=== PATIENT | male | born 1965 | race African-American/Black ===

== ENCOUNTER 2016-11-14 05:06 | Day surgery (SDC) | payer MEDICAID ==
[2016-11-13 12:19] LABS: HEMATOCRIT 42.8 % (42.0-54.0); HEMOGLOBIN 14.5 g/dL (13.5-17.5); MCH 25.4 pg (26.0-34.0); MCHC 33.9 g/dL (31.0-37.0); MCV 75.1 fL (80.0-100.0); MEAN PLATELET VOLUME 10.1 fL (7.4-10.4); RBC 5.7 10x6/uL (4.20-6.10); WBC 6.2 10x3/uL (4.8-10.8)
[2016-11-13 12:41] LABS: ANION GAP 14.2 mmol/L (8-16); CALCIUM 9.5 mg/dL (8.5-10.1); CARBON DIOXIDE 27.2 mmol/L (21.0-32.0); CREATININE - SERUM 2.9 mg/dL (0.6-1.3); POTASSIUM - SERUM 4.4 mmol/L (3.5-5.1)
[~2016-11-14] VITALS: Ht 175.3 cm; Wt 135.2 kg
[~2016-11-14 05:06] MED LIST: BAYER CHEWABLE81 MG PO; CARAFATE1 G PO; CELEXA20 MG PO; COREG 3.1253.125 MG PO; CYCLOBENZAPRINE10 MG PO; DESERYL100 MG PO; FLUTICASONE PRO16 GM NASAL; GLIPIZIDE10 MG PO; GLUCOPHAGE1000 MG PO; HCTZ25 MG PO; HYDROCODONE-APA1 TAB PO; HYZAAR 100-25 T1 TAB PO; JARDIANCE25 MG PO; LANTUS INSULIN10 ML SC; MOBIC7.5 MG PO; NEURONTIN 300300 MG PO; NITROSTAT0.4 MG SL; NORCO 7.5/325 T1 TA1 PO; PLAVIX75 MG PO; PRAVACHOL40 MG PO; ULTRAM50 MG PO; VICTOZA0.6 MG/0.1 SQ; VISTARIL25 MG PO; ZESTRIL40 MG PO; ZYLOPRIM300 MG PO
[2016-11-14 07:18] VITALS: BP 114/70; BMI 44.1
--- NOTE | 2016-11-14 08:03 | NUR ---
0740--FSBS 509. RESULTS CALLED TO DR STEVEN AND DR FERMIN, ORDER RECIEVED PER MAURIZIO FOR 10 UNITS REGULAR INSULIN IV. CRISTOBAL APARICIO 0757--CHEPE FROM LAB CALLS CRITICAL GLUCOSE OF 574, GLUCOSE OF [address] READ BACK AND VERIFIED. DR STEVEN ON UNIT, REPORT GIVEN OF PT'S GLUCOSE LEVEL. CRISTOBAL APARICIO
--- NOTE | 2016-11-14 08:15 | NUR ---
0810--10 UNITS REGULAR INSULIN GIVEN IV, VERIFIED AND CO-SIGNED BY WONG MCKINLEY RN. CRISTOBAL APARICIO
--- NOTE | 2016-11-14 08:26 | NUR ---
0806--DR PRATER CALLED AND REPORT GIVEN OF PT'S GLUCOSE LEVEL, DR PRATER DEFERS TREATMENT TO DR STEVEN AND DR FERMIN. CRISTOBAL RN
--- NOTE | 2016-11-14 08:49 | NUR ---
0845--FSBS COMPLETE, BS 420. LAB TO REPEAT. DR STEVEN NOTIFIED, ORDERS RECIEVED. CRISTOBAL RN
--- NOTE | 2016-11-14 09:15 | NUR ---
0903--10 UNITS REGULAR INSULIN REPEATED PER DR STEVEN'S ORDERS, WILL CONTINUE TO MONITOR. CRISTOBAL APARICIO
--- NOTE | 2016-11-14 10:37 | NUR ---
FSBS DOWN TO 214 AFTER 30 UNITS REGULAR INSULIN IV. OK FOR SURGERY PER DR MALLORY. DALJIT RENEE NOTIFIED
--- NOTE | 2016-11-14 12:00 | NUR ---
fsbs 128 at this time. DENIES ANY S/S. ANESTHESIA HERE FOR PRE-OP
--- NOTE | 2016-11-14 14:52 | NUR ---
1400: PT STATED TAHT THERE WAS NO FAMILY CURRENTLY HERE THAT HIS SISTER WAS COMING TO THE HOSPITAL IN A LITTLE BIT
--- NOTE | 2016-11-14 16:17 | NUR ---
IN PACU PT STATED WAS NOT IN PAIN. INFORMED PT TO LET ME KNOW IF THIS CHANGES AND CAN GIVE MEDICATIONS. ASKED PT NUMEROUS TIMES ABOUT PAIN AND PT STILL STATED NONE. WHEN TRANSPORTED PT AND PT MOVED TO BED PT THEN STATED A PAIN OF A 10 ON NUMERICAL SCALE. DENISE APARICIO ASKED IF THERE WAS ANYTING I COULD GIVE THE PT "I DONT HAVE ORDERS FOR ANYTHING THAT WILL TOUCH A 10." INFORMED HER THAT I COULD GIVE 0.5MG OF DILAUDID THAT WE HAD ORDERED FOR PACU BUT COULD NOT STAY WITH PT AFTERWARDS DUE TO SURGERIES AND STAFFING. SHE STATED THAT IT WAS OK AND ASSUMED CARE OF THE PT AFTER 0.5MG OF MORPHINE WAS GIVEN. INFORMED DALJIT OF THE SITUATION.
--- NOTE | 2016-11-14 21:02 | NUR ---
2100 REPORT TO MS KENDALL APARICIO
--- NOTE | 2016-11-14 21:23 | NUR ---
REC'D TO FLOOR VIA W/C TRANSPORT FROM OUTPATIENT. PT CURRENTLY TEARFUL AND MOANING, STATING THAT HIS ABD IS "KILLING HIM." PAIN 10/10, CONSTANT, SHARP, SHOOTING, STABBING, AND ACHING PAIN. INSTRUCTED PT ON SPLINTING PRIOR TO TRANSFERRING FROM W/C TO BED, DEMONSTRATED UNDERSTANDING. VSS AT THIS TIME. PT STATES THAT HE IS BELCHING BUT HAS BEEN UNABLE TO PASS FLATUS SINCE PROCEDURE. ADMISSION ASSESSMENT COMPLETED, BOWEL SOUNDS HYPOACTIVE X4 QUADS, SOFT, NONDISTENDED. 2 BANDAIDS AND 1 STERISTRIP PRESENT TO MIDLINE AND RUQ OF ABD AND 1 LARGE BANDAID PRESENT TO UMBILICUS, ALL CLEAN, DRY, AND INTACT. STATES THAT HE IS "QUEASY" CURRENTLY BUT DOESN'T FEEL THE NEED TO VOMIT. PT STATES THAT HE IS VOIDING WITHOUT COMPLICATIONS. ORIENTED TO ROOM, CL USE, SIDE RAILS USE TO ADJUST BED, VERBALIZED UNDERSTANDING. BED IN LOW POSITION, CL/PHONE WITHIN REACH. UPPER SIDE RAILS RAISED X2. ICE WATER AND SUGAR FREE JELLO GIVEN PER PT REQUEST AND ORDERS.
--- NOTE | 2016-11-14 21:27 | NUR ---
GLORY HOLE TENDER INITIATED. INSTRUCTED PT ON GLORY HOLE TENDER USE AND MEDICATION SIDE EFFECTS. VERBALIZED UNDERSTANDING. EMPHASIS PLACED ON USING CL FOR SAFETY PRECAUTIONS WHEN GETTING OOB, VERBALIZED UNDSTANDING. CL PLACED ON BEDSIDE TABLE WITHIN PATIENTS REACH. PAIN REMAINS 10/10.
[2016-11-14 21:52] VITALS: BP 124/74; BMI 44.1
--- NOTE | 2016-11-14 22:01 | NUR ---
PT STATES THAT HE HAS BELCHED "A COUPLE MORE TIMES." PAIN REASSESSMENT FROM TRIPLE AIR VALVE TESTER INITIATION 07/21.
--- NOTE | 2016-11-14 22:11 | NUR ---
PT RESTING WITH EYES CLOSED UPON RN ENTERING ROOM. OPENED EYES. STATES THAT HE WAS ABLE TO PASS FLATUS "A FEW MINUTES AGO." PAIN NOW 5/10. ICE PACK GIVEN PER PT REQUEST TO ABD INCISIONS. VERBALIZED RELIEF. WILL CONT TO MONITOR
--- NOTE | 2016-11-14 23:39 | NUR ---
GOWN CHANGED. PATIENT STATES HE FEELS MUCH BETTER AFTER HAVING PASSED "GAS."
--- NOTE | 2016-11-15 01:30 | NUR ---
EYES CLOSED. LEFT UNDISTURBED.
--- NOTE | 2016-11-15 05:38 | NUR ---
SLEPT FAIRLY WELL DURING THE NIGHT. ANTICIPATES DISCHARGE TODAY.
--- NOTE | 2016-11-15 06:44 | NUR ---
FSBS 328mg/dl AC
--- NOTE | 2016-11-15 07:17 | NUR ---
REGULAR INSULIN 12 UNITS GIVEN PER SLIDING SCALE.
[2016-11-15 07:30] VITALS: BP 120/73
--- NOTE | 2016-11-15 07:30 | NUR ---
PT RECEIVED LYING IN BED. AAO X4. REQUESTED WET RAG TO WASH FACE. HEART RHYTHM REGULAR, BILATERAL LUNG SOUNDS CLEAR. ABDOMEN SOFT, 4 SMALL LAPAROSCOPIC INCISIONS NOTED TO UPPER ABDOMEN, ONE LAPAROSCOPIC INCISION NOTED TO UMBILICUS, CLEAN, DRY, AND INTACT. BOWEL SOUNDS ACTIVE X4 QUADRENTS. IV TO LEFT HAND, PATENT NO REDNESS OR SWELLING NOTED. CLEAN, DRY, AND INTACT. SRU X2, CALL LIGHT AND PHONE WITHIN REACH. BED IN LOWEST POSITION. PT STATES NO NEEDS AT THIS TIME.
--- NOTE | 2016-11-15 07:40 | NUR ---
PT WAS RECEIVED WITH URI VELASQUEZ RN WHO IS ORIENTING TO [facility]. PT WAS LYING IN BED. STATES THAT HE FEELS BETTER THIS AM. HE HAS ABDOMINAL INCISIONS ON UPPER ABDOMEN WHICH ARE SMALL LAPAROSCOPIC INCISIONS AND ONE INCISION AT UMBILICUS. PAIN APPEARS TO BE UNDER CONTROL WITH BATON TEACHER PAIN MANAGEMENT. IV PATENT LEFT HAND. BED IS LOW. CALL LIGHT IN REACH AND SIDE RAILS UP X 2.
--- NOTE | 2016-11-15 09:29 | NUR ---
PT REQUESTED ICE WATER AND FOOD TRAY REMOVAL. STATES NO OTHER NEEDS. BED IN LOWEST POSITION, PHONE AND CALL LIGHT WITHIN REACH, SRU X2.
--- NOTE | 2016-11-15 11:02 | NUR ---
PT REQUESTED ICE WATER. STATES NO FURTHER NEEDS. BED IN LOWEST POSITION. PHONE AND CALL LIGHT WITHIN REACH. SRU X2.
[2016-11-15 11:12] VITALS: Ht 175.3 cm; Wt 135.2 kg
--- NOTE | 2016-11-15 11:38 | NUR ---
PT REQUESTED ICE WATER. BLOOD SUGAR ASSESSED. IV FLUIDS INFUSING, MARINE FIRE FIGHTER IN USE, DENIES UNCONTROLLED PAIN; HAS SORENESS. PT UP AMBULATING AROUND ROOM PER STATEMENT. DENIES NEEDS. BED IN LOWEST POSITION. PHONE AND CALL LIGHT WITHIN REACH. SRU X2.
--- NOTE | 2016-11-15 12:03 | NUR ---
BLOOD SUGAR 283. ADMINISTERED 10 UNITS INSULIN TO LEFT ARM. PT TOLERATED WELL. DENIES NEEDS. BED IN LOWEST POSITION. PHONE AND CALL LIGHT WITHIN REACH. SRU X2.
--- NOTE | 2016-11-15 12:05 | NUR ---
REGULAR DIABETIC DIET ORDERED.
--- NOTE | 2016-11-15 13:30 | NUR ---
PATIENT AMBULATED IN THE HALLWAY TO THE NURSERY WINDOWS TO VIEW THE BABIES. HE WAS WITHOUT DIZZINESS AND DENIED NAUSEA. HE HAD A REGULAR DIET FOR LUNCH. NO INCREASED PAIN.
--- NOTE | 2016-11-15 15:35 | NUR ---
PT WAS DISCHARGED HOME. DISCHARGE INSTRUCTIONS WERE GIVEN, FOLLOW UP APPT WITH DR FERMIN AND PRESCRIPTIONS. PT TAKEN BY WHEELCHAIR TO HIS SISTER'S VEHICLE WAITNG AT FRONT ENTRANCE FOR HIM.
--- NOTE | 2017-01-09 10:17 | HP ---
PATIENT: TOAN LOZADA MEDICAL RECORD: [id number] ACCOUNT: [id number] LOCATION:[facility] : 69 ADMISSION DATE: 11/14/16 HISTORY AND PHYSICAL EXAMINATION CHIEF COMPLAINT: Pain. HISTORY OF PRESENT ILLNESS: The patient has been having pain and nausea. He has had a positive PIPIDA scan. The patient has biliary dyskinesia. He is to undergo laparoscopic cholecystectomy, intraoperative cholangiography, and possible liver biopsy. The risks, possible complications and alternatives to procedure were explained to the patient. He elects to proceed. REVIEW OF SYSTEMS: Negative for CVA or seizures. Negative for thyroid problems. ALLERGIES: PENICILLIN WELL TETRACYCLINE. HOME MEDICATIONS: Include insulin, Flexeril, Plavix, Hyzaar, Coreg, nitroglycerin, Glucophage and Pravachol. PAST MEDICAL AND SURGICAL HISTORY: Coronary artery disease, hypertension, insulin-dependent diabetes mellitus, hyperlipidemia, history of coronary stents times 3, History of 2 myocardial infarctions, sleep apnea, he is on CPAP and arthritis. PHYSICAL EXAMINATION: GENERAL: The patient does not appear acutely ill. He does appear chronically ill. VITAL SIGNS: Reviewed. HEAD: External ears appear normal. EYES: Extraocular movements are intact. NECK: Trachea is midline. CHEST: No intercostal retractions. PULMONARY: Nonlabored, no stridor. ABDOMEN: Nontender. EXTREMITIES: No peripheral cyanosis. INTEGUMENT: No rash, no ulcerations. PSYCHIATRIC: Normal affect. IMPRESSION: Biliary dyskinesia. PLAN: As described above. TRANSINT:[id number] Voice Confirmation ID: [id number] DOCUMENT ID: [id number] HISTORY AND PHYSICAL [id number] TOAN LOZADA ROBERT MD at 1017 CC: DANNY PRATER DO [id number] DICTATION DATE: 11/14/16 1546 PRESCRIPTIONIST: 11/14/16 2036 [facility] 11/15/16 [id number] [place] [address]
--- NOTE | 2017-01-09 10:17 | OP ---
PATIENT NAME: TOAN LOZADA MEDICAL RECORD: [id number] :69 LOCATION:[facility] ADMISSION DATE: SURGEON: YUNIOR FERMIN MD DATE OF OPERATION: 11/14/2016 PREOPERATIVE DIAGNOSIS: Biliary dyskinesia. POSTOPERATIVE DIAGNOSIS: Biliary dyskinesia with hepatomegaly. PROCEDURE: 1. Laparoscopic cholecystectomy. 2. Intraoperative cholangiography without immediate surgeon interpretation. 3. An 18-gauge core needle liver biopsy. SURGEON: Yunior Fermin MD PLANT SUPERVISOR: None. BLOOD LOSS: Minimal. ANESTHESIA: General. COMPLICATIONS: None. The risks, possible complications and alternatives to procedure were explained to the patient. He elects to proceed. The discussion specifically included, but was not limited to, bleeding requiring emergency reoperation, infection, common ductal injury and an open procedure. OPERATIVE COURSE: The patient was conveyed to the operating room electively on 11/14/2016. General anesthesia was induced by the anesthesia staff. The abdomen was sterilely prepped and draped. A small skin estephania was accomplished in the left upper quadrant. A Veress needle was inserted through the skin estephania into the peritoneal cavity. CO2 insufflation was begun. Once a sufficient pneumoperitoneum had been achieved, a 5-mm trocar was inserted through an incision in the right upper quadrant. Under direct internal vision utilizing a television camera, a 12-mm trocar was inserted through an incision at the umbilicus. Another 5-mm trocar was inserted through an incision in the epigastrium. Another 5-mm trocar was inserted through an incision far laterally in the right upper quadrant. During insertion of the Veress needle and all trocars, there appeared to have been no injury to the bowels, any intraperitoneal or retroperitoneal structures. The indication for a liver biopsy was hepatomegaly. Under laparoscopic guidance, I percutaneously accessed the right upper quadrant utilizing an 18-gauge core needle liver biopsy device. Cores were obtained over the convexity of the liver. The biopsy sites were made hemostatic with electrocautery. I then grasped the gallbladder. I advanced a cholangiogram trocar. I punctured the fundus of the gallbladder. I aspirated bile. I then injected dye. The contrast dye was seen and several cholangiographic images were obtained. These were sent to the radiologist for interpretation. I aspirated bile and dye, and removed the cholangiogram trocar. The gallbladder was grasped and retracted cephalad. The infundibulum was grasped and retracted laterally. Blunt dissection was begun in the triangle of Calot. One cystic OPERATIVE REPORT [id number] TOAN LOZADA L artery and 1 cystic duct were identified. These were clipped multiply and divided between clips. The gallbladder was then excised from its bed in the liver. It was withdrawn through the umbilical fascia defect. The 12-mm trocar was replaced and the abdomen reinsufflated. I irrigated and aspirated in the right upper quadrant. There was no bleeding at a low pressure of 8. Satish was added to the gallbladder fossa for additional hemostasis. The 12-mm trocar was removed. Utilizing the Rich-Haseeb suture closure device and a 0 Vicryl suture, the umbilical fascia was closed. All the trocars were removed and the abdomen desufflated. The skin at the umbilicus was closed with interrupted 4-0 Vicryl Rapide sutures. The other skin incisions were closed with interrupted 3-0 Vicryls. Benzoin and Steri-Strips were applied. The patient was then extubated and conveyed to post-anesthesia care unit where he was in stable condition. TRANSINT:[id number] Voice Confirmation ID: [id number] DOCUMENT ID: [id number] YUNIOR FERMIN MD at 1017 CC: DANNY PRATER DO [id number] DICTATION DATE: 11/14/16 1543 MACHINE PAINT MIXER: 11/14/16 2320 [facility] 11/15/16 [facility] [address] [place] [address]
== END 2016-11-15 15:30 | disposition home or self-care (01) ==
LOC: D.OPS 05:06 → D.WS 05:06 → D.PAN 08:00 → D.OPS 08:00 → D.WS 21:05 → D.OPS 11-15 15:30
PROVIDERS: Anesthesiology
DX: K81.1 Chronic cholecystitis (principal); K76.0 Fatty (change of) liver, not elsewhere classified; I25.10 Atherosclerotic heart disease of native coronary artery without angina pectoris; Z95.5 Presence of coronary angioplasty implant and graft; I25.2 Old myocardial infarction; I10 Essential (primary) hypertension; E11.9 Type 2 diabetes mellitus without complications; Z79.4 Long term (current) use of insulin; E78.5 Hyperlipidemia, unspecified; G47.30 Sleep apnea, unspecified; M19.90 Unspecified osteoarthritis, unspecified site; Z88.0 Allergy status to penicillin; Z88.1 Allergy status to other antibiotic agents

== ENCOUNTER → 2016-12-19 07:49 | Outpatient (CLI) | payer MEDICAID ==
[2016-11-15 11:12] VITALS: BMI 44.0
== END | disposition home or self-care (01) ==
LOC: D.US 07:49
DX: R10.32 Left lower quadrant pain (principal)

== ENCOUNTER 2017-02-04 07:49 | Outpatient (CLI) | payer MEDICAID ==
[~2017-02-04] VITALS: Ht 175.3 cm; Wt 130.0 kg
--- NOTE | ~2017-02-04 | HEMODYNAMI ---
PATIENT:TOAN LOZADA MEDICAL RECORD: [id number] : 69 LOCATION:[facility] ADMISSION DATE: 02/04/17 Generatedon:02/04/201710:57 Patient name: TOAN LOZADA Patient #: [id number] SSN: [id number] : 1965 Date of study: 02/04/2017 Page: Of Hemodynamic Procedure Report Patient Data Patient Demographics Procedure consent was obtained First Name: TOAN Gender: Male Last Name: NEVILLE : 1965 [facility] Initial: L Age: 51 year(s) Patient #: [id number] Race: Black SSN: [id number] Additional ID: [id number] Contact details Address: [address] [place] [address] State: [place] City: [facility] Zip code: [address] Past Medical History Allergies Allergen Reaction Date Comments Reported Other allergy 07/27/2015 penicillin, tetracycline Other allergy 02/04/2017 PCN, Tetracycline Admission Admission Data Admission Date: 02/04/2017 Admission Time: 7:49 Arrival Date: 02/04/2017 Arrival Time: 11:00 Admit Source: Other Insurance Payor: Private health insurance Lab Results Lab Result Date: 02/04/2017 Lab Result Time: 0:00 Biochemistry Name Units Result Min Max BUN mg/dl 19 --(----)*- 7 18 Creatinine mg/dl 1.3 --(---*)-- 0.6 1.3 CBC Name Units Result Min Max Hemoglobin g/dl 14.4 --(*---)-- 13.5 17.5 Procedure Procedure Types Cath Procedure Diagnostic Procedure C [facility] w/Coronaries PCI Procedure Coronary Stent Initial Miscellaneous Procedures Moderate Sedation up to 15 minutes Procedure Description Procedure Date Procedure Date: 02/04/2017 Procedure Start Time: 10:41 Procedure End Time: 10:55 Procedure Staff Name Function Jairo Almonte MD Ordering physician Jimbo Neves MD Performing Physician Keira Polk RT Scrub Emilee Tovar RN Nurse Rochelle Reid RT Monitor Procedure Data Cath Procedure Fluoroscopy Diagnostic fluoroscopy Total fluoroscopy Time: 3.4 time: 3.4 min min Diagnostic fluoroscopy Total fluoroscopy dose: 335 dose: 335 mGy mGy Contrast Material Contrast Material Type Amount (ml) Isovue 300 75 Entry Location Entry Primary Successful Side Size Upsize Upsize Entry Closure Henson ccessful Closure Location (Fr) 1 (Fr) 2 (Fr) Remarks Device Remarks Radial Right 6 Fr Mechanical TR band artery Short Compression L Estimated blood loss: 10 ml Diagnostic catheters Device Type Used For End Catheter Placement Terumo 5Fr Harts 110cm Procedure catheter Procedure Complications No complications Procedure Medications Medication Administration Route Dosage Oxygen NC 2 l/min Lidocaine 2% added to field 20 Heparin Flush Bag added to field 2 bags (1000units/500ml NS) 0.9% NaCl I.V. 100 ml/hr Benadryl I.V. 50 mg Versed I.V. 1 mg Fentanyl I.V. 50 mcg Radial Cocktail I.A. 1 syringe (Verapomil 2mg/Nitro 400mcg/Heparin 1500units) Versed I.V. 1 mg Fentanyl I.V. 50 mcg Heparin Bolus I.V. 4000 units Versed I.V. 0.5 mg Fentanyl I.V. 25 mcg Plavix P.O. 75 mg Hemodynamics Rest HGB: 14.4 (g/dl) Heart Rate: 105 (bpm) Snapshots Pre Cath Intra NCS Post Cath Vital Signs Time Heart Resp SPO2 NIBP (mmHg) Rhythm Pain Sedation Rate (ipm) (%) Status Level (bpm) 10:31:41 103 18 93 147/97(116) NSR 0 (11) 10(A) , No pain 10:35:59 101 16 96 133/92(118) NSR 0 (11) 10(A) , No pain 10:40:17 106 16 92 135/92(103) NSR 0 (11) 10(A) , No pain 10:44:36 115 14 92 112/76(94) NSR 0 (11) 9(A) , No pain 10:48:49 107 15 91 135/77(94) NSR 0 (11) 9(A) , No pain 10:53:10 108 20 93 126/80(105) NSR 0 (11) 10(A) , No pain Medications Time Medication Route Dose Verified Delivered Reason Note s Effectiveness by by 10:37:42 Oxygen NC 2 l/min Jimboelvis Hebertie used for Pura Tovar RN procedure 10:37:48 Lidocaine 2% added 20ml Jimbo Choi for local to vial Pura Neves MD anesthetic field 10:37:54 Heparin Flush added 2 bags Jimbo Choi used for Bag to Pura Neves MD procedure (1000units/500ml field NS) 10:38:04 0.9% NaCl I.V. 100 Jimbo Buffie Per physician ml/hr Pura Tovar RN 10:38:22 Benadryl I.V. 50 mg Jimbo Hebert used for Pura Tovar RN procedure 10:39:32 Versed I.V. 1 mg Jimbo Hebertie for sedation Pura Tovar RN 10:41:44 Fentanyl I.V. 50 mcg Jimbo Hebert for sedation Pura Tovar RN 10:42:51 Radial Cocktail I.A. 1 Jimbo Choi for (Verapomil syringe Pura Neves MD vasodilation 2mg/Nitro 400mcg/Heparin 1500units) 10:43:04 Versed I.V. 1 mg Jimbo Hebert for sedation Pura Tovar RN 10:43:16 Fentanyl I.V. 50 mcg Jimbo Hebert for sedation Pura Tovar RN 10:47:53 Heparin Bolus I.V. 4000 Jimbo Hebertie for VERI FIED units Pura Tovar RN anticoagulation WITH DR NEVES 10:52:52 Versed I.V. 0.5 mg Jimbo Hebert for sedation Pura Tovar RN 10:52:56 Fentanyl I.V. 25 mcg Jimbo Hebert for sedation Pura Tovar RN 10:56:51 Plavix P.O. 75 mg Jimbo Hebert for Pura Tovar RN antiplatelet therapy Procedure Log Time Note 10:17:54 Informed consent obtained and on chart 10:18:18 Admit Source: Other 10:18:30 Arrival Date: 02/04/2017 11:00:00 AM 10:18:46 Insurance Payor : Private health insurance 10:20:44 Lab Result : Hemoglobin 14.4 g/dl 10:20:44 Lab Result : Creatinine 1.3 mg/dl 10:20:44 Lab Result : BUN 19 mg/dl 10:21:13 Diagnostic Cath Status : Elective 10:21:43 Emilee Tovar RN sent for patient. Start room use. 10:22:02 Time tracking: Regular hours 10:22:09 Plan of Care:Hemodynamics will remain stable., Cardiac rhythm will remain stable., Comfort level will be maintained., Respiratory function will remain adequate., Patient/ family verbilizes understanding of procedure., Procedure tolerated without complication., Recovers from procedure without complications.. 10:22:17 Patient received from Outpatients to [facility] 3 Alert and oriented. Tansferred to table in Supine position. 10:22:18 Warm blankets applied, and anastasiya hugger turned on for patient comfort. 10:22:19 Correct patient and procedure confirmed by team. 10:23:16 H&P Date Dictated: 02/02/2017 Within 30 days and on chart., H&P Addendum completed by physician on day of procedure. (MUST COMPLETE FOR ALL OUTPATIENTS). 10:23:17 Pre-procedure instructions explained to patient. 10:23:20 Family in waiting room. 10:23:22 Patient NPO since Midnight. 10:30:28 ECG and BP/O2 sat monitors applied to patient. 10:30:29 Vital chart was started 10:30:30 Baseline sample Acquired. 10:30:37 Rhythm: sinus tachycardia 10:30:38 Full Disclosure recording started 10:31:03 Patient allergic to Other allergyPCN, Tetracycline 10:31:06 Is the patient allergic to Iodine/contrast media? No. 10:31:08 Is patient on blood thinner?Yes 10:31:20 ACC The patient was administered the following blood thiners within the last 24 hours: ACCPlavix 10:31:23 Patient diabetic? Yes. 10:31:25 If diabetic: On Metformin? No 10:31:29 Snore? Unknown 10:31:35 Sleep apnea? Yes 10:31:40 Sticks out tongue? Yes 10:31:48 Patient pain scale 0/10 ?. 10:31:57 IV patent on arrival in left forearm with 0.9% NaCl at KVO. 10:32:06 Lab results completed and on chart. 10:32:11 Right Radial & Right Groin area was prepped with chlora-prep and draped in sterile fashion 10:32:14 Alarms reviewed by R. N. 10:32:15 Sharps counted by scrub and verified by R.N. 10:32:17 Physician paged 10:34:49 Physician arrived 10:37:42 Oxygen 2 l/min NC was administered by Emilee Tovar RN; used for procedure; 10:37:48 Lidocaine 2% 20ml vial added to field was administered by Jimbo Neves MD; for local anesthetic; 10:37:54 Heparin Flush Bag (1000units/500ml NS) 2 bags added to field was administered by Jimbo Neves MD; used for procedure; 10:38:04 0.9% NaCl 100 ml/hr I.V. was administered by Emilee Tovar RN; Per physician; 10:38:22 Benadryl 50 mg I.V. was administered by Emilee Tovar RN; used for procedure; :38:41 --------ALL STOP TIME OUT------ 10:38:41 Final Timeout: patient, procedure, and site verified with staff and physician. All members of the team are in agreement. 10:38:44 Right Radial & Right Groin site verified by team. 10:38:48 Physical assessment completed. ASA score P 2 - A patient with mild systemic disease as per Jimbo Neves MD. 10:38:52 Sedation plan: IV Moderate Sedation Versed, Fentanyl 10:39:32 Versed 1 mg I.V. was administered by Emilee Tovar RN; for sedation; 10:40:46 Zero performed for pressure channel P1 10:40:55 Zero performed for pressure channel P1 10:41:01 Zero performed for pressure channel P1 10:41:23 Use device set Radial Dx 10:41:28 Procedure started. 10:41:39 Local anesthetic to right radial artery with Lidocaine 2% by Jimbo Neves MD.INITIAL ACCESS ONLY 10:41:44 Fentanyl 50 mcg I.V. was administered by Emilee Tovar RN; for sedation; 10:42:14 Acist Syringe opened to sterile field. 10:42:15 Medline Cath Pack opened to sterile field. 10:42:15 Bag Decanter opened to sterile field. 10:42:15 Terumo 6Fr Slender Glidesheath opened to sterile field. 10:42:17 St Pratik 260cm J .035 wire opened to sterile field. 10:42:17 Acist Hand Control opened to sterile field. 10:42:18 Acist Manifold opened to sterile field. 10:42:18 Tegaderm 4 x 4 opened to sterile field. 10:42:19 MBrace Wrist Support opened to sterile field. 10:42:31 A 6 Fr Short sheath was inserted into the Right Radial artery 10:42:51 Radial Cocktail (Verapomil 2mg/Nitro 400mcg/Heparin 1500units) 1 syringe I.A. was administered by Jibmo Neves MD; for vasodilation; 10:43:04 Versed 1 mg I.V. was administered by Emilee Tovar RN; for sedation; 10:43:07 A Terumo 5Fr Harts 110cm catheter was advanced over the wire and used for Procedure. 10:43:16 Fentanyl 50 mcg I.V. was administered by Emilee Tovar RN; for sedation; 10:43:25 LV gram done using OLVERA 10:43:35 EF : 60 % 10:43:58 RCA angiography performed. 10:47:05 Cordis 6FR XBLAD 3.5 guide catheter opened to sterile field. 10:47:15 LCA angiography performed. 10:47:53 Heparin Bolus 4000 units I.V. was administered by Emilee Tovar RN; for anticoagulation; VERIFIED WITH DR NEVES 10:48:03 Escalera Whisper J 300cm 0.014 guide wire opened to sterile field. 10:48:04 cocone BasixCompak Inflation Kit opened to sterile field. 10:48:15 Proceeding to intervention. 10:48:43 whisper wire advanced. 10:50:01 Inflation Number: 1 A Medtronic Integrity 3.0 X 12 stent was prepped and advanced across the Mid LAD. The stent was deployed at 13 OZIEL for 0:10 (min:sec). 10:52:13 Wire removed. 10:52:14 Guide catheter removed. 10:52:25 Terumo TR Band Large opened to sterile field. 10:52:45 Sheath removed intact; hemostasis achieved with Mechanical Compression to the Right Radial artery. 10:52:48 Procedure ended.(Physican Out) 10:52:52 Versed 0.5 mg I.V. was administered by Emilee Tovar RN; for sedation; 10:52:56 Fentanyl 25 mcg I.V. was administered by Emilee Tovar RN; for sedation; 10:53:04 Fluoroscopy time 03.40 minutes. 10:53:09 Fluoroscopy dose: 335 mGy 10:53:09 Flurop Dose total: 335 10:53:17 Contrast amount:Isovue 300 75ml. 10:53:19 Sharps counted by scrub and verified by R.N. 10:53:24 TR band inflated with 10cc of air. 10:53:27 Insertion/operative site no bleeding no hematoma. 10:53:32 Post Procedure Pulses reassessed and unchanged 10:53:37 Post procedure rhythm: unchanged. 10:53:41 Estimated blood loss: 10 ml 10:53:43 Post procedure instruction explained to patient.Patient verbalizes understanding. 10:53:57 Procedure type changed to Cath procedure, Diagnostic procedure, LHC, LHC w/Coronaries, PCI procedure, Coronary Stent Initial, Miscellaneous Procedures, Moderate Sedation up to 15 minutes 10:53:59 Procedure and supply charges have been captured, reviewed, submitted and are correct. 10:54:23 Procedure Complication : No complications 10:54:26 Vital chart was stopped 10:54:29 See physician's report for complete and final results. 10:55:27 Report given to Pre/Post Procedure Room. 10:55:44 Patient transfered to Pre/Post Procedure Room with Stretcher. 10:55:55 Procedure ended. 10:55:55 Full Disclosure recording stopped 10:56:02 End room use (Document Last) 10:56:51 Plavix 75 mg P.O. was administered by Emilee Tovar RN; for antiplatelet therapy; Intervention Summary Intervention Notes Time ActionType Lesion and Equipment Action# Pressure Duration Attributes Used 10:50:01 Place stent Mid LAD Medtronic 1 13 00:10 Integrity 3.0 X 12 stent Device Usage Item Name Manufacture Quantity Catalog Hospital Part Current Minimal Lot# / Number Charge Number Stock Stock Serial# Code [facility] 1 [id number] 003533 192418 20 Syringe Medical Systems Inc Medline Cardinal 1 [id number] 450593 17961 942570 5 Cath Pack Health Bag Microtek 1 2001S 391547 19470 445389 5 Sagacity Media Inc. Terumo 6Fr Terumo 1 [id number] 398577 159761 846093 [address] Pratik 1 338010 116962 070421 509228 30 260cm J .035 wire Acist Hand Acist 1 06757 645720 139667 039257 5 Control Medical Systems Inc Acist Acist 1 56775 069291 960752 300228 5 Manifold Medical Systems Inc Tegaderm 4 3M 1 1626W 109727 933194 639316 5 x 4 MBrace Advanced 1 140-0250-00 697313 98565 906217 5 Wrist Vascular Support Dynamics Terumo 5Fr Terumo 1 40-2253 286836 428000 304992 5 Harts 110cm catheter Cordis 6FR Cardinal 1 [id number] 547760 451560 111688 10 XBLAD 3.5 Health guide catheter Escalera Escalera 1 [id number] 013081 071236 525776 5 Whisper J Vascular 300cm 0.014 guide wire [employer]ency Meridian Merit 1 [id number] 394894 832418 093005 15 BasixCompak Medical Inflation Kit Medtronic Medtronic 1 [id number] 425988 688487 781536 1 [id number] Integrity 3.0 X 12 stent Terumo TR Terumo 1 [id number] 844004 864864 134672 40 Band Large Signature Audit [place] Stage Time Signature Unsigned Intra-Procedure 02/04/2017 Rochelle Reid 10:57:40 AM RT(R) Signatures Monitor : Rochelle Reid Signature : RT Date : Time : [place] [address] [place] [address]
[2017-02-04 08:28] VITALS: BP 147/90; Ht 175.3 cm; Wt 130.0 kg
[2017-02-04 09:09] LABS: BASOPHILS 0.4 % (0.0-2.0); EOSINOPHILS 1.6 % (0-7); HEMATOCRIT 43.8 % (42.0-54.0); HEMOGLOBIN 14.4 g/dL (13.5-17.5); IMMATURE GRANULOCYTES 0.1 % (0-5); LYMPHOCYTES 47.7 % (15-50); MCH 25.2 pg (26.0-34.0); MCHC 32.9 g/dL (31.0-37.0); MCV 76.6 fL (80.0-100.0); MEAN PLATELET VOLUME 10.7 fL (7.4-10.4); MONOCYTES 10.6 % (2-11); NEUTROPHILS 39.6 % (40-80); PLATELET COUNT 267 10x3/uL (130-400); RBC 5.72 10x6/uL (4.20-6.10); RDW 13.9 % (11.5-14.5); WBC 6.8 10x3/uL (4.8-10.8)
[2017-02-04 09:27] LABS: CALCIUM 9.5 mg/dL (8.5-10.1); CARBON DIOXIDE 25.9 mmol/L (21.0-32.0); CREATININE - SERUM 1.3 mg/dL (0.6-1.3)
[2017-02-04 09:30] LABS: ANION GAP 14.1 mmol/L (8-16)
--- NOTE | 2017-02-04 11:25 | NUR ---
1120 SITTING UP IN BED, ALL VITALS WNL. ROOM AIR WITH NO RESP DISTRESS. EATING SANDWICH AND DRINKING SODA W NO NAUSEA.
--- NOTE | 2017-02-04 15:09 | NUR ---
1150 SITTING UP, ALL VITALS WNL. R WRIST TR BAND C/D/I WITH NO HEMATOMA OR BLEEDING. 1230 SLEEPING, HEAD ELEVATED. ALL VITALS WNL. R WRIST TR BAND REMAINS/ C/D/I. VOIDED 800CC VIA URINAL. 1330 R WRIST TR BAND C/D/I WITH NO HEMATOMA OR BLEEDING 1430 PIV REMOVED FROM L WRIST WITH BANDAID APPLIED. 4CC AIR REMOVED FROM R WRIST TR BAND. 1510 UP FROM BED TO DRESS.
--- NOTE | 2017-02-04 15:21 | NUR ---
TR BAND REMOVED, TEGADERM AND COTTON BALL APPLIED. BRACE REMAINS IN PLACE TO R HAND. D/C INSTRUCTIONS DISCUSSED WITH PATIENT. WHEELED OUT VIA WHEELCHAIR BY CATH TEAM.
--- NOTE | 2017-02-05 14:38 | HP ---
PATIENT: TOAN LOZADA MEDICAL RECORD: [id number] ACCOUNT: [id number] LOCATION:[place] : 69 ADMISSION DATE: 02/04/17 HISTORY AND PHYSICAL EXAMINATION DIAGNOSES: 1. Angina. 2. Abnormal nuclear stress tests. 3. Hypertension. 4. Hyperlipidemia. 5. Diabetes. HISTORY OF PRESENT ILLNESS: Mr. Lozada presents with angina since child. He is found to have significant perfusion defects anteriorly as well as inferiorly on the nuclear stress test. He is now brought for coronary angiography. PHYSICAL EXAMINATION: GENERAL APPEARANCE: Well-nourished, well-developed, appears stated age. Level of distress, comfortable. PSYCHIATRIC: Mental status, alert, normal affect. Orientation, oriented to time, place and person. EYES: Lids and conjunctiva, noninjected. No discharge, no pallor. ENT: Lips, teeth, gums, normal dentition. Oropharynx, no cyanosis, no pallor. NECK: Carotid arteries, bilateral normal upstroke, no bruits, no thrills. JUGULAR VEINS: No jugular venous pressure or distention. CERVICAL LYMPH NODES: Nontender, nonenlarged. THYROID: Not enlarged. Nontender. No nodules. LUNGS: Respiratory effort, unlabored. CHEST: Normal curvature. No thoracic deformity. No chest wall tenderness. Percussion, resonant. Auscultation, clear. No wheezes, no rales, no rhonchi. CARDIOVASCULAR: Precordial exam, nondisplaced. No heaves or pericardial thrills. Rate and rhythm, regular. Heart sounds, normal S1, normal S2. No S3, no gallop, no rub. Systolic murmur, not heard. Diastolic murmur, not heard. EXTREMITIES: No cyanosis, no edema. Peripheral pulses, full and equal in all extremities, except as noted. No bruits appreciated. ABDOMEN: Soft, nondistended. Normal aorta. No bruit. Nontender. No masses. Liver, nontender, no hepatomegaly. Spleen, nontender, no splenomegaly. MUSCULOSKELETAL: No joint tenderness. No joint swelling. No erythema. NEUROLOGICAL: Normal gait, normal strength, normal tone. SKIN: Warm and dry. REVIEW OF SYSTEMS: The patient reports easy bruising but reports no swollen glands. The patient reports no fever, no night sweats, no significant weight gain, no significant weight loss. No significant exercise tolerance. The patient reports no dry eyes, no irritation, no vision change. Patient reports no difficulty hearing and no ear pain. Patient reports no frequent nose bleeds or nose and sinus problems. Patient reports on arm pain on exertion. No shortness of breath while lying down. No history of heart murmur. Patient reports no cough, no wheezing or coughing up blood. Patient reports no abdominal pain, no vomiting. Normal appetite. No diarrhea and not vomiting blood. No nausea and no constipation. Patient reports no incontinence. No difficulty urinating. No hematuria. No increased frequency. Patient reports no muscle aches. No weakness, no arthralgias, no back pain. No swelling of the extremities. Patient reports no abnormal mole, no jaundice, no rashes. Reports no loss of consciousness. No weakness and no numbness. No seizures, dizziness, HISTORY AND PHYSICAL [id number] WILCHIE,TOAN L or headaches. The patient reports no depression, no sleep disturbance, feeling safe in a relationship and no alcohol abuse. Patient reports on fatigue. Reports no runny nose or sinus pressure. No itching, no hives, and no frequent sneezing. OVERALL IMPRESSION: Anginal symptomatology with abnormal nuclear stress test. He has a high likelihood of hemodynamically significant coronary artery disease. We will proceed with coronary angiography. Further care depends upon findings of the angiography. TRANSINT:[id number] Voice Confirmation ID: [id number] DOCUMENT ID: [id number] CAROLYN MANTILLA MD at 1438 CC: [id number] DICTATION DATE: 02/04/17940 CERTIFIED MEDICATION TECHNICIAN: 02/04/17 1040 DEP CLI 02/04/17 [place] [id number] [place] [id number]
--- NOTE | 2017-02-05 14:38 | OP ---
PATIENT NAME: TOAN LOZADA MEDICAL RECORD: [id number] :69 LOCATION:D.CAT ADMISSION DATE: SURGEON: CAROLYN MANTILLA MD DATE OF OPERATION: 02/04/2017 PROCEDURES: 1. PTCA stent of the LAD. 2. Left heart catheterization. 3. Selective coronary angiography. 4. Left ventriculogram. INDICATION: Angina and coronary artery disease. DESCRIPTION OF THE PROCEDURE: After informed consent was obtained and after detailed explanation of risks, benefits as well as alternative therapies, the patient elected to proceed with angiogram and angioplasty. The right radial area was prepped and draped in normal sterile fashion. The right radial artery was cannulated via modified Seldinger technique with placement of 6-Wolof sheath. All catheters exchanged through this sheath. FINDINGS: The left ventriculogram was performed in standard 30-degree OLVERA view, reveals good cardiac wall motion throughout all segments. Overall ejection fraction is 60%. SELECTIVE CORONARY ANGIOGRAPHY: 1. Left main showed no significant angiographic disease. 2. Left anterior descending has a 90% stenosis in the mid vessel. 3. The left circumflex has moderate irregularities, but no flow-limiting stenosis. 4. Right coronary artery has moderate irregularities, but no flow-limiting stenosis. PERCUTANEOUS TRANSLUMINAL CORONARY ANGIOPLASTY STENT OF THE LEFT ANTERIOR DESCENDING: Stent used is a 3.0 x 12 mm Integrity. Result was 0% residual stenosis. OVERALL IMPRESSION: Successful percutaneous transluminal coronary angioplasty stent of the left anterior descending going from 90% initial stenosis to 0% residual. TRANSINT:[id number] Voice Confirmation ID: [id number] DOCUMENT ID: [id number] CAROLYN MANTILLA MD at 1438 CC: [id number] DICTATION DATE: 02/04/17 1056 REFRACTORY TECHNICIAN: 02/04/17 1748 DEP CLI 02/04/17 [place] [address]
== END 2017-02-04 15:53 | disposition home or self-care (01) ==
LOC: D.CATH 07:49
PROVIDERS: Internal Medicine Interventional Cardiology
DX: I20.9 Angina pectoris, unspecified (principal); R94.39 Abnormal result of other cardiovascular function study; I10 Essential (primary) hypertension; E78.5 Hyperlipidemia, unspecified; E11.9 Type 2 diabetes mellitus without complications

== ENCOUNTER 2017-05-18 12:15 | Inpatient (IN) | payer SELFPAY ==
[~2017-05-18] VITALS: Ht 175.3 cm; Wt 124.3 kg
--- NOTE | ~2017-05-18 | OP ---
PATIENT NAME: TOAN LOZADA MEDICAL RECORD: [id number] :69 LOCATION:D.M2 D.2122 ADMISSION DATE:05/18/17 SURGEON: CAROLYN MANTILLA MD OPERATION DATE: 05/20/17 PROCEDURES: 1. Percutaneous transluminal coronary angioplasty stent left anterior descending. 2. Left heart catheterization. 3. Selective coronary angiography. 4. Left ventriculogram. INDICATION: 1. Unstable angina. 2. Coronary artery disease. PROCEDURE IN DETAIL: After informed consent was obtained and after detailed explanation of risks, benefits, as well as alternative therapies, the patient elected to proceed with angiogram and angioplasty. The right radial area was prepped and draped in a normal sterile fashion. The right radial artery was cannulated via modified Seldinger technique with placement of 6-Pashto sheath. All catheters exchanged through this sheath. FINDINGS: Left ventriculogram was performed in standard 30 degree OLVERA view, reveals good cardiac wall motion throughout all segments. Overall ejection fraction 60%. SELECTIVE CORONARY ANGIOGRAPHY: 1. Left main is with no significant angiographic disease. 2. Left anterior descending has 95% stenosis that is in-stent restenosis throughout the proximal vessel. 3. The left circumflex has mild irregularities but no flow-limiting stenosis. 4. The right coronary artery has a previously placed stent. This is widely patent with no significant restenosis and no disease elsewise of the right coronary artery or its branches. PTCA STENT OF THE LEFT ANTERIOR DESCENDING: The stents used were 3.5 X 34 and 3.5 X 18 both Austin stents. The result was 0% residual stenosis. OVERALL IMPRESSION: Successful percutaneous transluminal coronary angioplasty stent of the left anterior descending going from 95% initial stenosis to 0% residual stenosis. CAROLYN MANTILLA MD CC: [id number] DICTATION DATE: 05/20/17 1400 MEDICAL RECORD LIBRARIANS TEACHER: DM 05/21/17 1213 DIS IN 05/20/17 [place] [id number] [place] [id number]
--- NOTE | ~2017-05-18 | DS ---
PATIENT:TOAN LOZADA :69 MEDICAL RECORD: [id number] DISCHARGE SUMMARY ADMISSION DATE: 05/18/17 DISCHARGE DATE: 05/20/17 DISCHARGE SUMMARY PROBLEM LIST: 1. Unstable angina. 2. Coronary artery disease. 3. Percutaneous transluminal coronary angioplasty stent left anterior descending this admission. 4. Hypertension. 5. Hyperlipidemia. HOSPITAL COURSE: The patient presented with unstable anginal symptomatology. He was found to have critical disease of the left anterior descending. He underwent successful percutaneous transluminal coronary angioplasty stent of the left anterior descending with no further angina. Uneventful postoperative course. PLAN: He was discharged home with the addition of Plavix to his medical regimen. He will follow up with [facility] in one month. CAROLYN MANTILLA MD CC: [id number] DICTATION DATE: 05/20/17 1400 SUPERINTENDENT MEASUREMENT: BEAU 05/21/17 1229 DIS IN 05/20/17 [facility] [address] [place] [address]
--- NOTE | ~2017-05-18 | HEMODYNAMI ---
PATIENT:TOAN LOZADA MEDICAL RECORD: [id number] : 69 LOCATION:[facility] D.212[facility]# [id number] ADMISSION DATE: 05/18/17 Generatedon:05/20/201711:37 Patient name: TOAN LOZADA Patient #: [id number] SSN: [id number] : 1965 Date of study: 05/20/2017 Page: Of Hemodynamic Procedure Report Patient Data Patient Demographics Procedure consent was obtained First Name: TOAN Gender: Male Last Name: NEVILLE : 1965 Middle Initial: L Age: 51 year(s) Patient #: [id number] Race: Black SSN: [id number] Additional ID: [id number] Contact details Address: [address] [place] [address] [address] State: [place] City: [facility] Zip code: [address] Past Medical History Allergies Allergen Reaction Date Comments Reported Other allergy 07/27/2015 penicillin, tetracycline Other allergy 02/04/2017 PCN, Tetracycline Admission Admission Data Admission Date: 05/18/2017 Admission Time: 14:10 Admit Source: Other Room #: D.2122 Lab Results Lab Result Date: 05/19/2017 Lab Result Time: 5:10 Biochemistry Name Units Result Min Max BUN mg/dl 8 --(*---)-- 7 18 Creatinine mg/dl 1 --(--*-)-- 0.6 1.3 CBC Name Units Result Min Max Hematocrit % 41.4 -*(----)-- 42 54 Hemoglobin g/dl 13.7 --(*---)-- 13.5 17.5 Procedure Procedure Types Cath Procedure Diagnostic Procedure C [facility] w/Coronaries PCI Procedure Coronary Stent Initial Miscellaneous Procedures Moderate Sedation up to 30 minutes Procedure Description Procedure Date Procedure Date: 05/20/2017 Procedure Start Time: 11:12 Procedure End Time: 11:37 Procedure Staff Name Function Jimbo Neves MD Performing Physician Morales Alatorre RT Scrub Mira Donaldson RN Nurse Ottoniel Sanchez RN Rig Operator Erasmo Guzmán RT Monitor Procedure Data Cath Procedure Fluoroscopy Diagnostic fluoroscopy Total fluoroscopy Time: 6.2 time: 6.2 min min Diagnostic fluoroscopy Total fluoroscopy dose: 998 dose: 998 mGy mGy Contrast Material Contrast Material Type Amount (ml) Isovue 300 101 Entry Location Entry Primary Successful Side Size Upsize Upsize Entry Closure Henson ccessful Closure Location (Fr) 1 (Fr) 2 (Fr) Remarks Device Remarks Radial Right 6 Fr Mechanical artery Short Compression Estimated blood loss: 10 ml Diagnostic catheters Device Type Used For End Catheter Placement Diagnostic Infinity 5Fr Procedure AR 2 MOD catheter Procedure Complications No complications Procedure Medications Medication Administration Route Dosage Oxygen NC 3 l/min Lidocaine 2% added to field 20 Heparin Flush Bag added to field 2 bags (1000units/500ml NS) 0.9% NaCl I.V. 100 ml/hr Versed I.V. 1 mg Fentanyl I.V. 50 mcg Heparin Bolus I.V. 4000 units Versed I.V. 1 mg Fentanyl I.V. 50 mcg Radial Cocktail I.A. 1 syringe (Verapomil 2mg/Nitro 400mcg/Heparin 1500units) Hemodynamics Rest HGB: 13.7 (g/dl) Heart Rate: 100 (bpm) Snapshots Pre Cath Intra NCS Post Cath Vital Signs Time Heart Resp SPO2 etCO2 OS5lpwh NIBP (mmHg) Rhythm Pain Sedation Rate (ipm) (%) (mmHg) (mmHg) Status Level (bpm) 10:56:46 99 19 96 0 0 125/87(101) NSR 0 (11) 10(A) , No pain 11:01:02 99 23 97 0 0 127/82(103) NSR 0 (11) 10(A) , No pain 11:05:18 101 17 96 0 0 120/78(100) NSR 0 (11) 10(A) , No pain 11:09:32 101 16 94 0 0 104/73(85) NSR 0 (11) 10(A) , No pain 11:13:39 99 13 95 0 0 107/76(90) NSR 0 (11) 9(A) , No pain 11:17:54 104 13 93 0 0 102/63(80) NSR 0 (11) 9(A) , No pain 11:22:06 99 13 95 0 0 100/64(81) NSR 0 (11) 9(A) , No pain 11:27:05 100 16 94 0 0 104/70(88) NSR 0 (11) 9(A) , No pain 11:31:14 101 14 95 0 0 114/72(89) NSR 0 (11) 9(A) , No pain 11:35:28 101 18 95 0 0 120/73(92) NSR 0 (11) 10(A) , No pain Medications Time Medication Route Dose Verified Delivered Reason Notes Effectiveness by by 10:55:52 Oxygen NC 3 l/min Mira Mira used for Mendoza Mendoza manager rental RN 10:56:03 Lidocaine 2% added 20ml Mira Mira used for to vial Mendoza Mendoza procedure field RN RN 10:56:11 Heparin Flush added 2 bags Mira Mira used for Bag to Mendoza Mendoza procedure (1000units/500ml field RN RN NS) 10:56:21 0.9% NaCl I.V. 100 Mira Mira used for ml/hr Mendoza Mendoza manager rental RN 11:10:15 Versed I.V. 1 mg Mira Mira for Mendoza Mendoza sedation RN RN 11:10:22 Fentanyl I.V. 50 mcg Mira Mira for Mendoza Mendoza sedation RN RN 11:12:55 Radial Cocktail I.A. 1 Jimbo Choi Per (Verapomil syringe Pura Neves MD physician 2mg/Nitro 400mcg/Heparin 1500units) 11:17:56 Heparin Bolus I.V. 4000 Jimbo Meyers Per verified units Pura SCHMIDT Mendoza physician with dr. ALESSANDRA neves 11:19:26 Versed I.V. 1 mg Mira Mira for Mendoza Mendoza sedation RN RN 11:19:32 Fentanyl I.V. 50 mcg Mira Mira for Mendoza Mendoza sedation RN skate shop attendant Log Time Note 10:43:37 Informed consent obtained and on chart 10:44:30 Admit Source: Other 10:44:33 Ottoniel Sanchez RN sent for patient. Start room use. 10:45:03 Time tracking: Regular hours 10:45:06 Plan of Care:Hemodynamics will remain stable., Cardiac rhythm will remain stable., Comfort level will be maintained., Respiratory function will remain adequate., Patient/ family verbilizes understanding of procedure., Procedure tolerated without complication., Recovers from procedure without complications.. 10:45:48 Lab Result : Creatinine 1 mg/dl 10:45:48 Lab Result : BUN 8 mg/dl 10:45:48 Lab Result : Hemoglobin 13.7 g/dl 10:45:48 Lab Result : Hematocrit 41.4 % 10:45:51 Lab results completed and on chart. 10:47:52 Patient received from Med II to CCL 1 Alert and oriented. Tansferred to table in Supine position. 10:47:53 Warm blankets applied, and anastasiya hugger turned on for patient comfort. 10:47:54 Correct patient and procedure confirmed by team. 10:47:54 ECG and BP/O2 sat monitors applied to patient. 10:47:56 Pre-procedure instructions explained to patient. 10:47:57 Pre-op teaching completed and patient verbalized understanding. 10:47:59 Family in patients room. 10:48:00 Patient NPO since Midnight. 10:48:03 Is patient on blood thinner?Yes 10:48:06 ACC The patient was administered the following blood thiners within the last 24 hours: ACCPlavix 10:48:11 Patient diabetic? Yes. 10:48:12 If diabetic: On Metformin? No 10:48:15 Previous problem with sedation/anesthesia? No ? 10:48:15 Snore? No 10:48:16 Sleep apnea? No 10:48:17 Deviated septum? No 10:48:18 Opens mouth fully? Yes 10:48:19 Sticks out tongue? Yes 10:48:20 Airway obstruction? No ? 10:48:23 Dentures? Yes out 10:51:31 H&P Date Dictated: 05/20/2017 Within 30 days and on chart.. 10:51:34 Is the patient allergic to Iodine/contrast media? No. 10:51:42 Pre procedure: right dorsailis pedis pulse 1+ Palpable, but thready & weak; easily obliterated 10:51:45 Modified Shaheen's test Ulnar < 7 seconds 10:51:48 Patient pain scale 0/10 ?. 10:51:57 IV patent on arrival in left hand with 0.9% NaCl at O. 10:52:03 Right Radial & Right Groin area was prepped with chlora-prep and draped in sterile fashion 10:52:03 Alarms reviewed by R. N. 10:52:04 Sharps counted by scrub and verified by R.N. 10:55:41 Vital chart was started 10:55:52 Oxygen 3 l/min NC was administered by Mira Donaldson RN; used for procedure; 10:56:03 Lidocaine 2% 20ml vial added to field was administered by Mira Donaldson RN; used for procedure; 10:56:11 Heparin Flush Bag (1000units/500ml NS) 2 bags added to field was administered by Mira Donaldson RN; used for procedure; 10:56:21 0.9% NaCl 100 ml/hr I.V. was administered by Mira Donaldson RN; used for procedure; 11:03:21 Baseline sample Acquired. 11:03:23 Rhythm: sinus rhythm 11:03:25 Full Disclosure recording started 11:03:34 Use device set Radial Dx 11:03:36 Tegaderm 4 x 4 opened to sterile field. 11:03:37 Acist Manifold opened to sterile field. 11:03:37 Acist Hand Control opened to sterile field. 11:03:38 Acist Syringe opened to sterile field. 11:03:39 Medline Cath Pack opened to sterile field. 11:03:39 Bag Decanter opened to sterile field. 11:03:39 Terumo 6Fr Slender Glidesheath opened to sterile field. 11:03:40 St Pratik 260cm J .035 wire opened to sterile field. 11:03:40 MBrace Wrist Support opened to sterile field. 11:04:00 Cordis 6FR XBLAD 3.5 guide catheter opened to sterile field. 11:09:39 --------ALL STOP TIME OUT------ 11:09:40 Final Timeout: patient, procedure, and site verified with staff and physician. All members of the team are in agreement. 11:09:43 Right Radial & Right Groin site verified by team. 11:09:46 Physical assessment completed. ASA score P 2 - A patient with mild systemic disease as per Jimbo Neves MD. 11:09:50 Sedation plan: IV Moderate Sedation Versed, Fentanyl 11:10:15 Versed 1 mg I.V. was administered by Mira Donaldson RN; for sedation; 11::22 Fentanyl 50 mcg I.V. was administered by Mira Donaldson RN; for sedation; 11:12:12 Procedure started. 11:12:17 Local anesthetic to right radial artery with Lidocaine 2% by Jimbo Neves MD.INITIAL ACCESS ONLY 11:12:55 Radial Cocktail (Verapomil 2mg/Nitro 400mcg/Heparin 1500units) 1 syringe I.A. was administered by Jimbo Neves MD; Per physician; 11:12:55 A 6 Fr Short sheath was inserted into the Right Radial artery 11:13:04 A Diagnostic Infinity 5Fr AR 2 MOD catheter was advanced over the wire and used for Procedure. 11:14:12 LV angiography performed. 11:14:13 LV gram done using OLVERA 11:14:19 EF : 60 % 11:14:22 Injector settings: Ml/sec: 5, Volume: 15, 11:14:36 RCA angiography performed. 11:14:38 Catheter exchanged over wire. 11:15:39 6 Fr XBLAD 3.5 guide catheter was inserted over the wire 11:16:23 LCA angiography performed. 11:17:43 Escalera Whisper J 300cm 0.014 guide wire opened to sterile field. 11:17:44 [email or web address] BasixCompak Inflation Kit opened to sterile field. 11:17:56 Heparin Bolus 4000 units I.V. was administered by Mira Donaldson RN; Per physician; verified with dr. neves 11:19:26 Versed 1 mg I.V. was administered by Mira Donaldson RN; for sedation; 11:19:32 Fentanyl 50 mcg I.V. was administered by Mira Donaldson RN; for sedation; 11:20:24 ACC PCI Site: pLAD has 95% stenosis. 11:20:26 ACC Pre-intervention DINORA Flow is 3. 11:20:29 Whisper wire advanced. 11:22:28 Wire advanced across lesion. 11:23:53 Inflation number: 1 A Mozec Rx 3.0 x 41 balloon was prepped and advanced across the Prox LAD, then inflated to 7 OZIEL for 0:10 (min:sec). 11:24:09 Multiple inflations made at 7 Atms. 11::46 Balloon removed over the wire. 11:26:17 Inflation Number: 2 A [place] OTW 3.5 x 34 stent was prepped and advanced across the Prox LAD. The stent was deployed at 15 OZIEL for 0:10 (min:sec). 11::32 Stent catheter was removed intact over wire. 11:28:40 Inflation Number: 3 A Austin OTW 3.5 x 18 stent was prepped and advanced across the Prox LAD. The stent was deployed at 17 OZIEL for 0:10 (min:sec). 11::42 Stent catheter was removed intact over wire. 11::43 Wire removed. 11::44 Guide catheter removed. 11::46 ACC Post-intervention DINORA Flow is 3. 11:29:29 Terumo TR Band Standard opened to sterile field. 11:29:43 Sheath removed intact; hemostasis achieved with Mechanical Compression to the Right Radial artery. 11::46 Procedure ended.(Physican Out) 11:30:42 Fluoroscopy time 06.20 minutes. 11:30:45 Fluoroscopy dose: 998 mGy 11:30:45 Flurop Dose total: 998 11:31:10 Contrast amount:Isovue 300 101ml. 11:31:13 Sharps counted by scrub and verified by R.N. 11:31:14 Insertion/operative site no bleeding no hematoma. 11:31:18 Post Procedure Pulses reassessed and unchanged 11:31:23 Post-procedure physical assessment completed. ASA score P 2 - A patient with mild systemic disease as per Jimbo Neves MD. 11:31:26 Post procedure rhythm: unchanged. 11:32:01 Estimated blood loss: 10 ml 11:32:03 Post procedure instruction explained to patient.Patient verbalizes understanding. 11:32:03 Patient needs reinforcement of post procedure teaching. 11:32:37 Procedure type changed to Cath procedure, Diagnostic procedure, LHC, LHC w/Coronaries, PCI procedure, Coronary Stent Initial, Miscellaneous Procedures, Moderate Sedation up to 30 minutes 11:32:42 Procedure Complication : No complications 11:33:10 Procedure and supply charges have been captured, reviewed, submitted and are correct. 11:34:45 TR band inflated with 12cc of air. 11:37:16 Vital chart was stopped 11:37:17 See physician's report for complete and final results. 11:37:20 Report given to PCU. 11:37:22 Patient transfered to PCU with Bed. 11:37:25 Procedure ended. 11:37:25 Full Disclosure recording stopped 11:37:28 End room use (Document Last) Intervention Summary Intervention Notes Time ActionType Lesion and Equipment Action# Pressure Duration Attributes Used 11:23:53 Inflate Prox LAD Mozec Rx 1 7 00:10 balloon 3.0 x 41 balloon 11:26:17 Place stent Prox LAD Austin OTW 2 15 00:10 3.5 x 34 stent 11:28:40 Place stent Prox LAD Austin OTW 3 17 00:10 3.5 x 18 stent Device Usage Item Name Manufacture Quantity Catalog Hospital Part Current Minima l Lot# / Number Charge Number Stock Stock Serial# Code Tegaderm 4 3M 1 [id number] [id number] 551681 5 x 4 Acist Acist 1 32161 549082 959769 022068 5 Manifold Medical Systems Inc Acist Hand Acist 1 18144 058281 147244 852460 5 Control Medical Systems Inc Acist Acist 1 22237 985694 614837 595027 20 Syringe Medical Systems Inc Medline Cardinal 1 [id number] 093527 73153 910899 5 Cath Pack Health Bag Microtek 1 2002S 916680 45613 242302 5 Decanter Medical Inc. Terumo 6Fr Terumo 1 [id number] 623358 237900 803640 [address] Pratik 1 329200 049663 672990 796102 30 260cm J .035 wire MBrace Advanced 1 140-0250-00 695089 67455 247868 5 Wrist Vascular Support Dynamics Cordis 6FR Cardinal 1 [id number] 411827 619932 738934 10 XBLAD 3.5 Health guide catheter Diagnostic Cardinal 1 [id number] 298124 476039 346616 20 Syntonic Wireless 5Fr AR 2 MOD catheter Escalera Escalera 1 [id number] 571800 194234 090447 5 Whisper J Vascular 300cm 0.014 guide wire Merit Merit 1 [id number] 982481 506979 462674 15 PGA TOUR Superstore Medical Inflation Kit Mozec Rx Cardinal 1 [id number] 124610 45750 728134 5 UMOA37 3.0 x 41 Health balloon [place] OTW Medtronic 1 [id number] 133248 2161380 410168 5 [id number] 3.5 x 34 stent Austin OTW Medtronic 1 [id number] 081870 6825478 481467 5 [id number] 3.5 x 18 stent Terumo TR Terumo 1 [id number] 600956 409790 388442 40 Band Standard Signature Audit Purchase Stage Time Signature Unsigned Intra-Procedure 05/20/2017 Erasmo Guzmán 11:37:48 AM RT(R) Signatures Monitor : Erasmo Guzmán RT Signature : Date : Time : [id number] [place] [address]
[2017-05-18 12:46] LABS: BASOPHILS 0.4 % (0-2); EOSINOPHILS 1.5 % (0-7); HEMATOCRIT 44.1 % (42.0-54.0); HEMOGLOBIN 14.6 g/dL (13.5-17.5); IMMATURE GRANULOCYTES 0.2 % (0-5); MCH 25.3 pg (26.0-34.0); MCHC 33.1 g/dL (31.0-37.0); MCV 76.6 fL (80.0-100.0); MEAN PLATELET VOLUME 10.4 fL (7.4-10.4); MONOCYTES 11.3 % (2-11); NEUTROPHILS 47.6 % (40-80); PLATELET COUNT 249 10x3/uL (130-400); RBC 5.76 10x6/uL (4.20-6.10); RDW 15.4 % (11.5-14.5); WBC 5.5 10x3/uL (4.8-10.8)
[2017-05-18 12:58] LABS: ALBUMIN 3.2 g/dL (3.4-5.0); ALKALINE PHOSPHATASE 176 U/L (46-116); ALT (SGPT) 18 U/L (10-68); BILIRUBIN - TOTAL 0.54 mg/dL (0.2-1.3); CALCIUM 8.6 mg/dL (8.5-10.1); CARBON DIOXIDE 25.1 mmol/L (21.0-32.0); CHLORIDE - SERUM 94 mmol/L (98-107); CREATININE - SERUM 1.4 mg/dL (0.6-1.3); POTASSIUM - SERUM 4.6 mmol/L (3.5-5.1); SODIUM 129 mmol/L (136-145); UREA NITROGEN 13 mg/dL (7-18); eGFR NON AFRICAN AMERICAN 57 mL/min (90-120)
[2017-05-18 13:08] LABS: CHOL - HDL RATIO 4.7 ratio (2.3-4.9); CHOLESTEROL, TOTAL 161 mg/dL (0-200); CKMB 1.2 U/L (0.0-3.6); CREATINE KINASE 138 UL (21-232); HDL CHOLESTEROL 34 mg/dL (32-96); LDL CHOLESTEROL 72 mg/dL (0-100); LDL-HDL RATIO 2.1 ratio (1.5-3.5); TRIGLYCERIDE 276 mg/dL (30-200)
[2017-05-18 13:12] LABS: CALC OSMOLALITY 295 mosm/kg (275-300); GLUCOSE 768 mg/dL (74-106); TROPONIN-I < 0.017 ng/mL (0.000-0.060)
[2017-05-18 13:25] LABS: APPEARANCE CLEAR (CLEAR); BILIRUBIN NEGATIVE (NEGATIVE); COLOR YELLOW (YELLOW); GLUCOSE 1000 mg/dL (NEGATIVE); KETONE SMALL mg/dL (NEGATIVE); LEUKOCYTE ESTERASE NEGATIVE (NEGATIVE); NITRITE NEGATIVE (NEGATIVE); PH 5.5 (5.0-6.0); PROTEIN NEGATIVE (NEGATIVE); SPECIFIC GRAVITY 1.005 (1.005-1.020); UROBILINOGEN NORMAL (NORMAL)
[2017-05-18 14:01] LABS: KETONE - SERUM SMALL mg/dL (NEGATIVE)
[2017-05-18 14:21] LABS: CREATINE KINASE 150 UL (21-232); MAGNESIUM - SERUM 2.1 mg/dL (1.8-2.4)
[2017-05-18 14:22] LABS: TROPONIN-I < 0.017 ng/mL (0.000-0.060)
[2017-05-18] MEDS ORDERED: ISOSORBIDE MONO30 M1 PO (15:23)
[2017-05-18] MEDS ORDERED: GLIPIZIDE10 MG PO (15:24)
[2017-05-18 15:40] VITALS: BP 137/108; BMI 38.9
[2017-05-18 20:00] VITALS: BP 132/80
[2017-05-19 00:21] LABS: CKMB 0.9 U/L (0.0-3.6); CREATINE KINASE 136 UL (21-232)
[2017-05-19 00:23] LABS: GLUCOSE 87 mg/dL (74-106); TROPONIN-I < 0.017 ng/mL (0.000-0.060)
[2017-05-19 04:00] VITALS: BP 128/84
[2017-05-19 06:08] LABS: BASOPHILS 0.5 % (0-2); EOSINOPHILS 3.2 % (0-7); HEMATOCRIT 41.4 % (42.0-54.0); HEMOGLOBIN 13.7 g/dL (13.5-17.5); IMMATURE GRANULOCYTES 0.3 % (0-5); LYMPHOCYTES 47.8 % (15-50); MCHC 33.1 g/dL (31.0-37.0); MCV 75.7 fL (80.0-100.0); MEAN PLATELET VOLUME 10.5 fL (7.4-10.4); MONOCYTES 12.4 % (2-11); NEUTROPHILS 35.8 % (40-80); PLATELET COUNT 217 10x3/uL (130-400); RBC 5.47 10x6/uL (4.20-6.10); RDW 15.3 % (11.5-14.5); WBC 6.3 10x3/uL (4.8-10.8)
[2017-05-19 06:47] LABS: ALBUMIN 2.9 g/dL (3.4-5.0); ALKALINE PHOSPHATASE 82 U/L (46-116); ALT (SGPT) 17 U/L (10-68); BILIRUBIN - TOTAL 0.59 mg/dL (0.2-1.3); CALCIUM 8.5 mg/dL (8.5-10.1); CARBON DIOXIDE 25.4 mmol/L (21.0-32.0); CHLORIDE - SERUM 105 mmol/L (98-107); CKMB 0.9 U/L (0.0-3.6); CREATINE KINASE 121 UL (21-232); GLUCOSE 128 mg/dL (74-106); PROTEIN - SERUM 6.5 g/dL (6.4-8.2); SODIUM 142 mmol/L (136-145)
[2017-05-19 06:48] LABS: CALC OSMOLALITY 282 mosm/kg (275-300); POTASSIUM - SERUM 3.3 mmol/L (3.5-5.1); TROPONIN-I < 0.017 ng/mL (0.000-0.060); UREA NITROGEN 8 mg/dL (7-18); eGFR NON AFRICAN AMERICAN 84 mL/min (90-120)
[2017-05-19 08:19] VITALS: BP 131/85
[2017-05-19 11:31] VITALS: BP 147/104
[2017-05-19 15:12] VITALS: BP 138/82
[2017-05-19 22:00] VITALS: BP 135/86
[2017-05-20] VITALS: BP 110/60
[2017-05-20 05:03] VITALS: BP 118/63
[2017-05-20 08:00] VITALS: BP 121/75
[2017-05-20 08:34] LABS: BASOPHILS 0.5 % (0-2); EOSINOPHILS 2.3 % (0-7); HEMATOCRIT 41.8 % (42.0-54.0); HEMOGLOBIN 13.9 g/dL (13.5-17.5); IMMATURE GRANULOCYTES 0.5 % (0-5); LYMPHOCYTES 39.5 % (15-50); MCH 25.3 pg (26.0-34.0); MCHC 33.3 g/dL (31.0-37.0); MEAN PLATELET VOLUME 10.3 fL (7.4-10.4); MONOCYTES 12.7 % (2-11); NEUTROPHILS 44.5 % (40-80); PLATELET COUNT 241 10x3/uL (130-400); RDW 15.5 % (11.5-14.5); WBC 6.5 10x3/uL (4.8-10.8)
[2017-05-20 08:48] LABS: ANION GAP 13.9 mmol/L (8-16); BILIRUBIN - TOTAL 0.61 mg/dL (0.2-1.3); CARBON DIOXIDE 26.7 mmol/L (21.0-32.0); CREATININE - SERUM 1.2 mg/dL (0.6-1.3); POTASSIUM - SERUM 3.6 mmol/L (3.5-5.1); PROTEIN - SERUM 6.9 g/dL (6.4-8.2)
[2017-05-20 10:52] VITALS: Ht 175.3 cm; Wt 124.3 kg
[2017-05-20 12:00] VITALS: BP 112/78
--- NOTE | 2017-05-21 10:17 | CN ---
PATIENT NAME:TOAN LOZADA MEDICAL RECORD: [id number] : 69 LOCATION:D.M2 D.2122 ADMIT DATE: 05/18/17 ACCOUNT: [id number] CONSULTING PHYSICIAN: CAROLYN MANTILLA MD REFERRING PHYSICIAN: DANNY PRATER DO CARDIOLOGY CONSULT PROBLEM LIST: 1. Unstable angina. 2. Coronary artery disease. 3. Previous PTCA stent. 4. Insulin dependent diabetes. 5. Hypertension. 6. Hyperlipidemia. HISTORY OF PRESENT ILLNESS: The patient presents with unstable anginal symptomatology. His chest pain has been worsening over the past three weeks. His last cardiac intervention was only 02/05/17. It was a percutaneous transluminal coronary angioplasty stent of the left anterior descending. Before that he had a cardiac intervention one year ago. His chest pain has been in an escalating fashion. He has moderate irregularities throughout the remaining vessels. The left anterior descending did have a 90% stenosis. It was addressed with a bare metal stent at that time. PHYSICAL EXAMINATION: HEAD, EYES, EARS, NOSE, AND THROAT: Benign. NECK: Supple. No jugular venous distention. Carotid upstroke plus two bilaterally without bruits. LUNGS: Overall clear to auscultation and percussion. HEART: Regular. Normal S1, normal S2. No S3, no S4. No murmurs. BONES, JOINTS, EXTREMITIES: No clubbing, cyanosis, or edema. OVERALL IMPRESSION: Recurrent angina. He very well may have aggressive restenosis of the bare metal stent placed in January. We will proceed with repeat coronary angiography. Further care depends upon the findings of the angiography. CAROLYN MANTILLA MD at 1017 CC: [id number] DICTATION DATE: 05/18/17 1400 IRISH MOSS OPERATOR: BEAU 05/20/17 1122 DIS IN 05/20/17 [address] [place] [address]
== END 2017-05-20 17:23 | disposition home or self-care (01) | DRG 247 ==
LOC: D.ER 12:15 → D.SDCHOLD 13:58 → D.M2 14:10
PROVIDERS: Emergency Medicine; Internal Medicine Interventional Cardiology; ADMIT Family Medicine
PROC: 4A023N7 Measurement of Cardiac Sampling and Pressure, Left Heart, Percutaneous Approach (ICD-10-PCS; 2017-05-20)
PROC: B2111ZZ Fluoroscopy of Multiple Coronary Arteries using Low Osmolar Contrast (ICD-10-PCS; 2017-05-20)
PROC: B2151ZZ Fluoroscopy of Left Heart using Low Osmolar Contrast (ICD-10-PCS; 2017-05-20)
PROC: 027035Z Dilation of Coronary Artery, One Artery with Two Drug-eluting Intraluminal Devices, Percutaneous Approach (ICD-10-PCS; principal; 2017-05-20 10:30)
DX: I25.110 Atherosclerotic heart disease of native coronary artery with unstable angina pectoris (principal); T82.855A Stenosis of coronary artery stent, initial encounter; I10 Essential (primary) hypertension; E78.5 Hyperlipidemia, unspecified; E11.9 Type 2 diabetes mellitus without complications; R10.11 Right upper quadrant pain; Y83.8 Other surgical procedures as the cause of abnormal reaction of the patient, or of later complication, without mention of misadventure at the time of the procedure

== ENCOUNTER 2017-05-24 13:38 | Inpatient (IN) | payer MEDICAID ==
[~2017-05-24] VITALS: Ht 180.3 cm; Wt 118.7 kg
[2017-05-24] VITALS (9 sets, daily range): BP systolic 101–126; BP diastolic 60–88; BMI 37.4
--- NOTE | ~2017-05-24 | HEMODYNAMI ---
PATIENT:TOAN LOZADA MEDICAL RECORD: [id number] : 69 LOCATION:[facility]# [id number] ADMISSION DATE: 05/24/17 Generatedon:05/24/201715:13 Patient name: TOAN LOZADA Patient #: [id number] SSN: [id number] : 1965 Date of study: 05/24/2017 Page: Of Hemodynamic Procedure Report Patient Data Patient Demographics Procedure consent was obtained First Name: TOAN Gender: Male Last Name: NEVILLE : 1965 [facility] Initial: L Age: 51 year(s) Patient #: [id number] Race: Black SSN: [id number] Additional ID: [id number] Contact details Address: [address] [place] [address] [address] State: [place] City: [facility] Zip code: [address] Past Medical History Allergies Allergen Reaction Date Comments Reported Other allergy 07/27/2015 penicillin, tetracycline Other allergy 02/04/2017 PCN, Tetracycline Other allergy 05/24/2017 PCN, KEFLAX Admission Admission Data Admission Date: 05/24/2017 Admission Time: 13:38 Lab Results Lab Result Date: 05/19/2017 Lab Result Time: 5:10 Biochemistry Name Units Result Min Max BUN mg/dl 8 --(*---)-- 7 18 Creatinine mg/dl 1 --(--*-)-- 0.6 1.3 CBC Name Units Result Min Max Hematocrit % 41.4 -*(----)-- 42 54 Hemoglobin g/dl 13.7 --(*---)-- 13.5 17.5 Procedure Procedure Types Cath Procedure Diagnostic Procedure LHC LHC w/Coronaries PCI Procedure AMI-BMS/CARLOS Initial Procedure Description Procedure Date Procedure Date: 05/24/2017 Procedure Start Time: 14:39 Procedure End Time: 15:11 Procedure Staff Name Function Carlos Rao MD Performing Physician Maria L Bishop RT Scrceci James RN Nurse Morales Alatorre RT Monitor Procedure Data Cath Procedure Fluoroscopy Diagnostic fluoroscopy Total fluoroscopy Time: 5.3 time: 5.3 min min Diagnostic fluoroscopy Total fluoroscopy dose: dose: 1286 mGy 1286 mGy Contrast Material Contrast Material Type Amount (ml) Isovue 300 135 Entry Location Entry Primary Successful Side Size Upsize Upsize Entry Closure Succes sful Closure Location (Fr) 1 (Fr) 2 (Fr) Remarks Device Remarks Femoral Right 6 Fr Exoseal artery Short Estimated blood loss: 10 ml Diagnostic catheters Device Type Used For End Catheter Placement Cordis 5Fr 3DRC Catheter Procedure (MP) Cordis 5Fr Pigtail Procedure Catheter (MP) Cordis 5Fr JL 4.0 Procedure Catheter (MP) Procedure Complications No complications Procedure Medications Medication Administration Route Dosage Oxygen NC 2 l/min Heparin Flush Bag added to field 2 bags (1000units/500ml NS) Lidocaine 2% added to field 20 Versed I.V. 1 mg Fentanyl I.V. 50 mcg Heparin Bolus I.V. 5000 units Versed I.V. 1 mg Fentanyl I.V. 50 mcg Integrilin (Bolus I.V. 10.7 ml 2mg/ml) Hemodynamics Rest HGB: 13.7 (g/dl) Heart Rate: 101 (bpm) Pressure Samples Time Site Value (mmHg) Purpose Heart Use Rate(bpm) 15:00 LV 150/-3,26 Snapshot 105 15:01 LV 167/0,33 Snapshot 105 15:01 AO 142/90(113) Pullback 100 15:01 LV 153/-1,29 Pullback 100 Gradients Valve Time Site 1 Site 2 Mean SEP/DFP Peak To Heart Use (mmHg) (sec/min) Peak Rate (mmHg) (bpm) Aortic 15:01 LV AO 4 16 11 100 153/-1,29 142/90(113) Calculations Valve P-P Mean Valve Index Valve Source Name Gradient Area Flow (cm2) Aortic 11 4 11 4 Snapshots Pre Cath Intra NCS Post Cath Vital Signs Time Heart Resp SPO2 NIBP (mmHg) Rhythm Pain Status Sedation Rate (ipm) (%) Level (bpm) 14:30:54 100 14 97 162/116(126) NSR w/ ST 8 (11) , 10(A) Elevation Utterly horrible 14:35:23 100 21 99 157/106(126) NSR w/ ST 7 (11) , Very 10(A) Elevation intense 14:39:47 100 14 98 146/99(117) NSR w/ ST 3 (11) , 9(A) Elevation Tolerable 14:44:09 99 16 99 149/98(116) NSR w/ ST 3 (11) , 9(A) Elevation Tolerable 14:48:31 100 14 99 148/100(115) NSR w/ ST 2 (11) , 9(A) Elevation Uncomfortable 14:52:53 102 16 99 150/94(120) NSR w/ ST 2 (11) , 9(A) Elevation Uncomfortable 14:57:15 101 14 100 145/97(118) NSR w/ ST 2 (11) , 9(A) Elevation Uncomfortable 15:01:36 102 16 100 139/97(123) NSR w/ ST 0 (11) , No 9(A) Elevation pain 15:05:53 101 16 99 139/102(123) NSR w/ ST 0 (11) , No 9(A) Elevation pain 15:07:58 103 16 99 141/98(117) NSR w/ ST 0 (11) , No 9(A) Elevation pain Medications Time Medication Route Dose Verified Delivered Reason Notes Effectiveness by by 14:29:42 Oxygen NC 2 Carlos Rita Per physician l/min Tavo James RN 14:29:49 Heparin Flush added 2 Carlos Carlos used for Bag to bags Tavo Rao MD procedure (1000units/500ml field NS) 14:29:57 Lidocaine 2% added 20ml Carlos Carlos used for to vial Tavo Rao MD procedure field 14:38:00 Versed I.V. 1 mg Carlos Rita for sedation Tavo James RN 14:38:16 Fentanyl I.V. 50 Carlos Rita for sedation mcg Tavo James RN 14:42:25 Versed I.V. 1 mg Carlos Rita for sedation Tavo James RN 14:42:46 Fentanyl I.V. 50 Carlos Rita for sedation mcg Tavo James RN 14:45:58 Heparin Bolus I.V. 5000 Carlos Rita for dose units Tavo James RN anticoagulation verified with dr rao,. pt received 5000 unit heparin IV bolus in ER at 1425 15:00:06 Integrilin I.V. 10.7 Carlos Salinas for wasted (Bolus 2mg/ml) ml Tavo James RN antiplatelet 9.3ml therapy Procedure Log Time Note 14:18:21 Rita James RN sent for patient. Start room use. 14:18:22 Time tracking: Regular hours 14:18:26 Plan of Care:Hemodynamics will remain stable., Cardiac rhythm will remain stable., Comfort level will be maintained., Respiratory function will remain adequate., Patient/ family verbilizes understanding of procedure., Procedure tolerated without complication., Recovers from procedure without complications.. 14:29:34 Vital chart was started 14:29:42 Oxygen 2 l/min NC was administered by Rita James RN; Per physician; 14:29:49 Heparin Flush Bag (1000units/500ml NS) 2 bags added to field was administered by Carlos Rao MD; used for procedure; 14:29:49 Patient received from ED to CCL 2 Alert and oriented. Tansferred to table in Supine position. 14:29:50 Warm blankets applied, and anastasiya hugger turned on for patient comfort. 14:29:50 Correct patient and procedure confirmed by team. 14:29:51 Signed procedure consent form obtained from patient. 14:29:52 ECG and BP/O2 sat monitors applied to patient. 14:29:57 Lidocaine 2% 20ml vial added to field was administered by Carlos Rao MD; used for procedure; 14:32:55 Baseline sample Acquired. 14:33:02 Rhythm: sinus rhythm , w/ ST elevation 14:33:12 H&P Date Dictated: 05/24/2017 ER History on chart.. 14:33:14 Pre-procedure instructions explained to patient. 14:33:14 Pre-op teaching completed and patient verbalized understanding. 14:33:21 Family unavailable. 14:33:26 Patient NPO since Lunch. 14:34:08 Patient allergic to Other allergyPCN, KEFLAX 14:34:10 Is the patient allergic to Iodine/contrast media? No. 14:34:12 Is patient on blood thinner?Yes 14:34:14 ACC The patient was administered the following blood thiners within the last 24 hours: ACCPlavix 14:34:16 Patient diabetic? No. 14:34:54 Previous problem with sedation/anesthesia? No ? 14:34:55 Snore? Yes 14:34:56 Sleep apnea? Yes 14:34:56 Deviated septum? No 14:34:58 Opens mouth fully? Yes 14:34:59 Sticks out tongue? Yes 14:35:01 Airway obstruction? No ? 14:35:05 Dentures? Yes IN TIGHT 14:35:09 Patient pain scale 8/10 ?. 14:35:14 IV patent on arrival in right hand with 0.9% NaCl at [facility]. 14:37:25 Lab results completed and on chart. 14:37:27 Right groin area was prepped with chlora-prep and draped in sterile fashion 14:37:27 Alarms reviewed by R. N. 14:37:28 Sharps counted by scrub and verified by R.N. 14:37:29 Physician arrived 14:37:29 --------ALL STOP TIME OUT------ 14:37:30 Final Timeout: patient, procedure, and site verified with staff and physician. All members of the team are in agreement. 14:37:31 Right groin site verified by team. 14:37:33 Physical assessment completed. ASA score P 2 - A patient with mild systemic disease as per Carlos Rao MD. 14:37:36 Sedation plan: IV Moderate Sedation Versed, Fentanyl 14:37:40 Use device set Femoral PCI 14:37:41 Tegaderm 4 x 4 opened to sterile field. 14:37:42 Acist Manifold opened to sterile field. 14:37:42 Merit BasixCompak Inflation Kit opened to sterile field. 14:37:43 Acist Syringe opened to sterile field. 14:37:44 Acist Hand Control opened to sterile field. 14:37:44 Bag Decanter opened to sterile field. 14:37:44 Medline Cath Pack opened to sterile field. 14:37:45 Terumo 6Fr [place] Sheath opened to sterile field. 14:37:45 St Pratik 260cm J .035 wire opened to sterile field. 14:38:00 Versed 1 mg I.V. was administered by Rita James RN; for sedation; 14:38:16 Fentanyl 50 mcg I.V. was administered by Riat Jacob RN; for sedation; 14:39:01 Procedure started. 14:39:01 Full Disclosure recording started 14:39:04 Local anesthetic to right femoral artery with Lidocaine 2% by Carlos Rao MD.INITIAL ACCESS ONLY 14:39:49 Zero performed for pressure channel P1 14:40:40 Escalera BMW [place] 2 J-tip 300cm 0.014 guide wir opened to sterile field. 14:41:17 A 6 Fr Short sheath was inserted into the Right Femoral artery 14:42:10 Use device set Multipack Set 14:42:12 Diagnostic Infinity 5Fr Multipack catheter opened to sterile field. 14:42:25 Versed 1 mg I.V. was administered by Rita James RN; for sedation; 14:42:36 A Cordis 5Fr 3DRC Catheter () was advanced over the wire and used for Procedure. 14:42:45 RCA angiography performed. 14:42:46 Fentanyl 50 mcg I.V. was administered by Rita James RN; for sedation; 14:42:50 Catheter removed. 14:43:08 Cordis 6FR XBLAD 3.5 guide catheter opened to sterile field. 14:43:20 LCA angiography performed. 14:43:59 High Pressure Extension Tubing (Tavo) opened to sterile field. 14:44:11 6 Fr XBLAD 3.5 guide catheter was inserted over the wire 14:45:58 Heparin Bolus 5000 units I.V. was administered by Rita James RN; for anticoagulation; dose verified with dr rao,. pt received 5000 unit heparin IV bolus in ER at 1425 14:46:43 [place] Sci Luge Straight 300cm 0.014 guide wire opened to sterile field. 14:46:52 LUGE wire advanced. 14:47:27 Wire advanced across lesion. 14:50:31 Inflation number: 1 A Euphora 3.0 x 20 Balloon was prepped and advanced across the Mid LAD, then inflated to 14 OZIEL for 0:10 (min:sec). 14:51:00 Inflation number: 2 The Euphora 3.0 x 20 Balloon was reinflated across the Mid LAD, to 14 OZIEL for 0:10 (min:sec). 14:52:01 Inflation number: 3 The Euphora 3.0 x 20 Balloon was reinflated across the Mid LAD, to 10 OZIEL for 0:14 (min:sec). 14:53:56 Balloon removed over the wire. 14:56:42 Inflation Number: 4 A Antimony OTW 3.0 x 12 stent was prepped and advanced across the Mid LAD. The stent was deployed at 12 OZIEL for 0:10 (min:sec). 14:58:31 Stent catheter was removed intact over wire. 14:58:32 Wire removed. 14:58:34 Guide catheter removed. 14:58:39 A Cordis 5Fr Pigtail Catheter (MP) was advanced over the wire and used for Procedure. 14:58:57 Cordis 6Fr Exoseal opened to sterile field. 14:59:54 LV hemodynamics recorded. 14:59:56 LV gram done using OLVERA 14:59:59 Injector settings: Ml/sec: 10, Volume: 20, 15:00:06 Integrilin (Bolus 2mg/ml) 10.7 ml I.V. was administered by Rita James RN; for antiplatelet therapy; wasted 9.3ml 15:00:50 EF : 30 % 15:01:26 Catheter exchanged over wire. 15:01:29 A Cordis 5Fr JL 4.0 Catheter (MP) was advanced over the wire and used for Procedure. 15:02:22 LCA angiography performed. 15:03:09 Catheter removed. 15:03:15 Sheath removed intact; hemostasis achieved with Exoseal to the Right Femoral artery. 15:05:08 Procedure ended.(Physican Out) 15:06:12 Fluoroscopy time 05.30 minutes. 15:06:19 Flurop Dose total: 1286 15:06:19 Fluoroscopy dose: 1286 mGy 15::57 Contrast amount:Isovue 300 135ml. 15:07:59 Sharps counted by scrub and verified by R.N. 15:08:00 Insertion/operative site no bleeding no hematoma. 15:08:03 Post-op/insertion site Right Femoral artery dressed using a 4 x 4 and Tegaderm. 15:08:06 Post right femoral artery:stable, soft, clean and dry 15:08:07 Post Procedure Pulses reassessed and unchanged 15:08:09 Post-procedure physical assessment completed. ASA score P 2 - A patient with mild systemic disease as per Carlos Rao MD. 15:08:15 Post procedure rhythm: unchanged. 15:08:17 Estimated blood loss: 10 ml 15:08:18 Post procedure instruction explained to patient.Patient verbalizes understanding. 15:08:19 Patient needs reinforcement of post procedure teaching. 15:09:43 Procedure type changed to Cath procedure, Diagnostic procedure, LHC, LHC w/Coronaries, PCI procedure, AMI-BMS/CARLOS Initial 15:10:44 Procedure and supply charges have been captured, reviewed, submitted and are correct. 15:10:52 Procedure Complication : No complications 15:10:54 Vital chart was stopped 15:10:55 See physician's report for complete and final results. 15:10:59 Report given to CVICU. 15:11:03 Patient transfered to CVICU with Stretcher. 15:11:05 Procedure ended. 15:11:05 Full Disclosure recording stopped 15:11:14 End room use (Document Last) Intervention Summary Intervention Notes Time ActionType Lesion and Equipment Action# Pressure Duration Attributes Used 14:50:31 Inflate Mid LAD Euphora 1 14 00:10 balloon 3.0 x 20 Balloon 14:51:00 Reinflate Mid LAD Euphora 2 14 00:10 balloon 3.0 x 20 Balloon 14:52:01 Reinflate Mid LAD Euphora 3 10 00:14 balloon 3.0 x 20 Balloon 14:56:42 Place stent Mid LAD Antimony OTW 4 12 00:10 3.0 x 12 stent Device Usage Item Name Manufacture Quantity Catalog Hospital Part Current Minima l Lot# / Number Charge Number Stock Stock Serial# Code Tegaderm 4 1 [id number] 013558 243783 5 x 4 Acist Acist 1 19928 243410 950189 114922 5 Manifold Medical Systems Inc Merit Merit 1 FR7881 677118 063028 403849 15 BasixCompak Medical Inflation Kit Acist Acist 1 11838 882493 570069 512272 20 Syringe Medical Systems Inc Acist Hand Acist 1 94999 753028 100154 834475 5 Control Medical Systems Inc Bag Microtek 1 2002S 465496 20829 730652 5 [employer]s [facility] [employer] Medical Inc. Medline Cardinal 1 [id number] 874818 09348 603264 5 Cath SoftSwitching Technologies Terumo 6Fr Terumo 1 [id number] 998677 007901 126792 [address] Pratik 1 750681 904613 857956 993518 30 260cm J .035 wire Escalera BMW Escalera 1 [id number] 698720 627338 780020 5 [place] 2 Vascular J-tip 300cm 0.014 guide wir Diagnostic Cardinal 1 [id number] 674831 06416 361775 30 Infinity Health 5Fr Multipack catheter Cordis 5Fr Cardinal 1 258460 5 3DRC Health Catheter (MP) Cordis 6FR Cardinal 1 [id number] 477551 887003 032281 10 XBLAD 3.5 Health guide catheter High Merit 1 [id number] 810599 28060 165644 10 Pressure Medical Extension Tubing (Rao) [place] Sci [place] 1 [id number] 594388 374260 799933 5 [employer].com Straight 300cm 0.014 guide wire Euphora 3.0 Medtronic 1 [id number] 176914 883564 467042 5 [id number] x 20 Balloon [place] OTW Medtronic 1 [id number] 180727 587211 634350 5 [id number] 3.0 x 12 stent Cordis 5Fr Cardinal 1 182046 5 Pigtail Health Catheter (MP) Cordis 6Fr Cardinal 1 EX600 279054 094612 238413 10 Exoseal Health Cordis 5Fr Cardinal 1 634614 5 JL 4.0 Health Catheter (MP) Signature Audit [place] Stage Time Signature Unsigned Intra-Procedure 05/24/2017 Morales Alatorre 3:13:22 PM RT(R) Signatures Monitor : Morales Alatorre RT Signature : Date : Time : [facility] [address] [place] [address]
--- NOTE | ~2017-05-24 | OP ---
PATIENT NAME: TOAN LOZADA MEDICAL RECORD: [id number] :69 LOCATION:D.M2 D.2116 ADMISSION DATE:05/24/17 SURGEON: YUNIOR FERMIN MD OPERATION DATE: 05/24/17 DATE OF OPERATION: 05/31/2017 PREOPERATIVE DIAGNOSIS: Acute appendicitis. POSTOPERATIVE DIAGNOSIS: Acute versus chronic appendicitis. PROCEDURE: Laparoscopic appendectomy. SURGEON: Yunior Fermin MD FRAME BANDER: None. BLOOD LOSS: Minimal. ANESTHESIA: General. COMPLICATIONS: None. I personally reviewed the CT images from several days ago. I reviewed the CT images from this morning. Reportedly, there was no change in the appearance of the appendix. The patient is tender right over the appendiceal tip, which is under the acute margin of the liver. Despite the negative CT findings, I am going to proceed with laparoscopic appendectomy. I have informed the patient that there is a significant chance the appendix would be completely normal; however, I have no other reason why the patient would be having abdominal pain in that area. The risks, possible complications and alternatives to procedure were explained to the patient. He elects to proceed. The discussion specifically included, but was not limited to, bleeding requiring emergency reoperation, infection, intestinal injury as well as the possibility that the appendix would be normal and in that instance, I would still remove this normal appendix in order to avoid diagnostic confusion in the future should the patient have a recurrence or persistence of abdominal pain. OPERATIVE COURSE: The patient was conveyed to the operating room electively on 05/31/2017. General anesthesia was induced by the anesthesia staff. The abdomen was sterilely prepped and draped. A small skin estephania was accomplished in the left upper quadrant. CO2 insufflation was begun. Once a sufficient pneumoperitoneum had been achieved, a 5-mm trocar was inserted. Under direct internal vision utilizing a television camera, a 12-mm trocar was inserted tangentially at the umbilicus. Another 5-mm trocar was inserted in the right lower quadrant. I grasped the appendix. I took down the mesoappendix with the EnSeal device. I stapled across the tip of the cecum with an Endo-ALEXANDER type stapler utilizing a blue load. The appendix was placed within an Endobag retrieval device. It was withdrawn through the umbilical fascia defect. I then reinsufflated the abdomen. I irrigated and aspirated the right lower OPERATIVE REPORT [id number] TOAN LOZADA quadrant. There was no bleeding even at low pressure of 8. As the 12-mm trocar had been inserted tangentially there was no leakage of air and I think that the fascial defect does not require closure. All trocars removed and the abdomen desufflated. The umbilical skin was closed with interrupted 4-0 Vicryl Rapide sutures. The other skin incisions were closed with interrupted 4-0 Vicryls. Benzoin and Steri-Strips were applied. The patient was then extubated and conveyed to post-anesthesia care unit where he was in stable condition. From my standpoint, he can be dismissed home. I have written a prescription for [place]. I will see him in the office in 2-3 weeks. TRANSINT:[id number] Voice Confirmation ID: [id number] DOCUMENT ID: [id number] YUNIOR FERMIN MD CC: WICHO PADILLA M.D. and DANNY PRATER DO [id number] DICTATION DATE: 05/31/171921 BOG WORKER: 06/01/17 0023 ADM IN [facility] [address] [place] [address]
--- NOTE | ~2017-05-24 | CN ---
PATIENT NAME:TOAN LOZADA MEDICAL RECORD: [id number] : 69 LOCATION:D. D.2116 ADMIT DATE: 05/24/17 ACCOUNT: [id number] CONSULTING PHYSICIAN: YUNIOR FERMIN MD REFERRING PHYSICIAN: WICHO PADILLA M.D. DATE OF CONSULTATION: 05/29/2017 Gastroenterology Consultation CHIEF COMPLAINT: Pain. HISTORY OF PRESENT ILLNESS: The patient has been having right upper quadrant pain. It is unusual. The patient has undergone a cholecystectomy by me in the past. He recently had an LAD stent and then had collapse of the stent. It had reopened, he states. The patient came in to the Emergency Room because of chest discomfort. I am going to obtain a CT scan of the abdomen and pelvis. Due to renal insufficiency I am not going to be able to order IV contrast. Palpation aggravates. Nothing alleviates. Symptoms are constant. They are nonradiating. PAST MEDICAL AND SURGICAL HISTORY: Hypertension, diabetes mellitus, coronary artery disease status post coronary stents, neuropathy, diabetes, asthma, BiPAP, CPAP, sleep apnea, depression, anxiety. ALLERGIES: PENICILLIN and TETRACYCLINE. HOME MEDICINES: Insulin, Plavix, Zyloprim, Celexa, Pravachol, Nitrostat, nasal spray, Hyzaar, Vistaril, Desyrel, isosorbide mononitrate ER. FAMILY HISTORY: Parent family history unknown, sibling family history unknown, natural child family history unknown. SOCIAL HISTORY: He does drink some alcohol. REVIEW OF SYSTEMS: Negative for fatigue, no headache, no dizziness. Positive for chest pain. Positive for sweats. No fever, no chills. Positive for nausea. Negative for dysuria. Positive for abdominal pain. No epistaxis, no shortness of breath. PHYSICAL EXAMINATION: GENERAL: The patient does not appear acutely ill. He does appear chronically ill. VITAL SIGNS: Reviewed. EARS: External ears appear normal. EYES: Extraocular movements are intact. NECK: Trachea is midline. CHEST: No intercostal retractions. PULMONARY: Nonlabored, no stridor. ABDOMEN: As described above, there is a Khan sign. No peritonitis to percussion. EXTREMITIES: No peripheral cyanosis. INTEGUMENT: No rash, no ulcerations. PSYCHIATRIC: Normal affect. NEUROLOGIC: Nonfocal, no lethargy. The patient answers questions appropriately, moves all extremities well. BACK: No thoracic kyphosis. CONSULT REPORT [id number] TOAN LOZADA LYMPHATICS: No lymphangitic streaking of the exposed extremities. IMPRESSION: Right upper quadrant abdominal pain of uncertain etiology. PLAN: Serial abdominal examinations. CT of the abdomen. I think these images have already been performed and I will review these images. TRANSINT:[id number] Voice Confirmation ID: [id number] DOCUMENT ID: [id number] YUNIOR FERMIN MD CC: WICHO PADILLA M.D. and DANNY PRATER DO [id number] DICTATION DATE: 05/31/171918 EMERGENCY VETERINARY TECHNICIAN: 06/01/17 0009 ADM IN [facility] [address] [id number]
[~2017-05-24 13:38] MED LIST changes: +ISOSORBIDE MONO30 M1 PO
[2017-05-24 14:03] LABS: BASOPHILS 0.2 % (0-2); EOSINOPHILS 0.5 % (0-7); HEMATOCRIT 47.8 % (42.0-54.0); HEMOGLOBIN 16.1 g/dL (13.5-17.5); IMMATURE GRANULOCYTES 0.6 % (0-5); LYMPHOCYTES 19.4 % (15-50); MCH 25.9 pg (26.0-34.0); MCHC 33.7 g/dL (31.0-37.0); MCV 76.8 fL (80.0-100.0); MEAN PLATELET VOLUME 10.9 fL (7.4-10.4); MONOCYTES 8.5 % (2-11); NEUTROPHILS 70.8 % (40-80); PLATELET COUNT 193 10x3/uL (130-400); RBC 6.22 10x6/uL (4.20-6.10); RDW 15.7 % (11.5-14.5); WBC 8.6 10x3/uL (4.8-10.8)
[2017-05-24 14:18] LABS: ALBUMIN 3.6 g/dL (3.4-5.0); ALKALINE PHOSPHATASE 121 U/L (46-116); ALT (SGPT) 37 U/L (10-68); BILIRUBIN - TOTAL 0.83 mg/dL (0.2-1.3); CALC OSMOLALITY 284 mosm/kg (275-300); CALCIUM 10.5 mg/dL (8.5-10.1); CHLORIDE - SERUM 95 mmol/L (98-107); CREATININE - SERUM 1.2 mg/dL (0.6-1.3); GLUCOSE 374 mg/dL (74-106); PROTEIN - SERUM 8.8 g/dL (6.4-8.2); SODIUM 135 mmol/L (136-145); UREA NITROGEN 13 mg/dL (7-18); eGFR NON AFRICAN AMERICAN 68 mL/min (90-120)
[2017-05-24 14:32] LABS: CHOL - HDL RATIO 3.7 ratio (2.3-4.9); CHOLESTEROL, TOTAL 220 mg/dL (0-200); CKMB 5.7 U/L (0.0-3.6); CREATINE KINASE 313 UL (21-232); HDL CHOLESTEROL 60 mg/dL (32-96); LDL CHOLESTEROL 131 mg/dL (0-100); LDL-HDL RATIO 2.2 ratio (1.5-3.5); TRIGLYCERIDE 149 mg/dL (30-200)
[2017-05-24 14:33] LABS: TROPONIN-I 0.684 ng/mL (0.000-0.060)
--- NOTE | 2017-05-24 15:20 | NUR ---
REC'D PT FROM UPPER EXTREMITY SURGEON, PT AAOX4, LAYING FLAT. INCISION TO RIGHT GROIN, DRESSING CDI. RIGHT HAND PIV WITH NS INFUSING.
--- NOTE | 2017-05-24 17:58 | NUR ---
PT FAMILY AT THE BEDSIDE, ALL QUESTIONS ANSWERED, VSS, WILL CONTINUE TO MONTIOR PT.
--- NOTE | 2017-05-24 21:37 | NUR ---
1900 REPORT RECIEVED, INTITIAL ASSESSMENT COMPLETE, PLEASE SEE FLOW SHEETS FOR DETAILS. PPP, S1S2 WITH S-TACH ON MONITOR. BS ACTIVE X4. DENIES PAIN/NEEDS ATT. BED LOW AND LOCKED, CALL LIGHT IN REACH. VSS, WILL CPOC.
--- NOTE | 2017-05-24 21:38 | NUR ---
2100 HAS NOT VOIDED, URINAL PROVIDED AND GAVE PERMISSION TO SIT UP. PPP. DENIES ANY PAIN/NEEDS ATT. VSS, BED LOW AND LOCKED, CALL LIGHT IN REACH. WILL CPOC.
[2017-05-24 21:44] LABS: INR 0.92 (0.85-1.17); PROTIME 12.2 SECONDS (11.6-15.0)
[2017-05-24 21:49] LABS: APTT 21.5 SECONDS (22.8-39.4)
[2017-05-24 21:58] LABS: CKMB 233.3 U/L (0.0-3.6)
[2017-05-24 22:55] LABS: CREATINE KINASE 5275 UL (21-232)
--- NOTE | 2017-05-24 23:00 | NUR ---
REASSESSMENT COMPLETE, PLEASE SEE FLOW SHEETS FOR DETAILS. UP TO RR, URINATED ON HIS OWN, AMBULATED ON HIS OWN, STATES LARGE AMOUNT VOIDED. TOLERATED WELL. DRESSING REDONE ON RIGHT GROIN - PRESSURE DRESSING WITH MEDIUM SIZE TEGADERM AND 4X4'S. DENIES PAIN/NEEDS ATT. BED LOW AND LOCKED, CALL LIGHT IN REACH. VSS, WILL CPOC.
[2017-05-25] VITALS (15 sets, daily range): BP systolic 97–142; BP diastolic 65–98; Ht 180.3 cm; Wt 118.7 kg
--- NOTE | 2017-05-25 01:00 | NUR ---
RESTING COMFORTABLY, VSS, BED LOW AND LOCKED, CALL LIGHT IN REACH. WILL CPOC.
--- NOTE | 2017-05-25 03:00 | NUR ---
Reassessment complete, please see flow sheets for details. Denies pain/needs ATT. Bed low and locked, call light in reach. VSS, will CPOC.
--- NOTE | 2017-05-25 05:00 | NUR ---
RESTING, NO S&S OF DISTRESS. VSS, BED LOW AND LOCKED, CALL LIGHT IN REACH. WILL CPOC.
[2017-05-25 07:30] LABS: CKMB 131.4 U/L (0.0-3.6)
[2017-05-25 07:32] LABS: CREATINE KINASE 4503 UL (21-232); TROPONIN-I 126.956 ng/mL (0.000-0.060)
--- NOTE | 2017-05-25 08:53 | NUR ---
PT MOANING AND WAILING ABOUT GAS PAIN. STATES HE USUALLY GETS MORPHINE FOR GAS PAIN.
--- NOTE | 2017-05-25 15:28 | NUR ---
DR. PADILLA PAGED.
--- NOTE | 2017-05-25 15:58 | NUR ---
REPORT CALLED TO ZAY APARICIO. NOTIFIED PT'S SISTER OF NEW ROOM NUMBER. PT TO TRANSFER TO 2115 VIA WHEELCHAIR.
--- NOTE | 2017-05-25 16:11 | NUR ---
PT TRANSFERED TO ROOM 2116 VIA BED WITH BELONGINGS.
--- NOTE | 2017-05-25 16:16 | NUR ---
RECEIVED PT TO ROOM 2115 FROM CVICU AAOX4 RESP UNLABORED ON ROOM AIR UP AD BRITTNEY DENIES ANY NEEDS OR DISCOMFORT AT THIS TIME
[2017-05-26 04:00] VITALS: BP 96/55
--- NOTE | 2017-05-26 07:46 | NUR ---
PT RESTING QUIETLY RESP UNLABORED DENIES ANY NEEDS OR DISCOMFORT NAD NOTED
[2017-05-26 08:00] VITALS: BP 138/93
--- NOTE | 2017-05-26 11:13 | NUR ---
IV STARTED 20 GA TO LEFT FOREARM X 1 ATTEMPT, FLUSHED WITHOUT DIFFICULTY, COVERED WITH OP SITE.
[2017-05-26 12:00] VITALS: BP 126/78
--- NOTE | 2017-05-26 12:15 | NUR ---
FSBS 383 REGULAR INSULIN 16 UNITS GIVEN SQ LT ARM
[2017-05-26 16:00] VITALS: BP 125/79
--- NOTE | 2017-05-26 20:31 | NUR ---
RESUMED CARE OF PT, LYING IN BED RESPIRATIONS EVEN AND UNLABORED ON ROOM AIR. [address] ON TELEMETRY. LEFT FOREARM SALINE LOCKED. CALL LIGHT IN REACH. NO NEEDS NOTED AT THIS TIME. WILL CONTINUE TO MONITOR. SEE NURSE ASSESSMENT.
[2017-05-26 22:41] VITALS: BP 103/59
[2017-05-27 02:51] VITALS: BP 90/58
--- NOTE | 2017-05-27 03:05 | NUR ---
CALL LIGHT IN REACH, WILL CONTINUE WITH PLAN OF CARE. [address] ST ON TELEMETRY
[2017-05-27 05:27] VITALS: BP 102/56
[2017-05-27 08:00] VITALS: BP 96/55
[2017-05-27 09:37] LABS: BASOPHILS 0.1 % (0-2); EOSINOPHILS 0.1 % (0-7); HEMATOCRIT 42.6 % (42.0-54.0); HEMOGLOBIN 14.3 g/dL (13.5-17.5); IMMATURE GRANULOCYTES 0.4 % (0-5); MCH 25.6 pg (26.0-34.0); MCHC 33.6 g/dL (31.0-37.0); MCV 76.3 fL (80.0-100.0); MEAN PLATELET VOLUME 10.2 fL (7.4-10.4); MONOCYTES 14.3 % (2-11); NEUTROPHILS 67.1 % (40-80); RBC 5.58 10x6/uL (4.20-6.10); RDW 15.7 % (11.5-14.5); WBC 13.7 10x3/uL (4.8-10.8)
[2017-05-27 09:38] LABS: PLATELET COUNT 283 10x3/uL (130-400)
--- NOTE | 2017-05-27 09:39 | NUR ---
TELEMETRY ST. ULTRAM GIVEN FOR C/O ABD PAIN. CALL LIGHT IN REACH. WILL CONT. PLAN OF CARE.
[2017-05-27 10:01] LABS: ALBUMIN 3.2 g/dL (3.4-5.0); ANION GAP 16.4 mmol/L (8-16); BILIRUBIN - TOTAL 1.1 mg/dL (0.2-1.3); CALCIUM 8.8 mg/dL (8.5-10.1); CARBON DIOXIDE 25.8 mmol/L (21.0-32.0); CREATININE - SERUM 1.8 mg/dL (0.6-1.3); POTASSIUM - SERUM 4.2 mmol/L (3.5-5.1); PROTEIN - SERUM 7.3 g/dL (6.4-8.2)
[2017-05-27 12:17] VITALS: BP 88/47
--- NOTE | 2017-05-27 12:31 | NUR ---
ECHO COMPLETED AT BS.
[2017-05-27 14:47] VITALS: BP 101/49
--- NOTE | 2017-05-27 19:29 | NUR ---
RESUMED CARE OF PT, LYING IN BED RESPIRATIONS EVEN AND UNLABORED ON ROOM AIR. [address] SR ON TELEMETRY. LEFT FOREARM SALINE LOCKED. REQUESTS PAIN MEDICATION FOR STOMACH. WILL CONTINUE TO MONITOR. SEE NURSE ASSESSMENT. CALL LIGHT IN REACH.
[2017-05-27 21:50] VITALS: BP 118/72
[2017-05-28] VITALS: BP 101/56
--- NOTE | 2017-05-28 00:30 | NUR ---
DIRECTOR SKILLS AT BEDSIDE TO OBTAIN VITALS, CALL LIGHT IN REACH. WILL CONTINUE WITH PLAN OF CARE. [address] SR ON TELEMETRY
[2017-05-28 01:18] VITALS: BP 106/69
--- NOTE | 2017-05-28 05:34 | NUR ---
TRAMADOL GIVEN FOR ABDOMINAL CRAMPING.
[2017-05-28 05:35] VITALS: BP 129/79
[2017-05-28 08:00] VITALS: BP 142/95
[2017-05-28 09:04] LABS: BASOPHILS 0.1 % (0-2); EOSINOPHILS 0.1 % (0-7); HEMATOCRIT 42.8 % (42.0-54.0); HEMOGLOBIN 14.4 g/dL (13.5-17.5); IMMATURE GRANULOCYTES 0.4 % (0-5); LYMPHOCYTES 13.3 % (15-50); MCH 25.6 pg (26.0-34.0); MCHC 33.6 g/dL (31.0-37.0); MCV 76.2 fL (80.0-100.0); MONOCYTES 16.2 % (2-11); NEUTROPHILS 69.9 % (40-80); PLATELET COUNT 303 10x3/uL (130-400); RBC 5.62 10x6/uL (4.20-6.10); RDW 15.3 % (11.5-14.5); WBC 11.5 10x3/uL (4.8-10.8)
[2017-05-28 09:09] LABS: ALBUMIN 3.1 g/dL (3.4-5.0); ANION GAP 18.3 mmol/L (8-16); BILIRUBIN - TOTAL 1.08 mg/dL (0.2-1.3); C-REACTIVE PROTEIN 5.9 mg/dL (0.0-0.9); CALCIUM 8.7 mg/dL (8.5-10.1); CARBON DIOXIDE 22.6 mmol/L (21.0-32.0); POTASSIUM - SERUM 3.9 mmol/L (3.5-5.1); PROTEIN - SERUM 7.2 g/dL (6.4-8.2)
[2017-05-28 09:10] LABS: CREATININE - SERUM 3.9 mg/dL (0.6-1.3)
--- NOTE | 2017-05-28 11:30 | NUR ---
BACK FROM CT. DIET RESUMED.
[2017-05-28 12:00] VITALS: BP 85/45
--- NOTE | 2017-05-28 14:17 | NUR ---
URINE SPECIMEN COLLECTED AND TAKEN TO LAB. WILL MONITOR.
[2017-05-28 14:46] LABS: APPEARANCE CLEAR (CLEAR); BILIRUBIN NEGATIVE (NEGATIVE); COLOR YELLOW (YELLOW); GLUCOSE 100 mg/dL (NEGATIVE); KETONE NEGATIVE (NEGATIVE); LEUKOCYTE ESTERASE NEGATIVE (NEGATIVE); NITRITE NEGATIVE (NEGATIVE); PROTEIN TRACE mg/dL (NEGATIVE); SPECIFIC GRAVITY 1.015 (1.005-1.020); UROBILINOGEN NORMAL (NORMAL)
[2017-05-28 15:51] VITALS: BP 115/69
--- NOTE | 2017-05-28 19:00 | NUR ---
REPORT RECIEVED, CHECKED IN ON PATIENT. DENIES PAIN/NEEDS ATT. BED LOW AND LOCKED, CALL LIGHT IN REACH. WILL CPOC.
--- NOTE | 2017-05-28 20:30 | NUR ---
ASSESSMENT COMPLETE, PLEASE SEE FLOW SHEETS FOR DETAILS. BED LOW AND LOCKED, CALL LIGHT IN REACH. A&O X4, DENIES PAIN/NEEDS ATT. WILL CPOC.
--- NOTE | 2017-05-29 01:30 | NUR ---
SLEEPING, RR EVEN AND UNLABORED. NO S&S OF ACUTE DISTRESS NOTED. BED LOW AND LOCKED, CALL LIGHT IN REACH. WILL CPOC.
[2017-05-29 04:51] VITALS: BP 119/74
[2017-05-29 04:56] LABS: BASOPHILS 0.2 % (0-2); EOSINOPHILS 0.4 % (0-7); HEMATOCRIT 41.9 % (42.0-54.0); HEMOGLOBIN 14.2 g/dL (13.5-17.5); IMMATURE GRANULOCYTES 0.6 % (0-5); LYMPHOCYTES 27.1 % (15-50); MCH 25.4 pg (26.0-34.0); MCHC 33.9 g/dL (31.0-37.0); MCV 74.8 fL (80.0-100.0); NEUTROPHILS 51.7 % (40-80); PLATELET COUNT 326 10x3/uL (130-400); RDW 15.1 % (11.5-14.5); WBC 9.9 10x3/uL (4.8-10.8)
[2017-05-29 05:21] LABS: ALBUMIN 2.9 g/dL (3.4-5.0); BILIRUBIN - TOTAL 1.1 mg/dL (0.2-1.3); CARBON DIOXIDE 21.7 mmol/L (21.0-32.0); CREATININE - SERUM 4.3 mg/dL (0.6-1.3); PROTEIN - SERUM 7.7 g/dL (6.4-8.2)
[2017-05-29 05:30] LABS: ANION GAP 18.6 mmol/L (8-16); POTASSIUM - SERUM 3.3 mmol/L (3.5-5.1)
[2017-05-29 09:07] VITALS: BP 139/79
--- NOTE | 2017-05-29 09:59 | NUR ---
TELEMETRY SR. IV PATENT. CALL LIGHT IN REACH. WILL CONT. PLAN OF CARE.
[2017-05-29 12:08] VITALS: BP 108/65
--- NOTE | 2017-05-29 14:04 | NUR ---
Patient Name: TOAN LOZADA Admission Status: ER Accout number: [id number] Admission Date: 05-24-2017 : 1965 Admission Diagnosis:STEMI INVOLVING OTH CORONARY ARTERY OF ANTERIOR WALL Attending: DAVION Current LOS: 5 Anticipated DC Date: 05-29-2017 Planned Disposition: Home Primary Insurance: [place] Discharge Planning Comments: * Is the patient Alert and Oriented? Yes 0 * How many steps to enter\exit or inside your home? NONE 0 * PCP DR. PRATER 0 * Pharmacy [facility] 0 * Preadmission Environment Home with Family 0 * ADLs Independent 0 * Equipment Cane Glucometer 0 * Other Equipment NO MEDICAL EQUIPMENT PROVIDER PREFERENCE 0 * List name and contact numbers for known caregivers / representatives who currently or will assist patient after discharge: VITOR LOZADA, MOM, MICA VEGA, SISTER, 0 * Community resources currently utilized None 0 * Please name any agencies selected above. NONE 0 * Additional services required to return to the preadmission environment? No 0 * Can the patient safely return to the preadmission environment? Yes 0 * Has this patient been hospitalized within the prior 30 days at any hospital? Yes 0 CM MET WITH PT IN ROOM TO DISCUSS DISCHARGE PLANNING AND NEEDS. PT REPORTS LIVING AT HOME INDEPENDENTLY WITH HIS MOTHER. PT HAS CANE AND GLUCOMETER WITH NO MEDICAL EQUIPMENT PROVIDER PREFERENCE. PT HAS NO OUTSIDE SERVICES ASSISTING IN THE HOME. CM DISCUSSED AVAILABILITY OF HOME HEALTH, REHAB SERVICES AND MEDICAL EQUIPMENT. PT DENIES DISCHARGE NEEDS, REPORTS HIS SISTER WILL PICK HIM UP FOR DISCHARGE HOME. Tug Boat Captain: Dylan De Luna
--- NOTE | 2017-05-29 15:41 | NUR ---
URINE SPECIMEN COLLECTED AND TAKEN TO LAB. WILL MONITOR.
[2017-05-29 15:54] LABS: ALBUMIN 2.7 g/dL (3.4-5.0); ANION GAP 13.2 mmol/L (8-16); BILIRUBIN - TOTAL 0.7 mg/dL (0.2-1.3); CALCIUM 8.5 mg/dL (8.5-10.1); CARBON DIOXIDE 27.4 mmol/L (21.0-32.0); CHOL - HDL RATIO 3.2 ratio (2.3-4.9); CREATININE - SERUM 3.4 mg/dL (0.6-1.3); LDL-HDL RATIO 1.7 ratio (1.5-3.5); MAGNESIUM - SERUM 2.3 mg/dL (1.8-2.4); PHOSPHOROUS 3.9 mg/dL (2.5-4.9); POTASSIUM - SERUM 3.6 mmol/L (3.5-5.1); PROTEIN - SERUM 6.4 g/dL (6.4-8.2)
[2017-05-29 15:56] LABS: COMPLEMENT C4 37.8 mg/dL (17.4-52.2)
[2017-05-29 16:15] LABS: APPEARANCE CLEAR (CLEAR); COLOR YELLOW (YELLOW)
[2017-05-29 16:16] LABS: BILIRUBIN NEGATIVE (NEGATIVE); GLUCOSE 100 mg/dL (NEGATIVE); KETONE NEGATIVE (NEGATIVE); LEUKOCYTE ESTERASE NEGATIVE (NEGATIVE); NITRITE NEGATIVE (NEGATIVE); PROTEIN NEGATIVE (NEGATIVE); UROBILINOGEN NORMAL (NORMAL)
[2017-05-29 16:32] VITALS: BP 95/56
--- NOTE | 2017-05-29 17:10 | NUR ---
US DONE AT BS.
--- NOTE | 2017-05-29 20:37 | NUR ---
RESUMED CARE OF PT, UP IN ROOM RESPIRATIONS EVEN AND UNLABORED ON ROOM AIR. 97 SR ON TELEMETRY. LEFT FOREARM SALINE LOCKED. NO NEEDS VOICED AT THIS TIME. CALL LIGHT IN REACH. SEE NURSE ASSESSMENT.
[2017-05-29 23:32] VITALS: BP 96/47
--- NOTE | 2017-05-30 01:34 | NUR ---
CALL LIGHT IN REACH, WILL CONTINUE WITH PLAN OF CARE.
--- NOTE | 2017-05-30 03:45 | NUR ---
UP ON SIDE OF BED MOANING AND ROCKING IN PAIN. STATES HIS ABDOMEN IS IN HORRIBLE PAIN, POINTS TO RUQ. STATES IT COMES AND GOES ON ITS OWN, IT IS VERY SHARP AND DIFFICULTY FOR HIM TO BREATHE AT TIMES. PRUNE JUICE COCKTAIL GIVEN AND HOT PACK APPLIED TO EFFECTED AREA. WILL CONTINUE TO MONITOR. CALL LIGHT IN REACH.
--- NOTE | 2017-05-30 04:34 | NUR ---
LYING IN BED WITH EYES CLOSED. CALL LIGHT IN REACH. NO MOANING AT THIS TIME. NO DISTRESS NOTED. WILL CONTINUE TO MONITOR.
[2017-05-30 05:18] LABS: BASOPHILS 0.2 % (0-2); EOSINOPHILS 0.1 % (0-7); IMMATURE GRANULOCYTES 0.7 % (0-5); LYMPHOCYTES 21.8 % (15-50); MCH 25.7 pg (26.0-34.0); MCHC 34.1 g/dL (31.0-37.0); MCV 75.2 fL (80.0-100.0); MEAN PLATELET VOLUME 9.8 fL (7.4-10.4); MONOCYTES 14.8 % (2-11); NEUTROPHILS 62.4 % (40-80); PLATELET COUNT 338 10x3/uL (130-400); RBC 5.45 10x6/uL (4.20-6.10); RDW 15.2 % (11.5-14.5); WBC 9.2 10x3/uL (4.8-10.8)
[2017-05-30 05:52] LABS: ALBUMIN 2.8 g/dL (3.4-5.0); ANION GAP 14.1 mmol/L (8-16); BILIRUBIN - TOTAL 0.84 mg/dL (0.2-1.3); CALCIUM 8.6 mg/dL (8.5-10.1); CARBON DIOXIDE 27.1 mmol/L (21.0-32.0); POTASSIUM - SERUM 3.2 mmol/L (3.5-5.1); PROTEIN - SERUM 7.6 g/dL (6.4-8.2)
[2017-05-30 05:53] LABS: CREATININE - SERUM 2.2 mg/dL (0.6-1.3)
[2017-05-30 06:24] VITALS: BP 151/89
[2017-05-30 08:00] VITALS: BP 150/95
--- NOTE | 2017-05-30 08:10 | NUR ---
FSBS 263 REG INSULIN 16 UNITS GIVEN SQ LT ARM
--- NOTE | 2017-05-30 08:13 | NUR ---
DILAUDID 0.5 MG GIVEN SIVP FOR C/O ABD PAIN 08/20
--- NOTE | 2017-05-30 08:43 | NUR ---
ABD PAIN 02/18
[2017-05-30 12:00] VITALS: BP 112/65
--- NOTE | 2017-05-30 13:17 | NUR ---
Nutrition follow-up: Diet changed to ADA low sodium due to pt with DMT2 and glucose has been running very high Visited with pt during meal rounds. Pt is not feeling well at this time. PO intake has been ~75% of meals Labs reviewed Wt; 264# RDN following.
[2017-05-30 13:19] LABS: AMYLASE - SERUM 35 U/L (25-115); LIPASE 135 U/L (73-393)
[2017-05-30 16:00] VITALS: BP 110/68
--- NOTE | 2017-05-30 17:16 | NUR ---
FSBS 140
[2017-05-30 20:00] VITALS: BP 108/68
--- NOTE | 2017-05-30 20:09 | NUR ---
RESUMED CARE OF PT, LYING IN BED RESPIRATIONS EVEN AND UNLABORED ON ROOM AIR. LEFT FOREARM INFUSING NS @ 75. 97 SR ON TELEMETRY. PLAN OF CARE DISCUSSED. CALL LIGHT IN REACH. SEE NURSE ASSESSMENT.
[2017-05-31] VITALS: BP 156/101
--- NOTE | 2017-05-31 00:30 | NUR ---
CONSENTS OBTAINED FOR APPENDECTOMY, NPO AT THIS TIME.
[2017-05-31 04:00] VITALS: BP 93/57
--- NOTE | 2017-05-31 04:52 | NUR ---
PERFORMANCE SPECIALIST AT BEDSIDE TO OBTAIN VITALS, CALL LIGHT IN REACH. WILL CONTINUE WITH PLAN OF CARE.
[2017-05-31 04:56] LABS: BASOPHILS 0.2 % (0-2); EOSINOPHILS 0.3 % (0-7); HEMOGLOBIN 12.8 g/dL (13.5-17.5); IMMATURE GRANULOCYTES 0.5 % (0-5); LYMPHOCYTES 27.5 % (15-50); MCHC 32.8 g/dL (31.0-37.0); MEAN PLATELET VOLUME 9.5 fL (7.4-10.4); MONOCYTES 13.8 % (2-11); NEUTROPHILS 57.7 % (40-80); PLATELET COUNT 330 10x3/uL (130-400); RBC 5.13 10x6/uL (4.20-6.10); RDW 15.2 % (11.5-14.5); WBC 9.9 10x3/uL (4.8-10.8)
[2017-05-31 05:15] LABS: ALBUMIN 2.6 g/dL (3.4-5.0); ANION GAP 11.6 mmol/L (8-16); BILIRUBIN - TOTAL 0.54 mg/dL (0.2-1.3); CALCIUM 8.2 mg/dL (8.5-10.1); CARBON DIOXIDE 27.9 mmol/L (21.0-32.0); MAGNESIUM - SERUM 2.2 mg/dL (1.8-2.4); POTASSIUM - SERUM 3.5 mmol/L (3.5-5.1); PROTEIN - SERUM 6.4 g/dL (6.4-8.2)
[2017-05-31 05:16] LABS: CREATININE - SERUM 1.5 mg/dL (0.6-1.3); PHOSPHOROUS 2.9 mg/dL (2.5-4.9)
[2017-05-31 08:07] VITALS: BP 103/70
[2017-05-31 11:18] LABS: ANA REFLEX - DBL STRANDED DNA <1 IU/mL (0-9); ANA REFLEX - DIRECT Negative (Negative)
[2017-05-31 12:06] VITALS: BP 111/75
[2017-05-31 14:44] VITALS: BP 101/70
--- NOTE | 2017-05-31 18:00 | NUR ---
PREOP MEDS GIVEN PT TO OR VIA BED
[2017-05-31 20:00] VITALS: BP 149/66
[2017-06-01] VITALS: BP 105/61
[2017-06-01 04:00] VITALS: BP 93/55
[2017-06-01 05:31] LABS: BASOPHILS 0.1 % (0-2); EOSINOPHILS 0.3 % (0-7); HEMATOCRIT 39.7 % (42.0-54.0); HEMOGLOBIN 13.2 g/dL (13.5-17.5); IMMATURE GRANULOCYTES 0.4 % (0-5); LYMPHOCYTES 28.2 % (15-50); MCH 25.3 pg (26.0-34.0); MCHC 33.2 g/dL (31.0-37.0); MCV 76.2 fL (80.0-100.0); MEAN PLATELET VOLUME 9.7 fL (7.4-10.4); MONOCYTES 13.2 % (2-11); NEUTROPHILS 57.8 % (40-80); PLATELET COUNT 363 10x3/uL (130-400); RBC 5.21 10x6/uL (4.20-6.10); RDW 15.2 % (11.5-14.5); WBC 11.2 10x3/uL (4.8-10.8)
[2017-06-01 05:46] LABS: ANION GAP 10.8 mmol/L (8-16); CALCIUM 8.8 mg/dL (8.5-10.1); CARBON DIOXIDE 30.1 mmol/L (21.0-32.0); CREATININE - SERUM 1.3 mg/dL (0.6-1.3); POTASSIUM - SERUM 3.9 mmol/L (3.5-5.1)
[2017-06-01 08:10] VITALS: BP 110/74
--- NOTE | 2017-06-01 09:34 | NUR ---
TELEMETRY SR. UP ADLIB. NO C/O PAIN NOTED. WILL CONT. PLAN OF CARE.
[2017-06-01 11:27] VITALS: BP 94/67
--- NOTE | 2017-06-01 14:27 | NUR ---
IV AND TELEMETRY DCD. DC PLANS GIVEN. UNDERSTANDING VOICED. ESCORTED TO CAR BY W/C.
--- NOTE | 2017-06-02 13:24 | DS ---
PATIENT:TOAN LOZADA :[birth year] MEDICAL RECORD: [id number] DISCHARGE SUMMARY ADMISSION DATE: 05/24/17 DISCHARGE DATE: 06/01/17 DATE OF ADMISSION: 05/24/2017 DATE OF DISCHARGE: 06/01/2017 ADMISSION DIAGNOSIS: Acute myocardial infarction. DISCHARGE DIAGNOSES: Acute myocardial infarction, coronary artery disease status post stenting, acute appendicitis, diabetes mellitus, hypertension, acute kidney injury. HOSPITAL COURSE: The patient had a complex hospital course, was initially admitted to cardiology with acute AL, underwent stenting, had persistent symptoms. CT of the abdomen revealed abnormal presentation of appendicitis. The patient underwent laparoscopic appendectomy. Symptoms have resolved. He has been cleared from surgery. His renal insufficiency has resolved. He is feeling much better, tolerating regular diet, back on his home meds, anxious for discharge. The patient is discharged in significantly improved condition. PHYSICAL EXAMINATION: VITAL SIGNS ON DISCHARGE: Temperature 98.4, blood pressure 94/67, heart rate 94, respirations 18, O2 sats 98% room air. GENERAL: Alert, oriented, ambulating independently. HEART: Regular rate and rhythm. LUNGS: Clear. ABDOMEN: Soft. Bowel sounds positive in all 4 quadrants. EXTREMITIES: Present times 4. NEUROLOGIC: Intact. No focal deficits. SKIN: Warm and dry. No rash. LABORATORY DATA: CBC: White count 11.2, hemoglobin 13.2, hematocrit 39.7, platelets 363. Chemistry shows a sodium of 134, potassium 3.9, chloride 97, bicarbonate 30, BUN 18, creatinine 1.3, glucose 146. DISPOSITION: The patient is discharged home in significantly improved condition. We will follow up with Dr. Gill next week. We will follow up with general surgery, Dr. Lopez. We will follow up with his pay station collector, Dr. Vo. MEDICATIONS: Per med rec. Please see chart for further details of this complex case. TRANSINT:[id number] Voice Confirmation ID: [id number] DOCUMENT ID: [id number] DISCHARGE SUMMARY REPORT [id number] SIRITOAN GARRETT YUNIOR SARMIENTO DO at 1324 CC: [id number] DICTATION DATE: 06/01/17 1230 MEDICAL DIRECTOR OF HOSPICE: 06/01/17 1645 DIS IN 06/01/17 [id number] [place] [address]
[2017-06-03 16:11] LABS: SPE - A/G RATIO 0.7 (0.7-1.7); SPE - ALBUMIN 2.6 g/dL (2.9-4.4); SPE - ALPHA-1 GLOBULIN 0.2 g/dL (0.0-0.4); SPE - ALPHA-2 GLOBULIN 1.4 g/dL (0.4-1.0); SPE - M-SPIKE Not Observed g/dL (Not Observed); SPE - TOTAL PROTEIN 6.2 g/dL (6.0-8.5)
[2017-06-04 08:19] LABS: UPE RAND - ALBUMIN 77.6 % (()); UPE RAND - ALPHA 1 GLOBULIN 0.1 % (()); UPE RAND - ALPHA 2 GLOBULIN 8.7 % (()); UPE RAND - BETA GLOBULIN 6.6 % (()); UPE RAND - GAMMA GLOBULIN 7.1 % (())
== END 2017-06-01 14:27 | disposition home or self-care (01) | DRG 246 ==
LOC: D.CVICU 13:38 → D.ER 13:38 → D.CVICU 15:25 → D.M2 15:26 → D.CVICU 15:26 → D.ER 15:26 → D.M2 05-25 16:10 → D.SDCHOLD 05-31 20:00 → D.M2 05-31 20:04
PROVIDERS: Emergency Medicine; Family Medicine; ADMIT Internal Medicine Cardiovascular Disease
PROC: B2111ZZ Fluoroscopy of Multiple Coronary Arteries using Low Osmolar Contrast (ICD-10-PCS; 2017-05-24)
PROC: B2151ZZ Fluoroscopy of Left Heart using Low Osmolar Contrast (ICD-10-PCS; 2017-05-24)
PROC: 027034Z Dilation of Coronary Artery, One Artery with Drug-eluting Intraluminal Device, Percutaneous Approach (ICD-10-PCS; principal; 2017-05-24 14:15)
PROC: 4A023N7 Measurement of Cardiac Sampling and Pressure, Left Heart, Percutaneous Approach (ICD-10-PCS; 2017-05-24 14:15)
PROC: 0DTJ4ZZ Resection of Appendix, Percutaneous Endoscopic Approach (ICD-10-PCS; 2017-05-24 14:15)
DX: I21.09 ST elevation (STEMI) myocardial infarction involving other coronary artery of anterior wall (principal); N17.0 Acute kidney failure with tubular necrosis; K35.80 Unspecified acute appendicitis; E87.2 Acidosis; I25.10 Atherosclerotic heart disease of native coronary artery without angina pectoris; K59.00 Constipation, unspecified; R00.0 Tachycardia, unspecified; Z87.891 Personal history of nicotine dependence; I13.10 Hypertensive heart and chronic kidney disease without heart failure, with stage 1 through stage 4 chronic kidney disease, or unspecified chronic kidney disease; E11.22 Type 2 diabetes mellitus with diabetic chronic kidney disease; N18.9 Chronic kidney disease, unspecified; Z79.4 Long term (current) use of insulin; E11.40 Type 2 diabetes mellitus with diabetic neuropathy, unspecified; I95.9 Hypotension, unspecified; N14.1 Nephropathy induced by other drugs, medicaments and biological substances; T50.8X5A Adverse effect of diagnostic agents, initial encounter

== ENCOUNTER 2017-06-26 06:41 | Emergency (ER) | payer MEDICAID ==
[2017-05-25 08:50] VITALS: BMI 37.3
[2017-06-26 07:08] LABS: BASOPHILS 0.3 % (0-2); EOSINOPHILS 2.8 % (0-7); HEMATOCRIT 41.1 % (42.0-54.0); HEMOGLOBIN 13.3 g/dL (13.5-17.5); IMMATURE GRANULOCYTES 0.4 % (0-5); MCHC 32.4 g/dL (31.0-37.0); MCV 77.4 fL (80.0-100.0); MEAN PLATELET VOLUME 9.2 fL (7.4-10.4); MONOCYTES 14.8 % (2-11); NEUTROPHILS 33.7 % (40-80); PLATELET COUNT 320 10x3/uL (130-400); RBC 5.31 10x6/uL (4.20-6.10); RDW 15.1 % (11.5-14.5); WBC 7.4 10x3/uL (4.8-10.8)
[2017-06-26 07:32] LABS: ALBUMIN 3.3 g/dL (3.4-5.0); ALKALINE PHOSPHATASE 92 U/L (46-116); ALT (SGPT) 19 U/L (10-68); BILIRUBIN - TOTAL 0.43 mg/dL (0.2-1.3); CALC OSMOLALITY 271 mosm/kg (275-300); CALCIUM 8.8 mg/dL (8.5-10.1); CARBON DIOXIDE 31.7 mmol/L (21.0-32.0); CHLORIDE - SERUM 100 mmol/L (98-107); CREATININE - SERUM 1.2 mg/dL (0.6-1.3); POTASSIUM - SERUM 3.6 mmol/L (3.5-5.1); SODIUM 136 mmol/L (136-145); UREA NITROGEN 11 mg/dL (7-18); eGFR NON AFRICAN AMERICAN 68 mL/min (90-120)
[2017-06-26 07:34] LABS: GLUCOSE 115 mg/dL (74-106)
[2017-06-26 07:43] LABS: CKMB 1.1 U/L (0.0-3.6); CREATINE KINASE 168 UL (21-232); TROPONIN-I 0.027 ng/mL (0.000-0.060)
--- NOTE | 2017-06-28 09:41 | CN ---
PATIENT NAME:TOAN LOZADA MEDICAL RECORD: [id number] : [birth year] LOCATION:D.ER ADMIT DATE: ACCOUNT: [id number] CONSULTING PHYSICIAN: CAROLYN MANTILLA MD REFERRING PHYSICIAN: CATRINA CRUZ DATE OF CONSULTATION: 06/26/2017 PROBLEM LIST: 1. Atypical chest pain. 2. Nausea and vomiting. 3. Gastroenteritis. 4. Coronary artery disease. 5. Previous PTCA stent. HISTORY OF PRESENT ILLNESS: Mr. Lozada presents with chest pain after vomiting. He has had GI upset and gastroenteritis for the past day and a half. He had a sharp chest pain on the right side of his chest, nothing like that of his previous angina. He is status post PTCA stent of the left anterior descending with some acute closure approximately 3 weeks ago, reopening of the vessel. He is not in any heart failure symptomatology. He has had no further anginal symptomatology like that of his previous angina. His EKG shows a previous myocardial infarction, but no acute changes. PHYSICAL EXAMINATION: GENERAL APPEARANCE: Well-nourished, well-developed, appears stated age. Level of distress, comfortable. PSYCHIATRIC: Mental status, alert, normal affect. Orientation, oriented to time, place and person. EYES: Lids and conjunctiva, noninjected. No discharge, no pallor. ENT: Lips, teeth, gums, normal dentition. Oropharynx, no cyanosis, no pallor. NECK: Carotid arteries, bilateral normal upstroke, no bruits, no thrills. JUGULAR VEINS: No jugular venous pressure or distention. CERVICAL LYMPH NODES: Nontender, nonenlarged. THYROID: Not enlarged. Nontender. No nodules. LUNGS: Respiratory effort, unlabored. CHEST: Normal curvature. No thoracic deformity. No chest wall tenderness. Percussion, resonant. Auscultation, clear. No wheezes, no rales, no rhonchi. CARDIOVASCULAR: Precordial exam, nondisplaced. No heaves or pericardial thrills. Rate and rhythm, regular. Heart sounds, normal S1, normal S2. No S3, no gallop, no rub. Systolic murmur, not heard. Diastolic murmur, not heard. EXTREMITIES: No cyanosis, no edema. Peripheral pulses, full and equal in all extremities, except as noted. No bruits appreciated. ABDOMEN: Soft, nondistended. Normal aorta. No bruit. Nontender. No masses. Liver, nontender, no hepatomegaly. Spleen, nontender, no splenomegaly. MUSCULOSKELETAL: No joint tenderness. No joint swelling. No erythema. NEUROLOGICAL: Normal gait, normal strength, normal tone. SKIN: Warm and dry. OVERALL IMPRESSION: Chest pain not compatible with angina. Atypical chest pain that is not cardiac in etiology. The chest pain is secondary to the nausea and vomiting. No cardiac workup needs to be done at this time. TRANSINT:[id number] Voice Confirmation ID: [id number] DOCUMENT ID: [id number] CONSULT REPORT [id number] TOAN LOZADA, CAROLYN SCHMIDT at 0941 CC: [id number] DICTATION DATE: 06/26/17 0956 ADVERTISING CLERK: 06/26/17 1248 DEP ER 06/26/17 [facility] [address] [place] [address]
== END 2017-06-26 10:35 | disposition home or self-care (01) ==
LOC: D.ER 06:41
PROVIDERS: Family Medicine
DX: R11.10 Vomiting, unspecified (principal); R07.9 Chest pain, unspecified; E11.9 Type 2 diabetes mellitus without complications; F17.200 Nicotine dependence, unspecified, uncomplicated

== ENCOUNTER 2017-06-29 10:51 | Emergency (ER) | payer MEDICAID ==
[2017-05-25 08:50] VITALS: BMI 37.3
[2017-06-29 11:16] LABS: BASOPHILS 0.3 % (0-2); EOSINOPHILS 0.7 % (0-7); HEMATOCRIT 38.8 % (42.0-54.0); HEMOGLOBIN 12.7 g/dL (13.5-17.5); IMMATURE GRANULOCYTES 0.3 % (0-5); LYMPHOCYTES 38.8 % (15-50); MCH 25.2 pg (26.0-34.0); MCHC 32.7 g/dL (31.0-37.0); MCV 77.1 fL (80.0-100.0); MEAN PLATELET VOLUME 9.5 fL (7.4-10.4); MONOCYTES 11.3 % (2-11); NEUTROPHILS 48.6 % (40-80); PLATELET COUNT 290 10x3/uL (130-400); RBC 5.03 10x6/uL (4.20-6.10); RDW 15.3 % (11.5-14.5); WBC 10.1 10x3/uL (4.8-10.8)
[2017-06-29 11:56] LABS: ALBUMIN 3.3 g/dL (3.4-5.0); ALKALINE PHOSPHATASE 99 U/L (46-116); ALT (SGPT) 16 U/L (10-68); BILIRUBIN - TOTAL 0.74 mg/dL (0.2-1.3); CALC OSMOLALITY 279 mosm/kg (275-300); CALCIUM 8.8 mg/dL (8.5-10.1); CARBON DIOXIDE 31.8 mmol/L (21.0-32.0); CHLORIDE - SERUM 99 mmol/L (98-107); CREATININE - SERUM 1.2 mg/dL (0.6-1.3); POTASSIUM - SERUM 4.2 mmol/L (3.5-5.1); PROTEIN - SERUM 7.9 g/dL (6.4-8.2); SODIUM 137 mmol/L (136-145); UREA NITROGEN 13 mg/dL (7-18); eGFR NON AFRICAN AMERICAN 68 mL/min (90-120)
[2017-06-29 12:04] LABS: GLUCOSE 208 mg/dL (74-106)
[2017-06-29 12:06] LABS: CKMB 0.5 U/L (0.0-3.6); CREATINE KINASE 232 UL (21-232); TROPONIN-I 0.017 ng/mL (0.000-0.060)
== END 2017-06-29 14:09 | disposition home or self-care (01) ==
LOC: D.ER 10:51
PROVIDERS: Emergency Medicine; Nurse Practitioner Family
DX: J06.9 Acute upper respiratory infection, unspecified (principal); E11.9 Type 2 diabetes mellitus without complications; R50.9 Fever, unspecified; R00.0 Tachycardia, unspecified

== ENCOUNTER 2017-07-05 22:00 | Emergency (ER) | payer MEDICAID ==
[2017-05-25 08:50] VITALS: BMI 37.3
[2017-07-05 22:45] LABS: BASOPHILS 0.1 % (0-2); EOSINOPHILS 1.4 % (0-7); HEMATOCRIT 36.5 % (42.0-54.0); HEMOGLOBIN 11.9 g/dL (13.5-17.5); IMMATURE GRANULOCYTES 0.3 % (0-5); LYMPHOCYTES 35.1 % (15-50); MCH 25.3 pg (26.0-34.0); MCHC 32.6 g/dL (31.0-37.0); MCV 77.7 fL (80.0-100.0); MEAN PLATELET VOLUME 9.2 fL (7.4-10.4); MONOCYTES 10.3 % (2-11); NEUTROPHILS 52.8 % (40-80); PLATELET COUNT 305 10x3/uL (130-400); RDW 15.1 % (11.5-14.5); WBC 7.9 10x3/uL (4.8-10.8)
[2017-07-05 23:08] LABS: ALBUMIN 3.1 g/dL (3.4-5.0); ALKALINE PHOSPHATASE 89 U/L (46-116); ALT (SGPT) 15 U/L (10-68); CALC OSMOLALITY 278 mosm/kg (275-300); CALCIUM 8.7 mg/dL (8.5-10.1); CARBON DIOXIDE 24.6 mmol/L (21.0-32.0); CHLORIDE - SERUM 99 mmol/L (98-107); CREATININE - SERUM 1.6 mg/dL (0.6-1.3); GLUCOSE 285 mg/dL (74-106); POTASSIUM - SERUM 4.1 mmol/L (3.5-5.1); PROTEIN - SERUM 7.3 g/dL (6.4-8.2); SODIUM 134 mmol/L (136-145); UREA NITROGEN 16 mg/dL (7-18); eGFR NON AFRICAN AMERICAN 49 mL/min (90-120)
[2017-07-05 23:28] LABS: AMYLASE - SERUM 94 U/L (25-115); CREATINE KINASE 261 UL (21-232); LIPASE 138 U/L (73-393); TROPONIN-I < 0.017 ng/mL (0.000-0.060)
[2017-07-05 23:30] LABS: CKMB 1.7 U/L (0.0-3.6)
== END 2017-07-06 00:47 | disposition home or self-care (01) ==
LOC: D.ER 22:00
PROVIDERS: Nurse Practitioner Family
DX: K52.9 Noninfective gastroenteritis and colitis, unspecified (principal); R11.10 Vomiting, unspecified; R10.9 Unspecified abdominal pain; R42 Dizziness and giddiness; R51 Headache

== ENCOUNTER 2017-07-06 20:25 | Emergency (ER) | payer MEDICAID ==
[2017-05-25 08:50] VITALS: BMI 37.3
[2017-07-06 21:10] LABS: BASOPHILS 0.3 % (0-2); HEMATOCRIT 37.2 % (42.0-54.0); IMMATURE GRANULOCYTES 0.4 % (0-5); LYMPHOCYTES 28.3 % (15-50); MCH 25.2 pg (26.0-34.0); MCHC 32.3 g/dL (31.0-37.0); MEAN PLATELET VOLUME 9.3 fL (7.4-10.4); MONOCYTES 11.5 % (2-11); NEUTROPHILS 58.5 % (40-80); PLATELET COUNT 322 10x3/uL (130-400); RBC 4.77 10x6/uL (4.20-6.10); RDW 15.3 % (11.5-14.5); WBC 9.1 10x3/uL (4.8-10.8)
[2017-07-06 21:24] LABS: ALBUMIN 3.2 g/dL (3.4-5.0); ALKALINE PHOSPHATASE 91 U/L (46-116); ALT (SGPT) 17 U/L (10-68); CALC OSMOLALITY 280 mosm/kg (275-300); CALCIUM 8.8 mg/dL (8.5-10.1); CARBON DIOXIDE 26.4 mmol/L (21.0-32.0); CHLORIDE - SERUM 102 mmol/L (98-107); CREATININE - SERUM 1.4 mg/dL (0.6-1.3); GLUCOSE 258 mg/dL (74-106); PROTEIN - SERUM 7.3 g/dL (6.4-8.2); SODIUM 136 mmol/L (136-145); UREA NITROGEN 13 mg/dL (7-18); eGFR NON AFRICAN AMERICAN 57 mL/min (90-120)
[2017-07-06 21:36] LABS: CKMB 1.8 U/L (0.0-3.6); CREATINE KINASE 260 UL (21-232); TROPONIN-I < 0.017 ng/mL (0.000-0.060)
[2017-07-06 23:16] LABS: CHOL - HDL RATIO 3.7 ratio (2.3-4.9); LDL-HDL RATIO 2.1 ratio (1.5-3.5)
== END 2017-07-06 22:50 | disposition home or self-care (01) ==
LOC: D.ER 20:25
PROVIDERS: Emergency Medicine
DX: R07.89 Other chest pain (principal); R00.0 Tachycardia, unspecified

== ENCOUNTER 2017-07-08 12:33 | Emergency (ER) | payer MEDICAID ==
[2017-05-25 08:50] VITALS: BMI 37.3
[2017-07-08 13:46] LABS: BASOPHILS 0.2 % (0-2); EOSINOPHILS 0.6 % (0-7); HEMATOCRIT 39.6 % (42.0-54.0); IMMATURE GRANULOCYTES 0.3 % (0-5); LYMPHOCYTES 28.8 % (15-50); MCH 25.4 pg (26.0-34.0); MCHC 32.8 g/dL (31.0-37.0); MCV 77.3 fL (80.0-100.0); MEAN PLATELET VOLUME 9.1 fL (7.4-10.4); MONOCYTES 12.2 % (2-11); NEUTROPHILS 57.9 % (40-80); PLATELET COUNT 351 10x3/uL (130-400); RBC 5.12 10x6/uL (4.20-6.10); RDW 15.5 % (11.5-14.5); WBC 8.9 10x3/uL (4.8-10.8)
[2017-07-08 14:18] LABS: ALBUMIN 3.6 g/dL (3.4-5.0); ANION GAP 16.1 mmol/L (8-16); BILIRUBIN - TOTAL 0.6 mg/dL (0.2-1.3); CALCIUM 9.6 mg/dL (8.5-10.1); CARBON DIOXIDE 23.3 mmol/L (21.0-32.0); CREATININE - SERUM 1.2 mg/dL (0.6-1.3); POTASSIUM - SERUM 4.4 mmol/L (3.5-5.1); PROTEIN - SERUM 7.6 g/dL (6.4-8.2)
[2017-07-08 15:44] LABS: APPEARANCE CLEAR (CLEAR); COLOR YELLOW (YELLOW); SPECIFIC GRAVITY 1.015 (1.005-1.020)
[2017-07-08 15:47] LABS: BILIRUBIN NEGATIVE (NEGATIVE); GLUCOSE 50 mg/dL (NEGATIVE); KETONE NEGATIVE (NEGATIVE); LEUKOCYTE ESTERASE NEGATIVE (NEGATIVE); NITRITE NEGATIVE (NEGATIVE); PROTEIN TRACE mg/dL (NEGATIVE); UROBILINOGEN NORMAL (NORMAL)
[2017-07-08 17:42] LABS: AMYLASE - SERUM 94 U/L (25-115); LIPASE 135 U/L (73-393)
== END 2017-07-08 18:02 | disposition home or self-care (01) ==
LOC: D.ER 12:33
PROVIDERS: Emergency Medicine; Physician Assistant
DX: R10.11 Right upper quadrant pain (principal); R11.2 Nausea with vomiting, unspecified; E11.9 Type 2 diabetes mellitus without complications

== ENCOUNTER 2017-07-11 18:27 | Emergency (ER) | payer MEDICAID ==
[2017-05-25 08:50] VITALS: BMI 37.3
[2017-07-11 20:23] LABS: BASOPHILS 0.3 % (0-2); HEMATOCRIT 38.3 % (42.0-54.0); HEMOGLOBIN 12.9 g/dL (13.5-17.5); IMMATURE GRANULOCYTES 0.1 % (0-5); MCH 25.9 pg (26.0-34.0); MCHC 33.7 g/dL (31.0-37.0); MCV 76.8 fL (80.0-100.0); MEAN PLATELET VOLUME 8.9 fL (7.4-10.4); MONOCYTES 9.4 % (2-11); NEUTROPHILS 60.2 % (40-80); PLATELET COUNT 377 10x3/uL (130-400); RBC 4.99 10x6/uL (4.20-6.10); RDW 15.6 % (11.5-14.5); WBC 6.8 10x3/uL (4.8-10.8)
== END 2017-07-11 20:43 | disposition home or self-care (01) ==
LOC: D.ER 18:27
PROVIDERS: Emergency Medicine
DX: R11.10 Vomiting, unspecified (principal); R10.9 Unspecified abdominal pain; E11.9 Type 2 diabetes mellitus without complications

== ENCOUNTER 2017-08-14 23:12 | Observation (INO) | payer MEDICAID ==
--- NOTE | ~2017-08-14 | HEMODYNAMI ---
PATIENT:TOAN LOZAAD MEDICAL RECORD: [id number] : 69 LOCATION:[facility] D.211[facility]# [id number] ADMISSION DATE: 08/15/17 Generatedon:08/15/201713:29 Patient name: TOAN LOZADA Patient #: [id number] SSN: [id number] : 1965 Date of study: 08/15/2017 Page: Of Hemodynamic Procedure Report Patient Data Patient Demographics Procedure consent was obtained First Name: TOAN Gender: Male Last Name: NEVILLE : 1965 Middle Initial: L Age: 52 year(s) Patient #: [id number] Race: Black SSN: [id number] Additional ID: [id number] Contact details Address: [address] [place] [address] [address] State: [place] City: [facility] Zip code: [address] Past Medical History Allergies Allergen Reaction Date Comments Reported Other allergy 07/27/2015 penicillin, tetracycline Other allergy 02/04/2017 PCN, Tetracycline Other allergy 05/24/2017 PCN, KEFLAX Admission Admission Data Admission Date: 08/15/2017 Admission Time: 2:24 Room #: [facility]6 Height (in.): 71.65 BSA: 2.43 (m2) Height (cm.): 182 BMI: 37.74 (kg/m2) Weight (lbs.): 275.58 Weight (kg.): 125 Lab Results Lab Result Date: 08/15/2017 Lab Result Time: 0:00 Biochemistry Name Units Result Min Max BUN mg/dl 21 --(----)-* 7 18 Creatinine mg/dl 1.5 --(----)-* 0.6 1.3 CBC Name Units Result Min Max Hemoglobin g/dl 11.4 *-(----)-- 13.5 17.5 Procedure Procedure Types Cath Procedure Diagnostic Procedure [facility] w/Coronaries PCI Procedure Coronary Stent Initial Miscellaneous Procedures Moderate Sedation up to 15 minutes Procedure Description Procedure Date Procedure Date: 08/15/2017 Procedure Start Time: 13:07 Procedure End Time: 13:29 Procedure Staff Name Function Jimbo Neves MD Performing Physician Nguyen Spicer RT Scrub Rochelle Reid RT Monitor Emilee Tovar RN Nurse Procedure Data Cath Procedure Fluoroscopy Diagnostic fluoroscopy Total fluoroscopy Time: 4.4 time: 4.4 min min Diagnostic fluoroscopy Total fluoroscopy dose: 932 dose: 932 mGy mGy Contrast Material Contrast Material Type Amount (ml) Isovue 300 85 Entry Location Entry Primary Successful Side Size Upsize Upsize Entry Closure Henson ccessful Closure Location (Fr) 1 (Fr) 2 (Fr) Remarks Device Remarks Radial Right 6 Fr Mechanical tr b artery Short Compression Estimated blood loss: 10 ml Procedure Complications No complications Procedure Medications Medication Administration Route Dosage Oxygen NC 2 l/min Lidocaine 2% added to field 20 Heparin Flush Bag added to field 2 bags (1000units/500ml NS) 0.9% NaCl I.V. 100 ml/hr Versed I.V. 1 mg Fentanyl I.V. 50 mcg Versed I.V. 1 mg Fentanyl I.V. 50 mcg Plavix P.O. 75 mg Radial Cocktail I.A. 1 syringe (Verapomil 2mg/Nitro 400mcg/Heparin 1500units) Heparin Bolus I.V. 4000 units Fentanyl I.V. 50 mcg Hemodynamics Rest BSA: 2.43 (m2) HGB: 11.4 (g/dl) O2 Consumption: Estimated: 309.94 (ml/min) O2 Co nsumption indexed: Estimated:127.55 (ml/min/m) Heart Rate: 91 (bpm) Pressure Samples Time Site Value (mmHg) Purpose Heart Use Rate(bpm) 13:15 LV 101/9,30 Snapshot 96 13:15 AO 101/64(78) Pullback 98 13:15 LV 104/9,29 Pullback 98 Gradients Valve Time Site 1 Site 2 Mean SEP/DFP Peak To Heart Use (mmHg) (sec/min) Peak Rate (mmHg) (bpm) Aortic 13:15 LV AO 6 22 3 98 104/9,29 101/64(78) Calculations Valve P-P Mean Valve Index Valve Source Name Gradient Area Flow (cm2) Aortic 3 6 3 6 Snapshots Pre Cath Intra NCS Post Cath Vital Signs Time Heart Resp SPO2 etCO2 MC6cpil NIBP (mmHg) Rhythm Pain Sedation Rate (ipm) (%) (mmHg) (mmHg) Status Level (bpm) 12:34:34 100 30 95 0 0 143/96(112) NSR 0 (11) 10(A) , No pain 12:39:27 99 25 94 0 0 148/96(123) NSR 0 (11) 10(A) , No pain 12:44:22 98 32 94 0 0 142/94(125) NSR 0 (11) 10(A) , No pain 12:49:15 98 21 96 0 0 133/85(114) NSR 0 (11) 10(A) , No pain 12:54:08 96 16 94 0 0 127/84(107) NSR 0 (11) 10(A) , No pain 12:58:59 95 18 97 0 0 131/83(106) NSR 0 (11) 10(A) , No pain 13:03:50 96 15 94 0 0 126/84(94) NSR 0 (11) 9(A) , No pain 13:08:41 97 17 95 0 0 131/80(99) NSR 0 (11) 9(A) , No pain 13:13:27 97 15 96 0 0 124/85(96) NSR 0 (11) 9(A) , No pain 13:18:20 95 18 94 0 0 127/71(120) NSR 0 (11) 9(A) , No pain 13:23:13 95 19 95 0 0 131/70(93) NSR 0 (11) 10(A) , No pain 13:28:08 97 15 96 0 0 135/72(111) NSR 0 (11) 10(A) , No pain Medications Time Medication Route Dose Verified Delivered Reason Note s Effectiveness by by 12:42:45 Plavix P.O. 75 mg Jimbo Hebert for Pura Tvoar RN antiplatelet therapy 12:48:18 Oxygen NC 2 l/min Jimbo Hebert used for Pura Tovar RN procedure 12:48:36 Lidocaine 2% added 20ml Jimbo Choi for local to vial Pura Neves MD anesthetic field 12:48:43 Heparin Flush added 2 bags Jimbo Choi used for Bag to Pura Neves MD procedure (1000units/500ml field NS) 12:48:55 0.9% NaCl I.V. 100 Jimbo Hebert Per physician ml/hr Pura Tovar RN 13:02:34 Versed I.V. 1 mg Jimbo Emileeie for sedation Pura Tovar RN 13:02:41 Fentanyl I.V. 50 mcg Jimbo Hebertie for sedation Pura Tovar RN 13:10:00 Versed I.V. 1 mg Jimboelvis Hebertie for sedation Pura Tovar RN 13:10:03 Fentanyl I.V. 50 mcg Jimbo Hebertie for sedation Pura Tovar RN 13:14:23 Radial Cocktail I.A. 1 Jimbo Bonillarey for (Verapomil syringe Taujordan Neves MD vasodilation 2mg/Nitro 400mcg/Heparin 1500units) 13:19:24 Heparin Bolus I.V. 4000 Jimbo Hebert for veri fied units Pura Tovar RN anticoagulation with dr neves 13:21:17 Fentanyl I.V. 50 mcg Jimbo Hebert for sedation Pura Tovar RN Procedure Log Time Note 12:00:00 Patient Height : 71.65 inches 12:00:04 Patient Weight : 275.58 lbs 12:01:12 Lab Result : Hemoglobin 11.4 g/dl 12:01:12 Lab Result : Creatinine 1.5 mg/dl 12:01:12 Lab Result : BUN 21 mg/dl 12:02:08 Diagnostic Cath status Elective 12:02:11 Ottoniel Sanchez RN sent for patient. Start room use. 12:02:23 Time tracking: Regular hours 12::28 Plan of Care:Hemodynamics will remain stable., Cardiac rhythm will remain stable., Comfort level will be maintained., Respiratory function will remain adequate., Patient/ family verbilizes understanding of procedure., Procedure tolerated without complication., Recovers from procedure without complications.. 12:02:34 Patient received from Med II to CCL 1 Alert and oriented. Tansferred to table in Supine position. 12:26:27 Warm blankets applied, and anastasiya hugger turned on for patient comfort. 12::28 Correct patient and procedure confirmed by team. 12::30 Signed procedure consent form obtained from patient. 12::31 ECG and BP/O2 sat monitors applied to patient. 12:33: Vital chart was started 12:33:29 Baseline sample Acquired. 12:33:34 Rhythm: sinus rhythm 12:33:37 Full Disclosure recording started 12:33:41 H&P Date Dictated: 08/15/2017 Within 30 days and on chart.. 12:33:42 Pre-procedure instructions explained to patient. 12:33:42 Pre-op teaching completed and patient verbalized understanding. 12:33:44 Family in patients room. 12:33:45 Patient NPO since Midnight. 12:33:53 Is the patient allergic to Iodine/contrast media? No. 12:33:55 Is patient on blood thinner?Yes 12:33:58 ACC The patient was administered the following blood thiners within the last 24 hours: ACCPlavix 12:34:02 Patient diabetic? No. 12:34:14 Previous problem with sedation/anesthesia? No ? 12:34:15 Snore? Yes 12:34:16 Sleep apnea? Yes 12:34:17 Deviated septum? No 12:34:19 Opens mouth fully? Yes 12:34:20 Sticks out tongue? Yes 12:34:27 Airway obstruction? No ? 12:34:30 Dentures? Yes IN 12:34:34 Pre procedure: right dorsailis pedis pulse 1+ Palpable, but thready & weak; easily obliterated 12:34:36 Modified Shaheen's test Ulnar < 7 seconds 12:34:39 Patient pain scale 0/10 ?. 12:34:44 IV patent on arrival in right forearm with 0.9% NaCl at KVO. 12:34:46 Lab results completed and on chart. 12:34:49 Right Radial & Right Groin area was prepped with chlora-prep and draped in sterile fashion 12:34:50 Alarms reviewed by R. N. 12:34:50 Sharps counted by scrub and verified by R.N. 12:38:01 Physician paged 12:42:19 Use device set Femoral Dx 12:42:21 Acist Syringe opened to sterile field. 12:42:21 Bag Decanter opened to sterile field. 12:42:21 Medline Cath Pack opened to sterile field. 12:42:22 Terumo 5Fr Peach Orchard Sheath opened to sterile field. 12:42:22 St Pratik 260cm J .035 wire opened to sterile field. 12:42:24 Acist Hand Control opened to sterile field. 12:42:24 Acist Manifold opened to sterile field. 12:42:25 Tegaderm 4 x 4 opened to sterile field. 12:42:45 Plavix 75 mg P.O. was administered by Emilee Tovar RN; for antiplatelet therapy; 12:45:20 Medtronic Launcher 6Fr AR 2.0 guide catheter opened to sterile field. 12:45:21 Cordis 6FR XBLAD 3.5 guide catheter opened to sterile field. 12:48:18 Oxygen 2 l/min NC was administered by Emilee Tovar RN; used for procedure; 12:48:36 Lidocaine 2% 20ml vial added to field was administered by Jimbo Neves MD; for local anesthetic; 12:48:43 Heparin Flush Bag (1000units/500ml NS) 2 bags added to field was administered by Jimbo Neves MD; used for procedure; 12:48:55 0.9% NaCl 100 ml/hr I.V. was administered by Emilee Tovar RN; Per physician; 13:01:51 Physician arrived 13:01:51 --------ALL STOP TIME OUT------ 13:01:52 Final Timeout: patient, procedure, and site verified with staff and physician. All members of the team are in agreement. 13:01:54 Right Radial & Right Groin site verified by team. 13:01:59 Physical assessment completed. ASA score P 2 - A patient with mild systemic disease as per Jimbo Neves MD. 13:02:04 Sedation plan: IV Moderate Sedation Versed, Fentanyl 13:02:34 Versed 1 mg I.V. was administered by Emilee Tovar RN; for sedation; 13:02:41 Fentanyl 50 mcg I.V. was administered by Emilee Tovar RN; for sedation; 13:07:50 Procedure started. 13:07:58 Local anesthetic to right radial artery with Lidocaine 2% by Jimbo Neves MD.INITIAL ACCESS ONLY 13:08:11 A 6 Fr Short sheath was inserted into the Right Radial artery 13:08:36 Zero performed for pressure channel P1 13:10:00 Versed 1 mg I.V. was administered by Emilee Tovar RN; for sedation; 13:10:03 Fentanyl 50 mcg I.V. was administered by Emilee Tovar RN; for sedation; 13:10:03 AR 2 inserted through the radial sheath for procedure. 13:14:23 Radial Cocktail (Verapomil 2mg/Nitro 400mcg/Heparin 1500units) 1 syringe I.A. was administered by Jimbo Neves MD; for vasodilation; 13:14:51 LV angiography performed. 13:15:30 EF : 40 % 13:15:35 RCA angiography performed. 13:16:02 Catheter removed. 13:16:32 XBLAD 3.5 inserted through the radial sheath for procedure. 13:16:47 LCA angiography performed. 13:18:31 Proceeding to intervention. 13:18:50 whisper wire advanced. 13:19:24 Heparin Bolus 4000 units I.V. was administered by Emilee Tovar RN; for anticoagulation; verified with dr neves 13:19:42 iClinical BasixCompak Inflation Kit opened to sterile field. 13:19:43 Escalera CSA Medicalisper J 300cm 0.014 guide wire opened to sterile field. 13:21:17 Fentanyl 50 mcg I.V. was administered by Emilee Tovar RN; for sedation; 13:21:58 Inflation Number: 1 A Promus Premier OTW 3.0 x 16 stent was prepped and advanced across the Mid LAD. The stent was deployed at 17 OZIEL for 0:11 (min:sec). 13:22:10 Inflation number: 2 The stent balloon was then re-inflated across the Mid LAD to 17 OZIEL for 0:10 (min:sec). 13:22:25 Stent catheter was removed intact over wire. 13:24:24 Inflation Number: 1 A Promus Premier OTW 3.5 x 16 stent was prepped and advanced across the Prox LAD. The stent was deployed at 17 OZIEL for 0:10 (min:sec). 13:25:00 Terumo TR Band Large opened to sterile field. 13:25:06 Stent catheter was removed intact over wire. 13:25:07 Balloon removed over the wire. 13:25:10 Wire removed. 13:25:11 Guide catheter removed. 13:25:26 Sheath removed intact; hemostasis achieved with Mechanical Compression to the Right Radial artery. 13:25:47 Procedure ended.(Physican Out) 13:26:59 Fluoroscopy time 04.40 minutes. 13:27:04 Fluoroscopy dose: 932 mGy 13:27:04 Flurop Dose total: 932 13:27:07 Contrast amount:Isovue 300 85ml. 13:27:09 Sharps counted by scrub and verified by R.N. 13:27:16 TR band inflated with 12cc of air. 13:27:18 Insertion/operative site no bleeding no hematoma. 13:27:20 Post Procedure Pulses reassessed and unchanged 13:27:24 Post-procedure physical assessment completed. ASA score P 2 - A patient with mild systemic disease as per Jimbo Neves MD. 13:27:32 Post procedure rhythm: unchanged. 13:27:35 Estimated blood loss: 10 ml 13:27:39 Post procedure instruction explained to patient.Patient verbalizes understanding. 13:27:59 Procedure type changed to Cath procedure, Diagnostic procedure, LHC, LHC w/Coronaries, PCI procedure, Coronary Stent Initial, Miscellaneous Procedures, Moderate Sedation up to 15 minutes 13:28:01 Procedure and supply charges have been captured, reviewed, submitted and are correct. 13:28:49 Procedure Complication : No complications 13:28:56 Vital chart was stopped 13:28:57 See physician's report for complete and final results. 13:29:00 Report given to [facility]. 13:29:04 Patient transfered to [facility] II with Bed. 13:29:07 Procedure ended. 13:29:07 Full Disclosure recording stopped 13:29:11 End room use (Document Last) Intervention Summary Intervention Notes Time ActionType Lesion and Equipment Action# Pressure Duration Attributes Used 13:21:58 Place stent Mid LAD Promus 1 17 00:11 Premier OTW 3.0 x 16 stent 13:22:10 Reinflate Mid LAD Promus 2 17 00:10 stent Premier balloon OTW 3.0 x 16 stent 13:24:24 Place stent Prox LAD Promus 1 17 00:10 Premier OTW 3.5 x 16 stent Device Usage Item Name Manufacture Quantity Catalog Number Hospital Part Current Mini mal Lot# / Charge Number Stock Stock Serial# Code [facility] 1 [id number] 279621 018066 20 Syringe Medical Systems Inc Bag Microtek 1 2002S 035794 08630 896800 5 DecOpenTable Medical Inc. Medline Cardinal 1 [id number] 761774 25201 964497 5 Cath Pins Terumo 5Fr Terumo 1 NAE276 550674 430386 914558 [address] Pratik 1 109270 498063 844777 045676 30 260cm J .035 wire Acist Hand Acist 1 98110 797986 006469 743537 5 Control Medical Systems Inc Acist Acist 1 62523 256494 293292 690494 5 Manifold Medical Systems Inc Tegaderm 4 3M 1 1626W 486311 202649 134529 5 x 4 Medtronic Medtronic 1 [id number] 474088 89658 360780 1 Launcher 6Fr AR 2.0 guide catheter Cordis 6FR Cardinal 1 [id number] 834998 955669 861439 10 XBLAD 3.5 Health guide catheter [facility] Merit 1 [id number] 113397 624921 139742 15 BasixAPT Therapeutics Medical Inflation Kit Escalera Escalera 1 [id number] 813510 558112 922272 5 Whisper J Vascular 300cm 0.014 guide wire Promus [facility] 1 [id number] 403314 684812 5 [id number] Premier OTW Scientific 3.0 x 16 stent Promus [facility] 1 [id number] 115166 811126 5 [id number] Premier OTW Scientific 3.5 x 16 stent Terumo TR Terumo 1 [id number] 054107 283875 305269 40 Band Large Signature Audit [place] Stage Time Signature Unsigned Intra-Procedure 08/15/2017 Rochelle Reid 1:29:46 PM RT(R) Signatures Monitor : Rochelle Reid Signature : RT Date : Time : [facility] [address] [place] [address]
[2017-08-14 23:34] LABS: HEMATOCRIT 35.3 % (42.0-54.0); HEMOGLOBIN 11.4 g/dL (13.5-17.5); LYMPHOCYTES 46.5 % (15-50); MCH 25.2 pg (26.0-34.0); MCHC 32.3 g/dL (31.0-37.0); MCV 77.9 fL (80.0-100.0); MEAN PLATELET VOLUME 9.1 fL (7.4-10.4); NEUTROPHILS 43.3 % (40-80); RBC 4.53 10x6/uL (4.20-6.10); RDW 16.3 % (11.5-14.5); WBC 7.1 10x3/uL (4.8-10.8)
[2017-08-14 23:36] LABS: PLATELET COUNT 254 10x3/uL (130-400)
[2017-08-14 23:48] LABS: ALKALINE PHOSPHATASE 104 U/L (46-116); ALT (SGPT) 17 U/L (10-68); BILIRUBIN - TOTAL 0.35 mg/dL (0.2-1.3); CALC OSMOLALITY 277 mosm/kg (275-300); CALCIUM 8.4 mg/dL (8.5-10.1); CARBON DIOXIDE 25.2 mmol/L (21.0-32.0); CHLORIDE - SERUM 101 mmol/L (98-107); CREATININE - SERUM 1.5 mg/dL (0.6-1.3); GLUCOSE 233 mg/dL (74-106); POTASSIUM - SERUM 4.2 mmol/L (3.5-5.1); PROTEIN - SERUM 6.7 g/dL (6.4-8.2); SODIUM 134 mmol/L (136-145); UREA NITROGEN 21 mg/dL (7-18); eGFR NON AFRICAN AMERICAN 53 mL/min (90-120)
[2017-08-15 00:05] LABS: CKMB 2.5 U/L (0.0-3.6)
[2017-08-15 00:08] LABS: TROPONIN-I 0.075 ng/mL (0.000-0.060)
[2017-08-15 00:41] LABS: CREATINE KINASE 268 UL (21-232); PRO BNP 888 pg/mL (0-125)
--- NOTE | 2017-08-15 05:45 | NUR ---
PT RECEIVED FROM THE ER AT 0530. ADMITTED WITH CP AND HYPOTENSION. INITIALLY PT WAS ON A LEVOPHED DRIP, BUT WE WERE UNABLE TO TAKE HIM TO THE FLOOR ON A LEVOPHED DRIP. PT WAS SUBSEQUENTLY CHANGED TO DOBUTAMINE DRIP AND HE WAS CLEARED TO COME TO THE FLOOR BY THE ROAD CLEANER. PT IS AAOX3. ARRIVES TO UNIT VIA STRETCHER WITH ER STAFF. VS ON ARRIVAL- 96.5, 158/84, 102, 20, 98% RA. C/O CP 06/20. APPLIED 2L OXYGEN VIA NC FOR COMFORT. APPLIED TELE, SINUS TACHY ON MONITOR- HR 103. PT W/ 18G TO RIGHT FOREARM W/ DOBUTAMINE GTT RUNNING AT 5 MCG/KG (WEIGHT 122KG). ADMISSION COMPLETED. ALLERGY BRACELET AND YELLOW FALL BRACELET APPLIED. PT DOES NOT HAVE ORDERS IN THE COMPUTER FOR HIS DOBUTAMINE GTT, CALLED TO THE ER TO REQUEST ORDERS FROM THE ER DOCTOR. NO OTHER MED ORDERS. PT STATES THAT HE IS FEELING BETTER AND DENIES ANY NEEDS AT THIS TIME.
[2017-08-15 05:51] VITALS: BP 158/84
[2017-08-15 07:42] VITALS: BP 133/76
--- NOTE | 2017-08-15 08:55 | NUR ---
NPO FOR [facility]. CONSENTS SIGNED.
--- NOTE | 2017-08-15 09:36 | NUR ---
URINE SPECIMEN COLLECTED AND TAKEN TO LAB,
[2017-08-15 09:40] LABS: HEMATOCRIT 38.6 % (42.0-54.0); HEMOGLOBIN 12.6 g/dL (13.5-17.5); MCH 25.8 pg (26.0-34.0); MCHC 32.6 g/dL (31.0-37.0); MCV 79.1 fL (80.0-100.0); MEAN PLATELET VOLUME 9.6 fL (7.4-10.4); PLATELET COUNT 263 10x3/uL (130-400); RBC 4.88 10x6/uL (4.20-6.10); RDW 16.5 % (11.5-14.5); WBC 6.8 10x3/uL (4.8-10.8)
[2017-08-15 09:54] LABS: CARBON DIOXIDE 27.3 mmol/L (21.0-32.0); CREATININE - SERUM 1.2 mg/dL (0.6-1.3)
[2017-08-15 09:56] LABS: EOSINOPHILS 2 % (0-7); LYMPHOCYTES 55 % (15-50); MONOCYTES 7 % (2-11); NEUTROPHILS 36 % (40-80); PLATELET ESTIMATE NORMAL
[2017-08-15 09:58] LABS: ANION GAP 10.6 mmol/L (8-16); POTASSIUM - SERUM 3.9 mmol/L (3.5-5.1)
--- NOTE | 2017-08-15 12:17 | NUR ---
PRE-OPS GIVEN. TO MACHINE FASTENER BY BED.
[2017-08-15 12:45] LABS: APPEARANCE CLEAR (CLEAR); BILIRUBIN NEGATIVE (NEGATIVE); COLOR YELLOW (YELLOW); GLUCOSE 50 mg/dL (NEGATIVE); KETONE NEGATIVE (NEGATIVE); NITRITE NEGATIVE (NEGATIVE); PROTEIN NEGATIVE (NEGATIVE); SPECIFIC GRAVITY 1.015 (1.005-1.020); UROBILINOGEN NORMAL (NORMAL)
[2017-08-15 12:52] LABS: UDS - AMPHET NEGATIVE QUAL (NEGATIVE); UDS - BARB NEGATIVE QUAL (NEGATIVE); UDS - BENZO NEGATIVE QUAL (NEGATIVE); UDS - COCAINE NEGATIVE QUAL (NEGATIVE); UDS - OPIATE NEGATIVE QUAL (NEGATIVE); UDS - PCP NEGATIVE QUAL (NEGATIVE); UDS - THC NEGATIVE QUAL (NEGATIVE)
[2017-08-15 13:24] VITALS: BMI 37.4
--- NOTE | 2017-08-15 13:55 | NUR ---
BACK FROM TEXTILE SCREEN MAKER. VS WNL. RIGHT WRIST STABLE TR BAND INTACT. WILL MONITOR.
[2017-08-15] MEDS ORDERED: ASPIRIN81 MG PO (15:02)
[2017-08-15] MEDS ORDERED: TOPROL XL25 MG PO (15:06)
[2017-08-15 15:37] VITALS: BP 127/73
--- NOTE | 2017-08-15 17:14 | NUR ---
TR BAND DCD WITHOUT BLEEDING OR HEMATOMA NOTED. IV AND TELEMETRY DCD. DC PLANS GIVEN. UNDERSTANDING VOICED.
--- NOTE | 2017-08-15 17:50 | NUR ---
IV AND TELEMETRY DCD. DC PLANS GIVEN. UNDERSTANDING VOICED. ESCORTED TO CAR BY W/C.
--- NOTE | 2017-08-16 13:09 | OP ---
PATIENT NAME: TOAN LOZADA MEDICAL RECORD: [id number] :69 LOCATION:D.M2 D.2116 ADMISSION DATE:08/15/17 SURGEON: CAROLYN MANTILLA MD DATE OF OPERATION: 08/15/2017 PROCEDURES: 1. PTCA and stent to LAD. 2. Left heart catheterization. 3. Selective coronary angiography. 4. Left ventriculogram. INDICATION: Angina and coronary artery disease. PROCEDURE IN DETAIL: After informed consent was obtained and after detailed explanation of risks, benefits as well as alternative therapies, the patient elected to proceed with angiogram and angioplasty. The right radial area was prepped and draped in normal sterile fashion. The right radial artery was cannulated via modified Seldinger technique with placement of 6-Swiss sheath. All catheters exchanged through this sheath. FINDINGS: The left ventriculogram was performed in standard 30-degree OLVERA view, reveals global hypokinesis throughout all segments. Overall ejection fraction 35% to 40%. SELECTIVE CORONARY ANGIOGRAPHY: 1. Left main showed no significant angiographic disease. 2. Left anterior descending has previously placed stents with 2 areas of 80% in-stent restenosis. 3. Left circumflex shows moderate irregularities, but no flow-limiting stenosis. 4. Right coronary has previously placed stents. These are widely patent with no significant restenosis. No disease elsewhere throughout the right coronary ____. PROCEDURE: PTCA and stent to the LAD: The stent used is a 3.5 x 16 and a 3.0 x 16, both Promus stents. Result was 0% residual stenosis. OVERALL IMPRESSION: Successful PTCA and stent of the left anterior descending going from 80% in-stent restenosis times 2 to 0% residual stenosis. TRANSINT:[id number] Voice Confirmation ID: [id number] DOCUMENT ID: [id number] CAROLYN MANTILLA MD at 1309 CC: [id number] DICTATION DATE: 08/15/17 1328 WEB UI DESIGNER: 08/15/17 1501 DIS IN 08/15/17 [facility] [address] [id number]
--- NOTE | 2017-09-10 16:42 | DS ---
PATIENT:TOAN LOZADA :[birth year] MEDICAL RECORD: [id number] DISCHARGE SUMMARY ADMISSION DATE: 08/15/17 DISCHARGE DATE: 08/15/17 DATE OF DISCHARGE: 08/15/2017 DIAGNOSES: 1. Angina. 2. Coronary artery disease. 3. PTCA and stent of LAD this admission. HOSPITAL COURSE: Mr. Lozada presented with recurrent angina. Found to have significant disease of the LAD. Underwent successful PTCA and stent of the LAD. Had an uneventful postop course. No change in medications as he is already on aspirin and Plavix. Will follow up with [facility] in 1 month. TRANSINT:[id number] Voice Confirmation ID: [id number] DOCUMENT ID: [id number] CAROLYN MANTILLA MD at 1642 CC: [id number] DICTATION DATE: 09/10/17 1140 SALES NEGOTIATOR: 09/10/17 1444 DIS IN 08/15/17 [address] [place] [address]
== END 2017-08-15 17:51 | disposition home or self-care (01) ==
LOC: OBSVTIME → D.ER 23:12 → D.M2 23:59 → D.ER 23:59 → OBSVTIME 23:59 → D.M2 08-15 02:24 → OBSVTIME 08-15 02:24 → D.M2 08-15 17:51
PROVIDERS: Emergency Medicine; ADMIT Internal Medicine Interventional Cardiology
DX: I21.4 Non-ST elevation (NSTEMI) myocardial infarction (principal); I25.119 Atherosclerotic heart disease of native coronary artery with unspecified angina pectoris; T82.855A Stenosis of coronary artery stent, initial encounter; Y83.8 Other surgical procedures as the cause of abnormal reaction of the patient, or of later complication, without mention of misadventure at the time of the procedure; I10 Essential (primary) hypertension; E11.40 Type 2 diabetes mellitus with diabetic neuropathy, unspecified; E78.5 Hyperlipidemia, unspecified; F32.9 Major depressive disorder, single episode, unspecified; Z87.891 Personal history of nicotine dependence

== ENCOUNTER 2017-08-21 23:17 | Inpatient (IN) | payer MEDICAID ==
[~2017-08-21 23:17] MED LIST changes: +ASPIRIN81 MG PO; +TOPROL XL25 MG PO
[2017-08-21 23:40] LABS: HEMATOCRIT 34.1 % (42.0-54.0); HEMOGLOBIN 11.3 g/dL (13.5-17.5); LYMPHOCYTES 40.6 % (15-50); MCHC 33.1 g/dL (31.0-37.0); MCV 78.4 fL (80.0-100.0); NEUTROPHILS 45.1 % (40-80); PLATELET COUNT 255 10x3/uL (130-400); RBC 4.35 10x6/uL (4.20-6.10); RDW 16.1 % (11.5-14.5); WBC 4.2 10x3/uL (4.8-10.8)
[2017-08-21 23:56] LABS: ALBUMIN 3.2 g/dL (3.4-5.0); ALKALINE PHOSPHATASE 140 U/L (46-116); ALT (SGPT) 104 U/L (10-68); BILIRUBIN - TOTAL 0.33 mg/dL (0.2-1.3); CALC OSMOLALITY 276 mosm/kg (275-300); CALCIUM 8.8 mg/dL (8.5-10.1); CARBON DIOXIDE 28.3 mmol/L (21.0-32.0); CHLORIDE - SERUM 102 mmol/L (98-107); CREATININE - SERUM 1.6 mg/dL (0.6-1.3); GLUCOSE 178 mg/dL (74-106); POTASSIUM - SERUM 4.5 mmol/L (3.5-5.1); SODIUM 135 mmol/L (136-145); UREA NITROGEN 21 mg/dL (7-18); eGFR NON AFRICAN AMERICAN 49 mL/min (90-120)
[2017-08-22 00:16] LABS: CREATINE KINASE 293 UL (21-232); PRO BNP 573 pg/mL (0-125); TROPONIN-I 0.038 ng/mL (0.000-0.060)
[2017-08-22 00:37] LABS: AMYLASE - SERUM 56 U/L (25-115); LIPASE 119 U/L (73-393); THYROID STIMULATING HORMONE 6.97 uIU/mL (0.36-3.74)
[2017-08-22] MEDS ORDERED: INDOCIN25 MG PO (02:15)
--- NOTE | 2017-08-22 02:30 | NUR ---
PT ARRIVES TO FLOOR VIA STRETCHER FROM ER ACCOMPANIED BY ER NURSE. VSS, AFEBRILE. DOBUTAMINE GTT INFUSING TO LEFT FOREARM @ 9.3 ML/HR, 2.5 MCG/KG/MIN. PLACED ON TELE, NSR ON MONITOR, HR 90'S. DENIES ANY CURRENT C/O PAIN UPON ARRIVAL. UNIT ROUTINES AND PROTOCOLS DISCUSSED WITH PT, VERBALIZED UNDERSTANDING. CALL PLACED WITHIN REACH. WILL MONITOR.
[2017-08-22 02:36] VITALS: BP 120/58; BMI 37.2
[2017-08-22 08:23] VITALS: BP 102/66
--- NOTE | 2017-08-22 09:24 | NUR ---
TELEMETRY SR. IV PATENT. CALL LIGHT IN REACH. WILL CONT. PLAN OF CARE.
[2017-08-22 10:55] LABS: APPEARANCE CLEAR (CLEAR); BILIRUBIN NEGATIVE (NEGATIVE); COLOR STRAW (YELLOW); GLUCOSE NEGATIVE (NEGATIVE); KETONE NEGATIVE (NEGATIVE); NITRITE NEGATIVE (NEGATIVE); PROTEIN NEGATIVE (NEGATIVE); SPECIFIC GRAVITY 1.015 (1.005-1.020); UROBILINOGEN NORMAL (NORMAL)
--- NOTE | 2017-08-22 11:08 | NUR ---
URINE SPECIMEN COLLECTED AND TAKEN TO LAB FOR UA, C&S. WILL MONITOR.
[2017-08-22 11:59] VITALS: BP 129/80
--- NOTE | 2017-08-22 12:40 | CN ---
PATIENT NAME:TOAN LOZADA MEDICAL RECORD: [id number] : 69 LOCATION:. D.2118 ADMIT DATE: 08/22/17 ACCOUNT: [id number] CONSULTING PHYSICIAN: SHITAL ARREOLA MD REFERRING PHYSICIAN: VIOLETTA ADAMSON MD DATE OF CONSULTATION: 08/22/2017 HISTORY OF PRESENT ILLNESS: A 52-year-old gentleman with known history of coronary artery disease, status post intervention 1 week ago, admitted with relative hypotension with systolics in the 70s, confusion, hallucination. Cardiac enzymes negative so far. We are asked to see him concerning his cardiovascular status. PAST MEDICAL HISTORY: Includes: 1. History of coronary artery disease as described above. 2. Hypertension. 3. Hyperlipidemia. 4. Diabetes mellitus. ALLERGIES: PENICILLIN, TETRACYCLINE. MEDICATIONS: Typically include allopurinol 300 every day, glipizide 10 b.i.d., trazodone 100 at bedtime, tramadol 50 every 6 hours p.r.n., indomethacin 50 t.i.d., Celexa 20 every day, metoprolol 25 every day, losartan 100/25 every day, Imdur 30 every day, pravastatin 40 every day, Plavix 75 every day. REVIEW OF SYSTEMS: The patient reports easy bruising but reports no swollen glands. The patient reports no fever, no night sweats, no significant weight gain, no significant weight loss. No significant exercise tolerance. The patient reports no dry eyes, no irritation, no vision change. Patient reports no difficulty hearing and no ear pain. Patient reports no frequent nose bleeds or nose and sinus problems. Patient reports on arm pain on exertion. No shortness of breath while lying down. No history of heart murmur. Patient reports no cough, no wheezing or coughing up blood. Patient reports no abdominal pain, no vomiting. Normal appetite. No diarrhea and not vomiting blood. No nausea and no constipation. Patient reports no incontinence. No difficulty urinating. No hematuria. No increased frequency. Patient reports no muscle aches. No weakness, no arthralgias, no back pain. No swelling of the extremities. Patient reports no abnormal mole, no jaundice, no rashes. Reports no loss of consciousness. No weakness and no numbness. No seizures, dizziness, or headaches. The patient reports no depression, no sleep disturbance, feeling safe in a relationship and no alcohol abuse. Patient reports on fatigue. Reports no runny nose or sinus pressure. No itching, no hives, and no frequent sneezing. PHYSICAL EXAMINATION: GENERAL: Pleasant gentleman, in no acute distress. VITAL SIGNS: Blood pressure 102/66, pulse 95 and regular. HEENT: Normocephalic, atraumatic. NECK: No JVD or bruit. HEART: Regular. LUNGS: Spicer are clear. ABDOMEN: Soft, nontender. EXTREMITIES: Pulses are 2+ with no edema. CONSULT REPORT [id number] TOAN LOZADA IMPRESSION: Hypotension may be a component of intravascular volume depletion given his elevated BUN and creatinine as well. Agree with backing off on some of the antihypertensive. Gentle hydration. Discuss with Dr. Rodriguez. TRANSINT:[id number] Voice Confirmation ID: [id number] DOCUMENT ID: [id number] SHITAL ARREOLA MD at 1240 CC: [id number] DICTATION DATE: 08/22/17828 BELL TIER: 08/22/17 1216 ADM IN [place] [id number] [place] [address]
[2017-08-22 16:23] VITALS: BP 122/76
--- NOTE | 2017-08-22 19:24 | NUR ---
RESUMED CARE OF PT, LYING IN BED RESPIRATIONS EVEN AND UNLABORED ON ROOM AIR. 93 SR ON TELEMETRY. LEFT AC AND FOREARM SALINE LOCKED. NO NEEDS AT THIS TIME, WILL CONTINUE TO MONITOR. PLAN OF CARE DISCUSSED. CALL LIGHT IN REACH.
[2017-08-22 20:00] VITALS: BP 115/77
[2017-08-23] VITALS: BP 124/86
--- NOTE | 2017-08-23 01:19 | NUR ---
LYING IN BED WITH EYES CLOSED, RESTING COMFORTABLLY. CALL LIGHT IN REACH. WILL CONTINUE TO MONTIOR.
[2017-08-23 04:00] VITALS: BP 120/77
[2017-08-23 05:32] LABS: BASOPHILS 0.5 % (0-2); EOSINOPHILS 4.1 % (0-7); HEMATOCRIT 37.8 % (42.0-54.0); HEMOGLOBIN 12.4 g/dL (13.5-17.5); IMMATURE GRANULOCYTES 0.2 % (0-5); LYMPHOCYTES 48.8 % (15-50); MCH 25.7 pg (26.0-34.0); MCHC 32.8 g/dL (31.0-37.0); MCV 78.4 fL (80.0-100.0); MEAN PLATELET VOLUME 9.4 fL (7.4-10.4); MONOCYTES 13.1 % (2-11); NEUTROPHILS 33.3 % (40-80); PLATELET COUNT 265 10x3/uL (130-400); RBC 4.82 10x6/uL (4.20-6.10); RDW 16.3 % (11.5-14.5)
[2017-08-23 05:39] LABS: WBC 5.8 10x3/uL (4.8-10.8)
[2017-08-23 06:02] LABS: ALBUMIN 3.2 g/dL (3.4-5.0); ALKALINE PHOSPHATASE 110 U/L (46-116); ALT (SGPT) 78 U/L (10-68); BILIRUBIN - TOTAL 0.56 mg/dL (0.2-1.3); CALCIUM 9.1 mg/dL (8.5-10.1); CARBON DIOXIDE 26.6 mmol/L (21.0-32.0); CHLORIDE - SERUM 102 mmol/L (98-107); PROTEIN - SERUM 7.2 g/dL (6.4-8.2); SODIUM 135 mmol/L (136-145); TROPONIN-I 0.029 ng/mL (0.000-0.060)
[2017-08-23 06:05] LABS: CALC OSMOLALITY 269 mosm/kg (275-300); GLUCOSE 74 mg/dL (74-106); UREA NITROGEN 15 mg/dL (7-18); eGFR NON AFRICAN AMERICAN 84 mL/min (90-120)
--- NOTE | 2017-08-23 07:30 | NUR ---
ASSESSMENT COMPLETED. DENIES ANY NEEDS. TELEMERTY SHOWS SR 84. IV TO LEFT FA AND LEFT AC. PT ALERT AND ORIENTED. UP AB BRITTNEY
[2017-08-23] MEDS ORDERED: COZAAR50 MG PO (08:00)
[2017-08-23 08:03] VITALS: BP 173/63
--- NOTE | 2017-08-23 08:29 | EC ---
PATIENT:TOAN LOZADA DATE OF SERVICE: 08/22/17 SEX: M MEDICAL RECORD: [id number] DATE OF : [birth year] LOCATION:D. D.211 AGE OF PATIENT: 52 ADMISSION DATE: 08/22/17 REFERRING PHYSICIAN: INTERPRETING PHYSICIAN: ANNA MONTANA MD ECHOCARDIOGRAM REPORT ECHO CHARGES 4 ECHO COMPLETE CLINICAL DIAGNOSIS: HYPOTENSION HX OF CAD/STENTS X8, DM,HTN ECHOCARDIOGRAPHIC MEASUREMENTS (adult normal given) AC root (d.<3.7cm) 3.7 cm LV Septum d (<1.2 cm> 1.3 cm Valve Excursion 2.0 cm LV Septum (systole) 1.5 cm Left Atria (s.<4.0cm> 3.2 cm LVPW d(<1.2cm) 1.3 cm RV (d.<2.3cm) 4.0 cm LVPW (sytole) 1.5 cm LV diastole(<5.6CM) 5.4 cm MV E-F(>70mm/sec) cm LV systole 4.0 cm LVOT Diameter 2.0 cm MV exc.(>10mm) 2.4 cm Est.ejection fraction (50-75%) % Pericardial Effusion N DOPPLER: LVIT cm/sec A 50.0 cm/sec E 105 cm/sec LA cm/sec RVSP 74 mmHg LVOT 94 cm/sec AOP1/2T m/s Asc. Ao 114 cm/sec RVOT 84 cm/sec RA cm/sec PA 126 cm/sec AV Gradient Peak 5.24 mmHg AV Mean 2.27 mmHg AV Area 3.0 cm MV Gradient Peak 9.17 mmHg MV Mean 3.16 mmHg MV Area cm COMMENTS: Broadcast Correspondent: Michael HOLDEN Principal Systems Engineer: Mayra Montana TAPE# PACS DATE OF SERVICE: 08/22/2017 PROCEDURE: Transthoracic echocardiogram. FINDINGS: 1. Left ventricle shows evidence of regional wall motion abnormality. There is concentric left ventricular hypertrophy. The ejection fraction is approximately 35%. The posterior wall is hyperdynamic. The septum and distal anterior wall are akinetic to slightly dyskinetic. Lateral wall appears to be normal function. ECHOCARDIOGRAM REPORT [id number] TOAN LOZADA 2. The aortic valve, normal structure with normal function. 3. The left atrium appears to be mildly dilated. There is moderate eccentric mitral regurgitation. The inflow characteristics across the mitral valve appeared to show pseudonormalization and grade III diastolic dysfunction. 4. The tricuspid valve has moderate tricuspid regurgitation with moderate elevated pulmonary pressures of 65 mmHg. 5. There is no significant pericardial effusion. CONCLUSIONS: The patient has evidence of ischemic and hypertensive heart disease. There is evidence of elevated left ventricular end-diastolic pressures and congestive failure and elevated likely wedge pressures, which has contributed to his pulmonary pressures by echocardiography. TRANSINT:[id number] Voice Confirmation ID: [id number] DOCUMENT ID: [id number] ANNA MONTANA MD at 0829 CC: [id number] DICTATION DATE: 08/22/17 1543 FARMWORKER GENERAL: 08/22/17 1834 ADM IN [facility] [address] [place] [address]
--- NOTE | 2017-08-23 11:00 | NUR ---
SLEEPING WITHOUT ANY DISTRESS. MONITOR SHOWS SR WITH ELEVATED P @ RATE OF 95. WILL CONTINUE TO MONITOR.
[2017-08-23 12:38] VITALS: BP 136/82
--- NOTE | 2017-08-23 12:41 | NUR ---
PT GONE FOR MUGA SCAN. NO NEEDS VOICED
--- NOTE | 2017-08-23 13:00 | NUR ---
Patient Name: TOAN LOZADA Admission Status: ER Accout number: [id number] Admission Date: 08-22-2017 : 1965 Admission Diagnosis:HYPOTENSION, UNSPECIFIED Attending: VIOLETTA ADAMSON Current LOS: 1 Anticipated DC Date: 08-23-2017 Planned Disposition: Home Primary Insurance: MEDICAID [place] Discharge Planning Comments: * Is the patient Alert and Oriented? Yes 0 * How many steps to enter\exit or inside your home? none 0 * PCP DR. JOHNSON 0 * Pharmacy [facility] 0 * Preadmission Environment Home with Family 0 * ADLs Independent 0 * Equipment Cane Glucometer 0 * Other Equipment NO MEDICAL EQUIPMENT PROVIDER PREFERENCE 0 * List name and contact numbers for known caregivers / representatives who currently or will assist patient after discharge: VITOR LOZADA, MOTHER, 0 * Community resources currently utilized None 0 * Please name any agencies selected above. NONE 0 * Additional services required to return to the preadmission environment? No 0 * Can the patient safely return to the preadmission environment? Yes 0 * Has this patient been hospitalized within the prior 30 days at any hospital? No 0 CM MET WITH PT IN ROOM TO DISCUSS DISCHARGE PLANNING AND NEEDS. PT REPORTS LIVING AT HOME INDEPENDENTLY WITH HIS MOTHER. PT HAS CANE AND GLUCOMETER WITH NO MEDICAL EQUIPMENT PROVIDER PREFERENCE. PT HAS BEEN USING HIS MOTHER'S SCOOTER FOR LONG DISTANCE AMBULATION BECAUSE THE DOCTOR TOLD HIM NOT TO BE WALKING SO MUCH DUE TO HIS HEART PROBLEMS. PT HAS NO OUTSIDE SERVICES ASSISTING IN THE HOME. CM DISCUSSED AVAILABILITY OF HOME HEALTH, REHAB SERVICES AND MEDICAL EQUIPMENT. PT DENIES DISCHARGE NEEDS, REPORTS HIS SISTER WILL PICK HIM UP FOR DISCHARGE HOME. Quantitative Software Engineer: Dylan De Luna
[2017-08-23 16:14] VITALS: BP 119/77
--- NOTE | 2017-08-23 17:23 | NUR ---
PT OK TO GO PER DR MANTILLA. IVS DCD WITH TIP INTACT. INSTRUCTIONS GIVEN TO PT. TO PRIVATE CAR PER WHEELCHAIR
== END 2017-08-23 17:24 | disposition home or self-care (01) | DRG 312 ==
LOC: D.ER 23:17 → D.M2 08-22 01:57 → OBSVTIME 08-22 01:57 → D.M2 08-22 01:57
PROVIDERS: Family Medicine; ADMIT Family Medicine
DX: I95.2 Hypotension due to drugs (principal); R44.3 Hallucinations, unspecified; I42.9 Cardiomyopathy, unspecified; I25.10 Atherosclerotic heart disease of native coronary artery without angina pectoris; R41.0 Disorientation, unspecified; E11.22 Type 2 diabetes mellitus with diabetic chronic kidney disease; I12.9 Hypertensive chronic kidney disease with stage 1 through stage 4 chronic kidney disease, or unspecified chronic kidney disease; N18.3 Chronic kidney disease, stage 3 (moderate); E11.40 Type 2 diabetes mellitus with diabetic neuropathy, unspecified; E78.5 Hyperlipidemia, unspecified; K75.9 Inflammatory liver disease, unspecified; Z95.5 Presence of coronary angioplasty implant and graft

== ENCOUNTER 2017-09-06 09:06 | Inpatient (IN) | payer MEDICAID ==
[~2017-09-06 09:06] MED LIST changes: +COZAAR50 MG PO; +INDOCIN25 MG PO
[2017-09-06 10:41] LABS: BASOPHILS 0.4 % (0-2); EOSINOPHILS 3.1 % (0-7); HEMATOCRIT 37.9 % (42.0-54.0); HEMOGLOBIN 12.2 g/dL (13.5-17.5); IMMATURE GRANULOCYTES 0.2 % (0-5); LYMPHOCYTES 41.8 % (15-50); MCH 25.7 pg (26.0-34.0); MCHC 32.2 g/dL (31.0-37.0); MCV 79.8 fL (80.0-100.0); MEAN PLATELET VOLUME 9.9 fL (7.4-10.4); NEUTROPHILS 37.5 % (40-80); PLATELET COUNT 258 10x3/uL (130-400); RBC 4.75 10x6/uL (4.20-6.10); RDW 16.5 % (11.5-14.5); WBC 5.1 10x3/uL (4.8-10.8)
[2017-09-06 11:02] LABS: ALBUMIN 3.7 g/dL (3.4-5.0); ALKALINE PHOSPHATASE 95 U/L (46-116); ALT (SGPT) 41 U/L (10-68); CALC OSMOLALITY 278 mosm/kg (275-300); CARBON DIOXIDE 24.9 mmol/L (21.0-32.0); CHLORIDE - SERUM 102 mmol/L (98-107); CREATININE - SERUM 1.4 mg/dL (0.6-1.3); POTASSIUM - SERUM 4.5 mmol/L (3.5-5.1); PROTEIN - SERUM 7.4 g/dL (6.4-8.2); SODIUM 135 mmol/L (136-145); UREA NITROGEN 34 mg/dL (7-18); eGFR NON AFRICAN AMERICAN 57 mL/min (90-120)
[2017-09-06 11:03] LABS: GLUCOSE 114 mg/dL (74-106)
[2017-09-06 11:29] LABS: CREATINE KINASE 339 UL (21-232); MAGNESIUM - SERUM 2.2 mg/dL (1.8-2.4); PRO BNP 939 pg/mL (0-125); THYROID STIMULATING HORMONE 2.21 uIU/mL (0.36-3.74); URIC ACID 9.3 mg/dL (2.6-7.2)
[2017-09-06 11:32] LABS: TROPONIN-I < 0.017 ng/mL (0.000-0.060)
[2017-09-06 12:26] LABS: APPEARANCE CLEAR (CLEAR); BILIRUBIN NEGATIVE (NEGATIVE); COLOR STRAW (YELLOW); GLUCOSE NEGATIVE (NEGATIVE); KETONE NEGATIVE (NEGATIVE); NITRITE NEGATIVE (NEGATIVE); PROTEIN NEGATIVE (NEGATIVE); SPECIFIC GRAVITY 1.005 (1.005-1.020); UROBILINOGEN NORMAL (NORMAL)
[2017-09-06 12:38] LABS: UDS - AMPHET NEGATIVE QUAL (NEGATIVE); UDS - BARB NEGATIVE QUAL (NEGATIVE); UDS - BENZO NEGATIVE QUAL (NEGATIVE); UDS - COCAINE NEGATIVE QUAL (NEGATIVE); UDS - OPIATE NEGATIVE QUAL (NEGATIVE); UDS - PCP NEGATIVE QUAL (NEGATIVE); UDS - THC NEGATIVE QUAL (NEGATIVE)
[2017-09-06] MEDS ORDERED: LANTUS INSULIN10 ML SC (13:30)
[2017-09-06 13:33] LABS: CREATINE KINASE 341 UL (21-232)
[2017-09-06 13:34] LABS: TROPONIN-I < 0.017 ng/mL (0.000-0.060)
--- NOTE | 2017-09-06 13:41 | NUR ---
RECIEVED FROM ER. ALERT AND ORIENTED. NO NEEDS VOICED. TELEMERTY SHOWS SR. CALL LIGHT IN REACH WITH SR UP
--- NOTE | 2017-09-06 13:53 | NUR ---
NEW ADMIT FROM ER. MERCYINTED TO ROOM. CALL LIGHT IN REACH. WILL CONT. PLAN OF CARE.
[2017-09-06 13:54] VITALS: BP 131/82; BMI 39.4
--- NOTE | 2017-09-06 16:56 | CN ---
PATIENT NAME:TOAN LOZADA MEDICAL RECORD: [id number] : [birth year] LOCATION:D. D.2131 ADMIT DATE: 09/06/17 ACCOUNT: [id number] CONSULTING PHYSICIAN: CAROLYN MANTILLA MD REFERRING PHYSICIAN: CIPRIANO NELSON MD DATE OF CONSULTATION: 09/06/2017 CARDIOLOGY CONSULT DIAGNOSES: 1. Shortness of breath. 2. Pulmonary edema - congestive heart failure, chronic systolic dysfunction. 3. Cardiomyopathy. 4. Coronary artery disease. 5. Previous multivessel PTCA and stent. 6. Hypertension. 7. Hyperlipidemia. HISTORY: Mr. Lozada is well known to us with past history of ischemic cardiomyopathy, ejection fraction 35%. Last echo was within the last month. He as well has history of coronary artery disease. Last PTCA and stent was in the last month. He presented to the Emergency Room after a fall. He is as well short of breath. His chest x-ray has mild pulmonary edema compatible with mild congestive heart failure symptomatology. He denies medical noncompliance. He denies any chest pain. Troponin is normal. EKG is with no changes. PHYSICAL EXAMINATION: GENERAL APPEARANCE: Well-nourished, well-developed, appears stated age. Level of distress, comfortable. PSYCHIATRIC: Mental status, alert, normal affect. Orientation, oriented to time, place and person. EYES: Lids and conjunctiva, noninjected. No discharge, no pallor. ENT: Lips, teeth, gums, normal dentition. Oropharynx, no cyanosis, no pallor. NECK: Carotid arteries, bilateral normal upstroke, no bruits, no thrills. JUGULAR VEINS: No jugular venous pressure or distention. CERVICAL LYMPH NODES: Nontender, nonenlarged. THYROID: Not enlarged. Nontender. No nodules. LUNGS: Respiratory effort, unlabored. CHEST: Normal curvature. No thoracic deformity. No chest wall tenderness. Percussion, resonant. Auscultation, clear. No wheezes, no rales, no rhonchi. CARDIOVASCULAR: Precordial exam, nondisplaced. No heaves or pericardial thrills. Rate and rhythm, regular. Heart sounds, normal S1, normal S2. No S3, no gallop, no rub. Systolic murmur, not heard. Diastolic murmur, not heard. EXTREMITIES: No cyanosis, no edema. Peripheral pulses, full and equal in all extremities, except as noted. No bruits appreciated. ABDOMEN: Soft, nondistended. Normal aorta. No bruit. Nontender. No masses. Liver, nontender, no hepatomegaly. Spleen, nontender, no splenomegaly. MUSCULOSKELETAL: No joint tenderness. No joint swelling. No erythema. NEUROLOGICAL: Normal gait, normal strength, normal tone. SKIN: Warm and dry. OVERALL IMPRESSION: Mild congestive heart failure. This is more of a chronic congestive heart failure situation. At this time, all he will need will be IV diuretics. He will clear the congestive heart failure symptomatology with the IV diuretics. At this time, no other cardiac workup or treatment is necessary. CONSULT REPORT [id number] TOAN LOZADA TRANSINT:[id number] Voice Confirmation ID: [id number] DOCUMENT ID: [id number] CAROLYN MANTILLA MD at 1656 CC: [id number] DICTATION DATE: 09/06/17 1216 STOCK TURNER: 09/06/17 1239 ADM IN [facility] [address] [place] [address]
--- NOTE | 2017-09-06 18:36 | NUR ---
LYING QUIETLY. DENIES ANY NEEDS. CALL LIGHT IN REACH WITH SR UP.
--- NOTE | 2017-09-06 19:56 | NUR ---
PT IN BED RESTING QUIETLY. DENIES ANY PAIN OR NEEDS AT THIS TIME. BED IN LOW POSITION, CALL LIGHT WITHIN REACH. WILL CPOC.
[2017-09-06 20:00] VITALS: BP 119/71
[2017-09-06 20:04] LABS: CKMB 3.1 U/L (0.0-3.6); CREATINE KINASE 323 UL (21-232)
[2017-09-06 20:06] LABS: TROPONIN-I 0.016 ng/mL (0.000-0.060)
[2017-09-07] VITALS: BP 136/86
[2017-09-07 02:02] LABS: CREATINE KINASE 344 UL (21-232); TROPONIN-I < 0.017 ng/mL (0.000-0.060)
[2017-09-07 04:00] VITALS: BP 136/95
[2017-09-07 06:32] LABS: BASOPHILS 0.3 % (0-2); EOSINOPHILS 2.2 % (0-7); HEMATOCRIT 38.3 % (42.0-54.0); HEMOGLOBIN 12.6 g/dL (13.5-17.5); IMMATURE GRANULOCYTES 0.3 % (0-5); LYMPHOCYTES 38.7 % (15-50); MCH 25.8 pg (26.0-34.0); MCHC 32.9 g/dL (31.0-37.0); MCV 78.5 fL (80.0-100.0); MONOCYTES 18.8 % (2-11); NEUTROPHILS 39.7 % (40-80); PLATELET COUNT 248 10x3/uL (130-400); RBC 4.88 10x6/uL (4.20-6.10); RDW 16.9 % (11.5-14.5); WBC 6.3 10x3/uL (4.8-10.8)
[2017-09-07 06:56] LABS: ALBUMIN 3.6 g/dL (3.4-5.0); ANION GAP 15.7 mmol/L (8-16); BILIRUBIN - TOTAL 0.9 mg/dL (0.2-1.3); CALCIUM 9.4 mg/dL (8.5-10.1); CARBON DIOXIDE 25.4 mmol/L (21.0-32.0); CREATININE - SERUM 1.2 mg/dL (0.6-1.3); POTASSIUM - SERUM 4.1 mmol/L (3.5-5.1); PROTEIN - SERUM 7.2 g/dL (6.4-8.2)
--- NOTE | 2017-09-07 07:30 | NUR ---
REPORT RECEIVED. RR EVEN AND UNLABORED. PT DENIES NEEDS AT THIS TIME. ASSESSMENT PERFORMED, WILL CTM.
[2017-09-07 08:39] VITALS: BP 142/89
[2017-09-07 09:53] VITALS: BMI 39.3
--- NOTE | 2017-09-07 11:30 | NUR ---
EDUCATED PT ON USE OF IS. VERBALIZED UNDERSTANDING. EDUCATED PT ON SCDS. NO MACHINE IN ROOM, WILL GET MACHINE AND PT VERBALIZED THAT HE WOULD WEAR SCDS. PT VERBALIZED UNDERSTANING REGARDING SCDS. WILL CTM.
[2017-09-07 12:00] VITALS: BP 149/99
[2017-09-07 16:00] VITALS: BP 140/94
--- NOTE | 2017-09-07 18:00 | NUR ---
PT RESTING QUIETLY, RR EVEN AND UNLABORED. FAMILY AT BEDSIDE. PT DENIES NEEDS AT THIS TIME, WILL GIVE REPORT ON PT CONDTION FOR THE DAY.
--- NOTE | 2017-09-07 19:33 | NUR ---
IIITAL ROUNDS COMPELTED. PT DENIES ANY DISCOMFORT. WILL CONTINUE TO MONITOR.
[2017-09-07 20:00] VITALS: BP 138/84
--- NOTE | 2017-09-07 22:24 | NUR ---
PM MEDS GIVEN AND PM SNACK SERVED. BS WAS 193. 2 UNITS HUMALOG GIVEN SUB-Q TO UPPER R ARM PER S/S. SCHEDULED LANTUS GIVEN. PT CURRETNLY WATCHING TV. WILL CONTINUE TO MONITOR. SR UP X2, CALL LIGHT WITHIN REACH.
[2017-09-08] VITALS: BP 110/69
--- NOTE | 2017-09-08 00:41 | NUR ---
PT RESTING WITH EYES CLOSED. RESP EVEN AND REGULAR. SR UP X2, CALL LIGHT WITHIN REACH.
--- NOTE | 2017-09-08 02:11 | NUR ---
PT RSTING WITH EYES CLOSED. RESP EVEN AND REGULAR. SR UP X2, CALL LIGHT WITHIN REACH.
[2017-09-08 04:00] VITALS: BP 125/72
--- NOTE | 2017-09-08 04:27 | NUR ---
PT RESTING WITH EYES CLOSED. RESP EVEN ADN REGULAR. SR UP X2, CALL LIGHT WITHIN REACH.
[2017-09-08 05:31] LABS: BASOPHILS 0.3 % (0-2); EOSINOPHILS 3.5 % (0-7); HEMOGLOBIN 12.8 g/dL (13.5-17.5); IMMATURE GRANULOCYTES 0.3 % (0-5); MCH 25.8 pg (26.0-34.0); MCHC 32.8 g/dL (31.0-37.0); MCV 78.6 fL (80.0-100.0); MEAN PLATELET VOLUME 9.7 fL (7.4-10.4); MONOCYTES 18.4 % (2-11); NEUTROPHILS 32.5 % (40-80); PLATELET COUNT 266 10x3/uL (130-400); RBC 4.96 10x6/uL (4.20-6.10); RDW 16.6 % (11.5-14.5); WBC 6.3 10x3/uL (4.8-10.8)
[2017-09-08 05:48] LABS: ALBUMIN 3.4 g/dL (3.4-5.0); ANION GAP 14.5 mmol/L (8-16); BILIRUBIN - TOTAL 0.76 mg/dL (0.2-1.3); CALCIUM 9.3 mg/dL (8.5-10.1); CARBON DIOXIDE 28.5 mmol/L (21.0-32.0); CREATININE - SERUM 1.3 mg/dL (0.6-1.3); PROTEIN - SERUM 7.3 g/dL (6.4-8.2)
--- NOTE | 2017-09-08 06:08 | NUR ---
VSS THROUGHOUT NIGHT. SR/ST PER CM. PT DENIED ANY DISCOMFORT. AM FSBS 107. NO COVERAGE NEEDED. NEEDS MET; WILL CONTINUE TO MONITOR.
--- NOTE | 2017-09-08 07:15 | NUR ---
REPORT RECEIVED. PT ASLEEP, RR EVEN AND UNLABORED. SCDS ON PT. PLACED NAME ON WHITE BOARD, WILL CTM.
[2017-09-08 08:00] VITALS: BP 122/79
[2017-09-08 12:00] VITALS: BP 133/87
[2017-09-08 16:00] VITALS: BP 134/90
--- NOTE | 2017-09-08 18:47 | NUR ---
PT RESTING QUIELTY, RR EVEN AND UNLABORED. PT REQUEST JUICE, GIVEN. DENIES FURTHER NEEDS, WILL GIVE REPORT ON PT CONDTION FOR THE DAY.
[2017-09-08 20:00] VITALS: BP 117/74
--- NOTE | 2017-09-08 20:00 | NUR ---
RESUMED CARE OF PT, SITTING UP ON SIDE OF BED RESPIRATIONS EVEN AND UNLABORED ON ROOM AIR. 99 SR ON TELEMETRY. LEFT HAND SALINE LOCKED. NO NEEDS VOICED AT THIS TIME, CALL LIGHT INR EACH. WILL CONTINUE TO MONTIOR. SEE NURSE ASSESSMENT.
--- NOTE | 2017-09-09 01:25 | NUR ---
LYING IN BED WITH EYES CLOSED, CALL LIGHT IN REACH. WILL CONTINUE TO MONITOR.
[2017-09-09 04:00] VITALS: BP 165/69
[2017-09-09 06:12] LABS: BASOPHILS 0.5 % (0-2); EOSINOPHILS 3.5 % (0-7); HEMATOCRIT 39.8 % (42.0-54.0); HEMOGLOBIN 12.9 g/dL (13.5-17.5); IMMATURE GRANULOCYTES 0.2 % (0-5); LYMPHOCYTES 52.9 % (15-50); MCH 25.9 pg (26.0-34.0); MCHC 32.4 g/dL (31.0-37.0); MCV 79.8 fL (80.0-100.0); MEAN PLATELET VOLUME 9.7 fL (7.4-10.4); MONOCYTES 16.3 % (2-11); NEUTROPHILS 26.6 % (40-80); PLATELET COUNT 273 10x3/uL (130-400); RBC 4.99 10x6/uL (4.20-6.10); RDW 16.4 % (11.5-14.5); WBC 6.6 10x3/uL (4.8-10.8)
[2017-09-09 06:46] LABS: ALBUMIN 3.5 g/dL (3.4-5.0); ANION GAP 12.5 mmol/L (8-16); BILIRUBIN - TOTAL 0.72 mg/dL (0.2-1.3); CALCIUM 9.2 mg/dL (8.5-10.1); CARBON DIOXIDE 29.2 mmol/L (21.0-32.0); CREATININE - SERUM 1.2 mg/dL (0.6-1.3); POTASSIUM - SERUM 3.7 mmol/L (3.5-5.1); PROTEIN - SERUM 7.6 g/dL (6.4-8.2)
--- NOTE | 2017-09-09 07:40 | NUR ---
PT SITTING UP IN BED DENIES ANY NEEDS AT THIS TIME WILL CONT TO MONITOR
[2017-09-09 08:34] VITALS: BP 117/63
[2017-09-09] MEDS ORDERED: LASIX40 MG PO (11:07)
[2017-09-09 12:23] VITALS: BP 114/76
--- NOTE | 2017-09-09 13:29 | NUR ---
Patient Name: TOAN LOZADA Admission Status: ER Accout number: [id number] Admission Date: 09-06-2017 : 1965 Admission Diagnosis: Attending: CIPRIANO NELSON Current LOS: 3 Anticipated DC Date: 09-09-2017 Planned Disposition: Home Primary Insurance: MEDICAID [place] Discharge Planning Comments: * Is the patient Alert and Oriented? Yes 0 * How many steps to enter\exit or inside your home? NONE 0 * PCP DR. JOHNSON 0 * Pharmacy [facility] 0 * Preadmission Environment Home with Family 0 * ADLs Independent 0 * Equipment Cane Glucometer 0 * Other Equipment NO MEDICAL EQUIPMENT PROVIDER PREFERENCE 0 * List name and contact numbers for known caregivers / representatives who currently or will assist patient after discharge: VITOR LOZADA, MOTHER, 0 * Community resources currently utilized None 0 * Please name any agencies selected above. NONE 0 * Additional services required to return to the preadmission environment? No 0 * Can the patient safely return to the preadmission environment? Yes 0 * Has this patient been hospitalized within the prior 30 days at any hospital? Yes 0 CM MET WITH PT IN ROOM TO DISCUSS DISCHARGE PLANNING AND NEEDS. PT REPORTS LIVING AT HOME INDEPENDENTLY WITH HIS MOTHER. PT HAS A CANE AND GLUCOMETER WITH NO MEDICAL EQUIPMENT AND NO OUTSIDE SERVICES ASSISTING IN THE HOME. CM DISCUSSED AVAILABILITY OF HOME HEALTH, REHAB SERVICES AND MEDICAL EQUIPMENT. PT DENIES NEED OF REHAB OR HOME HEALTH; CM ASKED ABOUT HAVING HOME HEALTH CALL TO CHECK ON PT AFTER HE GETS HOME, PT DECLINED. PT REPORTS THEY DID NOT PUT HIM ON ANY NEW MEDICATIONS LAST TIME, BUT THIS TIME, HE WILL BE ON LASIX TO HELP KEEP THE FLUID OFF OF HIS LUNGS. PT WOULD LIKE A WALKER TO ASSIST HIM WHEN HE IS HAVING POOR BALANCE AT HOME; PT HAS NO PREFERENCE ON PROVIDER. PT ASKED ABOUT GETTING MORE INSURANCE OTHER THAN MEDICAID; CM ASKED ABOUT PT'S DISABILITY CLAIM, PT REPORTS IT HAS BEEN GOING BUT NOT APPROVED FOR THE PAST TWO YEARS. CM EXPLAINED THAT IF PT'S DISABILITY CLAIM IS EVER APPROVED, HE MAY QUALIFY FOR MEDICARE AFTER TWO YEARS IF HE HAS PAID IN ENOUGH QUARTERS TO THE FEDERAL SYSTEM. CM EXPLAINED OTHERWISE, PT WILL NEED TO PURCHASE PRIVATE INSURANCE IF HE WANTS IT; PT REPORTS INABILITY TO AFFORD OTHER INSURANCE. PT ASKED ABOUT GETTING ANOTHER CANE, CM EXPLAINED THAT INSURANCE DOES NOT GENERALLY PROVIDE FOR A CANE, CM EXPLAINED IMPORTANCE OF COMPARISON SHOPPING TO FIND THE LOWEST PRICES. PT REPORTS HE WILL PROGRAM CONSULTANT THE WALKER IF IT IS CLOSE ENOUGH, CM WILL [facility]. PT REPORTS A FRIEND WILL PICK HIM UP FOR DISCHARGE HOME. ANTI [employer] WARF[employer] OPERATIONS OFFICER NOTIFIED. ORDER FOR WALKER RECEIVED. CM CALLED [facility], SPOKE TO MARCO WHO REPORTS AVAILABILITY OF WALKER FOR OFFICE PROGRAM CONSULTANT. CM FAXED INFORMATION TO [facility] FOR PROCESSING, PT TO PROGRAM CONSULTANT AT [facility]. PT NOTIFIED WHO DENIED FURTHER DISCHARGE NEEDS. Access Rep: Dylan De Luna
--- NOTE | 2017-09-09 13:58 | NUR ---
WENT OVER DC PAPERWORK WITH PT PT VERBALIZES UNDERSTANDING. DC PIV WITH CATH TIP INTACT. DC TELE AND RETURNED TO SPOOL FIXER. PT IS GETTING DRESSED AND WILL NOTIFY STAFF WHEN READY.. SCRIPT FOR LASIX GIVEN TO PT. PT TO RESTAURANT KITCHEN AND SERVICE MANAGER HIS WALKER AT [facility].
--- NOTE | 2017-09-09 15:12 | NUR ---
PT WHEELED DOWN TO FRONT ENTRANCE BY VOLUNTEER
== END 2017-09-09 15:13 | disposition home or self-care (01) | DRG 292 ==
LOC: D.ER 09:06 → D.M2 12:14
PROVIDERS: Emergency Medicine; ADMIT Family Medicine
DX: I13.0 Hypertensive heart and chronic kidney disease with heart failure and stage 1 through stage 4 chronic kidney disease, or unspecified chronic kidney disease (principal); N17.9 Acute kidney failure, unspecified; I50.22 Chronic systolic (congestive) heart failure; I42.9 Cardiomyopathy, unspecified; N18.3 Chronic kidney disease, stage 3 (moderate); E11.22 Type 2 diabetes mellitus with diabetic chronic kidney disease; I25.10 Atherosclerotic heart disease of native coronary artery without angina pectoris; E11.40 Type 2 diabetes mellitus with diabetic neuropathy, unspecified; E78.5 Hyperlipidemia, unspecified; G47.33 Obstructive sleep apnea (adult) (pediatric); F41.8 Other specified anxiety disorders; R52 Pain, unspecified; E86.0 Dehydration; Z95.5 Presence of coronary angioplasty implant and graft

== ENCOUNTER 2017-10-09 11:11 | Emergency (ER) | payer MEDICAID ==
[~2017-10-09 11:11] MED LIST changes: +LASIX40 MG PO
[2017-10-09 11:58] LABS: BASOPHILS 0.3 % (0-2); EOSINOPHILS 2.4 % (0-7); HEMATOCRIT 43.6 % (42.0-54.0); HEMOGLOBIN 14.7 g/dL (13.5-17.5); IMMATURE GRANULOCYTES 0.3 % (0-5); LYMPHOCYTES 53.6 % (15-50); MCH 26.1 pg (26.0-34.0); MCHC 33.7 g/dL (31.0-37.0); MCV 77.4 fL (80.0-100.0); MEAN PLATELET VOLUME 10.1 fL (7.4-10.4); MONOCYTES 13.9 % (2-11); NEUTROPHILS 29.5 % (40-80); PLATELET COUNT 256 10x3/uL (130-400); RBC 5.63 10x6/uL (4.20-6.10); RDW 15.7 % (11.5-14.5); WBC 7.6 10x3/uL (4.8-10.8)
[2017-10-09 12:38] LABS: ALKALINE PHOSPHATASE 101 U/L (46-116); ALT (SGPT) 28 U/L (10-68); CALCIUM 9.3 mg/dL (8.5-10.1); CARBON DIOXIDE 29.2 mmol/L (21.0-32.0); CHLORIDE - SERUM 91 mmol/L (98-107); CREATINE KINASE 516 UL (21-232); CREATININE - SERUM 1.5 mg/dL (0.6-1.3); POTASSIUM - SERUM 4.7 mmol/L (3.5-5.1); PRO BNP 220 pg/mL (0-125); PROTEIN - SERUM 8.7 g/dL (6.4-8.2); SODIUM 130 mmol/L (136-145); UREA NITROGEN 43 mg/dL (7-18); eGFR NON AFRICAN AMERICAN 53 mL/min (90-120)
[2017-10-09 12:40] LABS: CALC OSMOLALITY 280 mosm/kg (275-300); CKMB 3.2 U/L (0.0-3.6); GLUCOSE 252 mg/dL (74-106); TROPONIN-I < 0.017 ng/mL (0.000-0.060)
== END 2017-10-09 14:42 | disposition home or self-care (01) ==
LOC: D.ER 11:11
PROVIDERS: Emergency Medicine
DX: R06.00 Dyspnea, unspecified (principal); I50.9 Heart failure, unspecified; R79.89 Other specified abnormal findings of blood chemistry; E11.9 Type 2 diabetes mellitus without complications; Z79.4 Long term (current) use of insulin; R00.0 Tachycardia, unspecified

== ENCOUNTER 2017-10-30 02:18 | Emergency (ER) | payer MEDICAID ==
[2017-10-30 02:48] LABS: APPEARANCE CLEAR (CLEAR); BILIRUBIN NEGATIVE (NEGATIVE); COLOR YELLOW (YELLOW); GLUCOSE 1000 mg/dL (NEGATIVE); KETONE NEGATIVE (NEGATIVE); NITRITE NEGATIVE (NEGATIVE); PROTEIN 2+ mg/dL (NEGATIVE); SPECIFIC GRAVITY 1.015 (1.005-1.020); UROBILINOGEN NORMAL (NORMAL)
[2017-10-30 02:49] LABS: BACTERIA NONE SEEN /hpf (NONE SEEN); EPITHELIAL CELLS 0-5 /hpf (0-5); RED CELLS - URINE 0-5 /hpf (0-5); WHITE CELLS - URINE NSEEN /hpf (0-5)
[2017-10-30 02:56] LABS: BASOPHILS 0.2 % (0-2); EOSINOPHILS 1.9 % (0-7); HEMATOCRIT 42.3 % (42.0-54.0); HEMOGLOBIN 14.4 g/dL (13.5-17.5); IMMATURE GRANULOCYTES 0.3 % (0-5); LYMPHOCYTES 46.2 % (15-50); MCH 26.1 pg (26.0-34.0); MCV 76.6 fL (80.0-100.0); MEAN PLATELET VOLUME 9.7 fL (7.4-10.4); MONOCYTES 12.7 % (2-11); NEUTROPHILS 38.7 % (40-80); PLATELET COUNT 255 10x3/uL (130-400); RBC 5.52 10x6/uL (4.20-6.10); RDW 14.9 % (11.5-14.5); WBC 8.8 10x3/uL (4.8-10.8)
[2017-10-30 03:09] LABS: ALBUMIN 3.8 g/dL (3.4-5.0); ANION GAP 11.5 mmol/L (8-16); BILIRUBIN - TOTAL 0.33 mg/dL (0.2-1.3); CALCIUM 9.4 mg/dL (8.5-10.1); CARBON DIOXIDE 31.2 mmol/L (21.0-32.0); CREATININE - SERUM 1.7 mg/dL (0.6-1.3); POTASSIUM - SERUM 3.7 mmol/L (3.5-5.1); PROTEIN - SERUM 8.2 g/dL (6.4-8.2)
== END 2017-10-30 04:38 | disposition home or self-care (01) ==
LOC: D.ER 02:18
PROVIDERS: Emergency Medicine
DX: R11.10 Vomiting, unspecified (principal); R10.9 Unspecified abdominal pain; E11.9 Type 2 diabetes mellitus without complications; Z79.4 Long term (current) use of insulin; N28.9 Disorder of kidney and ureter, unspecified; E86.0 Dehydration

== ENCOUNTER 2017-11-04 15:50 | Emergency (ER) | payer MEDICAID | END 2017-11-04 17:01 | disposition home or self-care (01) | LOC: D.ER 15:50 | DX: R10.9 Unspecified abdominal pain (principal); W01.0XXA Fall on same level from slipping, tripping and stumbling without subsequent striking against object, initial encounter; Y93.89 Activity, other specified; Y92.019 Unspecified place in single-family (private) house as the place of occurrence of the external cause ==

== ENCOUNTER 2017-11-16 16:55 | Emergency (ER) | payer MEDICAID | END 2017-11-16 19:15 | disposition home or self-care (01) | LOC: D.ER 16:55 | DX: S80.12XA Contusion of left lower leg, initial encounter (principal); S80.11XA Contusion of right lower leg, initial encounter; X58.XXXA Exposure to other specified factors, initial encounter; Y93.89 Activity, other specified; Y92.811 Bus as the place of occurrence of the external cause; I50.9 Heart failure, unspecified; E11.9 Type 2 diabetes mellitus without complications; Z79.4 Long term (current) use of insulin; R00.0 Tachycardia, unspecified; I44.5 Left posterior fascicular block ==

== ENCOUNTER 2018-01-05 09:31 | Emergency (ER) | payer MEDICAID ==
[2018-01-05 11:45] LABS: BASOPHILS 0.3 % (0-2); HEMATOCRIT 43.7 % (42.0-54.0); HEMOGLOBIN 14.4 g/dL (13.5-17.5); IMMATURE GRANULOCYTES 0.3 % (0-5); LYMPHOCYTES 39.2 % (15-50); MCH 25.7 pg (26.0-34.0); MONOCYTES 12.2 % (2-11); PLATELET COUNT 298 10x3/uL (130-400); RDW 15.7 % (11.5-14.5)
[2018-01-05 11:59] LABS: ALBUMIN 3.2 g/dL (3.4-5.0); ALKALINE PHOSPHATASE 116 U/L (46-116); ALT (SGPT) 27 U/L (10-68); BILIRUBIN - TOTAL 0.79 mg/dL (0.2-1.3); CALC OSMOLALITY 276 mosm/kg (275-300); CALCIUM 9.1 mg/dL (8.5-10.1); CHLORIDE - SERUM 101 mmol/L (98-107); CREATININE - SERUM 1.4 mg/dL (0.6-1.3); POTASSIUM - SERUM 4.1 mmol/L (3.5-5.1); PROTEIN - SERUM 7.4 g/dL (6.4-8.2); SODIUM 138 mmol/L (136-145); UREA NITROGEN 16 mg/dL (7-18); eGFR NON AFRICAN AMERICAN 57 mL/min (90-120)
[2018-01-05 12:01] LABS: GLUCOSE 104 mg/dL (74-106)
[2018-01-05 12:10] LABS: CKMB 2.6 U/L (0.0-3.6); CREATINE KINASE 374 UL (21-232); PRO BNP 1264 pg/mL (0-125); TROPONIN-I 0.047 ng/mL (0.000-0.060)
== END 2018-01-05 13:27 | disposition home or self-care (01) ==
LOC: D.ER 09:31
PROVIDERS: Family Medicine
DX: J18.9 Pneumonia, unspecified organism (principal); M25.511 Pain in right shoulder; M79.604 Pain in right leg; T14.8XXA Other injury of unspecified body region, initial encounter; W19.XXXA Unspecified fall, initial encounter; Y93.89 Activity, other specified; Y92.019 Unspecified place in single-family (private) house as the place of occurrence of the external cause; I50.9 Heart failure, unspecified; I95.9 Hypotension, unspecified; E11.9 Type 2 diabetes mellitus without complications; Z79.4 Long term (current) use of insulin; R00.0 Tachycardia, unspecified

== ENCOUNTER 2018-01-20 05:42 | Inpatient (IN) | payer MEDICAID ==
[~2018-01-20] VITALS: Ht 182.9 cm; Wt 142.9 kg
--- NOTE | ~2018-01-20 | EC ---
PATIENT:TOAN LOZADA DATE OF SERVICE: 01/20/18 SEX: M MEDICAL RECORD: [id number] DATE OF : [birth year] LOCATION:D.MS [place] AGE OF PATIENT: 52 ADMISSION DATE: 01/20/18 REFERRING PHYSICIAN: INTERPRETING PHYSICIAN: CAROLYN NEVES MD ECHOCARDIOGRAM REPORT ECHO CHARGES 4 ECHO COMPLETE CLINICAL DIAGNOSIS: CHF ECHOCARDIOGRAPHIC MEASUREMENTS (adult normal given) AC root (d.<3.7cm) 3.3 cm LV Septum d (<1.2 cm> 1.3 cm Valve Excursion 2.3 cm LV Septum (systole) 1.6 cm Left Atria (s.<4.0cm> 2.9 cm LVPW d(<1.2cm) 1.2 cm RV (d.<2.3cm) 3.8 cm LVPW (sytole) 2.0 cm LV diastole(<5.6CM) 5.9 cm MV E-F(>70mm/sec) cm LV systole 3.9 cm LVOT Diameter 2.0 cm MV exc.(>10mm) cm Est.ejection fraction (50-75%) % Pericardial Effusion N DOPPLER: LVIT cm/sec A cm/sec E 112 cm/sec LA cm/sec RVSP 86.0 mmHg LVOT 90.0 cm/sec AOP1/2T m/s Asc. Ao 116 cm/sec RVOT 57.0 cm/sec RA cm/sec PA 86.0 cm/sec AV Gradient Peak 5.4 mmHg AV Mean 3.0 mmHg AV Area 2.4 cm MV Gradient Peak 4.4 mmHg MV Mean 1.3 mmHg MV Area cm COMMENTS: Slasher Tender: Elsy [facility] Vehicle Operator: 1 Dr. Neves TAPE# PACS DATE OF SERVICE: 01/20/2018 FINDINGS: 1. Left ventricle chamber size is mildly dilated. Left ventricular systolic function is moderately reduced, but unchanged from previous studies. Ejection fraction in the 30% to 35% range. 2. Left atrium is upper limits of normal at 4.1 cm. Right atrium and right ventricular chamber sizes are as well upper limits of normal. 3. Valvular structures have normal structure and motion. 4. Doppler interrogation reveals moderate mitral regurgitation, mild tricuspid ECHOCARDIOGRAM REPORT [id number] TOAN LOZADA regurgitation. No other valvular insufficiency or stenosis. 5. No evidence of pericardial effusion or left ventricular thrombus. TRANSINT:[id number] Voice Confirmation ID: [id number] DOCUMENT ID: [id number] 01/23/2018 Edited to correct date of service, dmm. CAROLYN NEVES MD at 1202 CC: [id number] DICTATION DATE: 01/21/18 1217 RADIATION PROTECTION TECHNICIAN: 01/21/18 1224 DIS IN 01/23/18 [address] [address] [place] [address]
--- NOTE | ~2018-01-20 | CN ---
PATIENT NAME:TOAN LOZADA MEDICAL RECORD: [id number] : [birth year] LOCATION:D.MS [place]31 ADMIT DATE: 01/20/18 ACCOUNT: [id number] CONSULTING PHYSICIAN: CAROLYN MANTILLA MD REFERRING PHYSICIAN: YFN BABCOCK MD DATE OF CONSULTATION: 01/21/2018 DIAGNOSES: 1. Shortness of breath -- dyspnea on exertion. 2. Right pleural effusion. 3. Chest pain. 4. Coronary artery disease. 5. Previous percutaneous transluminal coronary angioplasty stent. 6. Dilated cardiomyopathy, chronic systolic dysfunction. 7. Hypertension. 8. Hyperlipidemia. HISTORY OF PRESENT ILLNESS: Mr. Lozada is well known to us with a past history of extensive ischemic heart disease, multivessel PTCA stent in the past who presents with right-sided chest pain, very atypical, not like his typical anginal pain, was found to have a right pleural effusion, he had a pneumonia treated approximately a week ago. He has been stable from a cardiac standpoint, none of his previous anginal pain that he has had in the past. His EKG is with no ST-T changes. Troponin is normal. REVIEW OF SYSTEMS: The patient reports easy bruising but reports no swollen glands. The patient reports no fever, no night sweats, no significant weight gain, no significant weight loss. No significant exercise tolerance. The patient reports no dry eyes, no irritation, no vision change. Patient reports no difficulty hearing and no ear pain. Patient reports no frequent nose bleeds or nose and sinus problems. Patient reports on arm pain on exertion. No shortness of breath while lying down. No history of heart murmur. Patient reports no cough, no wheezing or coughing up blood. Patient reports no abdominal pain, no vomiting. Normal appetite. No diarrhea and not vomiting blood. No nausea and no constipation. Patient reports no incontinence. No difficulty urinating. No hematuria. No increased frequency. Patient reports no muscle aches. No weakness, no arthralgias, no back pain. No swelling of the extremities. Patient reports no abnormal mole, no jaundice, no rashes. Reports no loss of consciousness. No weakness and no numbness. No seizures, dizziness, or headaches. The patient reports no depression, no sleep disturbance, feeling safe in a relationship and no alcohol abuse. Patient reports on fatigue. Reports no runny nose or sinus pressure. No itching, no hives, and no frequent sneezing. PHYSICAL EXAMINATION: GENERAL APPEARANCE: Well-nourished, well-developed, appears stated age. Level of distress, comfortable. PSYCHIATRIC: Mental status, alert, normal affect. Orientation, oriented to time, place and person. EYES: Lids and conjunctiva, noninjected. No discharge, no pallor. ENT: Lips, teeth, gums, normal dentition. Oropharynx, no cyanosis, no pallor. NECK: Carotid arteries, bilateral normal upstroke, no bruits, no thrills. JUGULAR VEINS: No jugular venous pressure or distention. CERVICAL LYMPH NODES: Nontender, nonenlarged. THYROID: Not enlarged. Nontender. No nodules. CONSULT REPORT [id number] TOAN LOZADA LUNGS: Respiratory effort, unlabored. CHEST: Normal curvature. No thoracic deformity. No chest wall tenderness. Percussion, resonant. Auscultation, clear. No wheezes, no rales, no rhonchi. CARDIOVASCULAR: Precordial exam, nondisplaced. No heaves or pericardial thrills. Rate and rhythm, regular. Heart sounds, normal S1, normal S2. No S3, no gallop, no rub. Systolic murmur, not heard. Diastolic murmur, not heard. EXTREMITIES: No cyanosis, no edema. Peripheral pulses, full and equal in all extremities, except as noted. No bruits appreciated. ABDOMEN: Soft, nondistended. Normal aorta. No bruit. Nontender. No masses. Liver, nontender, no hepatomegaly. Spleen, nontender, no splenomegaly. MUSCULOSKELETAL: No joint tenderness. No joint swelling. No erythema. NEUROLOGICAL: Normal gait, normal strength, normal tone. SKIN: Warm and dry. OVERALL IMPRESSION: Atypical chest pain, most likely related to bronchitis or pleurisy. At this time, no other cardiac workup treatment is necessary. TRANSINT:[id number] Voice Confirmation ID: [id number] DOCUMENT ID: [id number] CAROLYN MANTILLA MD at 1202 CC: [id number] DICTATION DATE: 01/21/18 1156 CHEMICAL EQUIPMENT CONTROLLER: 01/21/18 1207 DIS IN 01/23/18 [place] [address]
[2018-01-20 06:27] LABS: BASOPHILS 0.4 % (0-2); EOSINOPHILS 2.5 % (0-7); HEMATOCRIT 39.6 % (42.0-54.0); HEMOGLOBIN 12.9 g/dL (13.5-17.5); IMMATURE GRANULOCYTES 0.4 % (0-5); LYMPHOCYTES 38.4 % (15-50); MCH 25.5 pg (26.0-34.0); MCHC 32.6 g/dL (31.0-37.0); MCV 78.3 fL (80.0-100.0); MEAN PLATELET VOLUME 9.6 fL (7.4-10.4); MONOCYTES 10.4 % (2-11); NEUTROPHILS 47.9 % (40-80); RBC 5.06 10x6/uL (4.20-6.10); RDW 15.5 % (11.5-14.5); WBC 9.1 10x3/uL (4.8-10.8)
[2018-01-20 06:28] LABS: PLATELET COUNT 396 10x3/uL (130-400)
[2018-01-20 06:43] LABS: ALBUMIN 3.1 g/dL (3.4-5.0); ALKALINE PHOSPHATASE 101 U/L (46-116); ALT (SGPT) 25 U/L (10-68); CALC OSMOLALITY 278 mosm/kg (275-300); CALCIUM 8.8 mg/dL (8.5-10.1); CARBON DIOXIDE 23.5 mmol/L (21.0-32.0); CHLORIDE - SERUM 101 mmol/L (98-107); CREATININE - SERUM 1.2 mg/dL (0.6-1.3); POTASSIUM - SERUM 4.1 mmol/L (3.5-5.1); PROTEIN - SERUM 7.5 g/dL (6.4-8.2); SODIUM 136 mmol/L (136-145); UREA NITROGEN 15 mg/dL (7-18); eGFR NON AFRICAN AMERICAN 68 mL/min (90-120)
[2018-01-20 06:45] LABS: GLUCOSE 213 mg/dL (74-106)
[2018-01-20 06:53] LABS: CKMB 3.3 U/L (0.0-3.6); CREATINE KINASE 487 UL (21-232); PRO BNP 1078 pg/mL (0-125); TROPONIN-I 0.034 ng/mL (0.000-0.060)
[2018-01-20 09:29] LABS: APPEARANCE CLEAR (CLEAR); BILIRUBIN NEGATIVE (NEGATIVE); COLOR YELLOW (YELLOW); GLUCOSE 100 mg/dL (NEGATIVE); KETONE NEGATIVE (NEGATIVE); NITRITE NEGATIVE (NEGATIVE); PROTEIN 2+ mg/dL (NEGATIVE); SPECIFIC GRAVITY 1.015 (1.005-1.020); UROBILINOGEN NORMAL (NORMAL)
[2018-01-20 09:31] LABS: BACTERIA FEW /hpf (NONE SEEN); EPITHELIAL CELLS 0-5 /hpf (0-5); MUCUS <1+ /lpf (NONE SEEN); RED CELLS - URINE OCC /hpf (0-5); WHITE CELLS - URINE OCC /hpf (0-5)
[2018-01-20 13:51] LABS: % SATURATION 16 % (15-55); IRON 48 ug/dl (35-150); TOTAL IRON BIND CAPACITY 286 ug/dl (260-445); UNSAT IRON BIND CAPACITY 238 ug/dl (150-375)
[2018-01-20 13:59] LABS: CKMB 3.2 U/L (0.0-3.6); CREATINE KINASE 527 UL (21-232); FERRITIN 383 ng/mL (3-244); TROPONIN-I 0.049 ng/mL (0.000-0.060)
[2018-01-20 19:58] LABS: CKMB 2.9 U/L (0.0-3.6); CREATINE KINASE 578 UL (21-232); TROPONIN-I 0.045 ng/mL (0.000-0.060)
[2018-01-21] VITALS (7 sets, daily range): BP systolic 118–159; BP diastolic 68–97; Ht 182.9 cm; Wt 142.9 kg
[2018-01-21 06:40] LABS: BASOPHILS 0.5 % (0-2); EOSINOPHILS 3.1 % (0-7); HEMATOCRIT 39.3 % (42.0-54.0); HEMOGLOBIN 12.5 g/dL (13.5-17.5); IMMATURE GRANULOCYTES 0.5 % (0-5); LYMPHOCYTES 34.3 % (15-50); MCH 24.8 pg (26.0-34.0); MCHC 31.8 g/dL (31.0-37.0); MEAN PLATELET VOLUME 9.5 fL (7.4-10.4); MONOCYTES 14.6 % (2-11); PLATELET COUNT 385 10x3/uL (130-400); RBC 5.04 10x6/uL (4.20-6.10); RDW 15.6 % (11.5-14.5); WBC 8.3 10x3/uL (4.8-10.8)
[2018-01-21 07:09] LABS: CALC OSMOLALITY 277 mosm/kg (275-300); CALCIUM 8.5 mg/dL (8.5-10.1); CARBON DIOXIDE 22.8 mmol/L (21.0-32.0); CHLORIDE - SERUM 103 mmol/L (98-107); CREATININE - SERUM 1.1 mg/dL (0.6-1.3); GLUCOSE 167 mg/dL (74-106); SODIUM 137 mmol/L (136-145); UREA NITROGEN 13 mg/dL (7-18); eGFR NON AFRICAN AMERICAN 75 mL/min (90-120)
[2018-01-21 09:17] LABS: FOLATE (FOLIC ACID) - SERUM 14.9 ng/mL (>3.0)
[2018-01-22 04:29] VITALS: BP 136/87
[2018-01-22 07:40] LABS: BASOPHILS 0.5 % (0-2); EOSINOPHILS 3.4 % (0-7); HEMATOCRIT 38.9 % (42.0-54.0); HEMOGLOBIN 12.7 g/dL (13.5-17.5); IMMATURE GRANULOCYTES 0.7 % (0-5); LYMPHOCYTES 38.9 % (15-50); MCH 25.4 pg (26.0-34.0); MCHC 32.6 g/dL (31.0-37.0); MCV 77.8 fL (80.0-100.0); MEAN PLATELET VOLUME 9.4 fL (7.4-10.4); MONOCYTES 13.4 % (2-11); NEUTROPHILS 43.1 % (40-80); PLATELET COUNT 399 10x3/uL (130-400); RDW 15.5 % (11.5-14.5); WBC 8.2 10x3/uL (4.8-10.8)
[2018-01-22 07:52] LABS: ANION GAP 14.7 mmol/L (8-16); CALCIUM 8.5 mg/dL (8.5-10.1); CARBON DIOXIDE 24.3 mmol/L (21.0-32.0); CREATININE - SERUM 1.2 mg/dL (0.6-1.3)
[2018-01-22 09:16] VITALS: BP 106/67
[2018-01-22 12:38] VITALS: BP 149/104
[2018-01-22 16:10] VITALS: BP 129/81
[2018-01-22 21:09] VITALS: BP 92/40
[2018-01-23 01:38] VITALS: BP 127/71
[2018-01-23 04:42] VITALS: BP 124/74
[2018-01-23 05:48] LABS: BASOPHILS 0.5 % (0-2); EOSINOPHILS 3.5 % (0-7); HEMATOCRIT 39.1 % (42.0-54.0); HEMOGLOBIN 12.5 g/dL (13.5-17.5); IMMATURE GRANULOCYTES 0.4 % (0-5); LYMPHOCYTES 39.5 % (15-50); MCH 24.8 pg (26.0-34.0); MCV 77.6 fL (80.0-100.0); MEAN PLATELET VOLUME 9.3 fL (7.4-10.4); MONOCYTES 11.8 % (2-11); NEUTROPHILS 44.3 % (40-80); PLATELET COUNT 383 10x3/uL (130-400); RBC 5.04 10x6/uL (4.20-6.10); RDW 15.4 % (11.5-14.5); WBC 8.2 10x3/uL (4.8-10.8)
[2018-01-23 06:07] LABS: CALC OSMOLALITY 279 mosm/kg (275-300); CALCIUM 8.4 mg/dL (8.5-10.1); CARBON DIOXIDE 25.4 mmol/L (21.0-32.0); CHLORIDE - SERUM 104 mmol/L (98-107); CREATININE - SERUM 1.1 mg/dL (0.6-1.3); POTASSIUM - SERUM 3.8 mmol/L (3.5-5.1); SODIUM 139 mmol/L (136-145); UREA NITROGEN 14 mg/dL (7-18); eGFR NON AFRICAN AMERICAN 75 mL/min (90-120)
[2018-01-23 06:08] LABS: GLUCOSE 122 mg/dL (74-106)
[2018-01-23 09:37] VITALS: BP 141/88
[2018-01-23] MEDS ORDERED: ZITHROMAX250 MG PO (12:15)
[2018-01-23] MEDS ORDERED: LASIX40 MG PO (12:16)
[2018-01-23 12:20] VITALS: BP 134/88
== END 2018-01-23 15:14 | disposition home health service (06) | DRG 291 ==
LOC: D.ER 05:42 → D.EDHOLD 07:33 → D.MS 07:33
PROVIDERS: Family Medicine; Internal Medicine Nephrology
DX: I13.0 Hypertensive heart and chronic kidney disease with heart failure and stage 1 through stage 4 chronic kidney disease, or unspecified chronic kidney disease (principal); I50.23 Acute on chronic systolic (congestive) heart failure; N18.3 Chronic kidney disease, stage 3 (moderate); E11.22 Type 2 diabetes mellitus with diabetic chronic kidney disease; Z79.4 Long term (current) use of insulin; R07.89 Other chest pain; I25.10 Atherosclerotic heart disease of native coronary artery without angina pectoris; I42.0 Dilated cardiomyopathy; E78.5 Hyperlipidemia, unspecified; E66.01 Morbid (severe) obesity due to excess calories; Z68.39 Body mass index [BMI] 39.0-39.9, adult; I08.1 Rheumatic disorders of both mitral and tricuspid valves

== ENCOUNTER 2018-02-06 06:21 | Outpatient (CLI) | payer MEDICAID ==
[~2018-02-06] VITALS: Ht 182.9 cm; Wt 146.5 kg
[~2018-02-06 06:21] MED LIST changes: +ZITHROMAX250 MG PO
[2018-02-06 08:01] VITALS: BP 129/88; Ht 182.9 cm; Wt 146.5 kg
[2018-02-06 08:42] LABS: ANION GAP 12.6 mmol/L (8-16); CALCIUM 9.2 mg/dL (8.5-10.1); CARBON DIOXIDE 31.7 mmol/L (21.0-32.0); CREATININE - SERUM 1.7 mg/dL (0.6-1.3); POTASSIUM - SERUM 4.3 mmol/L (3.5-5.1)
== END 2018-02-06 17:30 | disposition home or self-care (01) ==
LOC: D.CATH 06:21
PROVIDERS: Internal Medicine Interventional Cardiology
DX: I50.9 Heart failure, unspecified (principal); I42.9 Cardiomyopathy, unspecified

== ENCOUNTER 2018-02-10 13:21 | Emergency (ER) | payer MEDICAID ==
[2018-02-06 08:01] VITALS: BMI 43.8
[2018-02-10 14:08] LABS: BASOPHILS 0.6 % (0-2); EOSINOPHILS 3.9 % (0-7); HEMATOCRIT 41.1 % (42.0-54.0); HEMOGLOBIN 13.5 g/dL (13.5-17.5); IMMATURE GRANULOCYTES 0.3 % (0-5); LYMPHOCYTES 54.5 % (15-50); MCH 25.8 pg (26.0-34.0); MCHC 32.8 g/dL (31.0-37.0); MCV 78.6 fL (80.0-100.0); MEAN PLATELET VOLUME 9.3 fL (7.4-10.4); MONOCYTES 10.6 % (2-11); NEUTROPHILS 30.1 % (40-80); RBC 5.23 10x6/uL (4.20-6.10); RDW 15.6 % (11.5-14.5); WBC 6.7 10x3/uL (4.8-10.8)
[2018-02-10 14:10] LABS: ALBUMIN 3.5 g/dL (3.4-5.0); ANION GAP 12.5 mmol/L (8-16); BILIRUBIN - TOTAL 0.59 mg/dL (0.2-1.3); CALCIUM 8.6 mg/dL (8.5-10.1); CARBON DIOXIDE 29.5 mmol/L (21.0-32.0); CREATININE - SERUM 1.9 mg/dL (0.6-1.3); PLATELET COUNT 259 10x3/uL (130-400); PROTEIN - SERUM 7.9 g/dL (6.4-8.2)
[2018-02-10 15:45] LABS: APPEARANCE CLEAR (CLEAR); BILIRUBIN NEGATIVE (NEGATIVE); COLOR YELLOW (YELLOW); GLUCOSE NEGATIVE (NEGATIVE); KETONE NEGATIVE (NEGATIVE); NITRITE NEGATIVE (NEGATIVE); PROTEIN NEGATIVE (NEGATIVE); SPECIFIC GRAVITY 1.015 (1.005-1.020); UROBILINOGEN NORMAL (NORMAL)
== END 2018-02-10 17:57 | disposition home or self-care (01) ==
LOC: D.ER 13:21
PROVIDERS: Emergency Medicine
DX: R53.1 Weakness (principal); I50.9 Heart failure, unspecified; E11.9 Type 2 diabetes mellitus without complications; Z79.4 Long term (current) use of insulin

== ENCOUNTER 2018-02-14 08:00 | Outpatient (CLI) | payer MEDICAID ==
--- NOTE | ~2018-02-14 | HP ---
PATIENT: TOAN LOZADA MEDICAL RECORD: [id number] ACCOUNT: [id number] LOCATION:[facility] : 69 ADMISSION DATE: 02/18/18 HISTORY AND PHYSICAL EXAMINATION NameTOAN LOZADA (52yo, M) ID# [id number]. Date/Time02/12/2018 10:14PRVRI1967[facility] Dept.NPP_[facility] ClinicProviderSHIN CALDWELL MDInsuranceMed Primary: [place] Insurance # : [id number] PCP : GOPAL JOHNSON Referring Provider Name : GOPAL JOHNSON Employer Name : [employer] Prescription: [facility] MEDICAID ADMINISTRATION - Member is eligible. Chief Complaint Coronary artery disease moderate mitral regurg eval for CABG, possible Mitral repair/replacement Patient's Care Team Primary Care Provider (): GOPAL JOHNSON: [address], [place] [address], , Referring Provider (): GOPAL JOHNSON: [address], [place] [address], , Patient's Pharmacies [facility] (ERX): [address] [employer] [facility] [employer] [facility], [place] [address], , Vitals BP:112/72 sitting R arm 02/12/2018 11:00 am 118/72 sitting L arm 02/12/2018 11:00 amBP Cuff Size:large adult 02/12/2018 11:00 am large adult 02/12/2018 11:00 amHR:100,reg 02/12/2018 11:00 amHt:5 ft 11 in 02/12/2018 11:01 amWt:317 lbs Refused 02/12/2018 11:01 amNotes:chest pain, shortness of breath, swelling to legs and feet. This has been going on for several months with increasing intensity. He was in [facility] last week for fluid removal with iv meds, bumex and dobutamine. 02/12/2018 11:03 amBMI:44.2 02/12/2018 11:01 amAllergies Reviewed Allergies PENICILLINSTETRACYCLINEMedications Reviewed Medications allopurinol 300 mg tablet TK 1 T PO D.02/15/17 filledCaremarkBD Ultra-Fine Original Pen Needle 29 gauge x 1/2" USE WITH INSULIN BID.02/25/17 filledsurescriptsBD Ultra-Fine Short Pen Needle 31 gauge x 5/16"05/31/16 filledCaremarkbumetanide 2 mg pwcbiu49/19/18 filledsurescriptscarvedilol 12.5 mg tablet Take 1 tablet(s) twice a day by oral route.02/10/18 enteredErika Watkinscitalopram 20 mg tablet TK 1 T PO QD09/24/16 filledsurescriptscitalopram 40 mg tablet TK 1 T PO QD07/12/17 filledMagellan Medicaid Administrationclopidogrel 75 mg tablet TK 1 T PO QD01/29/18 filledMagellan Medicaid Administrationcyclobenzaprine 10 mg tablet TK 1 T PO BID PRF NITUQE85/23/17 filledCaremarkEffexor XR 75 mg capsule,extended release Take 1 capsule(s) every day by oral route.02/10/18 enteredErika Watkinsfexofenadine 180 mg tablet TK 1 T PO QD07/19/16 filledsurescriptsfluconazole 150 mg caihmb08/02/17 filledCaremarkfluticasone 50 mcg/actuation nasal spray,suspension HISTORY AND PHYSICAL [id number] TOAN LOZADA WELL AND U 2 SPRAYS IEN D111/23/15 filledCaremarkfurosemide 40 mg tablet Take 1 tablet(s) twice a day by oral route., start filledErika Watkinsgabapentin 300 mg oekcwqw65/12/16 filledCaremarkglipiZIDE 10 mg tablet TK 1 T PO BID08/13/17 filledMagellan Medicaid AdministrationHumaLOG U-100 Insulin 100 unit/mL subcutaneous uywgjdyc72/22/18 filledMagellan Medicaid AdministrationhydroCHLOROthiazide 25 mg tablet TK 1 T PO QD08/13/17 filledsurescriptsHYDROcodone 5 mg-acetaminophen 325 mg valzni33/22/17 filledMagellan Medicaid AdministrationHYDROcodone 7.5 mg-acetaminophen 325 mg palzcy84/31/18 filledMagellan Medicaid AdministrationhydrOXYzine pamoate 25 mg capsule 1 Tab TID12/23/16 filledsurescriptshyoscyamine 0.125 mg sublingual kvoega46/13/15 filledCaremarkindomethacin 50 mg noogrnz46/13/17 filledNygellan Medicaid Administrationisosorbide mononitrate ER 30 mg tablet,extended release 24 hr TK 1 T PO QD02/18/17 filledsurescriptsJanuvia 50 mg fpiahq39/06/17 filledCaremarkJardiance 25 mg tablet TK 1 T PO D QAM.07/27/16 filledsurescriptsLantus Solostar U-100 Insulin 100 unit/mL (3 mL) subcutaneous pen ADM 50 UNITS SC QD02/14/17 filledsurescriptsLantus U-100 Insulin 100 unit/mL subcutaneous solution ADM 50 UNI SC QD01/20/18 filledMagellan Medicaid Administrationlisinopril 40 mg tablet TK 1 T PO QD04/20/16 filledCaremarklosartan 100 mg-hydrochlorothiazide 25 mg tablet TK 1 T PO QD11/21/16 filledCaremarkmeloxicam 15 mg bajcjn59/15/17 filledsurescriptsmetFORMIN 1,000 mg tablet TK 1 T PO BID WITH MEALS11/21/16 filledCaremarknitroglycerin 0.[address] 1 T UNDER TONGUE UTD12/23/16 filledsurescriptsomeprazole 40 mg capsule,delayed ccehonv47/17/16 filledCaremarkpravastatin 40 mg tablet TK 1 T PO QD LATE11/21/16 filledCaremarktiZANidine 4 mg tablet TK 1 T PO Q 8 H PRN111/23/16 filledsurescriptstraMADol 50 mg tablet TK 1-2 TS PO Q 8 H PRN P001/03/18 filledNygellan Medicaid AdministrationVictoza 3-Artis 0.6 mg/0.1 mL (18 mg/3 mL) subcutaneous pen injector ADM 1.8 MG SC D002/04/17 filledCaremarkProblems Reviewed Problems Mitral valve regurgitation - Onset: 02/12/2018 Coronary atherosclerosis - Onset: 02/12/2018 Family History Reviewed Family History Mother- Arthritis - Congestive heart failureBrother- Malignant neoplastic diseasePaternal Grandfather- Cerebrovascular accidentMaternal Grandmother- Myocardial infarction ( age: 69)Paternal Grandmother- Myocardial infarction ( age: 55)Maternal Uncle- Myocardial infarction ( age: 50) - Myocardial infarction ( age: 58)Social History Reviewed Social History Smoking Status: Smoker - current status unknown Tobacco-years of use: 30 Surgical History Reviewed Surgical History Cholecystectomy with cholangiography - 11/14/2016 STENT 08/15/17 LAD HISTORY AND PHYSICAL [id number] LISAGabrielaTOAN Ofelia STENT 05/20/17 LAD STENT 02/05/17 LAD STENT 05/18/16 LAD STENT 04/23/16 RCA STENT 07/27/15 RCA Past Medical History Reviewed Past Medical History Abdominal Pain: Y Asthma: Y Cancer: Y Diabetes: Y Heart Disease: Y High Blood Pressure: Y Kidney Disease: Y Shortness of Breath: Y Swelling of Ankles, Feet or Hands: Y Documents for Discussion N/A Screening None recorded. HPI Coronary Artery Disease F/U Reported by patient. Severity: chest discomfort with household activities/yard work; has used Nitroglycerin Context: non-smoker Associated Symptoms: chest pain with exertion; dyspnea with exertion; has pain to legs and arms reports night sweats 52-year-old -N[place]ien male with significant dyspnea on exertion, history of coronary disease and myocardial infarction and previous practice coronary intervention. The patient recently was admitted and underwent dobutamine challenge with weight loss of 8-9 pounds and improvement in his symptoms. he denies chest pressure palpitations syncope or near syncope. He was apparently in the emergency room earlier this week Last cath August 2017 after which the patient had appendicitis ROS Additionally reports: as reviewed in the chart with the patient ROS as noted in the HPI Physical Exam Patient is a 52-year-old male. Constitutional: General Appearance well nourished and developed and healthy-appearing. Level of Distress NAD. Ambulation ambulating normally. Cardiovascular: Apical Impulse not displaced or no thrill. Heart Auscultation normal s1 and s2; no murmurs, rubs, or gallops; and RRR; unable to appreciate a murmur of mitral regurgitation. Arterial Pulses no abdominal aorta bruits, femoral bruits, or popliteal bruits and 2+ bilateral, carotid 2+ bilateral, femoral 2+ bilateral, popliteal 2+ bilateral, and dorsalis pedis 2+ bilateral. Edema no edema or varicosities. Lungs: Repiratory Effort no dyspnea. Percussion no hyperresonance or dullness or flatness. Auscultation no wheezing, rhonchi, or rales / crackles and breathing HISTORY AND PHYSICAL [id number] SIRIGERRYTOAN L sounds normal, good air movement, and CTA except as noted. Abdomen: Bowl Sounds normal. Inspection and Palpation no tenderness, guarding, masses, or rebound tenderness and soft and non-distended. Liver non-tender and no hepatomegaly. Spleen non-tender and no splenomegaly. Hernia none palpable. Musculoskeletal System: Gait And Stance normal gait and stance. Digits and Nails normal nails and no cyanosis. Neurologic: Cranial Nerves grossly intact. Reflexes DTRs 2+ bilaterally throughout. Sensation grossly intact. Lymph Nodes: Lymph Nodes no cervical LAD, supraclavicular LAD, axillary LAD, or inguinal LAD. Eyes: Lids and Conjunctivae no discharge or pallor and non-injected. Pupils PERRLA. Cornea grossly intact. EOM EOMI. Lens clear. Sclerae non-icteric. Neck: Neck no masses, enlarged lymph nodes, or carotid bruits and supple and trachea midline. Thyroid no enlargement or nodules and non-tender. Skin: Inspection and Palpation no rash, lesions, ulcers, jaundice, or abnormal nevi. Assessment / Plan 1. Mitral valve regurgitation I34.0: Nonrheumatic mitral (valve) insufficiency HEART VALVE DISEASE: CARE INSTRUCTIONS MITRAL VALVE REGURGITATION: CARE INSTRUCTIONS 2. Coronary arteriosclerosis in [place] artery I25.10: Atherosclerotic heart disease of [place] coronary artery without angina pectoris Patient Goals the patient is a nonsmoker. He has been quite active in the past but currently dyspneic at about 50 feet Patient Instructions he will need COURTNEY and repeat heart catheter prior to surgery, we should be able to schedule this one day prior to mitral valve surgery, coronary bypass graft Discussion Notes 2 problems we discussed with the patient, one coronary disease with recurrence therefore even with about a 50% stenosis will likely p lace 2 vein grafts. Secondly the patient may need mitral valve replacement and we discussed the option of mechanical valve with lifelong Coumadin versus bioprosthesis with 3 months Coumadin as long as he remains in a regular rhythm. We plan further discus khalida prior to surgery and after review of COURTNEY. HISTORY AND PHYSICAL [id number] TOAN LOZADA, SHIN Knight MD at 0951 CC: [id number] DICTATION DATE: 02/12/18 1030 OFFICE CLIN ASST: BEAU 02/14/18 [address] [place] [id number] [place] [id number]
--- NOTE | ~2018-02-14 | OP ---
PATIENT NAME: TOAN LOZADA MEDICAL RECORD: [id number] :69 LOCATION:[facility] ADMISSION DATE: SURGEON: CAROLYN MANTILLA MD DATE OF OPERATION: 02/19/2018 PROCEDURES: 1. PTCA stent LAD. 2. Selective coronary angiography. INDICATION: Angina and coronary artery disease. PROCEDURE IN DETAIL: After informed consent was obtained and after a detailed description of the risks, benefits as well as alternative therapies, the patient elected to proceed with angiogram and angioplasty. The right femoral area was prepped and draped in normal sterile fashion. The right femoral artery was cannulated via modified Seldinger technique with placement of 6-English sheath. All catheters exchanged through this sheath. FINDINGS: The left anterior descending has a 90% stenosis in the mid vessel. This was addressed with a 3.5 x 30 mm Austin stent taken to 23 atmospheres. Result was 0% residual stenosis. OVERALL IMPRESSION: Successful percutaneous transluminal angioplasty stent of the left anterior descending going from 90% initial stenosis to 0% residual stenosis. TRANSINT:[id number] Voice Confirmation ID: [id number] DOCUMENT ID: [id number] CAROLYN MANTILLA MD at 1056 CC: [id number] DICTATION DATE: 02/19/18 1121 DIGGING MACHINE OPERATOR: 02/19/18 [address] [place] [address]
[2018-02-14] MEDS ORDERED: HYDROCODONE-APA1 TAB PO (08:40)
[2018-02-14] MEDS ORDERED: HUMALOG 30100 UNITS/ SC (08:40)
[2018-02-14] MEDS ORDERED: COREG12.5 MG PO (08:41)
[2018-02-14 10:09] LABS: BASOPHILS 0.3 % (0-2); EOSINOPHILS 3.5 % (0-7); HEMATOCRIT 41.1 % (42.0-54.0); HEMOGLOBIN 13.4 g/dL (13.5-17.5); IMMATURE GRANULOCYTES 0.3 % (0-5); LYMPHOCYTES 41.2 % (15-50); MCH 25.7 pg (26.0-34.0); MCHC 32.6 g/dL (31.0-37.0); MCV 78.7 fL (80.0-100.0); MEAN PLATELET VOLUME 9.6 fL (7.4-10.4); MONOCYTES 15.4 % (2-11); NEUTROPHILS 39.3 % (40-80); PLATELET COUNT 277 10x3/uL (130-400); RBC 5.22 10x6/uL (4.20-6.10); WBC 7.4 10x3/uL (4.8-10.8)
[2018-02-14 10:18] LABS: APTT 32.3 SECONDS (22.8-39.4); INR 1.07 (0.85-1.17); PROTIME 13.5 SECONDS (11.6-15.0)
[2018-02-14 10:36] LABS: ALBUMIN 3.6 g/dL (3.4-5.0); ANION GAP 13.3 mmol/L (8-16); BILIRUBIN - TOTAL 0.8 mg/dL (0.2-1.3); CALCIUM 9.3 mg/dL (8.5-10.1); CARBON DIOXIDE 28.5 mmol/L (21.0-32.0); CREATININE - SERUM 1.5 mg/dL (0.6-1.3); PHOSPHOROUS 4.6 mg/dL (2.5-4.9); POTASSIUM - SERUM 4.8 mmol/L (3.5-5.1); PROTEIN - SERUM 7.5 g/dL (6.4-8.2); T4 THYROXIN - FREE 0.98 ng/dL (0.76-1.46); THYROID STIMULATING HORMONE 3.06 uIU/mL (0.36-3.74); URIC ACID 7.8 mg/dL (2.6-7.2)
[2018-02-14 10:37] LABS: APPEARANCE CLEAR (CLEAR); BILIRUBIN NEGATIVE (NEGATIVE); COLOR YELLOW (YELLOW); GLUCOSE NEGATIVE (NEGATIVE); KETONE NEGATIVE (NEGATIVE); NITRITE NEGATIVE (NEGATIVE); PROTEIN 2+ mg/dL (NEGATIVE); SPECIFIC GRAVITY 1.015 (1.005-1.020); UROBILINOGEN NORMAL (NORMAL)
[2018-02-14 10:38] LABS: BACTERIA FEW /hpf (NONE SEEN); HYALINE CAST OCC /lpf (NONE SEEN); MUCUS <1+ /lpf (NONE SEEN); RED CELLS - URINE RARE /hpf (0-5); WHITE CELLS - URINE 0-5 /hpf (0-5)
[2018-02-15 12:12] LABS: HEPATITIS C ANTIBODY <0.1 (0.0-0.9)
[2018-02-18 11:07] VITALS: BMI 50.8
== END 2018-02-14 23:59 | disposition home or self-care (01) ==
LOC: D.OPS 08:00 → EDSTATUS 02-18 07:30 → D.SDCHOLD 02-18 07:30
PROVIDERS: Thoracic Surgery (Cardiothoracic Vascular Surgery)
DX: I34.0 Nonrheumatic mitral (valve) insufficiency (principal); I25.10 Atherosclerotic heart disease of native coronary artery without angina pectoris; Z01.810 Encounter for preprocedural cardiovascular examination; Z01.811 Encounter for preprocedural respiratory examination; Z01.812 Encounter for preprocedural laboratory examination

== ENCOUNTER 2018-02-17 12:15 | Inpatient (IN) | payer MEDICAID ==
[~2018-02-17] VITALS: Ht 182.9 cm; Wt 149.1 kg
--- NOTE | ~2018-02-17 | OP ---
PATIENT NAME: TOAN LOZADA MEDICAL RECORD: [id number] :69 LOCATION:D.M2 D.2129 ADMISSION DATE:02/17/18 SURGEON: CAROLYN MANTILLA MD DATE OF OPERATION: 02/17/2018 PROCEDURES: 1. Left heart catheterization. 2. Selective coronary angiography. 3. Left ventriculogram. INDICATION: Mitral valvular regurgitation for valve surgery, possible CABG, coronary artery disease, and angina. PROCEDURE IN DETAIL: After informed consent was obtained and after detailed explanation of risks and benefits as well as alternative therapies, the patient elected to proceed with angiogram and heart catheterization. The right radial area is prepped and draped in normal sterile fashion. Right radial artery was cannulated via modified Seldinger technique with placement of 6-Belgian sheath. All catheter exchanged through this sheath. FINDINGS: The left ventriculogram was performed on a standard 30-degree OLVERA view, reveals global hypokinesis throughout all septal segments. Overall ejection fraction is 30%. SELECTIVE CORONARY ANGIOGRAPHY: 1. Left main is with no significant angiographic disease. 2. Left anterior descending has previously placed stents. There is 90% in-stent restenosis in the mid vessel. 3. Left circumflex has mild irregularities, but no flow-limiting stenosis. 4. Right coronary has moderate irregularities, but no flow-limiting stenosis. OVERALL IMPRESSION: Cardiomyopathy, ejection fraction 30%. Significant disease of the LAD, for bypass to the LAD as well as mitral valve repair. TRANSINT:[id number] Voice Confirmation ID: [id number] DOCUMENT ID: [id number] CAROLYN MANTILLA MD at 1056 CC: [id number] DICTATION DATE: 02/17/18 1614 BENCH SHEAR OPERATOR: 02/17/18 2357 DIS IN 02/19/18 [place] [id number] [place] [id number]
--- NOTE | ~2018-02-17 | HEMODYNAMI ---
PATIENT:TOAN LOZADA MEDICAL RECORD: [id number] : 69 LOCATION:[address] [facility]# [id number] ADMISSION DATE: 02/17/18 Generatedon:02/19/201811:34 Patient name: TOAN LOZADA Patient #: [id number] SSN: [id number] : 1965 Date of study: 02/19/2018 Page: Of Hemodynamic Procedure Report Patient Data Patient Demographics Procedure consent was obtained First Name: TOAN Gender: Male Last Name: NEVILLE : 1965 Middle Initial: L Age: 52 year(s) Patient #: [id number] Race: Black SSN: [id number] Additional ID: [id number] Contact details Address: [address] [place] [address] State: [place] City: [facility] Zip code: [address] Past Medical History Allergies Allergen Reaction Date Comments Reported Other allergy 07/27/2015 penicillin, tetracycline Other allergy 02/04/2017 PCN, Tetracycline Other allergy 05/24/2017 PCN, KEFLAX Admission Admission Data Admission Date: 02/17/2018 Admission Time: 23:50 Room #: .2129 Procedure Procedure Types Cath Procedure PCI Procedure Coronary Stent Coronary Stent Initial Procedure Description Procedure Date Procedure Date: 02/19/2018 Procedure Start Time: 11:10 Procedure End Time: 11:18 Procedure Staff Name Function Jimbo Neves MD Performing Physician Rochelle Reid RT Monitor Keira Polk RT Scrub Aria Dorsey CRNA Additional personnel Emilee Tovar RN Nurse Procedure Data Cath Procedure Fluoroscopy Diagnostic fluoroscopy Total fluoroscopy Time: 1.5 time: 1.5 min min Diagnostic fluoroscopy Total fluoroscopy dose: 247 dose: 247 mGy mGy Contrast Material Contrast Material Type Amount (ml) Isovue 300 39 Entry Location Entry Primary Successful Side Size Upsize Upsize Entry Closure Succes sful Closure Location (Fr) 1 (Fr) 2 (Fr) Remarks Device Remarks Femoral Right 6 Fr Exoseal artery Short Estimated blood loss: 10 ml Procedure Complications No complications Procedure Medications Medication Administration Route Dosage Oxygen NC 2 l/min Lidocaine 2% added to field 20 Heparin Flush Bag added to field 2 bags (1000units/500ml NS) 0.9% NaCl I.V. 50 ml/hr Refer to Anesthesia Notes for Sedation Medications Heparin Bolus I.V. 4000 units Integrilin (Bolus I.V. 11.3 ml 2mg/ml) Plavix P.O. 600 mg Hemodynamics Rest Heart Rate: 104 (bpm) Snapshots Pre Cath Intra NCS Post Cath Vital Signs Time Heart Resp SPO2 etCO2 NIBP (mmHg) Rhythm Pain Sedation Rate (ipm) (%) (mmHg) Status Level (bpm) 10:34:19 103 26 97 0 153/114(124) ST 0 (11) 10(A) , No pain 10:38:47 103 25 98 0 152/102(122) ST 0 (11) 10(A) , No pain 10:43:14 103 29 97 0 150/105(116) ST 0 (11) 10(A) , No pain 10:47:40 105 28 94 0 157/101(132) ST 0 (11) 10(A) , No pain 10:52:08 111 25 96 22.6 179/118(140) ST 0 (11) 10(A) , No pain 10:56:41 109 30 93 21 166/110(129) ST 0 (11) 10(A) , No pain 11:01:09 102 24 97 28.6 153/105(122) ST 0 (11) 10(A) , No pain 11:05:35 101 26 97 28.6 155/108(122) ST 0 (11) 9(A) , No pain 11:11:25 102 22 96 11.3 141/100(125) ST 0 (11) 9(A) , No pain 11:15:50 99 18 98 5.2 131/85(103) ST 0 (11) 9(A) , No pain 11:28:38 102 25 97 1.5 139/89(104) ST 0 (11) 10(A) , No pain Medications Time Medication Route Dose Verified Delivered Reason Notes Effectiveness by by 10:52:36 Oxygen NC 2 Jimbo Choi used for l/min Pura Neves MD procedure 10:52:44 Lidocaine 2% added 20ml Jimbo Choi for local to vial Pura Neves MD anesthetic field 10:52:50 Heparin Flush added 2 Jimbo Choi used for Bag to bags Pura Neves MD procedure (1000units/500ml field NS) 10:52:58 0.9% NaCl I.V. 50 Jimbo Hebert Per physician ml/hr Pura Tovar RN 10:53:06 Refer to Jimbo Hebert Anesthesia Notes Pura Tovar RN for Sedation Medications 11:11:05 Heparin Bolus I.V. 4000 Jimbo Hebert for VERIFI ED units Pura Tovar RN anticoagulation WITH DR NEVES 11:14:15 Integrilin I.V. 11.3 Jimbo Hebert for WASTED (Bolus 2mg/ml) ml Pura Tovar RN antiplatelet 8.7 ML therapy OF VIAL 11:27:34 Plavix P.O. 600 Jimbo Hebert for mg Pura Tovar RN antiplatelet therapy Procedure Log Time Note 10:20:29 Rochelle Reid RT(R) sent for patient. Start room use. 10:32:39 Time tracking: Regular hours 10:32:44 Plan of Care:Hemodynamics will remain stable., Cardiac rhythm will remain stable., Comfort level will be maintained., Respiratory function will remain adequate., Patient/ family verbilizes understanding of procedure., Procedure tolerated without complication., Recovers from procedure without complications.. 10:32:50 Patient received from Med II to CCL 2 Alert and oriented. Tansferred to table in Supine position. 10:32:51 Warm blankets applied, and anastasiya hugger turned on for patient comfort. 10:32:51 Correct patient and procedure confirmed by team. 10:32:54 Signed procedure consent form obtained from patient. 10:32:55 ECG and BP/O2 sat monitors applied to patient. 10:32:58 Vital chart was started 10:33:01 Baseline sample Acquired. 10:33:13 Rhythm: sinus tachycardia 10:33:16 Full Disclosure recording started 10:33:20 H&P Date Dictated: 02/19/2018 Within 30 days and on chart., H&P Addendum completed by physician on day of procedure. (MUST COMPLETE FOR ALL OUTPATIENTS). 10:33:22 Pre-procedure instructions explained to patient. 10:33:22 Pre-op teaching completed and patient verbalized understanding. 10:33:23 Family in waiting room. 10:33:25 Patient NPO since Midnight. 10:33:29 Is the patient allergic to Iodine/contrast media? No. 10:33:30 Was the patient premedicated? No 10:33:30 Is patient on blood thinner?Yes 10:33:33 ACC The patient was administered the following blood thiners within the last 24 hours: ACCPlavix 10:36:29 Snore? Yes 10:36:35 Sleep apnea? Yes 10:36:37 Deviated septum? No 10:36:46 Dentures? No ? 10:36:52 Patient diabetic? No. 10:36:57 Patient pain scale 0/10 ?. 10:37:03 IV patent on arrival in left forearm with 0.9% NaCl at [facility]. 10:37:19 Right groin area was prepped with chlora-prep and draped in sterile fashion 10:37:20 Alarms reviewed by R. N. 10:37:20 Sharps counted by scrub and verified by R.N. 10:37:22 Physician paged 10:42:22 Use device set Femoral Dx 10:43:41 INFLATOR Merit BasixCompak ([id number]) opened to sterile field. 10:43:43 SHEATH 6Fr Prelude ([id number]) opened to sterile field. 10:43:44 CHOICE PT Extra Support 182cm wire ([id number]) opened to sterile field. 10:43:47 GUIDE 6FR XBLAD 3.5 catheter ([id number]) opened to sterile field. 10:43:51 PERCUTANEOUS ENTRY 19GA needle opened to sterile field. 10:43:52 Tegaderm 4 x 4 (1626W) opened to sterile field. 10:43:56 ACIST Manifold (26529) opened to sterile field. 10:43:57 ACIST Hand Control (58762) opened to sterile field. 10:44:01 DIAGNOSTIC WIRE .035 260cm J wire (039653) opened to sterile field. 10:44:02 Medline Cath Pack ([id number]) opened to sterile field. 10:44:07 Bag Decanter (2001S) opened to sterile field. 10:44:08 ACIST Syringe (89744) opened to sterile field. 10:49:48 Zero performed for pressure channel P1 10:51:22 Physician arrived 10:51:32 --------ALL STOP TIME OUT------ 10:51:33 Final Timeout: patient, procedure, and site verified with staff and physician. All members of the team are in agreement. 10:51:35 Right groin site verified by team. 10:51:42 Physical assessment completed. ASA score P 2 - A patient with mild systemic disease as per Jimbo Neves MD. 10:51:48 Sedation plan: TIVA Medication:Propofol 10:52:36 Oxygen 2 l/min NC was administered by Jimbo Neves MD; used for procedure; 10:52:44 Lidocaine 2% 20ml vial added to field was administered by Jimbo Neves MD; for local anesthetic; 10:52:50 Heparin Flush Bag (1000units/500ml NS) 2 bags added to field was administered by Jimbo Neves MD; used for procedure; 10:52:55 Aria Dorsey CRNA present and monitoring patient for TIVA. 10:52:58 0.9% NaCl 50 ml/hr I.V. was administered by Emilee Tovar RN; Per physician; 10:53:06 Refer to Anesthesia Notes for Sedation Medications was administered by Emilee Tovar RN; ; 11:06:29 FSBS 127 MG/DL 11:06:48 Procedure started. 11:10:57 Local anesthetic to right femoral artery with Lidocaine 2% by Jimbo Neves MD.INITIAL ACCESS ONLY 11:11:05 Heparin Bolus 4000 units I.V. was administered by Emilee Tovar RN; for anticoagulation; VERIFIED WITH DR NEVES 11:11:09 A 6 Fr Short sheath was inserted into the Right Femoral artery 11:11:58 6 Fr XBLAD 3.5 guide catheter was inserted over the wire 11:12:05 Choice PT wire advanced. 11:12:07 Wire advanced across lesion. 11:14:15 Integrilin (Bolus 2mg/ml) 11.3 ml I.V. was administered by Emilee Tovar RN; for antiplatelet therapy; WASTED 8.7 ML OF VIAL 11:15:16 Place stent Inflation Number: 1 A HARSHAD RX 3.5 x 30 stent ([id number]) was prepped and advanced across the Prox LAD. The stent was deployed at 23 OZIEL for 0:10 (min:sec). 11:15:42 Stent catheter was removed intact over wire. 11:15:56 Sheath removed intact; hemostasis achieved with Exoseal to the Right Femoral artery. 11:16:04 EXOSEAL 6Fr (EX600) opened to sterile field. 11:16:09 Procedure ended.(Physican Out) 11:16:19 Fluoroscopy time 01.50 minutes. 11:16:36 Fluoroscopy dose: 247 mGy 11:16:36 Flurop Dose total: 247 11:16:40 Contrast amount:Isovue 300 39ml. 11:16:42 Sharps counted by scrub and verified by R.N. 11:16:44 Insertion/operative site no bleeding no hematoma. 11:16:49 Post-op/insertion site Right Femoral artery dressed using a 4 x 4 and Tegaderm. 11:16:58 Post procedure rhythm: unchanged. 11:17:03 Estimated blood loss: 10 ml 11:17:05 Post procedure instruction explained to patient.Patient verbalizes understanding. 11:17:13 Procedure type changed to Cath procedure, PCI procedure, Coronary Stent, Coronary Stent Initial 11:17:14 Procedure and supply charges have been captured, reviewed, submitted and are correct. 11:17:47 Procedure Complication : No complications 11:17:50 Vital chart was stopped 11:17:52 See physician's report for complete and final results. 11:17:54 Report given to Pre/Post Procedure Room. 11:18:00 Patient transfered to [facility] with Bed. 11:18:04 Procedure ended. 11:18:04 Full Disclosure recording stopped 11:18:09 End room use (Document Last) 11:27:34 Plavix 600 mg P.O. was administered by Emilee Tovar RN; for antiplatelet therapy; Intervention Summary Intervention Notes Time ActionType Lesion and Equipment Used Action# Pressure Duration Attributes 11:15:[address] stent Prox LAD HARSHAD RX 3.5 x 1 23 00:10 30 stent ([id number]) Device Usage Item Name Manufacture Quantity Catalog Number Hospital Part Current M inimal Lot# / Charge Number Stock Stock Serial# Code INFLATOR Merit Merit 1 [id number] 904450 012864 1 5 CleanBeeBaby ([id number]) SHEATH 6Fr Merit 1 [id number] 198402 286610 556521 5 Prelude Medical ([id number]) CHOICE PT Eden 1 [id number] 117467 095525 753028 5 Extra Support Scientific 182cm wire ([id number]) GUIDE 6FR Cardinal 1 [id number] 446911 174540 970146 1 0 XBLAD 3.5 Health catheter ([id number]) PERCUTANEOUS [facility] 1 [id number] 252676 909411 5 ENTRY 19GA needle Tegaderm 4 x 4 3M 1 1626W 043866 509986 044581 5 (1626W) ACIST Manifold Acist 1 27246 248800 277898 901300 5 (83408) Medical Systems Inc ACIST Hand Acist 1 83637 627558 907137 032382 5 Control Medical (76686) Systems Inc DIAGNOSTIC [address] [place] 1 548270 219191 499065 755123 3 0 WIRE .035 260cm J wire (692437) Medline Cath Cardinal 1 [id number] 305647 74072 918714 5 Pack Health ([id number]) Bag Decanter Microtek 1 2001S 107413 18193 192729 5 (2001S) Medical Inc. ACIST Syringe Acist 1 91017 707117 077195 690101 2 0 (11357) Medical Systems Inc HARSHAD RX 3.5 x Medtronic 1 [id number] 266542 7939307 664281 5 [id number] 30 stent ([id number]) EXOSEAL 6Fr Cardinal 1 EX600 270546 258877 276263 1 0 (EX600) Health Signature Audit [place] Stage Time Signature Unsigned Intra-Procedure 02/19/2018 Rochelle Reid 11:34:00 AM RT(R) Signatures Monitor : Rochelle Reid Signature : RT Date : Time : [place] [id number] [place] [address]
--- NOTE | ~2018-02-17 | DS ---
PATIENT:TOAN LOZADA :69 MEDICAL RECORD: [id number] DISCHARGE SUMMARY ADMISSION DATE: 02/17/18 DISCHARGE DATE: 02/19/18 DISCHARGE DIAGNOSES: 1. Angina. 2. Coronary artery disease. 3. Percutaneous transluminal coronary angioplasty stent, left anterior descending this admission. 4. Mitral regurgitation. 5. Shortness of breath, dyspnea on exertion. 6. Cardiomyopathy. HOSPITAL COURSE: Mr. Lozada presents with angina and shortness of breath. He underwent transesophageal echo revealing only minimal mitral regurgitation. He had a consult for CV surgery, mitral regurgitation was not felt at all bad enough to warrant operative repair of the valve. He did have critical disease of the LAD, underwent successful PTCA stent of the LAD, discharged home. Continue his current medications as he is already on aspirin and Plavix. Follow up with [facility] in 1 month. TRANSINT:[id number] Voice Confirmation ID: [id number] DOCUMENT ID: [id number] CAROLYN MANTILLA MD at 1057 CC: [id number] DICTATION DATE: 02/19/18 1120 CAM MAKER: 02/19/18 1240 DIS IN 02/19/18 [facility] [address] [place] [address]
--- NOTE | ~2018-02-17 | TEE ---
PATIENT:TOAN LOZADA MEDICAL RECORD: [id number] [facility] AGE OF PATIENT: 52 ADMISSION DATE: 02/17/18 SEX: M REFERRING PHYSICIAN: INTERPRETING PHYSICIAN: CAROLYN NEVES MD TRANSESOPHAGEAL ECHOCARDIOGRAM Date: 02/17/18 COURTNEY CHARGE Y INDICATIONS: EVALUATE VALVE PRE CABG PREMEDICATIONS: PATIENT'S RESPONSE PROCEDURE DOPPLER MEASUREMENTS: LVIT LA PA RA LVOT RVOT Asc. Ao AV Gradient Peak AV Mean AV Area MV Gradient Peak MV Mean MV Area INTERPRETATION: Doppler: 2-D: COLOR FLOW DOPPLER NORMAL SALINE STUDY: MISCELLANOUS: DIAGNOSIS: PLAN: Tomato Paste Maker:1 Dr. Neves Cafeteria Aide: Elsy KATE COMMENTS: DATE OF SERVICE: 02/17/2018 FINDINGS: 1. Left ventricular chamber size is within normal limits. Left ventricular systolic function is normal. Overall ejection fraction estimated at 30%. 2. Left atrium, right atrium, and right ventricular chamber sizes are pdxv-xs-tzxwfghmmd dilated. 3. Valvular structures: Mitral valve does have redundancy, but only mild redundancy of the valve leaflets. The remaining valvular structures have normal TRANSESOPHAGEAL ECHOCARDIOGRAM REPORT [id number] TOAN LOZADA structure and motion. 4. Doppler interrogation reveals kbqa-[id number] mitral regurgitation, urgx-xs-launeizv tricuspid regurgitation, no other valvular insufficiency or stenosis. 5. No evidence of pericardial effusion or left ventricular thrombus. TRANSINT:[id number] Voice Confirmation ID: [id number] DOCUMENT ID: [id number] at 1056 CC: [id number] DICTATION DATE: 02/17/18 1538 MUSIC INDUSTRY INTERN: 02/17/18 1705 DIS IN 02/19/18 [facility] [address] [place] [id number]
--- NOTE | ~2018-02-17 | HEMODYNAMI ---
PATIENT:TOAN LOZADA MEDICAL RECORD: [id number] : 69 LOCATION:[facility] ADMISSION DATE: 02/17/18 Generatedon:02/17/201816:15 Patient name: TOAN LOZADA Patient #: [id number] SSN: [id number] : 1965 Date of study: 02/17/2018 Page: Of Hemodynamic Procedure Report Patient Data Patient Demographics Procedure consent was obtained First Name: TOAN Gender: Male Last Name: NEVILLE : 1965 [facility] Initial: L Age: 52 year(s) Patient #: [id number] Race: Black SSN: [id number] Additional ID: [id number] Contact details Address: [address] [place] [address] State: [place] City: [facility] Zip code: [address] Past Medical History Allergies Allergen Reaction Date Comments Reported Other allergy 07/27/2015 penicillin, tetracycline Other allergy 02/04/2017 PCN, Tetracycline Other allergy 05/24/2017 PCN, KEFLAX Admission Admission Data Admission Date: 02/17/2018 Admission Time: 15:00 Procedure Procedure Types Cath Procedure Diagnostic Procedure [facility] w/Coronaries COURTNEY Procedure Description Procedure Date Procedure Date: 02/17/2018 Procedure Start Time: 16:00 Procedure End Time: 16:15 Procedure Staff Name Function Jimbo Neves MD Performing Physician Ursula Guerin Pediatric Cns Ottoniel Sanchez RN Nurse Nguyen Spicer RT Scrub Erasmo Guzmán RT Monitor Jimmy Garcia Jr, CRNA Additional personnel Kenton Roca CRNA Additional personnel Procedure Data Cath Procedure Fluoroscopy Diagnostic fluoroscopy Total fluoroscopy Time: 2.9 time: 2.9 min min Diagnostic fluoroscopy Total fluoroscopy dose: dose: 1346 mGy 1346 mGy Contrast Material Contrast Material Type Amount (ml) Isovue 300 108 Entry Location Entry Primary Successful Side Size Upsize Upsize Entry Closure Henson ccessful Closure Location (Fr) 1 (Fr) 2 (Fr) Remarks Device Remarks Radial Right 6 Fr Mechanical artery Short Compression Estimated blood loss: 10 ml Diagnostic catheters Device Type Used For End Catheter Placement DIAGNOSTIC Pigtail 5Fr Procedure catheter ([id number]) DIAGNOSTIC AR 2 MOD 5 Fr Procedure catheter ([id number]) Procedure Complications No complications Procedure Medications Medication Administration Route Dosage Oxygen NC 2 l/min unlisted medication 10 ml Refer to Anesthesia Notes for Sedation Medications Lidocaine 2% added to field 20 Heparin Flush Bag added to field 2 bags (1000units/500ml NS) 0.9% NaCl 100 ml/hr Radial Cocktail added to field 1 syringe (Verapomil 2mg/Nitro 400mcg/Heparin 1500units) Radial Cocktail I.A. 1 syringe (Verapomil 2mg/Nitro 400mcg/Heparin 1500units) Hemodynamics Rest Heart Rate: 96 (bpm) Pressure Samples Time Site Value (mmHg) Purpose Heart Use Rate(bpm) 16:04 LV 98/15,17 Snapshot 97 16:05 AO 115/88(100) Pullback 96 16:05 LV 111/24,19 Pullback 96 Gradients Valve Time Site 1 Site 2 Mean SEP/DFP Peak To Heart Use (mmHg) (sec/min) Peak Rate (mmHg) (bpm) Aortic 16:04 LV AO 99 Aortic 16:05 LV AO 0 8 0 96 111/24,19 115/88(100) Calculations Valve P-P Mean Valve Index Valve Source Name Gradient Area Flow (cm2) Aortic 0 0 0 0 Snapshots Pre Cath Intra NCS Post Cath Vital Signs Time Heart Resp SPO2 etCO2 NIBP (mmHg) Rhythm Pain Sedation Rate (ipm) (%) (mmHg) Status Level (bpm) 15:27:04 96 11 98 0 128/72(100) NSR 0 (11) 10(A) , No pain 15:32:05 105 14 89 0 94/67(78) NSR 0 (11) 8(A) , No pain 15:35:30 113 15 94 0 112/75(89) NSR 0 (11) 9(A) , No pain 15:41:08 121 24 96 20.2 154/111(119) NSR 0 (11) 9(A) , No pain 15:46:03 110 29 96 12.7 140/85(104) NSR 0 (11) 9(A) , No pain 15:51:06 99 20 96 22.5 141/71(116) NSR 0 (11) 9(A) , No pain 15:56:01 97 18 96 27 133/86(105) NSR 0 (11) 9(A) , No pain 16:00:52 96 14 96 18 133/93(113) NSR 0 (11) 9(A) , No pain 16:05:38 98 17 95 29.2 120/79(96) NSR 0 (11) 9(A) , No pain 16:10:25 94 19 94 0 128/85(103) NSR 0 (11) 9(A) , No pain 16:13:48 93 28 95 0 126/86(104) NSR 0 (11) 9(A) , No pain Medications Time Medication Route Dose Verified Delivered Reason Notes Effectiveness by by 15:24:15 Oxygen NC 2 l/min Jimbo Alcazar used for Pura Sanchez RN procedure 15:24:57 visc. lidocaine gargle 10 ml Jimbo Alcazar Per gargle Pura Sanchez RN physician 15:24:58 0.9% NaCl 100 Jimboelvis Choi Per ml/hr Pura Neves MD physician 15:25:24 Refer to Jimbo Choi used for Anesthesia Notes Pura Neves MD procedure for Sedation Medications 15:43:24 Lidocaine 2% added 20ml Jimbo Alcazar for local to vial Pura Sanchez RN anesthetic field 15:43:30 Heparin Flush added 2 bags Jimbo Alcazar used for Bag to Pura Sanchez RN procedure (1000units/500ml field NS) 16:01:53 Radial Cocktail added 1 Jimbo Alcazar used for (Verapomil to syringe Pura Sanchez RN procedure 2mg/Nitro field 400mcg/Heparin 1500units) 16:03:27 Radial Cocktail I.A. 1 Jimbo Choi for (Verapomil syringe Pura Neves MD vasodilation 2mg/Nitro 400mcg/Heparin 1500units) Procedure Log Time Note 15:04:26 Ottoniel Sanchez RN sent for patient. Start room use. 15:15:58 Plan of Care:Hemodynamics will remain stable., Cardiac rhythm will remain stable., Comfort level will be maintained., Respiratory function will remain adequate., Patient/ family verbilizes understanding of procedure., Procedure tolerated without complication., Recovers from procedure without complications.. 15:15:59 Time tracking: Regular hours 15:16:02 Signed procedure consent form obtained from patient. 15:17:58 Patient arrived from Pre/Post Procedure Room to CCL 1. Patient remains on bed/stretcher for procedure. 15:18:07 Jimmy Garcia Jr, CRNA present and monitoring patient for TIVA. 15:18:12 Forestportelier [employer] Extension Educator present for COURTNEY. 15:23:42 Warm blankets applied, and anastasiya hugger turned on for patient comfort. 15:23:43 Correct patient and procedure confirmed by team. 15:23:44 ECG and BP/O2 sat monitors applied to patient. 15:24:15 Oxygen 2 l/min NC was administered by Ottoniel Sanchez RN; used for procedure; 15::57 visc. lidocaine gargle 10 ml gargle was administered by Ottoniel Sanchez RN; Per physician; 15::58 0.9% NaCl 100 ml/hr was administered by Jimbo Neves MD; Per physician; 15:25:24 Refer to Anesthesia Notes for Sedation Medications was administered by Jimbo Neves MD; used for procedure; 15:25:38 --------ALL STOP TIME OUT------ 15:25:39 Final Timeout: patient, procedure, and site verified with staff and physician. All members of the team are in agreement. 15:25:50 Physical assessment completed. ASA score P 2 - A patient with mild systemic disease as per Jimbo Neves MD. 15:25:52 Vital chart was started 15:25:54 Sedation plan: TIVA Medication:Propofol 15:27:47 Baseline sample Acquired. 15:27:52 Rhythm: sinus rhythm 15:27:54 Full Disclosure recording started 15:28:07 H&P Date Dictated: 02/05/2018 Within 30 days and on chart., H&P Addendum completed by physician on day of procedure. (MUST COMPLETE FOR ALL OUTPATIENTS). 15:28:08 Pre-procedure instructions explained to patient. 15:28:08 Pre-op teaching completed and patient verbalized understanding. 15:28:12 Family in waiting room. 15:28:13 Patient NPO since Midnight. 15:28:15 Is the patient allergic to Iodine/contrast media? No. 15:28:34 Previous problem with sedation/anesthesia? No ? 15:28:37 Snore? No 15:28:38 Sleep apnea? No 15:28:39 Deviated septum? No 15:28:40 Opens mouth fully? Yes 15:28:41 Sticks out tongue? Yes 15:28:44 Airway obstruction? No ? 15:29:00 Dentures? Yes OUT 15:29:13 Patient pain scale 0/10 ?. 15:29:20 IV patent on arrival in left forearm with 0.9% NaCl at [facility]. 15:29:22 Lab results completed and on chart. 15:29:25 Alarms reviewed by R. N. 15:31:43 Is patient on blood thinner?Yes 15:31:46 ACC The patient was administered the following blood thiners within the last 24 hours: ACCPlavix 15:32:04 Patient diabetic? Yes. 15:32:08 If diabetic: On Metformin? No 15:32:23 Procedure started. 15:32:25 COURTNEY started. 15:37:03 COURTNEY completed. 15:37:34 WILL PROCEED WITH [facility]. MOVE PATIENT TO THE TABLE 15:43:24 Lidocaine 2% 20ml vial added to field was administered by Ottoniel Sanchez RN; for local anesthetic; 15:43:30 Heparin Flush Bag (1000units/500ml NS) 2 bags added to field was administered by Ottoniel Sanchez RN; used for procedure; 15:46:06 Pre procedure: right dorsailis pedis pulse 1+ Palpable, but thready & weak; easily obliterated 15:46:11 Modified Shaheen's test Ulnar < 7 seconds 15:46:16 Right Radial & Right Groin area was prepped with chlora-prep and draped in sterile fashion 15:46:17 Sharps counted by scrub and verified by R.N. 15:46:21 Use device set Radial Dx or PCI 15:46:22 Tegaderm 4 x 4 ([id number]) opened to sterile field. 15:46:23 ACIST Manifold (83778) opened to sterile field. 15:46:23 ACIST Hand Control (51230) opened to sterile field. 15:46:24 ACIST Syringe (08057) opened to sterile field. 15:46:25 Medline Cath Pack ([id number]) opened to sterile field. 15:46:25 Bag Decanter () opened to sterile field. 15:46:26 DIAGNOSTIC WIRE .035 260cm J wire (882948) opened to sterile field. 15:46:27 MBrace Wrist Support ([id number]) opened to sterile field. 15:46:39 SHEATH 6Fr Prelude Radial ([id number]) opened to sterile field. 16:00:25 Al Radha TWO NEEDLE MACHINE OPERATOR relieved by Ronal Roca TWO NEEDLE MACHINE OPERATOR. 16:00:45 Local anesthetic to right radial artery with Lidocaine 2% by Jimbo Neves MD.INITIAL ACCESS ONLY 16:01:53 Radial Cocktail (Verapomil 2mg/Nitro 400mcg/Heparin 1500units) 1 syringe added to field was administered by Ottoniel Sanchez RN; used for procedure; 16:02:33 A 6 Fr Short sheath was inserted into the Right Radial artery 16:03:27 Radial Cocktail (Verapomil 2mg/Nitro 400mcg/Heparin 1500units) 1 syringe I.A. was administered by Jimbo Neves MD; for vasodilation; 16:04:03 A DIAGNOSTIC Pigtail 5Fr catheter ([id number]) was advanced over the wire and used for Procedure. 16:04:48 LV angiography performed. 16:05:35 LV gram done using OLVERA 16:05:43 EF : 30 % 16:05:45 LV hemodynamics recorded. 16:05:50 Injector settings: Ml/sec: 10, Volume: 30, 16:05:53 Catheter exchanged over wire. 16:06:08 GUIDE 6FR XBLAD 3.5 catheter ([id number]) opened to sterile field. 16:06:17 6 Fr XBLAD 3.5 guide catheter was inserted over the wire 16:07:49 LCA angiography performed. 16:09:21 Catheter exchanged over wire. 16:09:27 A DIAGNOSTIC AR 2 MOD 5 Fr catheter ([id number]) was advanced over the wire and used for Procedure. 16:10:53 RCA angiography performed. 16:11:00 Catheter exchanged over wire. 16:11:06 TR BAND Large ([id number]) opened to sterile field. 16:11:53 Procedure ended.(Physican Out) 16:12:22 Sheath removed intact; hemostasis achieved with Mechanical Compression to the Right Radial artery. 16:12:43 Fluoroscopy time 02.90 minutes. 16:12:47 Fluoroscopy dose: 1346 mGy 16:12:47 Flurop Dose total: 1346 16:12:57 Contrast amount:Isovue 300 108ml. 16:12:59 Sharps counted by scrub and verified by R.N. 16:13:02 TR band inflated with 12cc of air. 16:13:05 Insertion/operative site no bleeding no hematoma. 16:13:06 Post Procedure Pulses reassessed and unchanged 16:13:10 Post-procedure physical assessment completed. ASA score P 2 - A patient with mild systemic disease as per Jimbo Neves MD. 16:13:12 Post procedure rhythm: unchanged. 16:13:15 Estimated blood loss: 10 ml 16:13:17 Post procedure instruction explained to patient.Patient verbalizes understanding. 16:13:17 Patient needs reinforcement of post procedure teaching. 16:13:24 Procedure and supply charges have been captured, reviewed, submitted and are correct. 16:13:27 Procedure Complication : No complications 16:15:03 Vital chart was stopped 16:15:04 See physician's report for complete and final results. 16:15:06 Report given to PCU. 16:15:08 Patient transfered to PCU with Bed. 16:15:10 Procedure ended. 16:15:10 Full Disclosure recording stopped 16:15:14 End room use (Document Last) Device Usage Item Name Manufacture Quantity Catalog Number Hospital Part Current M inimal Lot# / Charge Number Stock Stock Serial# Code Tegaderm 4 x 4 3M 1 [id number] 363615 242002 5 (1626W) ACIST Manifold Acist 1 19020 252954 857178 223576 5 (87269) [employer] ACIST Hand Acist 1 45708 101374 803803 133288 5 Control (79950) [employer] ACIST Syringe Acist 1 03218 273607 448116 772197 2 0 (68372) [employer] Inc Medline Cath Cardinal 1 [id number] 669577 85130 594464 5 Pack Health ([id number]) Bag Decanter Microtek 1 2001S 500727 45652 580795 5 (2001S) Medical Inc. DIAGNOSTIC WIRE St Pratik 1 091554 135527 136403 935538 3 0 .035 260cm J wire (320697) MBrace Wrist Advanced 1 140-0250-00 812803 57844 597455 5 Support Vascular ([id number]) Dynamics SHEATH 6Fr Merit 1 [id number] 967333 129013 563872 5 Prelude Radial Medical ([id number]) DIAGNOSTIC Cardinal 1 [id number] 905932 959727 101861 5 Pigtail 5Fr Health catheter (801577N) GUIDE 6FR XBLAD Cardinal 1 [id number] 152728 894618 983968 1 0 3.5 catheter Health (61491923) DIAGNOSTIC AR 2 Cardinal 1 842380Q 634682 630397 494304 2 0 MOD 5 Fr Health catheter (534070N) TR BAND Large Terumo 1 [id number] 081745 238791 226164 4 0 ([id number]) Signature Audit [place] Stage Time Signature Unsigned Intra-Procedure 02/17/2018 Erasmo Guzmán 4:15:34 PM RT(R) Signatures Monitor : Erasmo Guzmán RT Signature : Date : Time : [place] [id number] SAVI RAMSAY [place], [place] [address]
[~2018-02-17 12:15] MED LIST changes: +COREG12.5 MG PO; +HUMALOG 30100 UNITS/ SC
[2018-02-17 12:36] VITALS: BP 147/95; BMI 43.9
[2018-02-17 12:49] LABS: BASOPHILS 0.5 % (0-2); EOSINOPHILS 2.1 % (0-7); HEMATOCRIT 39.3 % (42.0-54.0); HEMOGLOBIN 12.9 g/dL (13.5-17.5); IMMATURE GRANULOCYTES 0.4 % (0-5); LYMPHOCYTES 41.5 % (15-50); MCH 25.6 pg (26.0-34.0); MCHC 32.8 g/dL (31.0-37.0); MCV 78.1 fL (80.0-100.0); MEAN PLATELET VOLUME 9.9 fL (7.4-10.4); MONOCYTES 10.5 % (2-11); PLATELET COUNT 250 10x3/uL (130-400); RBC 5.03 10x6/uL (4.20-6.10); WBC 7.5 10x3/uL (4.8-10.8)
[2018-02-17 13:00] LABS: ANION GAP 15.8 mmol/L (8-16); CARBON DIOXIDE 24.2 mmol/L (21.0-32.0); CREATININE - SERUM 1.5 mg/dL (0.6-1.3)
[2018-02-17 16:52] VITALS: BP 140/65; BMI 43.9
[2018-02-17 19:00] VITALS: BP 150/104
[2018-02-18] VITALS: BP 152/91
[2018-02-18 04:00] VITALS: BP 106/67
[2018-02-18 08:04] VITALS: BP 176/80
[2018-02-18 11:07] VITALS: Ht 182.9 cm; Wt 149.1 kg
[2018-02-18 15:06] VITALS: BP 138/86
[2018-02-18 20:00] VITALS: BP 146/77
[2018-02-19] VITALS: BP 136/83
[2018-02-19 04:00] VITALS: BP 143/79
[2018-02-19 08:57] VITALS: BP 148/86
[2018-02-19 16:10] VITALS: BP 136/87
== END 2018-02-19 21:31 | disposition home or self-care (01) | DRG 247 ==
LOC: D.CATH 12:15 → D.M2 16:39 → D.CATH 23:48 → D.M2 23:50
PROVIDERS: Internal Medicine Interventional Cardiology
PROC: B2151ZZ Fluoroscopy of Left Heart using Low Osmolar Contrast (ICD-10-PCS; 2018-02-17)
PROC: 4A023N7 Measurement of Cardiac Sampling and Pressure, Left Heart, Percutaneous Approach (ICD-10-PCS; 2018-02-17)
PROC: B2111ZZ Fluoroscopy of Multiple Coronary Arteries using Low Osmolar Contrast (ICD-10-PCS; principal; 2018-02-17 15:00)
PROC: 027034Z Dilation of Coronary Artery, One Artery with Drug-eluting Intraluminal Device, Percutaneous Approach (ICD-10-PCS; 2018-02-19)
DX: I25.110 Atherosclerotic heart disease of native coronary artery with unstable angina pectoris (principal); I34.0 Nonrheumatic mitral (valve) insufficiency; I42.9 Cardiomyopathy, unspecified

== ENCOUNTER 2018-02-25 15:06 | Emergency (ER) | payer MEDICAID ==
[2018-02-18 11:07] VITALS: BMI 50.8
[2018-02-25 15:37] LABS: BASOPHILS 0.8 % (0-2); HEMATOCRIT 39.1 % (42.0-54.0); HEMOGLOBIN 12.7 g/dL (13.5-17.5); IMMATURE GRANULOCYTES 0.1 % (0-5); LYMPHOCYTES 41.4 % (15-50); MCH 25.5 pg (26.0-34.0); MCHC 32.5 g/dL (31.0-37.0); MCV 78.4 fL (80.0-100.0); MEAN PLATELET VOLUME 9.6 fL (7.4-10.4); MONOCYTES 16.4 % (2-11); NEUTROPHILS 38.3 % (40-80); RBC 4.99 10x6/uL (4.20-6.10); RDW 16.8 % (11.5-14.5); WBC 7.4 10x3/uL (4.8-10.8)
[2018-02-25 15:38] LABS: PLATELET COUNT 323 10x3/uL (130-400)
[2018-02-25 16:44] LABS: ALBUMIN 3.5 g/dL (3.4-5.0); ALKALINE PHOSPHATASE 87 U/L (46-116); ALT (SGPT) 28 U/L (10-68); CALC OSMOLALITY 274 mosm/kg (275-300); CALCIUM 8.7 mg/dL (8.5-10.1); CARBON DIOXIDE 25.6 mmol/L (21.0-32.0); CHLORIDE - SERUM 104 mmol/L (98-107); CREATININE - SERUM 1.2 mg/dL (0.6-1.3); GLUCOSE 85 mg/dL (74-106); POTASSIUM - SERUM 4.2 mmol/L (3.5-5.1); PROTEIN - SERUM 7.5 g/dL (6.4-8.2); SODIUM 137 mmol/L (136-145); UREA NITROGEN 19 mg/dL (7-18); eGFR NON AFRICAN AMERICAN 68 mL/min (90-120)
[2018-02-25 16:54] LABS: CHOLESTEROL, TOTAL 133 mg/dL (0-200); CKMB 5.4 U/L (0.0-3.6); CREATINE KINASE 532 UL (21-232); HDL CHOLESTEROL 45 mg/dL (32-96); LDL CHOLESTEROL 58 mg/dL (0-100); LDL-HDL RATIO 1.3 ratio (1.5-3.5); TRIGLYCERIDE 151 mg/dL (30-200); TROPONIN-I 0.031 ng/mL (0.000-0.060)
== END 2018-02-25 17:50 | disposition home or self-care (01) ==
LOC: D.ER 15:06
PROVIDERS: Family Medicine
DX: R07.9 Chest pain, unspecified (principal); R06.02 Shortness of breath; R60.0 Localized edema; E11.9 Type 2 diabetes mellitus without complications; Z79.4 Long term (current) use of insulin; N28.9 Disorder of kidney and ureter, unspecified; I10 Essential (primary) hypertension; Z86.79 Personal history of other diseases of the circulatory system

== ENCOUNTER 2018-03-26 11:47 | Emergency (ER) | payer MEDICAID ==
[2018-02-18 11:07] VITALS: BMI 50.8
[2018-03-26 12:41] LABS: BASOPHILS 0.1 % (0-2); EOSINOPHILS 1.4 % (0-7); HEMOGLOBIN 13.3 g/dL (13.5-17.5); IMMATURE GRANULOCYTES 0.3 % (0-5); LYMPHOCYTES 35.6 % (15-50); MCH 25.5 pg (26.0-34.0); MCHC 33.3 g/dL (31.0-37.0); MCV 76.6 fL (80.0-100.0); MEAN PLATELET VOLUME 9.8 fL (7.4-10.4); NEUTROPHILS 47.6 % (40-80); PLATELET COUNT 265 10x3/uL (130-400); RBC 5.22 10x6/uL (4.20-6.10)
[2018-03-26 13:31] LABS: ALBUMIN 3.2 g/dL (3.4-5.0); ALKALINE PHOSPHATASE 129 U/L (46-116); ALT (SGPT) 23 U/L (10-68); CALC OSMOLALITY 286 mosm/kg (275-300); CALCIUM 8.9 mg/dL (8.5-10.1); CARBON DIOXIDE 27.1 mmol/L (21.0-32.0); CHLORIDE - SERUM 101 mmol/L (98-107); CREATININE - SERUM 1.6 mg/dL (0.6-1.3); POTASSIUM - SERUM 4.4 mmol/L (3.5-5.1); PROTEIN - SERUM 7.2 g/dL (6.4-8.2); SODIUM 137 mmol/L (136-145); UREA NITROGEN 28 mg/dL (7-18); eGFR NON AFRICAN AMERICAN 49 mL/min (90-120)
[2018-03-26 13:39] LABS: GLUCOSE 233 mg/dL (74-106)
[2018-03-26 13:52] LABS: CKMB 2.5 U/L (0.0-3.6); CREATINE KINASE 394 UL (21-232); MAGNESIUM - SERUM 1.8 mg/dL (1.8-2.4); PRO BNP 846 pg/mL (0-125)
== END 2018-03-26 15:33 | disposition home or self-care (01) ==
LOC: D.ER 11:47
PROVIDERS: Emergency Medicine
DX: R06.00 Dyspnea, unspecified (principal); E11.9 Type 2 diabetes mellitus without complications; Z79.4 Long term (current) use of insulin; I25.10 Atherosclerotic heart disease of native coronary artery without angina pectoris; J20.9 Acute bronchitis, unspecified; I10 Essential (primary) hypertension

== ENCOUNTER 2018-04-23 14:39 | Emergency (ER) | payer MEDICAID ==
[~2018-04-23] VITALS: Ht 182.9 cm; Wt 150.0 kg
[2018-04-23 15:12] VITALS: Ht 182.9 cm; Wt 150.0 kg
[2018-04-23] MEDS ORDERED: METOLAZONE2.5 MG PO (15:19)
[2018-04-23 15:54] LABS: BASOPHILS 0.4 % (0-2); EOSINOPHILS 2.1 % (0-7); HEMATOCRIT 42.1 % (42.0-54.0); HEMOGLOBIN 14.2 g/dL (13.5-17.5); IMMATURE GRANULOCYTES 0.3 % (0-5); LYMPHOCYTES 37.9 % (15-50); MCH 25.5 pg (26.0-34.0); MCHC 33.7 g/dL (31.0-37.0); MCV 75.6 fL (80.0-100.0); MEAN PLATELET VOLUME 9.9 fL (7.4-10.4); MONOCYTES 13.4 % (2-11); NEUTROPHILS 45.9 % (40-80); PLATELET COUNT 294 10x3/uL (130-400); RBC 5.57 10x6/uL (4.20-6.10); RDW 16.2 % (11.5-14.5)
[2018-04-23 16:12] LABS: CALC OSMOLALITY 280 mosm/kg (275-300); CALCIUM 10.2 mg/dL (8.5-10.1); CARBON DIOXIDE 29.3 mmol/L (21.0-32.0); CHLORIDE - SERUM 96 mmol/L (98-107); CREATININE - SERUM 1.5 mg/dL (0.6-1.3); GLUCOSE 233 mg/dL (74-106); POTASSIUM - SERUM 3.7 mmol/L (3.5-5.1); SODIUM 135 mmol/L (136-145); UREA NITROGEN 23 mg/dL (7-18); eGFR NON AFRICAN AMERICAN 53 mL/min (90-120)
[2018-04-23 16:18] LABS: TROPONIN-I < 0.017 ng/mL (0.000-0.060)
[2018-04-23 18:34] VITALS: BP 132/82
[2018-06-16] MEDS ORDERED: ENTRESTO 24 MG1 EACH (15:17)
== END 2018-04-23 18:35 | disposition home or self-care (01) ==
LOC: D.ER 14:39
PROVIDERS: Family Medicine
DX: J81.1 Chronic pulmonary edema (principal); R06.02 Shortness of breath; E11.9 Type 2 diabetes mellitus without complications; I10 Essential (primary) hypertension; Z86.79 Personal history of other diseases of the circulatory system

== ENCOUNTER 2018-06-08 21:06 | Emergency (ER) | payer MEDICAID ==
[~2018-06-08] VITALS: Ht 182.9 cm; Wt 150.1 kg
[~2018-06-08 21:06] MED LIST changes: +METOLAZONE2.5 MG PO
[2018-06-08 21:09] VITALS: Ht 182.9 cm; Wt 150.1 kg
[2018-06-08 21:24] LABS: BASOPHILS 0.2 % (0-2); EOSINOPHILS 1.6 % (0-7); HEMATOCRIT 41.2 % (42.0-54.0); HEMOGLOBIN 13.8 g/dL (13.5-17.5); IMMATURE GRANULOCYTES 0.5 % (0-5); LYMPHOCYTES 38.8 % (15-50); MCH 25.6 pg (26.0-34.0); MCHC 33.5 g/dL (31.0-37.0); MCV 76.3 fL (80.0-100.0); MEAN PLATELET VOLUME 9.8 fL (7.4-10.4); MONOCYTES 13.6 % (2-11); NEUTROPHILS 45.3 % (40-80); PLATELET COUNT 327 10x3/uL (130-400); RDW 16.8 % (11.5-14.5); WBC 8.8 10x3/uL (4.8-10.8)
[2018-06-08 21:38] LABS: APTT 29.5 SECONDS (22.8-39.4); INR 0.99 (0.85-1.17); PROTIME 12.5 SECONDS (11.6-15.0)
[2018-06-08 21:42] LABS: D-DIMER-QUANTITATIVE 0.27 ug/mLFEU (0.20-0.54)
[2018-06-08 21:55] LABS: ALKALINE PHOSPHATASE 129 U/L (46-116); ALT (SGPT) 17 U/L (10-68); BILIRUBIN - TOTAL 0.31 mg/dL (0.2-1.3); CALC OSMOLALITY 284 mosm/kg (275-300); CALCIUM 8.8 mg/dL (8.5-10.1); CHLORIDE - SERUM 97 mmol/L (98-107); CREATININE - SERUM 1.5 mg/dL (0.6-1.3); PROTEIN - SERUM 7.3 g/dL (6.4-8.2); SODIUM 133 mmol/L (136-145); UREA NITROGEN 27 mg/dL (7-18); eGFR NON AFRICAN AMERICAN 52 mL/min (90-120)
[2018-06-08 21:59] LABS: GLUCOSE 345 mg/dL (74-106)
[2018-06-08 22:15] LABS: CREATINE KINASE 574 UL (21-232); PRO BNP 457 pg/mL (0-125)
[2018-06-08 22:17] LABS: TROPONIN-I < 0.017 ng/mL (0.000-0.060)
[2018-06-08 22:18] LABS: CKMB 3.2 U/L (0.0-3.6)
[2018-06-09] MEDS ORDERED: NORCO 7.5/325 T1 TA1 PO (02:31)
[2018-06-09 03:07] VITALS: BP 110/74
== END 2018-06-09 03:10 | disposition home or self-care (01) ==
LOC: D.ER 21:06
PROVIDERS: Family Medicine
DX: R10.9 Unspecified abdominal pain (principal); R07.9 Chest pain, unspecified; E11.9 Type 2 diabetes mellitus without complications; I50.9 Heart failure, unspecified

== ENCOUNTER 2018-06-13 04:45 | Emergency (ER) | payer MEDICAID ==
[~2018-06-13] VITALS: Ht 182.9 cm; Wt 147.7 kg
[2018-06-13 04:49] VITALS: Ht 182.9 cm; Wt 147.7 kg
[2018-06-13 05:40] LABS: BASOPHILS 0.3 % (0-2); EOSINOPHILS 2.1 % (0-7); HEMATOCRIT 40.1 % (42.0-54.0); HEMOGLOBIN 13.2 g/dL (13.5-17.5); IMMATURE GRANULOCYTES 0.4 % (0-5); LYMPHOCYTES 34.3 % (15-50); MCH 25.1 pg (26.0-34.0); MCHC 32.9 g/dL (31.0-37.0); MCV 76.2 fL (80.0-100.0); MEAN PLATELET VOLUME 9.8 fL (7.4-10.4); MONOCYTES 11.2 % (2-11); NEUTROPHILS 51.7 % (40-80); PLATELET COUNT 300 10x3/uL (130-400); RBC 5.26 10x6/uL (4.20-6.10); RDW 17.4 % (11.5-14.5); WBC 8.9 10x3/uL (4.8-10.8)
[2018-06-13 05:54] LABS: ALKALINE PHOSPHATASE 88 U/L (46-116); ALT (SGPT) 19 U/L (10-68); BILIRUBIN - TOTAL 0.36 mg/dL (0.2-1.3); CALC OSMOLALITY 286 mosm/kg (275-300); CALCIUM 8.5 mg/dL (8.5-10.1); CHLORIDE - SERUM 103 mmol/L (98-107); CREATININE - SERUM 1.5 mg/dL (0.6-1.3); POTASSIUM - SERUM 4.2 mmol/L (3.5-5.1); SODIUM 139 mmol/L (136-145); UREA NITROGEN 20 mg/dL (7-18); eGFR NON AFRICAN AMERICAN 52 mL/min (90-120)
[2018-06-13 05:55] LABS: GLUCOSE 198 mg/dL (74-106)
[2018-06-13 06:19] LABS: CREATINE KINASE 528 UL (21-232); PRO BNP 1022 pg/mL (0-125); TROPONIN-I < 0.017 ng/mL (0.000-0.060)
[2018-06-13 06:21] LABS: CKMB 2.9 U/L (0.0-3.6)
[2018-06-13 07:01] VITALS: BP 118/78
== END 2018-06-13 07:01 | disposition home or self-care (01) ==
LOC: D.ER 04:45
PROVIDERS: Family Medicine
DX: I50.9 Heart failure, unspecified (principal); R07.9 Chest pain, unspecified; E11.9 Type 2 diabetes mellitus without complications

== ENCOUNTER 2018-06-16 14:25 | Inpatient (IN) | payer MEDICAID ==
[~2018-06-16] VITALS: Ht 182.9 cm; Wt 143.7 kg
--- NOTE | ~2018-06-16 | EC ---
PATIENT:TOAN LOZADA DATE OF SERVICE: 06/17/18 SEX: M MEDICAL RECORD: [id number] DATE OF : 69 LOCATION:D. D.213 AGE OF PATIENT: 53 ADMISSION DATE: 06/17/18 REFERRING PHYSICIAN: INTERPRETING PHYSICIAN: CAROLYN NEVES MD ECHOCARDIOGRAM REPORT ECHO CHARGES 5 ECHO LIMITED Date: 06/19 CLINICAL DIAGNOSIS: ASSESS EF ONLY, CHF ECHOCARDIOGRAPHIC MEASUREMENTS (adult normal given) AC root (d.<3.7cm) cm LV Septum d (<1.2 cm> cm Valve Excursion cm LV Septum (systole) cm Left Atria (s.<4.0cm> cm LVPW d(<1.2cm) cm RV (d.<2.3cm) cm LVPW (sytole) cm LV diastole(<5.6CM) 5.9 cm MV E-F(>70mm/sec) cm LV systole 5.0 cm LVOT Diameter cm MV exc.(>10mm) cm Est.ejection fraction (50-75%) % DOPPLER: LVIT cm/sec A cm/sec E cm/sec LA cm/sec RVSP mmHg LVOT cm/sec AOP1/2T m/s Asc. Ao cm/sec RVOT cm/sec RA cm/sec PA cm/sec AV Gradient Peak mmHg AV Mean mmHg AV Area cm MV Gradient Peak mmHg MV Mean mmHg MV Area cm COMMENTS: Foam Machine Operator: 2 NIEVES HOLDEN Automobile Damage Appraiser: 1 Dr. Neves TAPE# PACS Pericardial Effusion N DATE OF SERVICE: PROCEDURE: Limited echo for ejection fraction. FINDINGS: Left ventricular systolic function is lower limits of normal to mildly depressed. Ejection fraction 45% to 50%. TRANSINT:[id number] Voice Confirmation ID: [id number] DOCUMENT ID: [id number] ECHOCARDIOGRAM REPORT [id number] TOAN LOZADA CAROLYN VASQUEZ MD at 1752 CC: [id number] DICTATION DATE: 06/19/18 1528 SENIOR TRAINING AND DEVELOPMENT REP: 06/19/18 1755 DIS IN 06/19/18 [place] [address]
--- NOTE | ~2018-06-16 | DS ---
PATIENT:TOAN LOZADA :69 MEDICAL RECORD: [id number] DISCHARGE SUMMARY ADMISSION DATE: 06/17/18 DISCHARGE DATE: 06/19/18 DISCHARGE DIAGNOSES: 1. Congestive heart failure. 2. Cardiomyopathy. 3. Chronic systolic dysfunction. 4. Coronary artery disease. 5. Hypertension. HOSPITAL COURSE: Mr. Lozada presents with [id number] congestive heart failure. He has chronic systolic dysfunction from ischemic cardiomyopathy. He was admitted with dobutamine and Bumex drip, had clearing of his fluid overload. No further heart failure symptomatology. Discharged home with no change in his medications. He will follow up with [facility] in 1 month. TRANSINT:[id number] Voice Confirmation ID: [id number] DOCUMENT ID: [id number] CAROLYN MANTILLA MD at 1752 CC: [id number] DICTATION DATE: 06/19/18 0815 GLOBAL CLINICAL LEADER: 06/19/18 1822 DIS IN 06/19/18 [place] [id number] [place] [address]
[2018-06-16 14:54] VITALS: BP 143/84; BMI 46.6
[2018-06-16] MEDS ORDERED: ENTRESTO 24 MG1 EACH PO (15:17)
[2018-06-16 15:34] LABS: ANION GAP 13.5 mmol/L (8-16); CALCIUM 8.4 mg/dL (8.5-10.1); CARBON DIOXIDE 24.8 mmol/L (21.0-32.0); CREATININE - SERUM 1.5 mg/dL (0.6-1.3); POTASSIUM - SERUM 4.3 mmol/L (3.5-5.1)
[2018-06-16 20:05] VITALS: BP 127/77
[2018-06-17 05:17] VITALS: BP 119/78
[2018-06-17 06:23] LABS: ANION GAP 12.4 mmol/L (8-16); CALCIUM 8.6 mg/dL (8.5-10.1); CARBON DIOXIDE 29.4 mmol/L (21.0-32.0); CREATININE - SERUM 1.6 mg/dL (0.6-1.3); POTASSIUM - SERUM 3.8 mmol/L (3.5-5.1)
[2018-06-17 08:17] VITALS: BP 121/72
[2018-06-17 12:05] VITALS: BP 108/79
[2018-06-17 14:51] VITALS: Ht 182.9 cm; Wt 143.7 kg
[2018-06-17 16:45] VITALS: BP 99/63
[2018-06-17 20:00] VITALS: BP 99/42
[2018-06-18] VITALS: BP 100/50
[2018-06-18 04:00] VITALS: BP 111/69
[2018-06-18 09:16] VITALS: BP 111/57
[2018-06-18 10:56] LABS: ANION GAP 13.1 mmol/L (8-16); CALCIUM 8.4 mg/dL (8.5-10.1); CARBON DIOXIDE 30.1 mmol/L (21.0-32.0); POTASSIUM - SERUM 4.2 mmol/L (3.5-5.1)
[2018-06-18 12:22] VITALS: BP 114/72
[2018-06-18 16:30] VITALS: BP 105/70
[2018-06-18 20:00] VITALS: BP 120/72
[2018-06-19 06:11] VITALS: BP 96/63
[2018-06-19] MEDS ORDERED: ALDACTONE25 MG PO (08:34)
[2018-06-19 08:52] VITALS: BP 104/70
== END 2018-06-19 13:01 | disposition home or self-care (01) | DRG 293 ==
LOC: D.M2 14:25 → OBSVTIME 14:25 → D.M2 14:25
PROVIDERS: Internal Medicine Interventional Cardiology
DX: I11.0 Hypertensive heart disease with heart failure (principal); I50.23 Acute on chronic systolic (congestive) heart failure; I25.10 Atherosclerotic heart disease of native coronary artery without angina pectoris; I25.5 Ischemic cardiomyopathy; R39.2 Extrarenal uremia

== ENCOUNTER → 2018-08-25 18:14 | Outpatient (CLI) | payer MEDICAID ==
[2018-06-17 14:51] VITALS: BMI 44.1
[~2018-08-25 18:14] MED LIST changes: +ALDACTONE25 MG PO; +ENTRESTO 24 MG1 EACH PO; +TORADOL10 MG PO
[2018-08-25 19:20] LABS: ANION GAP 17.9 mmol/L (8-16); CALCIUM 9.6 mg/dL (8.5-10.1); CREATININE - SERUM 2.1 mg/dL (0.6-1.3); POTASSIUM - SERUM 4.9 mmol/L (3.5-5.1)
== END | disposition home or self-care (01) ==
LOC: D.LABREF 18:14
PROVIDERS: Internal Medicine Interventional Cardiology
DX: I50.9 Heart failure, unspecified (principal)

== ENCOUNTER 2018-09-10 17:08 | Emergency (ER) | payer MEDICAID ==
[~2018-09-10] VITALS: Ht 182.9 cm; Wt 146.8 kg
[~2018-09-10 17:08] MED LIST changes: -TORADOL10 MG PO
[2018-09-10 17:11] VITALS: Ht 182.9 cm; Wt 146.8 kg
[2018-09-10 18:12] LABS: BASOPHILS 0.1 % (0-2); EOSINOPHILS 0.1 % (0-7); HEMATOCRIT 40.2 % (42.0-54.0); HEMOGLOBIN 13.6 g/dL (13.5-17.5); IMMATURE GRANULOCYTES 1.1 % (0-5); LYMPHOCYTES 15.3 % (15-50); MCHC 33.8 g/dL (31.0-37.0); MCV 76.9 fL (80.0-100.0); MEAN PLATELET VOLUME 10.2 fL (7.4-10.4); MONOCYTES 3.1 % (2-11); NEUTROPHILS 80.3 % (40-80); PLATELET COUNT 284 10x3/uL (130-400); RBC 5.23 10x6/uL (4.20-6.10); RDW 15.7 % (11.5-14.5); WBC 9.3 10x3/uL (4.8-10.8)
[2018-09-10 18:46] LABS: ALKALINE PHOSPHATASE 104 U/L (46-116); ALT (SGPT) 30 U/L (10-68); BILIRUBIN - TOTAL 0.42 mg/dL (0.2-1.3); CALCIUM 9.7 mg/dL (8.5-10.1); CHLORIDE - SERUM 91 mmol/L (98-107); CREATININE - SERUM 2.4 mg/dL (0.6-1.3); POTASSIUM - SERUM 5.2 mmol/L (3.5-5.1); PROTEIN - SERUM 8.7 g/dL (6.4-8.2); SODIUM 129 mmol/L (136-145); UREA NITROGEN 65 mg/dL (7-18); eGFR NON AFRICAN AMERICAN 30 mL/min (90-120)
[2018-09-10 18:51] LABS: CALC OSMOLALITY 300 mosm/kg (275-300); GLUCOSE 508 mg/dL (74-106)
[2018-09-10 19:08] LABS: KETONE - SERUM NEGATIVE (NEGATIVE)
[2018-09-10 19:16] LABS: APPEARANCE CLEAR (CLEAR); BILIRUBIN NEGATIVE (NEGATIVE); COLOR YELLOW (YELLOW); GLUCOSE 1000 mg/dL (NEGATIVE); KETONE NEGATIVE (NEGATIVE); NITRITE NEGATIVE (NEGATIVE); PH 5.5 (5.0-6.0); PROTEIN NEGATIVE (NEGATIVE); UROBILINOGEN NORMAL (NORMAL)
[2018-09-10 19:26] LABS: UDS - AMPHET NEGATIVE QUAL (NEGATIVE); UDS - BARB NEGATIVE QUAL (NEGATIVE); UDS - BENZO POSITIVE QUAL (NEGATIVE); UDS - COCAINE NEGATIVE QUAL (NEGATIVE); UDS - OPIATE NEGATIVE QUAL (NEGATIVE); UDS - PCP NEGATIVE QUAL (NEGATIVE); UDS - THC NEGATIVE QUAL (NEGATIVE)
[2018-09-10] MEDS ORDERED: TORADOL10 MG PO (22:17)
[2018-09-10 22:53] VITALS: BP 154/76
== END 2018-09-10 22:46 | disposition home or self-care (01) ==
LOC: D.ER 17:08
PROVIDERS: Family Medicine
DX: E11.65 Type 2 diabetes mellitus with hyperglycemia (principal); M54.5 Low back pain; I50.9 Heart failure, unspecified

== ENCOUNTER 2018-11-29 15:11 | Emergency (ER) | payer MEDICAID ==
[~2018-11-29] VITALS: Ht 182.9 cm; Wt 145.5 kg
[~2018-11-29 15:11] MED LIST changes: +TORADOL10 MG PO
[2018-11-29 15:17] VITALS: Ht 182.9 cm; Wt 145.5 kg
[2018-11-29 15:55] LABS: APPEARANCE CLEAR (CLEAR); BILIRUBIN NEGATIVE (NEGATIVE); COLOR YELLOW (YELLOW); GLUCOSE 50 mg/dL (NEGATIVE); KETONE NEGATIVE (NEGATIVE); NITRITE NEGATIVE (NEGATIVE); PROTEIN NEGATIVE (NEGATIVE); UROBILINOGEN NORMAL (NORMAL)
[2018-11-29 16:02] LABS: BASOPHILS 0.3 % (0-2); EOSINOPHILS 1.9 % (0-7); HEMATOCRIT 38.7 % (42.0-54.0); HEMOGLOBIN 13.1 g/dL (13.5-17.5); IMMATURE GRANULOCYTES 0.8 % (0-5); MCHC 33.9 g/dL (31.0-37.0); MCV 76.9 fL (80.0-100.0); MEAN PLATELET VOLUME 9.8 fL (7.4-10.4); MONOCYTES 8.2 % (2-11); NEUTROPHILS 55.8 % (40-80); RBC 5.03 10x6/uL (4.20-6.10); RDW 14.9 % (11.5-14.5); WBC 11.1 10x3/uL (4.8-10.8)
[2018-11-29 16:03] LABS: PLATELET COUNT 388 10x3/uL (130-400)
[2018-11-29 16:28] LABS: ALBUMIN 3.4 g/dL (3.4-5.0); ANION GAP 16.3 mmol/L (8-16); BILIRUBIN - TOTAL 0.26 mg/dL (0.2-1.3); CALCIUM 9.1 mg/dL (8.5-10.1); CARBON DIOXIDE 30.6 mmol/L (21.0-32.0); CREATININE - SERUM 2.6 mg/dL (0.6-1.3); POTASSIUM - SERUM 3.9 mmol/L (3.5-5.1); PROTEIN - SERUM 8.4 g/dL (6.4-8.2)
[2018-11-29 16:34] LABS: PRO BNP 101 pg/mL (0-125)
[2018-11-29 16:35] LABS: TROPONIN-I < 0.017 ng/mL (0.000-0.060)
[2018-11-29] MEDS ORDERED: NORCO 7.5/325 T1 TA1 PO (19:18)
[2018-11-29 20:24] VITALS: BP 108/64
== END 2018-11-29 20:23 | disposition home or self-care (01) ==
LOC: D.ER 15:11
PROVIDERS: Family Medicine
DX: R10.32 Left lower quadrant pain (principal); D64.9 Anemia, unspecified; E11.9 Type 2 diabetes mellitus without complications; N28.9 Disorder of kidney and ureter, unspecified

== ENCOUNTER 2018-12-25 20:58 | Observation (INO) | payer MEDICAID ==
[~2018-12-25] VITALS: Ht 182.9 cm; Wt 159.1 kg
--- NOTE | ~2018-12-25 | HEMODYNAMI ---
PATIENT:TOAN LOZADA MEDICAL RECORD: [id number] : 69 LOCATION:[facility].[address] [facility]# [id number] ADMISSION DATE: 12/25/18 Generatedon:12/26/201816:11 Patient name: TOAN LOZADA Patient #: [id number] SSN: [id number] : 1965 Date of study: 12/26/2018 Page: Of Hemodynamic Procedure Report Patient Data Patient Demographics Procedure consent was obtained First Name: TOAN Gender: Male Last Name: NEVILLE : 1965 [facility] Initial: L Age: 53 year(s) Patient #: [id number] Race: Black SSN: [id number] Additional ID: [id number] Contact details Address: [address] [place] [address] State: [place] City: [facility] Zip code: [address] Past Medical History Allergies Allergen Reaction Date Comments Reported Other allergy 07/27/2015 penicillin, tetracycline Other allergy 02/04/2017 PCN, Tetracycline Other allergy 05/24/2017 PCN, KEFLAX Other allergy 12/26/2018 PCN, Tetracyline Admission Admission Data Admission Date: 12/25/2018 Admission Time: 23:09 Room #: 2107 Procedure Procedure Types Cath Procedure Diagnostic Procedure [facility] w/Coronaries Sedation Charges Moderate Sedation up to 15 minutes PCI Procedure Coronary Atherectomy Atherectomy w/Stent Coronary Initial Procedure Description Procedure Date Procedure Date: 12/26/2018 Procedure Start Time: 15:43 Procedure End Time: 16:09 Procedure Staff Name Function Jimbo Neves MD Performing Physician Morales Alatorre RT Monitor Nguyen Spicer RT Scrub Emilee Tovar RN Nurse Erasmo Guzmán RT Caustic Room Operator Biju Ragland CRNA Additional personnel Procedure Data Cath Procedure Fluoroscopy Diagnostic fluoroscopy Total fluoroscopy Time: 8.8 time: 8.8 min min Diagnostic fluoroscopy Total fluoroscopy dose: dose: 1780 mGy 1780 mGy Contrast Material Contrast Material Type Amount (ml) Isovue 300 91 Entry Location Entry Primary Successful Side Size Upsize Upsize Entry Closure Succes sful Closure Location (Fr) 1 (Fr) 2 (Fr) Remarks Device Remarks Radial Right 6 Fr Exoseal artery Short Estimated blood loss: 10 ml Diagnostic catheters Device Type Used For End Catheter Placement DIAGNOSTIC Wayne 110cm 5 Procedure Fr catheter ([id number]) DIAGNOSTIC AR2 MOD 5 Fr Procedure catheter ([id number]) Procedure Complications No complications Procedure Medications Medication Administration Route Dosage Oxygen etCO2 Nasal cannula 2 l/min Lidocaine 2% added to field 20 Heparin Flush Bag added to field 2 bags (1000units/500ml NS) 0.9% NaCl I.V. 100 ml/hr Refer to Anesthesia Notes for Sedation Medications Heparin Bolus I.V. 5000 units Hemodynamics Rest Heart Rate: 93 (bpm) Snapshots Pre Cath Intra NCS Post Cath Vital Signs Time Heart Resp SPO2 etCO2 NIBP Rhythm Pain Sedation Rate (ipm) (%) (mmHg) (mmHg) Status Level (bpm) 15:01:19 93 24 100 13.3 110/72(84) NSR 0 (11) 10(A) , No pain 15:05:29 92 20 100 105/73(83) NSR 0 (11) 10(A) , No pain 15:09:39 90 18 100 108/69(84) NSR 0 (11) 10(A) , No pain 15:13:49 89 20 100 111/71(85) NSR 0 (11) 10(A) , No pain 15:18:01 91 18 99 111/71(85) NSR 0 (11) 10(A) , No pain 15:22:13 91 19 99 113/72(89) NSR 0 (11) 10(A) , No pain 15:26:25 92 21 99 115/75(89) NSR 0 (11) 10(A) , No pain 15:30:37 93 22 99 117/76(92) NSR 0 (11) 10(A) , No pain 15:34:49 94 21 99 111/79(91) NSR 0 (11) 10(A) , No pain 15:38:59 93 21 99 117/75(88) NSR 0 (11) 10(A) , No pain 15:43:13 93 24 99 121/77(97) NSR 0 (11) 10(A) , No pain 15:47:25 95 19 99 105/67(81) NSR 0 (11) 9(A) , No pain 15:51:34 93 20 99 114/70(87) NSR 0 (11) 9(A) , No pain 15:55:46 93 21 98 118/74(93) NSR 0 (11) 9(A) , No pain 16:00:00 93 20 98 122/75(94) NSR 0 (11) 9(A) , No pain 16:04:14 97 32 98 107/71(85) NSR 0 (11) 9(A) , No pain 16:06:40 97 23 96 113/69(89) NSR 0 (11) 10(A) , No pain Medications Time Medication Route Dose Verified Delivered Reason Notes Effectiveness by by 15:00:34 Oxygen etCO2 2 Jimbo Hebert used for Nasal l/min Pura Tovar RN procedure cannula 15:00:44 Lidocaine 2% added 20ml Jimbo Choi for local to vial Pura Neves MD anesthetic field 15:00:49 Heparin Flush added 2 Jimbo Choi used for Bag to bags Pura Neves MD procedure (1000units/500ml field NS) 15:00:57 0.9% NaCl I.V. 100 Jimbo Hebert Per physician ml/hr Pura Tovar RN 15:01:07 Refer to Jimbo Hebert Anesthesia Notes Pura Tovar RN for Sedation Medications 15:52:47 Heparin Bolus I.V. 5000 Jimboelvis Hebert for verif ied units Pura Tovar RN anticoagulation with dr neves Procedure Log Time Note 14:25:08 Erasmo NORTON(R) sent for patient. Start room use. 14:25:10 Signed procedure consent form obtained from patient. 14:25:11 Time tracking: Regular hours (M-F 7:00 - 5:00) 14:25:15 Plan of Care:Hemodynamics will remain stable., Cardiac rhythm will remain stable., Comfort level will be maintained., Respiratory function will remain adequate., Patient/ family verbilizes understanding of procedure., Procedure tolerated without complication., Recovers from procedure without complications.. 14:25:18 Diagnostic Cath status Elective 14:36:59 H&P Date Dictated: 12/26/2018 Within 30 days and on chart.. 14:38:03 Lab Result : BUN 34 mg/dl 14:38: Lab Result : Creatinine 1.8 mg/dl 14:38:03 Lab Result : Hemoglobin 11.8 g/dl 14:38:03 Lab Result : Hematocrit 36.2 % 14:39:39 Lab results completed and on chart. 14:43:24 Patient received from Med II to CCL 2 Alert and oriented. Tansferred to table in Supine position. 14:43:25 Warm blankets applied, and anastasiya hugger turned on for patient comfort. 14:43:25 Correct patient and procedure confirmed by team. 14:43:26 ECG and BP/O2 sat monitors applied to patient. 14:50:08 Biju Ragland CRNA present and monitoring patient for TIVA. 15:00:14 Vital chart was started 15:00:34 Oxygen 2 l/min etCO2 Nasal cannula was administered by Emilee Tovar RN; used for procedure; 15:00:44 Lidocaine 2% 20ml vial added to field was administered by Jimbo Neves MD; for local anesthetic; 15:00:49 Heparin Flush Bag (1000units/500ml NS) 2 bags added to field was administered by Jimbo Neves MD; used for procedure; 15:00:57 0.9% NaCl 100 ml/hr I.V. was administered by Emilee Tovar RN; Per physician; 15:01:07 Refer to Anesthesia Notes for Sedation Medications was administered by Emilee Tovar RN; ; 15:01:17 Baseline sample Acquired. 15:01:21 Rhythm: sinus rhythm 15:01:21 Full Disclosure recording started 15::23 Pre-procedure instructions explained to patient. 15::23 Pre-op teaching completed and patient verbalized understanding. 15:01:24 Family unavailable. 15:01:26 Patient NPO since Midnight. 15:01:40 Patient allergic to Other allergyPCN, Tetracyline 15:01:42 Is the patient allergic to Iodine/contrast media? No. 15:01:46 Is patient on blood thinner?Yes 15:02:21 Previous problem with sedation/anesthesia? No ? 15:02:22 Snore? Yes 15:02:23 Deviated septum? No 15:02:25 Opens mouth fully? Yes 15:02:26 Sticks out tongue? Yes 15:02:27 Airway obstruction? No ? 15:02:29 If diabetic: On Metformin? No 15:02:30 Patient diabetic? Yes. 15:02:35 Dentures? Yes out 15:02:38 Modified Shaheen's test Ulnar < 7 seconds 15:02:39 Patient pain scale 0/10 ?. 15:02:43 IV patent on arrival in right hand with 0.9% NaCl at [facility]. 15:02:46 Right Radial & Right Groin area was prepped with chlora-prep and draped in sterile fashion 15:02:47 Alarms reviewed by R. N. 15:02:47 Sharps counted by scrub and verified by R.N. 15:02:49 Use device set Radial Dx or PCI 15:02:50 ACIST Syringe (75811) opened to sterile field. 15:02:50 Medline Cath Pack ([id number]) opened to sterile field. 15:02:51 Bag Decanter (2002S) opened to sterile field. 15:02:52 ACIST Hand Control (01531) opened to sterile field. 15:02:52 ACIST Manifold (36183) opened to sterile field. 15:02:53 Tegaderm 4 x 4 (1626W) opened to sterile field. 15:02:53 MBrace Wrist Support ([id number]) opened to sterile field. 15:02:54 SHEATH 6FR Slender (58-1060) opened to sterile field. 15:02:55 DIAGNOSTIC WIRE .035 260cm J wire (282187) opened to sterile field. 15:05:21 Physician paged 15:05:49 Zero performed for pressure channel P1 15:42:28 Physician arrived 15:42:28 --------ALL STOP TIME OUT------ 15:42:28 Final Timeout: patient, procedure, and site verified with staff and physician. All members of the team are in agreement. 15:42:31 Right Radial & Right Groin site verified by team. 15:42:34 Fire Safety Assessment: A--An alcohol-based skin anteseptic being used preoperatively., C--Open oxygen or nitrous oxide is being used., D--An ESU, laser, or fiber-optic light is being used. 15:42:41 Physical assessment completed. ASA score P 3 - A patient with severe systemic disease as per Jimbo Neves MD. 15:42:46 Sedation plan: TIVA Medication:Propofol 15:43:48 Procedure started. 15:43:52 Local anesthetic to right radial artery with Lidocaine 2% by Jimbo Neves MD.INITIAL ACCESS ONLY 15:44:05 A 6 Fr Short sheath was inserted into the Right Radial artery 15:44:27 A DIAGNOSTIC Wayne 110cm 5 Fr catheter (607050) was advanced over the wire and used for Procedure. 15:45:37 LV gram done using OLVERA 15:45:41 Injector settings: Ml/sec: 5, Volume: 15, 15:45:55 EF : 40 % 15:46:26 Catheter exchanged over wire. 15:46:33 GUIDE 6FR XBLAD 3.5 catheter ([id number]) opened to sterile field. 15:47:20 6 Fr xblad 3.5 guide catheter was inserted over the wire 15:47:47 LCA angiography performed. 15:48:33 Catheter exchanged over wire. 15:48:49 A DIAGNOSTIC AR2 MOD 5 Fr catheter (859149R) was advanced over the wire and used for Procedure. 15:49:43 RCA angiography performed. 15:52:08 Catheter exchanged over wire. 15:52:18 6 Fr xblad 3.5 guide catheter was inserted over the wire 15:52:47 Heparin Bolus 5000 units I.V. was administered by Emilee Tovar RN; for anticoagulation; verified with dr neves 15:52:56 LASER ELCA 0.9 Rx atherectomy catheter (719806) opened to sterile field. 15:52:57 INFLATOR Merit BasixCompak (YN7000) opened to sterile field. 15:52:58 CHOICE PT Extra Support 182cm wire ([id number]) opened to sterile field. 15:53:05 choice pt es wire advanced. 15:53:06 Wire advanced across lesion. 15:54:34 Laser pass to pLAD with Fluence of 80 and Rate of 80. 15:57:23 Laser catheter removed. 15:58:27 Inflate balloon Inflation number: 1 A EUPHORA 3.5 x 30 Balloon ([id number]) was prepped and advanced across the Prox LAD, then inflated to 19 OZIEL for 0:10 (min:sec). 15:59:25 Inflation number: 2 The EUPHORA 3.5 x 30 Balloon ([id number]) was reinflated across the Prox LAD, to 11 OZIEL for 0:10 (min:sec). 15:59:36 Balloon removed over the wire. 16:00:55 Place stent Inflation Number: 3 A HARSHAD RX 3.5 x 38 stent ([id number]) was prepped and advanced across the Prox LAD. The stent was deployed at 13 OZIEL for 0:10 (min:sec). 16:01:08 Inflation number: 4 The stent balloon was then re-inflated across the Prox LAD to 23 OZIEL for 0:10 (min:sec). 16:02:41 Place stent Inflation Number: 5 A HARSHAD RX 4.0 x 15 stent ([id number]) was prepped and advanced across the Prox LAD. The stent was deployed at 21 OZIEL for 0:10 (min:sec). 16:03:11 TR BAND Large ([id number]) opened to sterile field. 16:03:17 Stent catheter was removed intact over wire. 16:03:18 Wire removed. 16:03:18 Guide catheter removed. 16:03:31 Sheath removed intact; hemostasis achieved with Exoseal to the Right Radial artery. 16:03:32 Procedure ended.(Physican Out) 16:04:27 Fluoroscopy time 08.80 minutes. 16:04:31 Fluoroscopy dose: 1780 mGy 16:04:31 Flurop Dose total: 1780 16:04:41 Contrast amount:Isovue 300 91ml. 16:04:42 Sharps counted by scrub and verified by R.N. 16:04:45 TR band inflated with 12cc of air. 16:04:46 Insertion/operative site no bleeding no hematoma. 16:04:52 Post right radial artery:stable, soft, clean and dry 16:05:15 Laser total pulses delivered: 5633 16:05:20 Laser total treatment time: 1 minutes 10 seconds 16:05:26 Post Procedure Pulses reassessed and unchanged 16:05:30 Post-procedure physical assessment completed. ASA score P 3 - A patient with severe systemic disease as per Jimbo Neves MD. 16:05:32 Post procedure rhythm: unchanged. 16:05:36 Estimated blood loss: 10 ml 16:05:36 Post procedure instruction explained to patient.Patient verbalizes understanding. 16:05:37 Patient needs reinforcement of post procedure teaching. 16:07:20 Procedure type changed to Cath procedure, Diagnostic procedure, LHC, LHC w/Coronaries, Sedation Charges, Moderate Sedation up to 15 minutes, PCI procedure, Coronary Atherectomy, Atherectomy w/Stent Coronary Initial 16:09:01 Procedure and supply charges have been captured, reviewed, submitted and are correct. 16:09:03 Procedure Complication : No complications 16:09:05 Vital chart was stopped 16:09:05 See physician's report for complete and final results. 16:09:07 Report given to PCU. 16:09:10 Patient transfered to PCU with Stretcher. 16:09:12 Procedure ended. 16:09:12 Full Disclosure recording stopped 16:09:15 End room use (Document Last) Intervention Summary Intervention Notes Time ActionType Lesion and Equipment Used Action# Pressure Duration Attributes 15:58:27 Inflate Prox LAD EUPHORA 3.5 x 1 19 00:10 balloon 30 Balloon ([id number]) 15:59:25 Reinflate Prox LAD EUPHORA 3.5 x 2 11 00:10 balloon 30 Balloon ([id number]) 16:00:55 Place stent Prox LAD HARSHAD RX 3.5 x 3 13 00:10 38 stent ([id number]) 16:01:08 Reinflate Prox LAD HARSHAD RX 3.5 x 4 23 00:10 stent 38 stent balloon ([id number]) 16:02:41 Place stent Prox LAD HARSHAD RX 4.0 x 5 21 00:10 15 stent ([id number]) Device Usage Item Name Manufacture Quantity Catalog Number Hospital Part Current M inimal Lot# / Charge Number Stock Stock Serial# Code ACIST Syringe Acist 1 25427 525550 964653 629387 2 0 (66352) Medical Systems Inc Medline Cath Medline 1 [id number] 356507 85030 057511 5 Pack ([id number]) Bag Decanter Microtek 1 2001S 885073 04579 314667 5 () Medical Inc. ACIST Hand Acist 1 03859 961573 333725 444922 5 Control Medical (63303) Systems Inc ACIST Manifold Acist 1 07182 406072 136754 851275 5 (84218) Medical Systems Inc Tegaderm 4 x 4 3M 1 1626W 166130 162148 859661 5 (1626W) MBrace Wrist Advanced 1 140-0250-00 322304 03349 241093 5 Support Vascular ([id number]) Dynamics SHEATH 6FR Terumo 1 [id number] 386675 700646 890378 5 Slender (80-1060) DIAGNOSTIC St Pratik 1 609826 203595 512719 162381 3 0 WIRE .035 260cm J wire (189076) DIAGNOSTIC Terumo 1 40-4783 559013 711125 708976 5 Wayne 110cm 5 Fr catheter (238677) GUIDE 6FR Cardinal 1 61446304 693016 933823 835680 1 0 XBLAD 3.5 Health catheter (26014423) DIAGNOSTIC AR2 Cardinal 1 [id number] 784236 743071 096641 2 0 MOD 5 Fr Health catheter (029807W) LASER ELCA 0.9 Bindu 1 110-004 232751 228814 632858 5 Rx atherectomy Couple catheter (750508) (833453) INFLATOR Merit Merit 1 JD7195 863091 537346 000666 1 5 Sell My [employer] NOW (IR6423) CHOICE PT Delevan 1 [id number] 400771 634522 604840 5 Extra Support Scientific 182cm wire (6483810D0) EUPHORA 3.5 x Medtronic 1 [id number] 397904 325030 538799 5 [id number] 30 Balloon ([id number]) HARSHAD RX 3.5 x Medtronic 1 [id number] 027852 7386286 420212 5 [id number] 38 stent ([id number]) HARSHAD RX 4.0 x Medtronic 1 [id number] 820048 4453127 004402 5 [id number] 15 stent ([id number]) TR BAND Large Terumo 1 [id number] 787141 376647 153438 4 0 ([id number]) Signature Audit [place] Stage Time Signature Unsigned Intra-Procedure 12/26/2018 Morales Alatorre 4:11:50 PM RT(R) Signatures Monitor : Morales Alatorre RT Signature : Date : Time : [id number] [place] [address]
[2018-12-25 22:15] LABS: ALBUMIN 3.3 g/dL (3.4-5.0); ALKALINE PHOSPHATASE 114 U/L (46-116); ALT (SGPT) 17 U/L (10-68); BASOPHILS 0.3 % (0-2); BILIRUBIN - TOTAL 0.28 mg/dL (0.2-1.3); CALC OSMOLALITY 289 mosm/kg (275-300); CALCIUM 8.8 mg/dL (8.5-10.1); CARBON DIOXIDE 29.4 mmol/L (21.0-32.0); CHLORIDE - SERUM 97 mmol/L (98-107); CREATININE - SERUM 1.8 mg/dL (0.6-1.3); EOSINOPHILS 2.6 % (0-7); HEMATOCRIT 36.2 % (42.0-54.0); HEMOGLOBIN 11.8 g/dL (13.5-17.5); IMMATURE GRANULOCYTES 0.3 % (0-5); LYMPHOCYTES 31.6 % (15-50); MCH 25.3 pg (26.0-34.0); MCHC 32.6 g/dL (31.0-37.0); MCV 77.7 fL (80.0-100.0); MEAN PLATELET VOLUME 9.9 fL (7.4-10.4); MONOCYTES 10.5 % (2-11); NEUTROPHILS 54.7 % (40-80); PLATELET COUNT 341 10x3/uL (130-400); POTASSIUM - SERUM 3.7 mmol/L (3.5-5.1); PROTEIN - SERUM 7.7 g/dL (6.4-8.2); RBC 4.66 10x6/uL (4.20-6.10); RDW 15.9 % (11.5-14.5); SODIUM 136 mmol/L (136-145); UREA NITROGEN 34 mg/dL (7-18); WBC 9.4 10x3/uL (4.8-10.8); eGFR NON AFRICAN AMERICAN 42 mL/min (90-120)
[2018-12-25 22:16] LABS: GLUCOSE 275 mg/dL (74-106)
[2018-12-25 22:26] LABS: CKMB 4.4 U/L (0.0-3.6); CREATINE KINASE 574 UL (21-232); PRO BNP 427 pg/mL (0-125)
[2018-12-25 22:27] LABS: TROPONIN-I < 0.017 ng/mL (0.000-0.060)
--- NOTE | 2018-12-25 23:36 | NUR ---
REPORT RECEIVED FROM REID APARICIO
[2018-12-26] MEDS ORDERED: BUMEX2 MG PO (00:53)
[2018-12-26] MEDS ORDERED: K-TAB10 MEQ PO (00:54)
[2018-12-26] MEDS ORDERED: ZYLOPRIM100 MG PO (00:54)
[2018-12-26] MEDS ORDERED: PERCOCET 7.5/321 TAB PO (00:57)
[2018-12-26] MEDS ORDERED: LASIX80 MG PO (00:57)
[2018-12-26 01:07] VITALS: BP 116/71; BMI 47.7
[2018-12-26 04:00] VITALS: BP 105/67
--- NOTE | 2018-12-26 05:19 | NUR ---
NO CHANGES FROM PREVIOUS ASSESSMENT, AM MEDS GIVEN. CALL LIGHT IN REACH.
--- NOTE | 2018-12-26 07:45 | NUR ---
AM ROUNDS COMPLETED. INTRODUCED MYSELF TO PT PRIMARY RN FOR TODAYS SHIFT. PT IS A&O SITTING UP IN BED RESTING QUIETLY. SHIFT ASSESSMENT COMPLETED. PT DENIES ANY CURRENT PAIN OR NEEDS AT THIS TIME. WILL CHECK CHART AND ORDERS AND BEGIN PLAN OF CARE. CL IN REACH, BED IN LOWEST, SIDE RAILS X2. WILL CTM.
[2018-12-26 08:00] VITALS: BP 116/65
--- NOTE | 2018-12-26 09:00 | NUR ---
PT IS NOW NPO FOR HEART CATH TODAY. ANA COLINDRES AT BEDSIDE FOR CONSULT. WILL CHECK FOR NEW ORDERS. EMPTIED PTS URINAL OF 450CC CLEAR YELLOW URINE. NO CURRENT NEEDS. WILL CTM.
--- NOTE | 2018-12-26 10:45 | NUR ---
CONSENTS OBTAINED AND PLACED IN CHART FOR HEART CATH TODAY. PT VERBALIZED UNDERSTANDING AND HAS HAD THIS DONE BEFORE. NO CURRENT NEEDS. WILL CTM.
[2018-12-26 10:51] LABS: HEMATOCRIT 36.4 % (42.0-54.0); MCH 25.5 pg (26.0-34.0); MCV 77.3 fL (80.0-100.0); PLATELET COUNT 360 10x3/uL (130-400); RBC 4.71 10x6/uL (4.20-6.10); WBC 8.6 10x3/uL (4.8-10.8)
[2018-12-26 11:00] LABS: ANION GAP 15.6 mmol/L (8-16); CALCIUM 8.7 mg/dL (8.5-10.1); CREATININE - SERUM 1.6 mg/dL (0.6-1.3); POTASSIUM - SERUM 3.6 mmol/L (3.5-5.1)
[2018-12-26 11:25] LABS: BASOPHILS 1 % (0-2); LYMPHOCYTES 22 % (15-50); MONOCYTES 2 % (2-11); NEUTROPHILS 75 % (40-80); PLATELET ESTIMATE NORMAL
[2018-12-26 11:26] LABS: PLATELET MORPHOLOGY GIANT PLTS PRESENT
[2018-12-26 11:57] VITALS: BP 130/73
[2018-12-26 12:40] VITALS: Ht 182.9 cm; Wt 159.1 kg
--- NOTE | 2018-12-26 14:42 | NUR ---
COUNTY ENGINEER CALLED TO PRE-OP PT. PRE-OP MEDICATIONS GIVEN WITH THE EXCEPTION OF VALIUM THE CATH TEAM IS HERE TO TAKE PT NOW. PT COMPLETELY READY TO GO. PT LEAVING NOW. NO CURRENT NEEDS.
--- NOTE | 2018-12-26 16:40 | NUR ---
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 AWAKE BUT DROWSY. PT HAS NEW PIV TO L.HAND SL. R.HAND PIV HAS NS INFUSING ORDERED. VSS AND BEING MONITERED PER POST PROCEDURE POLICY. TELEMETRY MONITER BACK IN PLACE AND RUNNING RRR @86BPM PER ALEXEY MONITER TECH. PERIPHERAL PULSES INTACT. PT HAS TR BAND IN PLACE TO R.WRIST WITH 10CC OF AIR IN PLACE. NO S/S OF BLEEDING OR HEMATOMA NOTED. WILL REMOVE AIR PER POLICY I AM ABLE TO. PROVIDED PT WITH SCHEDULED MEDICATIONS. FSBS 174 WILL PROVIDE WITH INSULIN PER SS. PT DENIES ANY CURRENT PAIN OR FURTHER NEEDS AT THIS TIME. WILL REVIEW NEW ORDERS AND CPOC.
[2018-12-26 16:51] VITALS: BP 114/71
--- NOTE | 2018-12-26 17:53 | NUR ---
ASSISTED PT UP TO BR. PT VOIDED 500CC CLEAR YELLOW URINE. EMPTIED URINAL AND ASSISTED PT BACK TO BED. R.WRIST TR BAND STILL CDI NO S/S OF BLEEDING OR HEMATOMA NOTED. VSS. PERIPHERAL PULSES INTACT. CL IN REACH, NO CURRENT NEEDS. WILL CTM.
--- NOTE | 2018-12-26 18:45 | NUR ---
VSS AND STILL BEING MONITERED PER POST PROCEDURE PROTOCOL. PT IS SITTING UP IN BED AND ATE 100% OF DINNER AND VOICED THANKS AND STATES IT WAS GOOD. PERIPHERAL PULSES INTACT. R.WRIST TR BAND STILL IN PLACE NO S/S OF BLEEDING OR HEMATOMA NOTED. CL IN REACH. WILL CTM.
--- NOTE | 2018-12-26 20:59 | NUR ---
REMOVED 5CC OF AIR FROM R.WRIST TR BAND. PT SITTING UP ON EDGE OF BED RESTING QUIETLY. NO S/S OF BLEEDING WITH AIR REMOVED, WILL FOLLOW POLICY AND CONTINUE TO REMOVE AIR. WILL CHECK BS AND PASS NIGHTLY MEDICATIONS ALONG WITH PAIN MEDICATION REQUESTED.
--- NOTE | 2018-12-26 21:25 | NUR ---
REMOVED REMAINING AIR FROM R.WRIST TR BAND AND NO S/S OF BLEEDING OR HEMATOMA NOTED. PT RESTING QUIETLY IN BED AND STATES HE IS FEELING GOOD. DENIES ANY CURRENT PAIN OR NEEDS. CL IN REACH. WILL CTM.
[2018-12-26 22:08] VITALS: BP 100/64
--- NOTE | 2018-12-26 22:28 | NUR ---
NO S/S OF BLEEDING OR HEMATOMA NOTED TO R.WRIST. REMOVED TR BAND COMPLETELY AND PLACED BAND-AID THERE. PT RESTING QUIETLY AND DENIES ANY CURRENT NEEDS. WILL PASS ON IN SHIFT REPORT.
--- NOTE | 2018-12-27 01:07 | NUR ---
REPORT RECEIVED. EVENING ROUNDS COMPLETED. PT SITTING UP IN BEDSIDE CHAIR. RR EVEN AND UNLABORED. PT DENIES FURTHER NEEDS AT THIS TIME. INTRODUCED SELF TO PT. BED IN LOW POSITION. NO S/S OF DISTRESS NOTED. CALL LIGHT IN REACH. WILL CTM.
--- NOTE | 2018-12-27 04:07 | NUR ---
RESTING IN BED WITH EYES CLOSED. NO S/S OF DISTRESS OBSERVED. WILL CONT. POC.
--- NOTE | 2018-12-27 06:42 | NUR ---
PT CURRENTLY SITTING UP IN BED WITH EYES OPEN, RR EVEN AND UNLABORED. 246 BLOOD SUGAR TREATED ORDERED PER SLIDING SCALE. DENIES FURTHER NEEDS AT THIS TIME. CALL LIGHT IN REACH. WILL CTM.
--- NOTE | 2018-12-27 06:55 | NUR ---
IN PATIENT CHART TO COMPLETE DISCHARGE THIS AM.
[2018-12-27 07:42] VITALS: BP 101/67
--- NOTE | 2018-12-27 08:02 | NUR ---
PT D/C PAPERWORK FINSIHED AND SIGNED. I/VS OUT, TIP INTACT. CL IN REACH. SRX2. CALLED HIS BROTHER, HAD TO WAKE HIM UP. WILL LEAVE WHEN HE GETS HERE.
--- NOTE | 2018-12-27 08:35 | NUR ---
PT AMBULATED SELF OUT. NO COMPLICATIONS/CONCNERNS/COMPLAINTS STATED/NOTED AT THIS TIME.
--- NOTE | 2018-12-29 07:58 | MORECARE ---
CASE MANAGEMENT DISCHARGE SUMMARY PATIENT: TOAN LOZADA UNIT: [id number] ADM DATE: 12/25/18 AGE: 53 : [birth year] SEX: M ROOM/BED: D.2107 AUTHOR: LIAM RYAN PHYSICIAN: REFERRING PHYSICIAN: FRANCI WELLS MD DATE OF SERVICE: 12/29/18 Discharge Plan Patient Name: TOAN LOZADA Facility: [facility]:[place] : 1965 Planned Disposition: Home Anticipated Discharge Date: 12/27/18 Discharge Date: 12/27/2018 Expected LOS: 2 Initial Reviewer: [email or web address] Initial Review Date: 12/29/2018 Generated: 12/29/18 8:58 am Patient Name: TOAN LOZADA Page 27030 at 0758 All edits/amendments must be made on the electronic document DICTATION DATE: 12/29/18 0758 MAKER UP FOLDING: DM 12/29/18 0758 RPT#: [id number] DC DATE:12/27/18 STATUS: DIS IN [facility] [address] [place] [address] END OF REPORT
--- NOTE | 2018-12-29 11:46 | OP ---
PATIENT NAME: TOAN LOZADA MEDICAL RECORD: [id number] :[birth year] LOCATION:D.M2 D.2107 ADMISSION DATE:12/25/18 SURGEON: CAROLYN MANTILLA MD DATE OF OPERATION: 12/26/2018 PROCEDURES: 1. PTCA and stent, LAD. 2. Laser atherectomy LAD. 3. Left heart catheterization. 4. Selective coronary angiography. 5. Left ventriculogram. INDICATION: Angina and coronary artery disease. PROCEDURE PERFORMED: After informed consent was obtained with detailed explanation of risks and benefits as well as alternative therapies, the patient elected to proceed with angiogram and angioplasty. The right femoral area was prepped and draped in normal sterile fashion. Right femoral artery was cannulated via modified Seldinger technique with placement of 6-Turkish sheath. All catheters were exchanged through this sheath. FINDINGS: Left ventriculogram performed in standard 30-degree OLVERA view reveals mildly depressed ejection fraction of 40%. SELECTIVE CORONARY ANGIOGRAPHY: 1. Left main is with no significant angiographic disease. 2. Left anterior descending has multiple previously placed stents. There is up to 95% to 99% in-stent restenosis. 3. Left circumflex has moderate irregularities, but no flow-limiting stenosis. 4. Right coronary has multiple previously placed stents with no significant restenosis. No disease elsewise at the RCA or its branches. PTCA AND STENT OF THE LAD: We performed laser atherectomy with 0.9 catheter 80/80. Multiple passes were made and stented with a 3.5 x 38 and 4.0 x 15, both [place] stents. Result was 0% residual stenosis. OVERALL IMPRESSION: Successful PTCA and stent of the LAD, going from 99% in-stent restenosis to 0% residual. TRANSINT:[id number] Voice Confirmation ID: [id number] DOCUMENT ID: [id number] CAROLYN MANTILLA MD at 1146 CC: [id number] DICTATION DATE: 12/26/18 1616 COUNSELOR DORMITORY: 12/26/18 2305 DIS IN 12/27/18 [place] [id number] [place] [id number]
== END 2018-12-27 08:35 | disposition home or self-care (01) ==
LOC: D.ER 20:58 → D.M2 23:09 → D.EDHOLD 23:09 → OBSVTIME 23:09 → D.M2 23:34
PROVIDERS: Family Medicine; Internal Medicine Interventional Cardiology; ADMIT Legal Medicine
DX: I25.119 Atherosclerotic heart disease of native coronary artery with unspecified angina pectoris (principal); I11.0 Hypertensive heart disease with heart failure; I50.9 Heart failure, unspecified; E11.9 Type 2 diabetes mellitus without complications; I25.5 Ischemic cardiomyopathy; I08.1 Rheumatic disorders of both mitral and tricuspid valves

== ENCOUNTER 2019-03-15 20:08 | Inpatient (IN) | payer MEDICAID ==
[~2019-03-15] VITALS: Ht 182.9 cm; Wt 154.5 kg
[~2019-03-15 20:08] MED LIST changes: +BUMEX2 MG PO; +K-TAB10 MEQ PO; +LASIX80 MG PO; +PERCOCET 7.5/321 TAB PO; +ZYLOPRIM100 MG PO
[2019-03-15 21:50] VITALS: BP 70/35
[2019-03-15 21:53] LABS: BASOPHILS 0.1 % (0-2); EOSINOPHILS 0.3 % (0-7); HEMATOCRIT 39.6 % (42.0-54.0); HEMOGLOBIN 13.5 g/dL (13.5-17.5); IMMATURE GRANULOCYTES 0.4 % (0-5); LYMPHOCYTES 23.4 % (15-50); MCH 24.3 pg (26.0-34.0); MCHC 34.1 g/dL (31.0-37.0); MCV 71.4 fL (80.0-100.0); MEAN PLATELET VOLUME 10.2 fL (7.4-10.4); MONOCYTES 7.2 % (2-11); NEUTROPHILS 68.6 % (40-80); PLATELET COUNT 326 10x3/uL (130-400); RBC 5.55 10x6/uL (4.20-6.10); RDW 16.6 % (11.5-14.5); WBC 10.8 10x3/uL (4.8-10.8)
[2019-03-15 21:55] VITALS: BP 75/36
[2019-03-15 22:04] LABS: ALBUMIN 3.8 g/dL (3.4-5.0); ANION GAP 17.4 mmol/L (8-16); BILIRUBIN - TOTAL 0.66 mg/dL (0.2-1.3); CALCIUM 9.5 mg/dL (8.5-10.1); CARBON DIOXIDE 28.2 mmol/L (21.0-32.0); POTASSIUM - SERUM 3.6 mmol/L (3.5-5.1); PROTEIN - SERUM 8.9 g/dL (6.4-8.2)
[2019-03-15 22:12] VITALS: BP 90/41
--- NOTE | 2019-03-15 22:15 | NUR ---
PT IN WITH C/O ABD PAIN, N/V X 3 DAYS AND IS GETTING WORSE. STATES HIS GB AND APPENDICTS HAS BEEN REMOVED. BROTHER AT BEDSIDE.
[2019-03-15 22:51] VITALS: BP 109/63
[2019-03-15 23:00] VITALS: BP 115/74
--- NOTE | 2019-03-15 23:33 | NUR ---
BACK FROM CT PER TRCH VIA STRETCHER
[2019-03-15 23:53] VITALS: BP 106/61
[2019-03-16] VITALS (7 sets, daily range): BP systolic 87–114; BP diastolic 45–69; Ht 182.9 cm; Wt 154.5 kg
[2019-03-16 00:48] LABS: AMYLASE - SERUM 55 U/L (25-115); CKMB 5.3 U/L (0.0-3.6); LIPASE 141 U/L (73-393); TROPONIN-I < 0.017 ng/mL (0.000-0.060)
[2019-03-16 00:54] LABS: CREATINE KINASE 959 UL (21-232)
[2019-03-16 01:40] LABS: APPEARANCE CLEAR (CLEAR); BILIRUBIN NEGATIVE (NEGATIVE); COLOR YELLOW (YELLOW); GLUCOSE 100 mg/dL (NEGATIVE); KETONE NEGATIVE (NEGATIVE); NITRITE NEGATIVE (NEGATIVE); PROTEIN NEGATIVE (NEGATIVE); UROBILINOGEN NORMAL (NORMAL)
[2019-03-16 06:37] LABS: BASOPHILS 0.1 % (0-2); EOSINOPHILS 0.3 % (0-7); HEMATOCRIT 36.6 % (42.0-54.0); HEMOGLOBIN 12.7 g/dL (13.5-17.5); IMMATURE GRANULOCYTES 0.4 % (0-5); LYMPHOCYTES 25.8 % (15-50); MCHC 34.7 g/dL (31.0-37.0); MCV 71.9 fL (80.0-100.0); MEAN PLATELET VOLUME 9.8 fL (7.4-10.4); MONOCYTES 6.9 % (2-11); NEUTROPHILS 66.5 % (40-80); PLATELET COUNT 320 10x3/uL (130-400); RBC 5.09 10x6/uL (4.20-6.10); RDW 16.5 % (11.5-14.5); WBC 10.2 10x3/uL (4.8-10.8)
[2019-03-16 06:43] LABS: ANION GAP 15.5 mmol/L (8-16); CALCIUM 9.2 mg/dL (8.5-10.1); CARBON DIOXIDE 30.6 mmol/L (21.0-32.0); CREATININE - SERUM 6.4 mg/dL (0.6-1.3); MAGNESIUM - SERUM 2.3 mg/dL (1.8-2.4); POTASSIUM - SERUM 3.1 mmol/L (3.5-5.1)
[2019-03-16 15:32] LABS: ERYTHROCYTE SEDIMENTATION RATE 51 mm/hr (0-20)
--- NOTE | 2019-03-16 15:46 | NUR ---
PATIENT COMPLAINS OF NNAUSEA AND REQUESTS ZOFRAN. PATIENT MEDICATED PER MAR WITH ZOFRAN. PATIENT DENIES ANY FURTHER NEEDS OR PAIN. WILL CONTINUE TO MONITOR. SR UP X 2 BED IN LOW POSITION AND CALL LIGHT IN REACH.
--- NOTE | 2019-03-16 19:25 | NUR ---
AWAKE AND ALERT UP ADLIB ASSISTED TO RELOCK BED AND CALL LIGHT IN REACH. SKIN WARM AND DRY LCTA AND PT DENIES NEEDS AT THIS TIME.
--- NOTE | 2019-03-16 22:01 | NUR ---
BS 103 ...PT STATES HE HAS NEVER SEEN THAT LOW...WILL HOLD BOTH R AND LANTUS THIS EVENING
[2019-03-16 23:56] LABS: APPEARANCE CLEAR (CLEAR); BILIRUBIN NEGATIVE (NEGATIVE); COLOR YELLOW (YELLOW); GLUCOSE NEGATIVE (NEGATIVE); KETONE NEGATIVE (NEGATIVE); NITRITE NEGATIVE (NEGATIVE); PROTEIN NEGATIVE (NEGATIVE); SPECIFIC GRAVITY 1.015 (1.005-1.020); UROBILINOGEN NORMAL (NORMAL)
[2019-03-17] VITALS (7 sets, daily range): BP systolic 92–128; BP diastolic 43–81
[2019-03-17 04:47] LABS: BASOPHILS 0.1 % (0-2); EOSINOPHILS 1.9 % (0-7); HEMOGLOBIN 11.6 g/dL (13.5-17.5); IMMATURE GRANULOCYTES 0.4 % (0-5); LYMPHOCYTES 38.6 % (15-50); MCH 24.7 pg (26.0-34.0); MCHC 34.1 g/dL (31.0-37.0); MCV 72.3 fL (80.0-100.0); MEAN PLATELET VOLUME 9.5 fL (7.4-10.4); MONOCYTES 11.4 % (2-11); NEUTROPHILS 47.6 % (40-80); PLATELET COUNT 304 10x3/uL (130-400); RDW 16.6 % (11.5-14.5); WBC 7.7 10x3/uL (4.8-10.8)
[2019-03-17 05:05] LABS: CALCIUM 8.6 mg/dL (8.5-10.1); CARBON DIOXIDE 29.6 mmol/L (21.0-32.0)
[2019-03-17 05:08] LABS: POTASSIUM - SERUM 2.6 mmol/L (3.5-5.1)
--- NOTE | 2019-03-17 05:08 | NUR ---
I have reviewed this patient and I concur with the Shift Assessment completed by the Licensed Practical Nurse today this shift.
--- NOTE | 2019-03-17 05:09 | NUR ---
I have reviewed this patient and I concur with the Shift Assessment completed by the Licensed Practical Nurse today this shift.
--- NOTE | 2019-03-17 08:00 | NUR ---
AM ROUNDS COMPLETED. INTRODUCED MYSELF TO PT PRIMARY RN FOR TODAYS SHIFT. PT IS A&O SITTING UP IN BED RESTING QUIETLY. RR NONLABORED ON RA. PT HAS A L.HAND PIV THAT IS SL HOWEVER ORDERS WITH NS @125ML/HR ARE ORDERED. WILL PULL MEDICATIONS AND GET IT STARTED. PT VOICED THANKS AND STATES HE IS FEELING WELL OVERALL. PT HAD A CRITICAL LOW POTASSIUM ON HIS AM LABS, NOTIFIED PRIMARY AND AWAITING NEW DRAW AFTER NIGHTSHIFT HAD TREATED. NO IMMEDIATE NEEDS. WILL CPOC.
[2019-03-17 09:11] LABS: CREATININE - URINE 105.9 mg/dL (30-125); PRO/CRE RATIO URINE 0.1 mg/g; PROTEIN - URINE 8.8 mg/dL (0.0-11.9)
--- NOTE | 2019-03-17 11:32 | MORECARE ---
CASE MANAGEMENT DISCHARGE SUMMARY PATIENT: TOAN LOZADA UNIT: [id number] ADM DATE: 03/16/19 AGE: 53 : [birth year] SEX: M ROOM/BED: D.2138 AUTHOR: LIAM RYAN PHYSICIAN: REFERRING PHYSICIAN: MACIEJ BECERRA MD DATE OF SERVICE: 03/17/19 Discharge Plan Patient Name: TOAN LOZADA Facility: [facility]:[place] : 1965 Planned Disposition: Anticipated Discharge Date: Discharge Date: Expected LOS: Initial Reviewer: [email or web address] Initial Review Date: 03/17/2019 Generated: 03/17/19 12:32 pm Patient Name: TOAN LOZADA Page 97002 at 1132 All edits/amendments must be made on the electronic document DICTATION DATE: 03/17/19 113 RATE INSERTER: BEAU 03/17/19 1132 RPT#: [id number] DC DATE: STATUS: ADM IN [facility] [address] [place] [address] END OF REPORT
--- NOTE | 2019-03-17 11:40 | MORECARE ---
CASE MANAGEMENT DISCHARGE SUMMARY PATIENT: TOAN LOZADA UNIT: [id number] ADM DATE: 03/16/19 AGE: 53 : 69 SEX: M ROOM/BED: D.1423 AUTHOR: CONNOR,DOC PHYSICIAN: REFERRING PHYSICIAN: MACIEJ BECERRA MD DATE OF SERVICE: 03/17/19 Discharge Plan Patient Name: TOAN LOZADA Facility: [facility]:[place] : 1965 Planned Disposition: Anticipated Discharge Date: Discharge Date: Expected LOS: Initial Reviewer: ESTEFANI Initial Review Date: 03/17/2019 Generated: 03/17/19 12:40 pm Comments DCP- Discharge Planning Updated by [email or web address]: Marie Garibay on 03/17/19 10:[address] Patient Name: TOAN LOZADA Admission Status: ER Accout number: [id number] Admission Date: 03-16-2019 : 1965 Admission Diagnosis:ACUTE KIDNEY FAILURE, UNSPECIFIED Attending: JONAS Current LOS: 1 Anticipated DC Date: Planned Disposition: Primary Insurance: MEDICAID [place] Discharge Planning Comments: CM met with patient about discharge planning. CM explained CM role and verbal consent was given to do dc assessment. CM educated on Home Health, DME and rehab services that are available. Patient states his discharge plan is to return to home . States home environment is safe DC. Denies any discharge planning needs at this time. States SISTER will drive her home upon discharge. CM will continue to follow and assist as needed with discharge planning needs. HAS WALKER AND CANE AT HOME Turnaround Planner: Marie Garibay DCPIA - Discharge Planning Initial Assessment Updated by [email or web address]: Marie Garibay on 03/17/19 11:33 am * Is the patient Alert and Oriented? Yes * How many steps to enter\exit or inside your home? na * PCP HERNAN * Pharmacy [facility] * Preadmission Environment Home with Family * ADLs Independent * Equipment Walker * Other Equipment CANE AND HAS A SCOOTER BEING DELIVERED ALREADY TO HOME * List name and contact numbers for known caregivers / representatives who currently or will assist patient after discharge: MICA VEGA [phone] * Verbal permission to speak to the caregivers and representatives has been obtained from the patient. N/A * Community resources currently utilized None * Additional services required to return to the preadmission environment? No * Can the patient safely return to the preadmission environment? Yes * Has this patient been hospitalized within the prior 30 days at any hospital? Yes Last DP export: 03/17/19 10:32 am Patient Name: TOAN LOZADA Page 37139 at 1140 All edits/amendments must be made on the electronic document DICTATION DATE: 03/17/19 1140 EXTERIOR WORK HELPER: BEAU 03/17/19 1140 RPT#: [id number] DC DATE: STATUS: ADM IN [facility] [address] [place] [address] END OF REPORT
--- NOTE | 2019-03-17 11:57 | NUR ---
FSBS 256 PROVIDED PT WITH 6UNITS OF INSULIN PER SS. PT SITTING UP IN BEDSIDE CHAIR RESTING QUIETLY RR NONLABORED ON RA. COLLECTED SPECIMEN FOR URINE AND BROUGHT TO LAB ORDERED. PROVIDED PT WITH POTASSIUM FOR LOW POTASSIUM LEVEL. NO CURRENT NEEDS AT THIS TIME. WILL CTM.
--- NOTE | 2019-03-17 14:16 | MORECARE ---
CASE MANAGEMENT DISCHARGE SUMMARY PATIENT: TOAN LOZADA UNIT: [id number] ADM DATE: 03/16/19 AGE: 53 : 69 SEX: M ROOM/BED: D.5937 AUTHOR: CONNOR,DOC PHYSICIAN: REFERRING PHYSICIAN: MACIEJ BECERRA MD DATE OF SERVICE: 03/17/19 Discharge Plan Patient Name: TOAN LOZADA Facility: [facility]:[place] : 1965 Planned Disposition: Anticipated Discharge Date: Discharge Date: Expected LOS: Initial Reviewer: ESTEFANI Initial Review Date: 03/17/2019 Generated: 03/17/19 3:16 pm Comments DCP- Discharge Planning Updated by [email or web address]: Marie Garibay on 03/17/19 10:[address] Patient Name: TOAN LOZADA Admission Status: ER Accout number: [id number] Admission Date: 03-16-2019 : 1965 Admission Diagnosis:ACUTE KIDNEY FAILURE, UNSPECIFIED Attending: JONAS Current LOS: 1 Anticipated DC Date: Planned Disposition: Primary Insurance: MEDICAID [place] Discharge Planning Comments: CM met with patient about discharge planning. CM explained CM role and verbal consent was given to do dc assessment. CM educated on Home Health, DME and rehab services that are available. Patient states his discharge plan is to return to home . States home environment is safe DC. Denies any discharge planning needs at this time. States SISTER will drive her home upon discharge. CM will continue to follow and assist as needed with discharge planning needs. HAS WALKER AND CANE AT HOME Podiatric Medicine Professor: Marie Garibay DCPIA - Discharge Planning Initial Assessment Updated by [email or web address]: Marie Garibay on 03/17/19 11:33 am * Is the patient Alert and Oriented? Yes * How many steps to enter\exit or inside your home? na * PCP HERNAN * Pharmacy [facility] * Preadmission Environment Home with Family * ADLs Independent * Equipment Walker * Other Equipment CANE AND HAS A SCOOTER BEING DELIVERED ALREADY TO HOME * List name and contact numbers for known caregivers / representatives who currently or will assist patient after discharge: MICA VEGA [phone] * Verbal permission to speak to the caregivers and representatives has been obtained from the patient. N/A * Community resources currently utilized None * Additional services required to return to the preadmission environment? No * Can the patient safely return to the preadmission environment? Yes * Has this patient been hospitalized within the prior 30 days at any hospital? Yes Last DP export: 03/17/19 10:40 am Patient Name: TOAN LOZADA Page 06101 at 1416 All edits/amendments must be made on the electronic document DICTATION DATE: 03/17/191415 BEE RAISER: BEAU 03/17/191415 RPT#: [id number] DC DATE: STATUS: ADM IN [facility] [address] [place] [address] END OF REPORT
[2019-03-17 16:08] LABS: SPE - A/G RATIO 0.7 (0.7-1.7); SPE - ALBUMIN 3.4 g/dL (2.9-4.4); SPE - ALPHA-1 GLOBULIN 0.2 g/dL (0.0-0.4); SPE - ALPHA-2 GLOBULIN 1.7 g/dL (0.4-1.0); SPE - BETA GLOBULIN 1.2 g/dL (0.7-1.3); SPE - GAMMA GLOBULIN 1.6 g/dL (0.4-1.8); SPE - M-SPIKE Not Observed g/dL (Not Observed); SPE - TOTAL PROTEIN 8.1 g/dL (6.0-8.5)
--- NOTE | 2019-03-17 16:48 | NUR ---
FSBS 247 PROVIDED PT WITH INSULIN PER SS. PT LYING DOWN IN BED RESTING QUIETLY. DENIES ANY CURRENT PAIN OR NEEDS. RR NONLABORED ON RA. CL IN REACH, BED IN LOWEST, SIDE RAILS X2. WILL CTM.
--- NOTE | 2019-03-17 19:45 | NUR ---
AROUSES FROM SLEEP AND DENIES NEEDS AT THIS TIME LUNGS ARE DEMINISHED SKIN WARM AND DRY IV PATENT. SKIN COOL CONTINUES TO DUE WELL WITH URINE OUT PUT AND KCL IS IN IV FLUID
[2019-03-18] VITALS (7 sets, daily range): BP systolic 93–135; BP diastolic 45–82
--- NOTE | 2019-03-18 04:43 | NUR ---
I have reviewed this patient and I concur with the Shift Assessment completed by the Licensed Practical Nurse today this shift.
[2019-03-18 06:41] LABS: BASOPHILS 0.1 % (0-2); HEMATOCRIT 36.8 % (42.0-54.0); HEMOGLOBIN 12.3 g/dL (13.5-17.5); IMMATURE GRANULOCYTES 0.4 % (0-5); LYMPHOCYTES 38.3 % (15-50); MCH 24.3 pg (26.0-34.0); MCHC 33.4 g/dL (31.0-37.0); MCV 72.7 fL (80.0-100.0); MEAN PLATELET VOLUME 9.9 fL (7.4-10.4); MONOCYTES 12.7 % (2-11); NEUTROPHILS 46.5 % (40-80); PLATELET COUNT 330 10x3/uL (130-400); RBC 5.06 10x6/uL (4.20-6.10); RDW 17.1 % (11.5-14.5); WBC 7.3 10x3/uL (4.8-10.8)
[2019-03-18 06:51] LABS: CALCIUM 9.1 mg/dL (8.5-10.1); CARBON DIOXIDE 28.5 mmol/L (21.0-32.0); CREATININE - SERUM 2.4 mg/dL (0.6-1.3); POTASSIUM - SERUM 3.5 mmol/L (3.5-5.1)
--- NOTE | 2019-03-18 07:59 | NUR ---
PATIENT SITTING UP ON THE SIDE OF THE BED WITH NO COMPLAINTS OR SIGNS OF DISTRESS. IV INTACT. CALL LIGHT WITHIN REACH.
--- NOTE | 2019-03-18 17:46 | NUR ---
PATIENT SITTING UP IN CHAIR WITH NO COMPLAINTS OR SIGNS OF DISTRESS. CALL LIGHT WITHIN REACH.
--- NOTE | 2019-03-19 00:54 | NUR ---
EMPTIED PT URINAL. PT PUT OUT 600CC'S @ THIS TIME. WILL CPOC.
[2019-03-19 05:32] VITALS: BP 112/63
[2019-03-19 07:48] VITALS: BP 100/76
[2019-03-19 08:36] LABS: BASOPHILS 0.2 % (0-2); EOSINOPHILS 1.8 % (0-7); HEMATOCRIT 39.2 % (42.0-54.0); HEMOGLOBIN 13.1 g/dL (13.5-17.5); IMMATURE GRANULOCYTES 0.3 % (0-5); LYMPHOCYTES 37.4 % (15-50); MCH 24.8 pg (26.0-34.0); MCHC 33.4 g/dL (31.0-37.0); MCV 74.1 fL (80.0-100.0); MEAN PLATELET VOLUME 9.7 fL (7.4-10.4); MONOCYTES 10.7 % (2-11); NEUTROPHILS 49.6 % (40-80); PLATELET COUNT 328 10x3/uL (130-400); RBC 5.29 10x6/uL (4.20-6.10); RDW 17.1 % (11.5-14.5); WBC 8.8 10x3/uL (4.8-10.8)
[2019-03-19 08:46] LABS: ANION GAP 10.4 mmol/L (8-16); CARBON DIOXIDE 32.1 mmol/L (21.0-32.0); CREATININE - SERUM 2.1 mg/dL (0.6-1.3); POTASSIUM - SERUM 3.5 mmol/L (3.5-5.1)
[2019-03-19 12:29] VITALS: BP 105/72
--- NOTE | 2019-03-19 14:41 | NUR ---
Nutrition follow-up: Diet: Renal ADA PO intake 75-100% of meals Labs reviewed Wt: 341# +BM RDN following.
[2019-03-19 15:11] LABS: UPE RAND - ALPHA 1 GLOBULIN 1.9 % (()); UPE RAND - ALPHA 2 GLOBULIN 9.6 % (()); UPE RAND - BETA GLOBULIN 11.9 % (()); UPE RAND - GAMMA GLOBULIN 10.6 % (())
[2019-03-19 15:50] VITALS: BP 109/78
--- NOTE | 2019-03-19 19:35 | NUR ---
REMOVED PT PIV. PT TOLERATE WELL. TELEMETRY REMOVED AND RETURNED TO THE TELE UNIT. READ DC INSTRUCTION TO PT. PT VERBALIZED UNDERSTANDING. PT AMBULATORY, STATES HE CAN WALK OUT OF THE HOSPITAL BY HIMSELF. ALL PT PERSONAL BELONGINGS SENT HOME WITH PT. PT DC'D.
--- NOTE | 2019-03-20 09:16 | MORECARE ---
CASE MANAGEMENT DISCHARGE SUMMARY PATIENT: TOAN LOZADA UNIT: [id number] ADM DATE: 03/16/19 AGE: 53 : 69 SEX: M ROOM/BED: D.6186 AUTHOR: CONNOR,DOC PHYSICIAN: REFERRING PHYSICIAN: MACIEJ BECERRA MD DATE OF SERVICE: 03/20/19 Discharge Plan Patient Name: TOAN LOZADA Facility: [facility]:[place] : 1965 Planned Disposition: Home Anticipated Discharge Date: 03/19/19 Discharge Date: 03/19/2019 Expected LOS: 3 Initial Reviewer: [email or web address] Initial Review Date: 03/17/2019 Generated: 03/20/19 10:16 am Comments DCP- Discharge Planning Updated by [email or web address]: Marie Garibay on 03/17/19 10:[address] Patient Name: TOAN LOZADA Admission Status: ER Accout number: [id number] Admission Date: 03-16-2019 : 1965 Admission Diagnosis:ACUTE KIDNEY FAILURE, UNSPECIFIED Attending: JONAS Current LOS: 1 Anticipated DC Date: Planned Disposition: Primary Insurance: MEDICAID [place] Discharge Planning Comments: CM met with patient about discharge planning. CM explained CM role and verbal consent was given to do dc assessment. CM educated on Home Health, DME and rehab services that are available. Patient states his discharge plan is to return to home . States home environment is safe DC. Denies any discharge planning needs at this time. States SISTER will drive her home upon discharge. CM will continue to follow and assist as needed with discharge planning needs. HAS WALKER AND CANE AT HOME Seafood And Service Meat Manager: Marie Garibay DCPIA - Discharge Planning Initial Assessment Updated by [email or web address]: Marie Garibay on 03/17/19 11:33 am * Is the patient Alert and Oriented? Yes * How many steps to enter\exit or inside your home? na * PCP HERNAN * Pharmacy [facility] * Preadmission Environment Home with Family * ADLs Independent * Equipment Walker * Other Equipment CANE AND HAS A SCOOTER BEING DELIVERED ALREADY TO HOME * List name and contact numbers for known caregivers / representatives who currently or will assist patient after discharge: MICA VEGA [phone] * Verbal permission to speak to the caregivers and representatives has been obtained from the patient. N/A * Community resources currently utilized None * Additional services required to return to the preadmission environment? No * Can the patient safely return to the preadmission environment? Yes * Has this patient been hospitalized within the prior 30 days at any hospital? Yes Last DP export: 03/17/19 1:16 pm Patient Name: TOAN LOZADA Page 67920 at 0916 All edits/amendments must be made on the electronic document DICTATION DATE: 03/20/19914 ELECTRIC RAZOR MECHANIC: BEAU 03/20/19914 RPT#: [id number] DC DATE:03/19/19 STATUS: DIS IN [facility] [address] [place] [address] END OF REPORT
--- NOTE | 2019-03-20 16:41 | CN ---
PATIENT NAME:TOAN LOZADA MEDICAL RECORD: [id number] : 69 LOCATION:D. D.2138 ADMIT DATE: 03/16/19 ACCOUNT: [id number] CONSULTING PHYSICIAN: CAROLYN MANTILLA MD REFERRING PHYSICIAN: MACIEJ BECERRA MD DATE OF CONSULTATION: 03/16/2019 DIAGNOSES: 1. Acute renal failure. 2. Coronary artery disease. 3. Previous multivessel percutaneous transluminal coronary angioplasty stent. 4. Previous cardiomyopathy, resolved. 5. Hypertension. 6. Hyperlipidemia. 7. Insulin-dependent diabetes. HISTORY OF PRESENT ILLNESS: Mr. Lozada presents with overall fatigue, found to be with acute renal failure with creatinine of 7. This is new for him. Previously, his creatinine has been in the 1.7 to 2 range. He has a history of a cardiomyopathy; however, this has resolved. Last echocardiogram showed ejection fraction in the 50% range. He does have multivessel PTCA stent. He underwent PTCA stent earlier this year. He is having no anginal symptomatology. PHYSICAL EXAMINATION: GENERAL APPEARANCE: Well-nourished, well-developed, appears stated age. Level of distress, comfortable. PSYCHIATRIC: Mental status, alert, normal affect. Orientation, oriented to time, place and person. EYES: Lids and conjunctiva, noninjected. No discharge, no pallor. ENT: Lips, teeth, gums, normal dentition. Oropharynx, no cyanosis, no pallor. NECK: Carotid arteries, bilateral normal upstroke, no bruits, no thrills. JUGULAR VEINS: No jugular venous pressure or distention. CERVICAL LYMPH NODES: Nontender, nonenlarged. THYROID: Not enlarged. Nontender. No nodules. LUNGS: Respiratory effort, unlabored. CHEST: Normal curvature. No thoracic deformity. No chest wall tenderness. Percussion, resonant. Auscultation, clear. No wheezes, no rales, no rhonchi. CARDIOVASCULAR: Precordial exam, nondisplaced. No heaves or pericardial thrills. Rate and rhythm, regular. Heart sounds, normal S1, normal S2. No S3, no gallop, no rub. Systolic murmur, not heard. Diastolic murmur, not heard. EXTREMITIES: No cyanosis, no edema. Peripheral pulses, full and equal in all extremities, except as noted. No bruits appreciated. ABDOMEN: Soft, nondistended. Normal aorta. No bruit. Nontender. No masses. Liver, nontender, no hepatomegaly. Spleen, nontender, no splenomegaly. MUSCULOSKELETAL: No joint tenderness. No joint swelling. No erythema. NEUROLOGICAL: Normal gait, normal strength, normal tone. SKIN: Warm and dry. OVERALL IMPRESSION: At this time, he is on multiple agents that could be contributing to his renal failure including Entresto, Bumex. We will discontinue these. We will also discontinue his potassium, discontinue his Coreg as the beta kristan is renally excreted and will build up causing significant bradycardia. We will consult renal. From a cardiac standpoint, we will get an echocardiogram to reevaluate the ejection fraction in light of the acute kidney injury. CONSULT REPORT [id number] TOAN LOZADA TRANSINT:[id number] Voice Confirmation ID: [id number] DOCUMENT ID: [id number] CAROLYN MANTILLA MD at 1641 CC: [id number] DICTATION DATE: 03/16/19 1127 SECURITY ADMINISTRATOR: 03/16/19 1254 DIS IN 03/19/19 [facility] [address] [place] [address]
--- NOTE | 2019-03-20 16:41 | EC ---
PATIENT:TOAN LOZADA DATE OF SERVICE: 03/16/19 SEX: M MEDICAL RECORD: [id number] DATE OF : [birth year] LOCATION:D.M2 D.213 AGE OF PATIENT: 53 ADMISSION DATE: 03/16/19 REFERRING PHYSICIAN: INTERPRETING PHYSICIAN: CAROLYN NEVES MD ECHOCARDIOGRAM REPORT ECHO CHARGES 4 ECHO COMPLETE Date: 03/16/19 CLINICAL DIAGNOSIS: CHF ECHOCARDIOGRAPHIC MEASUREMENTS (adult normal given) AC root (d.<3.7cm) 3.5 cm LV Septum d (<1.2 cm> 0.9 cm Valve Excursion 2.4 cm LV Septum (systole) 1.0 cm Left Atria (s.<4.0cm> 4.1 cm LVPW d(<1.2cm) 1.6 cm RV (d.<2.3cm) 3.0 cm LVPW (sytole) 2.2 cm LV diastole(<5.6CM) 6.0 cm MV E-F(>70mm/sec) cm LV systole 4.1 cm LVOT Diameter 2.1 cm MV exc.(>10mm) cm Est.ejection fraction (50-75%) % DOPPLER: LVIT cm/sec A 34.0 cm/sec E 59.0 cm/sec LA cm/sec RVSP 27.0 mmHg LVOT 101 cm/sec AOP1/2T m/s Asc. Ao 128 cm/sec RVOT 75.0 cm/sec RA cm/sec PA 115 cm/sec AV Gradient Peak 6.5 mmHg AV Mean 2.9 mmHg AV Area 2.8 cm MV Gradient Peak 2.2 mmHg MV Mean 0.91 mmHg MV Area cm COMMENTS: Machine Technician: 1 NOEMI LANDRYOE Shaft Headman: 1 Dr. Neves TAPE# PACS Pericardial Effusion N DATE OF SERVICE: FINDINGS: 1. Left ventricular chamber size is dilated. Left ventricular systolic function is moderately depressed. Overall, ejection fraction 35% to 40%, but mild to moderately depressed. 2. Left atrium is enlarged at 4.1 cm. Right atrium and right ventricular chamber sizes are within normal limits. 3. Valvular structures have normal structure and motion. 4. Doppler interrogation reveals trace mitral regurgitation, trace tricuspid ECHOCARDIOGRAM REPORT [id number] TOAN LOZADA regurgitation, no other valvular insufficiency or stenosis. Pulmonary systolic pressure is normal estimated at 27 mmHg. 5. No evidence of pericardial effusion or left ventricular thrombus. TRANSINT:[id number] Voice Confirmation ID: [id number] DOCUMENT ID: [id number] CAROLYN NEVES MD at 1641 CC: [id number] DICTATION DATE: 03/16/19 1216 GRAPHIC EDITOR: 03/16/19 1316 DIS IN 03/19/19 [place] [id number] [place] [id number]
--- NOTE | 2019-03-23 16:53 | MORECARE ---
CASE MANAGEMENT DISCHARGE SUMMARY PATIENT: TOAN LOZADA UNIT: [id number] ADM DATE: 03/16/19 AGE: 53 : 69 SEX: M ROOM/BED: D.8117 AUTHOR: CONNOR,DOC PHYSICIAN: REFERRING PHYSICIAN: MACIEJ BECERRA MD DATE OF SERVICE: 03/23/19 Discharge Plan Patient Name: TOAN LOZADA Facility: [facility]:[place] : 1965 Planned Disposition: Home Anticipated Discharge Date: 03/19/19 Discharge Date: 03/19/2019 Expected LOS: 3 Initial Reviewer: [email or web address] Initial Review Date: 03/17/2019 Generated: 03/23/19 5:52 pm Comments DCP- Discharge Planning Updated by [email or web address]: Dylan De Luna on 03/23/19 3:[address] Patient Name: TOAN LOZADA Encounter No: [id number] : 1965 Primary Insurance: MEDICAID [place] Anticipated DC Date: 03-19-2019 Planned Disposition: Home WITH HOME HEALTH External Planned Provider: [facility] DCP follow-up note: CM RECEIVED CALL FROM EVER OF [facility], , THEY HAVE RESUMED [facility] AFTER PT'S DISCHARGE HOME FROM HOSPITAL AND DID NOT RECEIVE PT'S DISCHARGE INFORMATION AND HISTORY AND PHYSICAL TO COORDINATE PT'S CARE. CM FAXED REQUESTED INFORMATION TO [facility], . GALE Amado DCP- Discharge Planning Updated by [email or web address]: Marie Garibay on 03/17/19 10:[address] Patient Name: TOAN LOZADA Admission Status: ER Accout number: [id number] Admission Date: 03-16-2019 : 1965 Admission Diagnosis:ACUTE KIDNEY FAILURE, UNSPECIFIED Attending: JONAS Current LOS: 1 Anticipated DC Date: Planned Disposition: Primary Insurance: MEDICAID [place] Discharge Planning Comments: CM met with patient about discharge planning. CM explained CM role and verbal consent was given to do dc assessment. CM educated on Home Health, DME and rehab services that are available. Patient states his discharge plan is to return to home . States home environment is safe DC. Denies any discharge planning needs at this time. [facility] SISTER will drive her home upon discharge. CM will continue to follow and assist as needed with discharge planning needs. HAS WALKER AND CANE AT HOME Director Nurses' Registry: Marie Garibay DARYLPIA - Discharge Planning Initial Assessment Updated by [email or web address]: Marie Garibay on 03/17/19 11:33 am * Is the patient Alert and Oriented? Yes * How many steps to enter\exit or inside your home? na * PCP HERNAN * Pharmacy [facility] * Preadmission Environment Home with Family * ADLs Independent * Equipment Walker * Other Equipment CANE AND HAS A SCOOTER BEING DELIVERED ALREADY TO HOME * List name and contact numbers for known caregivers / representatives who currently or will assist patient after discharge: MICAJEFFERSON VEGA [phone] * Verbal permission to speak to the caregivers and representatives has been obtained from the patient. N/A * Community resources currently utilized None * Additional services required to return to the preadmission environment? No * Can the patient safely return to the preadmission environment? Yes * Has this patient been hospitalized within the prior 30 days at any hospital? Yes External Providers External Provider: [facility] Next Contact Date: 03/23/2019 Service Request Date: Service Type: Resolution: Reviewer: Comments: Last DP export: 03/20/19 8:16 a Patient Name: TOAN LOZADA Page 53673 at 1653 All edits/amendments must be made on the electronic document DICTATION DATE: 03/23/191651 MEAT STUFFER: BEAU 03/23/191651 RPT#: [id number] DC DATE:03/19/19 STATUS: DIS IN [facility] [address] [place] [address] END OF REPORT
== END 2019-03-19 19:39 | disposition home or self-care (01) | DRG 682 ==
LOC: D.ER 20:08 → D.EDHOLD 03-16 02:04 → D.M2 03-16 02:04
PROVIDERS: Family Medicine; Internal Medicine Nephrology; ADMIT Emergency Medicine; ATTEND Emergency Medicine
DX: N17.9 Acute kidney failure, unspecified (principal); I50.23 Acute on chronic systolic (congestive) heart failure; E87.1 Hypo-osmolality and hyponatremia; I13.0 Hypertensive heart and chronic kidney disease with heart failure and stage 1 through stage 4 chronic kidney disease, or unspecified chronic kidney disease; I25.10 Atherosclerotic heart disease of native coronary artery without angina pectoris; Z79.4 Long term (current) use of insulin; E87.6 Hypokalemia; N18.3 Chronic kidney disease, stage 3 (moderate); E11.22 Type 2 diabetes mellitus with diabetic chronic kidney disease; E86.0 Dehydration

== ENCOUNTER 2019-06-01 17:55 | Emergency (ER) | payer MEDICAID ==
[~2019-06-01] VITALS: Ht 182.9 cm; Wt 150.5 kg
[2019-06-01 18:39] VITALS: Ht 182.9 cm; Wt 150.5 kg
[2019-06-01 19:47] LABS: BASOPHILS 0.3 % (0-2); EOSINOPHILS 2.4 % (0-7); HEMATOCRIT 37.4 % (42.0-54.0); IMMATURE GRANULOCYTES 0.6 % (0-5); LYMPHOCYTES 33.7 % (15-50); MCH 25.8 pg (26.0-34.0); MCHC 34.8 g/dL (31.0-37.0); MCV 74.4 fL (80.0-100.0); MEAN PLATELET VOLUME 9.9 fL (7.4-10.4); MONOCYTES 9.8 % (2-11); NEUTROPHILS 53.2 % (40-80); PLATELET COUNT 328 10x3/uL (130-400); RBC 5.03 10x6/uL (4.20-6.10); RDW 19.6 % (11.5-14.5); WBC 8.8 10x3/uL (4.8-10.8)
[2019-06-01 20:01] LABS: APPEARANCE CLEAR (CLEAR); BILIRUBIN NEGATIVE (NEGATIVE); COLOR YELLOW (YELLOW); GLUCOSE NEGATIVE (NEGATIVE); KETONE NEGATIVE (NEGATIVE); NITRITE NEGATIVE (NEGATIVE); PROTEIN NEGATIVE (NEGATIVE); SPECIFIC GRAVITY 1.015 (1.005-1.020); UROBILINOGEN NORMAL (NORMAL)
[2019-06-01 20:12] LABS: ALBUMIN 3.8 g/dL (3.4-5.0); ALKALINE PHOSPHATASE 130 U/L (46-116); AMYLASE - SERUM 64 U/L (25-115); BILIRUBIN - TOTAL 0.41 mg/dL (0.2-1.3); CALC OSMOLALITY 302 mosm/kg (275-300); CALCIUM 9.1 mg/dL (8.5-10.1); CARBON DIOXIDE 32.5 mmol/L (21.0-32.0); CHLORIDE - SERUM 90 mmol/L (98-107); CREATININE - SERUM 2.9 mg/dL (0.6-1.3); GLUCOSE 285 mg/dL (74-106); LIPASE 110 U/L (73-393); POTASSIUM - SERUM 3.6 mmol/L (3.5-5.1); PROTEIN - SERUM 8.5 g/dL (6.4-8.2); SODIUM 132 mmol/L (136-145); UREA NITROGEN 90 mg/dL (7-18); eGFR NON AFRICAN AMERICAN 24 mL/min (90-120)
[2019-06-01 20:15] LABS: ALT (SGPT) 20 U/L (10-68); TROPONIN-I < 0.017 ng/mL (0.000-0.060)
[2019-06-01] MEDS ORDERED: ROBAXIN500 MG PO (21:59)
[2019-06-01 22:14] VITALS: BP 123/77
== END 2019-06-01 22:14 | disposition home or self-care (01) ==
LOC: D.ER 17:55
PROVIDERS: Family Medicine
DX: M54.16 Radiculopathy, lumbar region (principal); K59.00 Constipation, unspecified; M51.36 Other intervertebral disc degeneration, lumbar region

== ENCOUNTER 2019-07-12 01:20 | Inpatient (IN) | payer MEDICAID ==
[2019-07-12] VITALS (23 sets, daily range): BP systolic 87–123; BP diastolic 52–80; BMI 42.4
[~2019-07-12] VITALS: Ht 182.9 cm; Wt 143.0 kg
[~2019-07-12 01:20] MED LIST changes: +LANTUS SOL100 UNIT/1 SC; +ROBAXIN500 MG PO
[2019-07-12 01:49] LABS: BASOPHILS 0.1 % (0-2); EOSINOPHILS 0.7 % (0-7); HEMATOCRIT 36.8 % (42.0-54.0); IMMATURE GRANULOCYTES 0.6 % (0-5); LYMPHOCYTES 27.5 % (15-50); MCH 25.3 pg (26.0-34.0); MCHC 35.3 g/dL (31.0-37.0); MCV 71.7 fL (80.0-100.0); MEAN PLATELET VOLUME 10.4 fL (7.4-10.4); MONOCYTES 8.5 % (2-11); NEUTROPHILS 62.6 % (40-80); PLATELET COUNT 350 10x3/uL (130-400); RBC 5.13 10x6/uL (4.20-6.10); RDW 17.2 % (11.5-14.5); WBC 9.9 10x3/uL (4.8-10.8)
[2019-07-12 02:04] LABS: KETONE - SERUM MODERATE mg/dL (NEGATIVE)
[2019-07-12 02:05] LABS: APTT 29.6 SECONDS (22.8-39.4); INR 0.99 (0.85-1.17); PROTIME 12.6 SECONDS (11.6-15.0)
[2019-07-12 02:22] LABS: ALBUMIN 3.9 g/dL (3.4-5.0); ALKALINE PHOSPHATASE 133 U/L (46-116); ALT (SGPT) 20 U/L (10-68); AMYLASE - SERUM 55 U/L (25-115); BILIRUBIN - TOTAL 0.45 mg/dL (0.2-1.3); CALCIUM 9.8 mg/dL (8.5-10.1); CKMB 4.6 U/L (0.0-3.6); CREATINE KINASE 579 UL (21-232); CREATININE - SERUM 3.6 mg/dL (0.6-1.3); LIPASE 358 U/L (73-393); POTASSIUM - SERUM 4.2 mmol/L (3.5-5.1); PRO BNP 134 pg/mL (0-125); PROTEIN - SERUM 8.4 g/dL (6.4-8.2); UREA NITROGEN 99 mg/dL (7-18); eGFR NON AFRICAN AMERICAN 19 mL/min (90-120)
[2019-07-12 02:23] LABS: GLUCOSE 707 mg/dL (74-106)
[2019-07-12 02:24] LABS: CALC OSMOLALITY 302 mosm/kg (275-300); CHLORIDE - SERUM 76 mmol/L (98-107); SODIUM 118 mmol/L (136-145); TROPONIN-I < 0.017 ng/mL (0.000-0.060)
--- NOTE | 2019-07-12 03:30 | NUR ---
RECEIVED PT TO ROOM 2308 VIA WHEELCHAIR ACCOMPANIED BY ER NURSE. ICU MONITORS ESTABLISHED, HR ST ON CM, PPP, PT ALERT AND ORIENTED-ANSWERS QUESTIONS APPROPRIATELY, LOW O2 SAT NOTED-WILL PLACE ON NC.
--- NOTE | 2019-07-12 05:57 | NUR ---
PT RESTING IN BED WITH EYES CLOSED, VSS, CONT POC.
--- NOTE | 2019-07-12 07:00 | NUR ---
AWAKES EASILY TO VERBAL SITMULI SKIN WARM AND DRY. IV RIGHT FOREARM INFUSING WITH NS AT 100 ML HOUR AND INSULIN GTT AT 19.9 UNITS AN HOUR. DENIES PAIN NO DISTRESS NOTED HEAD OF BED ELVATED 30 DEGREES.
--- NOTE | 2019-07-12 07:30 | NUR ---
INSULIN GTT INCREASED TO 20.4 UNITS PER HOUR. PER PROTOCAL. PATIENT IN NO DISTRESS. FINGERSTICK GLUCOSE 400
[2019-07-12 08:56] LABS: APPEARANCE CLEAR (CLEAR); BILIRUBIN NEGATIVE (NEGATIVE); COLOR YELLOW (YELLOW); GLUCOSE 1000 mg/dL (NEGATIVE); KETONE NEGATIVE (NEGATIVE); NITRITE NEGATIVE (NEGATIVE); PROTEIN NEGATIVE (NEGATIVE); UROBILINOGEN NORMAL (NORMAL)
--- NOTE | 2019-07-12 08:56 | NUR ---
ASSIST PATIENT WITH STANDING UP AT BEDSIDE TO URINATE. TOLERATED WELL. VERBALIZED UNDERSTAND TO CALL NURSE DUE TO MULTIPLE LINES TO HELP WHEN HE NEEDS TO GET UP.
[2019-07-12 10:15] LABS: CALCIUM 9.8 mg/dL (8.5-10.1); CARBON DIOXIDE 29.1 mmol/L (21.0-32.0)
[2019-07-12 10:17] LABS: ANION GAP 19.2 mmol/L (8-16); POTASSIUM - SERUM 3.3 mmol/L (3.5-5.1)
--- NOTE | 2019-07-12 10:40 | NUR ---
LAB RESULTS CALLED TO LALO SALMERON DR. ORDERS RECEIVED TO REPEAT BMP Q4. AND DECREASE IV TO 50 ML HOUR
--- NOTE | 2019-07-12 11:30 | NUR ---
RENAL DIABETIC DIET SERVED. ATE FEW BITES. DRINK WATER. PATIENT HAVING MUSCLE SPASMS IN ABD AND LEGS.
--- NOTE | 2019-07-12 12:30 | NUR ---
FAMILY HERE UPDATE GIVEN. DENIES PAIN NO DISTRESS. INSULIN GTT CONTINUES PER PROTOCAL FLOWSHEET
--- NOTE | 2019-07-12 14:30 | NUR ---
standing at bedside to void. denies any nausea or vomitting. urine clear yellow. no distress
[2019-07-12 15:24] LABS: ANION GAP 14.1 mmol/L (8-16); CALCIUM 9.9 mg/dL (8.5-10.1); CARBON DIOXIDE 32.2 mmol/L (21.0-32.0); CREATININE - SERUM 3.8 mg/dL (0.6-1.3); POTASSIUM - SERUM 3.3 mmol/L (3.5-5.1)
--- NOTE | 2019-07-12 15:44 | NUR ---
LALO PEREZ FOR DR. WELLS NOTIFIED OF BMP RESULTS. ORDERS RECEIVED FOR NS WITH 20 MEQ KCL AT 50 ML HOUR
--- NOTE | 2019-07-12 16:04 | NUR ---
OFFERED TO ASSIST WITH BATHING PATIENT DOES NOT WANT TO AT THIS TIME
--- NOTE | 2019-07-12 18:01 | NUR ---
up to bsc. able to transfer and stand independently
--- NOTE | 2019-07-12 18:01 | NUR ---
up to bsc. able to stand and transfer independently
[2019-07-12 18:59] LABS: ANION GAP 15.6 mmol/L (8-16); CALCIUM 9.8 mg/dL (8.5-10.1); CARBON DIOXIDE 28.4 mmol/L (21.0-32.0); CREATININE - SERUM 3.6 mg/dL (0.6-1.3)
--- NOTE | 2019-07-12 19:30 | NUR ---
PT ALERT, AOIENTED, VOICES NEEDS, LUNGS CLEAR, O2 @ 2L VIA N/C, VITALS STABLE RIGHT PIV INTACT AND PATENT, NO C/O @ THIS TIME
--- NOTE | 2019-07-12 21:30 | NUR ---
pt resting qiuetly with no c/o
[2019-07-12 22:55] LABS: ANION GAP 13.1 mmol/L (8-16); CALCIUM 9.6 mg/dL (8.5-10.1); CARBON DIOXIDE 33.1 mmol/L (21.0-32.0); CREATININE - SERUM 3.3 mg/dL (0.6-1.3); POTASSIUM - SERUM 3.2 mmol/L (3.5-5.1)
--- NOTE | 2019-07-12 23:27 | NUR ---
pt awake in bed, vitals stable, watching tv with no c/o
[2019-07-13] VITALS (24 sets, daily range): BP systolic 84–123; BP diastolic 46–90; Ht 182.9 cm; Wt 143.0 kg
--- NOTE | 2019-07-13 01:30 | NUR ---
PT AROUSES EASILY WITH NO C/O, VITALS STABLE
--- NOTE | 2019-07-13 03:16 | NUR ---
PT SLEEPING WITH NO DISTRESS, VITALS STABLE
[2019-07-13 03:55] LABS: BASOPHILS 0.2 % (0-2); EOSINOPHILS 2.3 % (0-7); HEMATOCRIT 36.4 % (42.0-54.0); HEMOGLOBIN 12.7 g/dL (13.5-17.5); IMMATURE GRANULOCYTES 0.4 % (0-5); LYMPHOCYTES 32.7 % (15-50); MCH 25.5 pg (26.0-34.0); MCHC 34.9 g/dL (31.0-37.0); MCV 72.9 fL (80.0-100.0); MEAN PLATELET VOLUME 9.9 fL (7.4-10.4); NEUTROPHILS 54.4 % (40-80); PLATELET COUNT 328 10x3/uL (130-400); RBC 4.99 10x6/uL (4.20-6.10); RDW 17.3 % (11.5-14.5); WBC 10.2 10x3/uL (4.8-10.8)
[2019-07-13 04:09] LABS: ANION GAP 10.3 mmol/L (8-16); CALCIUM 9.7 mg/dL (8.5-10.1); CARBON DIOXIDE 33.7 mmol/L (21.0-32.0); CREATININE - SERUM 3.1 mg/dL (0.6-1.3); MAGNESIUM - SERUM 2.2 mg/dL (1.8-2.4); PHOSPHOROUS 4.2 mg/dL (2.5-4.9)
--- NOTE | 2019-07-13 05:34 | NUR ---
PT AWAKE, HOB @30 DEGREES, NO CHANGES NOTED
--- NOTE | 2019-07-13 07:00 | NUR ---
REC'D REPORT AND RESUMED CARE, SLEEPING AROUSSABLE TO VERBAL STIMULI, VSS, DENIES PAIN AT THIS TIME, URINAL AND BSC IN USE, SELF REPOSITIONS, ASSESSMENT COMPLETED PER FLOWSHEET, CALL LIGHT IN REACH, NO NEEDS AT THIS TIME
--- NOTE | 2019-07-13 08:30 | NUR ---
MORNING MEDS GIVEN PER JAN FLOWSHEET
--- NOTE | 2019-07-13 11:00 | NUR ---
NO ACUTE CHANGE FROM PREVIOUS ASSESSMENT, VSS, DENYING PAIN, CALL LIGHT IN REACH, NO NEEDS A THIS TIME
--- NOTE | 2019-07-13 12:15 | NUR ---
LUNCH TRAY TO BEDSIDE, INDEPENDENT WITH SET UP AND EATING,
--- NOTE | 2019-07-13 14:00 | NUR ---
SLEEPING WITH NO SIGN OF DISTRESS, VSS, CALL LIGHT IN REACH
--- NOTE | 2019-07-13 17:08 | NUR ---
FSBS 422, 20 UNIT HUMALOG GIVEN PER S/S, WILL REPEAT IN 1 HOUR AND CALL
--- NOTE | 2019-07-13 18:18 | NUR ---
REPEAT FSBS 408, NOTIFIED NHAN WALDRON APN, NEW ORDER FOR KETONES TO BE ADDED TO MORNING LABS
[2019-07-14] VITALS (8 sets, daily range): BP systolic 81–114; BP diastolic 56–76
[2019-07-14 04:03] LABS: BASOPHILS 0.2 % (0-2); EOSINOPHILS 2.7 % (0-7); HEMATOCRIT 35.8 % (42.0-54.0); HEMOGLOBIN 12.2 g/dL (13.5-17.5); IMMATURE GRANULOCYTES 0.7 % (0-5); LYMPHOCYTES 37.2 % (15-50); MCH 25.1 pg (26.0-34.0); MCHC 34.1 g/dL (31.0-37.0); MCV 73.7 fL (80.0-100.0); MEAN PLATELET VOLUME 9.9 fL (7.4-10.4); MONOCYTES 10.5 % (2-11); NEUTROPHILS 48.7 % (40-80); PLATELET COUNT 300 10x3/uL (130-400); RBC 4.86 10x6/uL (4.20-6.10); RDW 17.2 % (11.5-14.5); WBC 8.9 10x3/uL (4.8-10.8)
[2019-07-14 04:18] LABS: CALCIUM 9.3 mg/dL (8.5-10.1); CARBON DIOXIDE 31.7 mmol/L (21.0-32.0); CHLORIDE - SERUM 89 mmol/L (98-107); CREATININE - SERUM 3.1 mg/dL (0.6-1.3); SODIUM 130 mmol/L (136-145); UREA NITROGEN 104 mg/dL (7-18); eGFR NON AFRICAN AMERICAN 22 mL/min (90-120)
[2019-07-14 04:19] LABS: CALC OSMOLALITY 301 mosm/kg (275-300); GLUCOSE 249 mg/dL (74-106); POTASSIUM - SERUM 3.5 mmol/L (3.5-5.1)
[2019-07-14 04:27] LABS: KETONE - SERUM NEGATIVE (NEGATIVE)
--- NOTE | 2019-07-14 07:00 | NUR ---
REC'D REPORT AND RESUMED CARE., AWAKE AND ORIENTED WATCHING TV, VSS, DENIES PAIN ASSESSMENT COMPLETED PER FLOWSHEET, NO NEEDS A THIS TIME
--- NOTE | 2019-07-14 07:45 | NUR ---
BREAKFAST TRAY TO BEDSIDE, INDEPENDENT WITH SET UP AND EATING
--- NOTE | 2019-07-14 08:30 | NUR ---
MORNING MEDS GIVEN PER JAN FLOWSHEET
--- NOTE | 2019-07-14 10:40 | NUR ---
ASSISTED WITH CHG BATH AND LINEN CHANGE, TOLERATED WITHOUT DIFFICULTY, OOB TO CHAIR
--- NOTE | 2019-07-14 11:30 | NUR ---
LUNCH TRAY TO BEDSIDE, FSBS 343, HUMALOG PER INSULIN FLOWSHEET
--- NOTE | 2019-07-14 12:08 | NUR ---
CALLED TO ROOM, C/O OF NAUSEA, ZOFRAN 4MG IVP GIVEN PER MAR ORDER
--- NOTE | 2019-07-14 19:27 | MORECARE ---
CASE MANAGEMENT DISCHARGE SUMMARY PATIENT: TOAN LOZADA UNIT: [id number] ADM DATE: 07/12/19 AGE: 54 : 69 SEX: M ROOM/BED: D.2215 AUTHOR: LIAM RYAN PHYSICIAN: REFERRING PHYSICIAN: FRANCI WELLS MD DATE OF SERVICE: 07/14/19 Discharge Plan Patient Name: TOAN LOZADA Facility: [facility]:[place] : 1965 Planned Disposition: Home with Home Health Anticipated Discharge Date: Discharge Date: Expected LOS: Initial Reviewer: [email or web address] Initial Review Date: 07/14/2019 Generated: 07/14/19 8:26 pm DCPIA - Discharge Planning Initial Assessment Updated by [email or web address]: Gloria Garces on 07/14/19 7:25 pm * Is the patient Alert and Oriented? Yes * How many steps to enter\exit or inside your home? * PCP RUSSELL * Pharmacy [facility] * Preadmission Environment Home Alone * ADLs Independent * Other Equipment ELECTRIC SCOOTER/ WC, WALKER, CANE, SC * List name and contact numbers for known caregivers / representatives who currently or will assist patient after discharge: MICA VEGA - [facility] [phone] * Verbal permission to speak to the caregivers and representatives has been obtained from the patient. Yes * Community resources currently utilized Home Health * Please name any agencies selected above. [facility] - [facility] - TO START ON D/C MEALS ON WHEELS * Additional services required to return to the preadmission environment? No * Can the patient safely return to the preadmission environment? Yes * Has this patient been hospitalized within the prior 30 days at any hospital? No Patient Name: TOAN LOZADA Page 53475 at 1927 All edits/amendments must be made on the electronic document DICTATION DATE: 07/14/191925 BEE RAISER: BEAU 07/14/191925 RPT#: [id number] DC DATE: STATUS: ADM IN [facility] [address] [place] [address] END OF REPORT
--- NOTE | 2019-07-14 19:34 | MORECARE ---
CASE MANAGEMENT DISCHARGE SUMMARY PATIENT: TOAN LOZADA UNIT: [id number] ADM DATE: 07/12/19 AGE: 54 : 69 SEX: M ROOM/BED: D.2215 AUTHOR: CONNORDOC PHYSICIAN: REFERRING PHYSICIAN: FRANCI WELLS MD DATE OF SERVICE: 07/14/19 Discharge Plan Patient Name: TOAN LOZADA Facility: 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 Patient lives at home alone where he is independent with his care and plans to return there upon discharge. Patient feels this would be a safe discharge. CM discussed availability / needs of home health and medical equipment. Patient states that he has [facility] and plans to resume care with them on d/c. Patient states that he was to meet with [facility] today but had to reschedule d/t hospitalized. Patient plans on starting their services upon discharge. ELAL signed. Patient denies any discharge needs at this time. Patient states he will have his family drive him home upon discharge. CM will continue to follow and assist as needed with discharge planning / needs. Frozen Meat Cutter: Gloria Garces DCPIA - Discharge Planning Initial Assessment Updated by [email or web address]: Gloria Garces on 07/14/19 7:25 pm * Is the patient Alert and Oriented? Yes * How many steps to enter\exit or inside your home? * PCP RUSSELL * [facility]acy [facility] * Preadmission Environment Home Alone * ADLs Independent * Other Equipment ELECTRIC SCOOTER/ WC, WALKER, CANE, SC * List name and contact numbers for known caregivers / representatives who currently or will assist patient after discharge: MICA VEGA - - [phone] * Verbal permission to speak to the caregivers and representatives has been obtained from the patient. Yes * Community resources currently utilized Home Health * Please name any agencies selected above. [facility] - [facility] - TO START ON D/C MEALS ON WHEELS * Additional services required to return to the preadmission environment? No * Can the patient safely return to the preadmission environment? Yes * Has this patient been hospitalized within the prior 30 days at any hospital? No Last DP export: 07/14/19 6:27 pm Patient Name: TOAN LOZADA Page 15087 at 1934 All edits/amendments must be made on the electronic document DICTATION DATE: 07/14/191932 BIOMECHANICAL ENGINEER: BEAU 07/14/191932 RPT#: [id number] DC DATE: STATUS: ADM IN [facility] [address] [place] [address] END OF REPORT
[2019-07-15] VITALS: BP 110/52
--- NOTE | 2019-07-15 03:57 | NUR ---
PT RESTING IN BED. EYES CLOSED. NO SIGNS OF DISTRESS. BREATHING EVEN AND UNLABORED. IV SITE RT FA DRESSING CLEAN DRY AND INTACT. NO SIGNS OF INFECTION. BOWEL SOUNDS ACTIVE. SKIN CLEAN DRY AND INTACT. WILL CONTINUE PLAN OF CARE. CALL LIGHT IN REACH. BED LOWERED AND LOCKED. BED RAILS UPX1.
[2019-07-15 04:00] VITALS: BP 101/57
--- NOTE | 2019-07-15 04:34 | NUR ---
I have reviewed this patient and I concur with the Shift Assessment completed by the Licensed Practical Nurse today this shift.
[2019-07-15 05:58] LABS: BASOPHILS 0.4 % (0-2); EOSINOPHILS 3.4 % (0-7); HEMATOCRIT 34.8 % (42.0-54.0); IMMATURE GRANULOCYTES 0.5 % (0-5); LYMPHOCYTES 40.7 % (15-50); MCH 25.3 pg (26.0-34.0); MCHC 34.5 g/dL (31.0-37.0); MCV 73.3 fL (80.0-100.0); MONOCYTES 10.9 % (2-11); NEUTROPHILS 44.1 % (40-80); PLATELET COUNT 297 10x3/uL (130-400); RBC 4.75 10x6/uL (4.20-6.10); RDW 17.6 % (11.5-14.5); WBC 8.4 10x3/uL (4.8-10.8)
[2019-07-15 06:27] LABS: ANION GAP 12.4 mmol/L (8-16); CALCIUM 9.2 mg/dL (8.5-10.1); CARBON DIOXIDE 29.8 mmol/L (21.0-32.0); CREATININE - SERUM 3.1 mg/dL (0.6-1.3); MAGNESIUM - SERUM 2.4 mg/dL (1.8-2.4); PHOSPHOROUS 4.5 mg/dL (2.5-4.9); POTASSIUM - SERUM 3.2 mmol/L (3.5-5.1)
[2019-07-15 07:59] VITALS: BP 123/71
--- NOTE | 2019-07-15 10:56 | NUR ---
PT RESTING IN BED NO SIGNS OF DISTRESS. IV TO RIGHT FORARM PATENT NO REDNESS OR TENDERNESS. ON 4L NC. DENIES ANY NEED AT THIS TIME. CALL LIGHT IN REACH. BED LOW POSITION. NO FAMILY AT BEDSIDE AT THIS TIME.
[2019-07-15 11:55] VITALS: BP 86/41
[2019-07-15 16:01] VITALS: BP 121/81
--- NOTE | 2019-07-15 19:05 | NUR ---
I have reviewed this patient and I concur with the Shift Assessment completed by the Licensed Practical Nurse today this shift.
[2019-07-15 21:09] VITALS: BP 115/61
[2019-07-16 01:06] VITALS: BP 90/56
--- NOTE | 2019-07-16 04:12 | NUR ---
I have reviewed this patient and I concur with the Shift Assessment completed by the Licensed Practical Nurse today this shift.
--- NOTE | 2019-07-16 04:44 | NUR ---
PT RESTING IN BED. ALERT AND ORIENTED. NO SIGNS OF DISTRESS. BREATHING EVEN AND UNLABORED. IV SITE RT FA DRESSING CLEAN DRY AND INTACT. NO SIGNS OF INFECTION. BOWEL SOUNDS ACTIVE. WILL CONTINUE PLAN OF CARE. CALL LIGHT IN REACH. BED LOWERED AND LOCKED. BED RAILS UPX2.
[2019-07-16 05:37] VITALS: BP 101/58
[2019-07-16 06:41] LABS: BASOPHILS 0.3 % (0-2); EOSINOPHILS 3.1 % (0-7); HEMATOCRIT 35.6 % (42.0-54.0); HEMOGLOBIN 12.3 g/dL (13.5-17.5); IMMATURE GRANULOCYTES 0.3 % (0-5); LYMPHOCYTES 37.9 % (15-50); MCH 25.4 pg (26.0-34.0); MCHC 34.6 g/dL (31.0-37.0); MCV 73.4 fL (80.0-100.0); NEUTROPHILS 48.4 % (40-80); PLATELET COUNT 305 10x3/uL (130-400); RBC 4.85 10x6/uL (4.20-6.10); RDW 17.6 % (11.5-14.5); WBC 7.3 10x3/uL (4.8-10.8)
[2019-07-16 07:11] LABS: ANION GAP 11.6 mmol/L (8-16); CALCIUM 9.7 mg/dL (8.5-10.1); CREATININE - SERUM 2.4 mg/dL (0.6-1.3); PHOSPHOROUS 4.3 mg/dL (2.5-4.9); POTASSIUM - SERUM 3.6 mmol/L (3.5-5.1)
--- NOTE | 2019-07-16 07:15 | NUR ---
PATIENT SITTING ON THE SIDE OF THE BED. NO FURTHER NEEDS AT THIS TIME. CL IN REACH. WCTM
[2019-07-16 08:03] VITALS: BP 122/85
--- NOTE | 2019-07-16 11:21 | NUR ---
PATIENT RESTING. CO PAIN 8 OUT OF 10. CL IN REACH. WCTM
[2019-07-16 12:17] VITALS: BP 89/46
--- NOTE | 2019-07-16 13:35 | NUR ---
NUTRITION F//U PT TOLERATING RENAL ADA DIET WITH GOOD INTAKE RECENT MEALS. WILL CONTINUE TO PROVIDE DIET, MONITOR PO INTAKE. RD FOLLOWING
[2019-07-16 16:43] VITALS: BP 102/67
--- NOTE | 2019-07-16 16:55 | NUR ---
PATIENT LAYING ON RIGHT SIDE SLEEPING. CL IN REACH. NO FURTHER NEEDS AT THIS TIME.
--- NOTE | 2019-07-16 19:28 | NUR ---
LYING IN BED WITH TV ON, 02 AT 4LITERS VIA NC, IV TO RIGHT FOREARM IS SALINE LOC, SHOWS NO S/S OF ANY DISTRESS. ABLE TO VOICE NEEDS. DENIES PAIN AT THIS TIME. WILL NOTE ANY CHANGE.
[2019-07-16 20:05] VITALS: BP 106/52
--- NOTE | 2019-07-16 23:04 | NUR ---
I have reviewed this patient and I concur with the Shift Assessment completed by the Licensed Practical Nurse today this shift.
--- NOTE | 2019-07-17 00:27 | NUR ---
COMPLAINTS OF PAIN 5/10, PERCOCET GIVEN PER ORDERS. WILL NOTE ANY CHANGE.
[2019-07-17 00:36] VITALS: BP 98/61
--- NOTE | 2019-07-17 04:34 | NUR ---
RESTING WELL AT THIS TIME. SHOWS NO S/S OF ANY ACUTE DISTRESS. WILL NOTE ANY CHANGE.
[2019-07-17 04:55] VITALS: BP 98/63
[2019-07-17 06:31] LABS: BASOPHILS 0.3 % (0-2); EOSINOPHILS 2.8 % (0-7); HEMATOCRIT 36.5 % (42.0-54.0); HEMOGLOBIN 12.5 g/dL (13.5-17.5); IMMATURE GRANULOCYTES 0.3 % (0-5); LYMPHOCYTES 41.2 % (15-50); MCH 25.2 pg (26.0-34.0); MCHC 34.2 g/dL (31.0-37.0); MCV 73.6 fL (80.0-100.0); MEAN PLATELET VOLUME 10.5 fL (7.4-10.4); MONOCYTES 8.8 % (2-11); NEUTROPHILS 46.6 % (40-80); PLATELET COUNT 317 10x3/uL (130-400); RBC 4.96 10x6/uL (4.20-6.10); RDW 17.7 % (11.5-14.5); WBC 7.4 10x3/uL (4.8-10.8)
--- NOTE | 2019-07-17 07:00 | NUR ---
LYING IN BED,WITHOUT DISTRESS.CALL LIGHT IN REACH
[2019-07-17 07:06] LABS: ANION GAP 13.1 mmol/L (8-16); CALCIUM 9.8 mg/dL (8.5-10.1); CARBON DIOXIDE 30.2 mmol/L (21.0-32.0); CREATININE - SERUM 2.2 mg/dL (0.6-1.3); POTASSIUM - SERUM 3.3 mmol/L (3.5-5.1)
[2019-07-17 08:04] VITALS: BP 84/58
[2019-07-17] MEDS ORDERED: LANTUS SOL100 UNIT/1 SC (08:06)
[2019-07-17] MEDS ORDERED: HUMALOG 30100 UNITS/ SC (08:07)
--- NOTE | 2019-07-17 09:00 | NUR ---
ASSESSMENT PER FLOW SHEET. PT IS WITHOUT DISTRESS.CALL LIGHT IN REACH
--- NOTE | 2019-07-17 10:44 | NUR ---
DISCHARGE INSTRUCTIONS,STATES UNDERSTANDING. IV DCD WITH CATH TIP INTACT.
--- NOTE | 2019-07-17 10:44 | NUR ---
LEFT UNIT FOR TRANSPORT HOME
--- NOTE | 2019-07-17 12:19 | MORECARE ---
CASE MANAGEMENT DISCHARGE SUMMARY PATIENT: TOAN LOZADA UNIT: [id number] ADM DATE: 07/12/19 AGE: 54 : 69 SEX: M ROOM/BED: D.2215 AUTHOR: CONNORDOC PHYSICIAN: REFERRING PHYSICIAN: FRANCI WELLS MD DATE OF SERVICE: 07/17/19 Discharge Plan Patient Name: TOAN LOZADA Facility: [facility]:[place] : 1965 Planned Disposition: Home with Home Health Anticipated Discharge Date: Discharge Date: 07/17/2019 Expected LOS: Initial Reviewer: [email or web address] Initial Review Date: 07/14/2019 Generated: 07/17/19 1:18 pm DCP- Discharge Planning Updated by [email or web address]: Gloria Garces on 07/14/19 6:[address] Patient Name: TOAN LOZADA Admission Status: ER Accout number: [id number] Admission Date: 07-12-2019 : 1965 Admission Diagnosis: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 Patient lives at home alone where he is independent with his care and plans to return there upon discharge. Patient feels this would be a safe discharge. CM discussed availability / needs of home health and medical equipment. Patient states that he has [facility] and plans to resume care with them on d/c. Patient states that he was to meet with [facility] today but had to reschedule d/t hospitalized. Patient plans on starting their services upon discharge. ELLA signed. Patient denies any discharge needs at this time. Patient states he will have his family drive him home upon discharge. CM will continue to follow and assist as needed with discharge planning / needs. Fur Finisher Tailor: Gloria Garces DCPIA - Discharge Planning Initial Assessment Updated by [email or web address]: Gloria Garces on 07/14/19 7:25 pm * Is the patient Alert and Oriented? Yes * How many steps to enter\exit or inside your home? * PCP RUSSELL * [facility] * Preadmission Environment Home Alone * ADLs Independent * Other Equipment ELECTRIC SCOOTER/ WC, WALKER, CANE, SC * List name and contact numbers for known caregivers / representatives who currently or will assist patient after discharge: MICA VEGA - - [phone] * Verbal permission to speak to the caregivers and representatives has been obtained from the patient. Yes * Community resources currently utilized Home Health * Please name any agencies selected above. [facility] - [facility] - TO START ON D/C MEALS ON WHEELS * Additional services required to return to the preadmission environment? No * Can the patient safely return to the preadmission environment? Yes * Has this patient been hospitalized within the prior 30 days at any hospital? No External Providers External Provider: [facility] Next Contact Date: Service Request Date: Service Type: Resolution: Reviewer: Comments: Last DP export: 07/14/19 6:34 pm Patient Name: TOAN LOZADA Page [id number] at 1219 All edits/amendments must be made on the electronic document DICTATION DATE: 07/17/19 1218 DRAFT ROLLER PICKER: BEAU 07/17/19 1218 RPT#: [id number] DC DATE:07/17/19 STATUS: DIS IN [facility] [address] [place] [address] END OF REPORT
--- NOTE | 2019-07-21 10:01 | MORECARE ---
CASE MANAGEMENT DISCHARGE SUMMARY PATIENT: TOAN LOZADA UNIT: [id number] ADM DATE: 07/12/19 AGE: 54 : 69 SEX: M ROOM/BED: D.2215 AUTHOR: CONNORDOC PHYSICIAN: REFERRING PHYSICIAN: FRANCI WELLS MD DATE OF SERVICE: 07/21/19 Discharge Plan Patient Name: TOAN LOZADA Facility: [facility]:[place] : 1965 Planned Disposition: Home with Home Health Anticipated Discharge Date: Discharge Date: 07/17/2019 Expected LOS: 0 Initial Reviewer: [email or web address] Initial Review Date: 07/14/2019 Generated: 07/21/19 11:01 am DCP- Discharge Planning Updated by [email or web address]: Gloria Garces on 07/14/19 6:[address] Patient Name: TOAN LOZADA Admission Status: ER Accout number: [id number] Admission Date: 07-12-2019 : 1965 Admission Diagnosis: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 Patient lives at home alone where he is independent with his care and plans to return there upon discharge. Patient feels this would be a safe discharge. CM discussed availability / needs of home health and medical equipment. Patient states that he has [facility] and plans to resume care with them on d/c. Patient states that he was to meet with [facility] today but had to reschedule d/t hospitalized. Patient plans on starting their services upon discharge. ELLA signed. Patient denies any discharge needs at this time. Patient states he will have his family drive him home upon discharge. CM will continue to follow and assist as needed with discharge planning / needs. Aerodynamics Professor: Gloria Garces DCPIA - Discharge Planning Initial Assessment Updated by [email or web address]: Gloria Garces on 07/14/19 7:25 pm * Is the patient Alert and Oriented? Yes * How many steps to enter\exit or inside your home? * PCP RUSSELL * [facility] * Preadmission Environment Home Alone * ADLs Independent * Other Equipment ELECTRIC SCOOTER/ WC, WALKER, CANE, SC * List name and contact numbers for known caregivers / representatives who currently or will assist patient after discharge: MICA VEGA - SISTER - [phone] * Verbal permission to speak to the caregivers and representatives has been obtained from the patient. Yes * Community resources currently utilized Home Health * Please name any agencies selected above. [facility] - TO START ON D/C MEALS ON WHEELS * Additional services required to return to the preadmission environment? No * Can the patient safely return to the preadmission environment? Yes * Has this patient been hospitalized within the prior 30 days at any hospital? No Last DP export: 07/17/19 11:18 am Patient Name: TOAN LOZADA Page [phone] at 1001 All edits/amendments must be made on the electronic document DICTATION DATE: 07/21/19 1001 BALL WARPER TENDER: BEAU 07/21/19 1001 RPT#: [id number] DC DATE:07/17/19 STATUS: DIS IN [facility] [address] [place] [address] END OF REPORT
== END 2019-07-17 10:45 | disposition home health service (06) | DRG 698 ==
LOC: D.ER 01:20 → D.ICU 03:02 → D.MS 07-14 17:16
PROVIDERS: Family Medicine; Internal Medicine Nephrology; ADMIT Legal Medicine; ATTEND Legal Medicine
DX: E11.22 Type 2 diabetes mellitus with diabetic chronic kidney disease (principal); I50.23 Acute on chronic systolic (congestive) heart failure; I13.0 Hypertensive heart and chronic kidney disease with heart failure and stage 1 through stage 4 chronic kidney disease, or unspecified chronic kidney disease; E87.1 Hypo-osmolality and hyponatremia; E11.10 Type 2 diabetes mellitus with ketoacidosis without coma; N17.9 Acute kidney failure, unspecified; E11.65 Type 2 diabetes mellitus with hyperglycemia; N18.3 Chronic kidney disease, stage 3 (moderate); I25.10 Atherosclerotic heart disease of native coronary artery without angina pectoris; Z87.891 Personal history of nicotine dependence; E87.6 Hypokalemia; I11.0 Hypertensive heart disease with heart failure

== ENCOUNTER → 2019-07-30 07:13 | Outpatient (CLI) | payer MEDICAID ==
[2019-07-13 08:26] VITALS: BMI 42.7
== END | disposition home or self-care (01) ==
LOC: D.US 07:13
PROVIDERS: ATTEND Nurse Practitioner Family
DX: I12.0 Hypertensive chronic kidney disease with stage 5 chronic kidney disease or end stage renal disease (principal); N18.6 End stage renal disease; E11.22 Type 2 diabetes mellitus with diabetic chronic kidney disease; Z68.41 Body mass index [BMI] 40.0-44.9, adult

== ENCOUNTER → 2019-08-11 07:35 | Outpatient (CLI) | payer MEDICAID ==
[2019-07-13 08:26] VITALS: BMI 42.7
== END | disposition home or self-care (01) ==
LOC: D.NM 07:35
PROVIDERS: ATTEND Nurse Practitioner Family
DX: N18.3 Chronic kidney disease, stage 3 (moderate) (principal); I12.0 Hypertensive chronic kidney disease with stage 5 chronic kidney disease or end stage renal disease; R93.41 Abnormal radiologic findings on diagnostic imaging of renal pelvis, ureter, or bladder

== ENCOUNTER → 2019-08-18 07:26 | Outpatient (CLI) | payer MEDICAID ==
[2019-07-13 08:26] VITALS: BMI 42.7
== END | disposition home or self-care (01) ==
LOC: D.NM 07:26
PROVIDERS: ATTEND Nurse Practitioner Family
DX: N18.3 Chronic kidney disease, stage 3 (moderate) (principal); I12.9 Hypertensive chronic kidney disease with stage 1 through stage 4 chronic kidney disease, or unspecified chronic kidney disease; R93.41 Abnormal radiologic findings on diagnostic imaging of renal pelvis, ureter, or bladder

== ENCOUNTER → 2019-09-24 09:29 | Outpatient (CLI) | payer MEDICAID ==
[2019-07-13 08:26] VITALS: BMI 42.7
== END | disposition home or self-care (01) ==
LOC: D.NM 09:29
PROVIDERS: ATTEND Nurse Practitioner Family
DX: N18.3 Chronic kidney disease, stage 3 (moderate) (principal); I10 Essential (primary) hypertension; E11.22 Type 2 diabetes mellitus with diabetic chronic kidney disease; M10.9 Gout, unspecified; E21.3 Hyperparathyroidism, unspecified; Z68.42 Body mass index [BMI] 45.0-49.9, adult

== ENCOUNTER 2019-11-05 12:00 | Inpatient (IN) | payer MEDICAID ==
[~2019-11-05] VITALS: Ht 182.9 cm; Wt 154.5 kg
--- NOTE | ~2019-11-05 | HEMODYNAMI ---
PATIENT:TOAN LOZADA MEDICAL RECORD: [id number] : 69 LOCATION:[facility] D.[address] [facility]# [id number] ADMISSION DATE: 11/05/19 Generatedon:11/06/201914:05 Patient name: TOAN LOZADA Patient #: [id number] SSN: [id number] : 1965 Date of study: 11/06/2019 Page: Of Hemodynamic Procedure Report Patient Data Patient Demographics Procedure consent was obtained First Name: TOAN Gender: Male Last Name: NEVILLE : 1965 Middle Initial: L Age: 54 year(s) Patient #: [id number] Race: Black SSN: [id number] Additional ID: [id number] Contact details Address: [address] [place] [address] State: [place]: [facility] [place] code: [address] Past Medical History Allergies Allergen Reaction Date Comments Reported Other allergy 07/27/2015 penicillin, tetracycline Other allergy 02/04/2017 PCN, Tetracycline Other allergy 05/24/2017 PCN, KEFLAX Other allergy 12/26/2018 PCN, Tetracyline Admission Admission Data Admission Date: 11/05/2019 Admission Time: 12:00 Arrival Date: 11/05/2019 Arrival Time: 12:00 Admit Source: Other Insurance Payor: Medicaid Room #: D.2121 [facility] #: [id number] Height (in.): 71.65 BSA: 2.67 (m2) Height (cm.): 182 BMI: 46.79 (kg/m2) Weight (lbs.): 341.72 Weight (kg.): 155 Lab Results Lab Result Date: 11/06/2019 Lab Result Time: 0:00 Biochemistry Name Units Result Min Max BUN mg/dl 87 --(----)-* 7 18 Creatinine mg/dl 2.2 --(----)-* 0.6 1.3 eGFR ml/min 41 *-(----)-- 90 120 AM CBC Name Units Result Min Max Hemoglobin g/dl 12.5 *-(----)-- 13.5 17.5 Procedure Procedure Types Cath Procedure Diagnostic Procedure [facility] w/Coronaries Sedation Charges Moderate Sedation up to 30 minutes PCI Procedure Coronary Stent Coronary Stent Initial Procedure Description Procedure Date Procedure Date: 11/06/2019 Procedure Start Time: 13:41 Procedure End Time: 14:00 Procedure Staff Name Function Jimbo Neves MD Performing Physician Keira Polk RT Monitor Rochelle Reid RT Scrub Ann Isabel RN Nurse Biju Ragland PAPER MAKING MACHINE OPERATOR Additional personnel Procedure Data Cath Procedure Fluoroscopy Diagnostic fluoroscopy Total fluoroscopy Time: 4.6 time: 4.6 min min Diagnostic fluoroscopy Total fluoroscopy dose: dose: 1305 mGy 1305 mGy Contrast Material Contrast Material Type Amount (ml) Isovue 300 100 Entry Location Entry Primary Successful Side Size Upsize Upsize Entry Closure Henson ccessful Closure Location (Fr) 1 (Fr) 2 (Fr) Remarks Device Remarks Radial Right 6 Fr Mechanical artery Short Compression Estimated blood loss: 5 ml Diagnostic catheters Device Type Used For End Catheter Placement DIAGNOSTIC [place] 110cm 5 Multi-vessel Fr catheter ([id number]) Angiography Procedure Complications No complications Procedure Medications Medication Administration Route Dosage 0.9% NaCl I.V. Oxygen etCO2 Nasal cannula 3 l/min Lidocaine 2% added to field 20 Heparin Flush Bag added to field 2 bags (1000units/500ml NS) Refer to Anesthesia Notes for Sedation Medications Dobutamine I.V. drip 5 mcg/kg/min (500mg/250ml D5W) Heparin Bolus I.V. 4000 units Hemodynamics Rest BSA: 2.67 (m2) HGB: 12.5 (g/dl) O2 Consumption: Estimated: 348.2 (ml/min) O2 Con sumption indexed: Estimated:130.41 (ml/min/m) Heart Rate: 100 (bpm) Pressure Samples Time Site Value (mmHg) Purpose Heart Use Rate(bpm) 13:45 LV 81/2,32 Snapshot 83 Snapshots Pre Cath Intra NCS Post Cath Vital Signs Time Heart Resp SPO2 etCO2 NIBP Rhythm Pain Sedation Rate (ipm) (%) (mmHg) (mmHg) Status Level (bpm) 13:13:43 99 17 96 31 130/67(86) NSR 0 (11) 10(A) , No pain 13:18:11 98 11 98 30.1 121/72(95) NSR 0 (11) 10(A) , No pain 13:22:35 97 18 98 30.8 123/72(86) NSR 0 (11) 10(A) , No pain 13:27:02 96 20 98 34.6 132/70(88) NSR 0 (11) 10(A) , No pain 13:31:32 97 21 97 33.9 131/68(85) NSR 0 (11) 10(A) , No pain 13:36:00 95 21 100 34.6 127/72(94) NSR 0 (11) 5(A) , No pain 13:40:59 100 26 99 30.1 Measuring NSR 0 (11) 5(A) , No pain 13:41:36 99 30 98 10.5 132/70(89) NSR 0 (11) 5(A) , No pain 13:46:35 100 20 100 20.3 Measuring NSR 0 (11) 5(A) , No pain 13:52:21 96 21 97 29.3 122/60(78) NSR 0 (11) 5(A) , No pain 13:56:56 96 23 98 15 107/57(81) NSR 0 (11) 10(A) , No pain 14:01:34 95 23 99 12 92/50(73) NSR 0 (11) 10(A) , No pain Medications Time Medication Route Dose Verified Delivered Reason Notes Effectiveness by by 13:17:04 0.9% NaCl I.V. kvo ml/hr Jimbo Zuritaa used for Pura Isabel city carrier assistant 13:17:14 Oxygen etCO2 3 l/min Jimbo Zuritaa used for Nasal Pura Isabel procedure cannula RN 13:17:21 Lidocaine 2% added 20ml vial Jimbo Choi for local to Pura Neves MD anesthetic field 13:17:25 Heparin Flush added 2 bags Jimbo Choi used for Bag to Pura Neves MD procedure (1000units/500ml field NS) 13:17:33 Refer to Jimbo Choi for sedation Anesthesia Notes Pura Neves MD for Sedation Medications 13:17:40 Dobutamine I.V. 5 Jimbo Zuritaa Per physician infusing (500mg/250ml drip mcg/kg/min Pura Isabel upon D5W) RN arrival to 13:52:44 Heparin Bolus I.V. 4000 units Jimbo Juarez for verified Pura Isabel anticoagulation with Dr. ALESSANDRA Neves Procedure Log Time Note 12:54:18 Informed consent obtained and on chart 12:57:20 Admit Source: Other 12:57:24 Arrival Date: 11/05/2019 12:00:00 PM 12:57:42 Insurance Payor : Medicaid 12:59:42 Patient Height : 71.65 inches 12:59:48 Patient Weight : 341.72 lbs 13:00:33 Lab Result : BUN 87 mg/dl 13:00:33 Lab Result : eGFR AM 41 ml/min 13:00:33 Lab Result : Hemoglobin 12.5 g/dl 13:00:33 Lab Result : Creatinine 2.2 mg/dl 13:02:48 Diagnostic Cath Status : Elective 13:03:05 Rochelle NORTON(R) sent for patient. Start room use. 13:03:05 Time tracking: Regular hours (M-F 7:00 - 5:00) 13:03:09 Plan of Care:Hemodynamics will remain stable., Cardiac rhythm will remain stable., Comfort level will be maintained., Respiratory function will remain adequate., Patient/ family verbilizes understanding of procedure., Procedure tolerated without complication., Recovers from procedure without complications.. 13:04:16 Patient received from Med II to CCL 2 Alert and oriented. Tansferred to table in Supine position. 13:04:17 Warm blankets applied, and anastasiya hugger turned on for patient comfort. 13:04:18 Correct patient and procedure confirmed by team. 13:04:18 ECG and BP/O2 sat monitors applied to patient. 13:04:18 Vital chart was started 13:13:10 Baseline sample Acquired. 13:13:15 Rhythm: sinus tachycardia 13:13:17 Full Disclosure recording started 13:13:21 H&P Date Dictated: 11/06/2019 New H&P dictated by physician.. 13:17:04 0.9% NaCl kvo ml/hr I.V. was administered by Ann Isabel RN; used for procedure; Verbal order read back and verified. 13:17:14 Oxygen 3 l/min etCO2 Nasal cannula was administered by Ann Isabel RN; used for procedure; Verbal order read back and verified. 13:17:21 Lidocaine 2% 20ml vial added to field was administered by Jimbo Neves MD; for local anesthetic; Verbal order read back and verified. 13:17:25 Heparin Flush Bag (1000units/500ml NS) 2 bags added to field was administered by Jimbo Neves MD; used for procedure; Verbal order read back and verified. 13:17:33 Refer to Anesthesia Notes for Sedation Medications was administered by Jimbo Neves MD; for sedation; Verbal order read back and verified. 13:17:40 Dobutamine (500mg/250ml D5W) 5 mcg/kg/min I.V. drip was administered by Ann Isabel RN; Per physician; infusing upon arrival to Verbal order read back and verified. 13:20:00 Pre-procedure instructions explained to patient. 13:20:00 Pre-op teaching completed and patient verbalized understanding. 13:20:02 Family unavailable. 13:20:04 Patient NPO since Midnight. 13:20:13 Is the patient allergic to Iodine/contrast media? No. 13:20:14 Was the patient premedicated? Yes 13:20:15 Is patient on blood thinner?Yes 13:20:18 ACC The patient was administered the following blood thiners within the last 24 hours: ACCPlavix 13:20:23 Patient diabetic? Yes. 13:20:25 If diabetic: On Metformin? No 13:20:27 Previous problem with sedation/anesthesia? No ? 13:20:29 Snore? Yes 13:20:31 Sleep apnea? Yes 13:20:32 Deviated septum? No 13:20:33 Opens mouth fully? Yes 13:20:34 Sticks out tongue? Yes 13:20:41 Airway obstruction? No ? 13:20:44 Dentures? No ? 13:20:47 Pre procedure: right dorsailis pedis pulse 2+ Normal; easily identifiable; not easily obliterated 13:20:50 Pre procedure: left dorsailis pedis pulse 2+ Normal; easily identifiable; not easily obliterated 13:20:52 Patient pain scale 0/10 ?. 13:20:59 IV patent on arrival in left forearm with 0.9% NaCl at [facility]. 13:21:02 Lab results completed and on chart. 13:21:06 Risk of Mortality: 3.2 13:21:09 Risk of blood transfusion: 9.3 13:21:17 Risk of DAVID: 17.4 13:21:22 Right Radial & Right Groin area was prepped with chlora-prep and draped in sterile fashion 13:21:23 Alarms reviewed by R. N. 13:21:23 Sharps counted by scrub and verified by R.N. 13:21:24 Physician arrived 13::24 --------ALL STOP TIME OUT------ 13:21:25 Final Timeout: patient, procedure, and site verified with staff and physician. All members of the team are in agreement. 13:21:26 Right Radial & Right Groin site verified by team. 13:21:30 Fire Safety Assessment: A--An alcohol-based skin anteseptic being used preoperatively., C--Open oxygen or nitrous oxide is being used., D--An ESU, laser, or fiber-optic light is being used. 13:21:33 Biju Ragland PAPER MAKING MACHINE OPERATOR present and monitoring patient for TIVA. 13:21:35 Physical assessment completed. ASA score P 2 - A patient with mild systemic disease as per Jimbo Neves MD. 13:21:40 3b) 30-44 Moderately reduced kidney function. 13:25:24 Maximum allowable contrast dose (3.7 X eGFR X 0.75)113 ml. 13:25:28 Sedation plan: IV Moderate Sedation Medication:Versed, Fentanyl 13:25:31 Use device set Radial Dx or PCI 13:25:32 ACIST Syringe (01680) opened to sterile field. 13:25:32 Medline Cath Pack ([id number]) opened to sterile field. 13:25:33 Bag Decanter () opened to sterile field. 13:25:33 ACIST Hand Control (01625) opened to sterile field. 13:25:33 ACIST Manifold (51948) opened to sterile field. 13:25:34 Tegaderm 4 x 4 (1626W) opened to sterile field. 13:25:35 MBrace Wrist Support ([id number]) opened to sterile field. 13:25:37 SHEATH 6FR RAIN (1965448) opened to sterile field. 13:25:37 EMERALD Guide Wire (238-726) opened to sterile field. 13:41:05 Procedure started. 13:41:10 Local anesthetic to right radial artery with Lidocaine 2% by Jimbo Neves MD.INITIAL ACCESS ONLY 13:43:42 A 6 Fr Short sheath was inserted into the Right Radial artery 13:43:47 A DIAGNOSTIC [place] 110cm 5 Fr catheter (315231) was advanced over the wire and used for Multi-vessel Angiography. 13:44:23 Zero performed for pressure channel P1 13:45:23 LV hemodynamics recorded. 13:45:24 LV gram done using OLVERA 13:45:26 Injector settings: Ml/sec: 5, Volume: 15, 13:45:31 EF : 35 % 13:46:23 GUIDE 6FR AR 2.0 catheter ([id number]) opened to sterile field. 13:46:36 Catheter removed. 13:46:41 6 Fr AR 2 guide catheter was inserted over the wire 13:47:18 RCA angiography performed. 13:47:23 Injector settings: Ml/sec: 3, Volume: 6, 13:47:28 Catheter removed. 13:47:53 GUIDE 6FR EBU 3.5 catheter ([id number]) opened to sterile field. 13:47:56 6 Fr EBU 3.5 guide catheter was inserted over the wire 13:49:05 Catheter removed. unable to cannulate vessel. 13:49:13 GUIDE 6FR EBU 4.0 guide catheter ([id number]) opened to sterile field. 13:49:28 6 Fr EBU 4 guide catheter was inserted over the wire 13:50:55 LCA angiography performed. 13:50:57 Injector settings: Ml/sec: 3, Volume: 6, 13:50:59 Catheter removed. 13:51:47 INFLATOR Merit BasixCompak (TX1561) opened to sterile field. 13:52:10 ASAHI MINAMO WIRE OPENED TO STERILE FIELD 13:52:30 MINAMO wire advanced. 13:52:33 Wire advanced across lesion. 13:52:44 Heparin Bolus 4000 units I.V. was administered by Ann Isabel RN; for anticoagulation; verified with Dr. Neves Verbal order read back and verified. 13:53:56 Place stent Inflation Number: 1 A HARSHAD RX 3.5 x 38 stent ([id number]) was prepped and advanced across the Mid LAD 90. The stent was deployed at 21 OZIEL for 0:10 (min:sec) 0. 13:55:32 Stent catheter was removed intact over wire. 13:55:32 Wire removed. 13:55:32 Guide catheter removed. 13:55:41 Sheath removed intact; hemostasis achieved with Mechanical Compression to the Right Radial artery. 13:55:43 Procedure ended.(Physican Out) 13:58:07 Fluoroscopy time 04.60 minutes. 13:58:13 Flurop Dose total: 1305 13:58:13 Fluoroscopy dose: 1305 mGy 13:58:20 Dose Area Product 48050 mGy/cm. 13:58:36 Contrast amount:Isovue 300 100ml. 13:58:39 Maximum allowable dose exceeded? No. 13:59:29 [place] band inflated with 10cc of air. 13:59:30 Insertion/operative site no bleeding no hematoma. 13:59:36 Post right radial artery:stable 13:59:37 Post Procedure Pulses reassessed and unchanged 13:59:40 Post procedure rhythm: unchanged. 13:59:42 Estimated blood loss: 5 ml 13:59:44 Post procedure instruction explained to patient.Patient verbalizes understanding. 13:59:45 Patient needs reinforcement of post procedure teaching. 14:00:13 Procedure type changed to Cath procedure, Diagnostic procedure, C, [facility] w/Coronaries, Sedation Charges, Moderate Sedation up to 30 minutes, PCI procedure, Coronary Stent, Coronary Stent Initial 14:00:15 Procedure and supply charges have been captured, reviewed, submitted and are correct. 14:00:19 Procedure Complication : No complications 14:00:22 Vital chart was stopped 14:00:25 [facility] Findings: MVD- PCI performed (see procedure note) 14:00:27 Operative report dictated upon procedure completion. 14:00:27 See physician's report for complete and final results. 14:00:40 Report given to Pre/Post Procedure Room. 14:00:43 Patient transfered to Pre/Post Procedure Room with Stretcher. 14:00:45 Procedure ended. 14:00:45 Full Disclosure recording stopped 14:00:53 ACC-PCI Only Patient was given prescriptions, or instructed by Jimbo Neves MD to start/continue the following medications upon discharge: Plavix 14:00:55 End room use (Document Last) 14:03:09 TR BAND Large ([id number]) opened to sterile field. 14:03:51 GUIDE 6FR XB 3.5 catheter ([id number]) opened to sterile field. 14:04:11 TR BAND Standard (VYJ83YQR) opened to sterile field. Intervention Summary Intervention Notes Time ActionType Lesion and Equipment Used Action# Pressure Duration Attributes 13:53:56 Place stent Mid LAD HARSHAD RX 3.5 x 1 21 00:10 38 stent ([id number]) Device Usage Item Name Manufacture Quantity Catalog Hospital Part Current [facility] Lot# / Number Charge Number Stock Stock Serial# Code ACIST Syringe Acist 1 83587 013781 196188 874687 20 (07073) Medical Systems Inc Medline Cath Medline 1 [id number] 244588 43016 977848 5 Pack ([id number]) Bag Decanter Microtek 1 2001S 896170 02386 764700 5 (2001S) Medical Inc. ACIST Hand Acist 1 50893 763682 219351 803249 5 Control Medical (05203) Systems Inc ACIST Manifold Acist 1 60673 161424 476558 738283 5 (99729) Medical Systems Inc Tegaderm 4 x 4 3M 1 1626W 448606 113875 650161 5 (1626W) MBrace Wrist Advanced 1 140-0250-00 982551 65054 327411 5 Support Vascular (394222268) Dynamics SHEATH 6FR Cardinal 1 8115719 725316 0427761 832854 5 RAIN (2577283) Health EMERALD Guide Cardinal 1 502-455 137694 312360 385333 5 Wire (502-455) Health DIAGNOSTIC Terumo 1 40-6923 737806 133951 115353 5 [place] 110cm 5 Fr catheter (532244) GUIDE 6FR AR Medtronic 1 [id number] 625187 26812 366257 1 2.0 catheter (SQ5AN53) GUIDE 6FR EBU Medtronic 1 [id number] 644276 79877 559915 3 3.5 catheter (IB1DNV90) GUIDE 6FR EBU Medtronic 1 RC9DSM01 718100 25031 364706 1 4.0 guide catheter (RC0VCP49) INFLATOR Merit Merit 1 DQ1636 087087 779889 815695 15 [facility] Medical (YF9223) HARSHAD RX 3.5 x Medtronic 1 [id number] 658318 8289277 399181 5 [id number] 38 stent ([id number]) TR BAND Large Terumo 1 KIU54-NWU 904432 742071 797864 40 (DIR33VNH) GUIDE 6FR XB Cardinal 1 87617333 777657 793430 480318 2 3.5 catheter Health (64896330) TR BAND Terumo 1 [id number] 281999 569874 714087 40 Standard ([id number]) Signature Audit [place] Stage Time Signature Unsigned Intra-Procedure 11/06/2019 Keira Polk 2:03:51 PM RT(R) Intra-Procedure 11/06/2019 Ann Isabel 2:04:11 PM RN Intra-Procedure 11/06/2019 Jimbo Neves 2:05:14 PM Signatures Performing Physician : Signature : Jimbo Neves MD Date : Time : Monitor : Keira Polk RT Signature : Date : Time : Nurse : Ann Isabel RN Signature : Date : Time : [facility] [address] [place] [address]
--- NOTE | ~2019-11-05 | DS ---
PATIENT:TOAN LOZADA :69 MEDICAL RECORD: [id number] DISCHARGE SUMMARY ADMISSION DATE: 11/06/19 DISCHARGE DATE: 11/07/19 DATE OF DISCHARGE: 11/07/2019 DISCHARGE DIAGNOSES: 1. Unstable angina. 2. Coronary artery disease. 3. Percutaneous transluminal coronary angioplasty and stent of the left anterior descending this admission. 4. Congestive heart failure and chronic systolic dysfunction. 5. Ischemic cardiomyopathy. 6. Hypertension. HOSPITAL COURSE: Mr. Lozada presents with shortness of breath, heart failure, and anginal symptomatology, had IV diuresis as well as inotropic therapy to clear the congestive heart failure and pulmonary edema, had a good diuresis, underwent cardiac catheterization revealing significant disease of the LAD and underwent successful PTCA and stent of the LAD, was discharged home with no change in medications as he is already on aspirin and Plavix. Follow up with [facility] in [facility] month. TRANSINT:[id number] Voice Confirmation ID: [id number] DOCUMENT ID: [id number] CAROLYN MANTILLA MD CC: [id number] DICTATION DATE: 11/07/19910 QUARTER LINING SMOOTHER: 11/07/19 1619 DIS IN 11/07/19 [id number] [place] [address]
[2019-11-05 13:12] VITALS: BP 100/60; Ht 182.9 cm; Wt 154.5 kg
[2019-11-05 13:23] LABS: BASOPHILS 0.2 % (0-2); EOSINOPHILS 1.8 % (0-7); HEMATOCRIT 38.6 % (42.0-54.0); HEMOGLOBIN 12.4 g/dL (13.5-17.5); IMMATURE GRANULOCYTES 0.4 % (0-5); LYMPHOCYTES 33.2 % (15-50); MCH 25.2 pg (26.0-34.0); MCHC 32.1 g/dL (31.0-37.0); MCV 78.3 fL (80.0-100.0); MEAN PLATELET VOLUME 9.7 fL (7.4-10.4); MONOCYTES 10.2 % (2-11); NEUTROPHILS 54.2 % (40-80); PLATELET COUNT 363 10x3/uL (130-400); RBC 4.93 10x6/uL (4.20-6.10); RDW 17.7 % (11.5-14.5); WBC 9.4 10x3/uL (4.8-10.8)
[2019-11-05 13:44] LABS: ALT (SGPT) 18 U/L (10-68); CALC OSMOLALITY 290 mosm/kg (275-300); CALCIUM 9.4 mg/dL (8.5-10.1); CARBON DIOXIDE 30.5 mmol/L (21.0-32.0); CHLORIDE - SERUM 95 mmol/L (98-107); CHOL - HDL RATIO 3.3 ratio (2.3-4.9); CHOLESTEROL, TOTAL 123 mg/dL (0-200); CREATININE - SERUM 2.6 mg/dL (0.6-1.3); HDL CHOLESTEROL 37 mg/dL (32-96); LDL CHOLESTEROL 33 mg/dL (0-100); LDL-HDL RATIO 0.9 ratio (1.5-3.5); POTASSIUM - SERUM 3.7 mmol/L (3.5-5.1); SODIUM 136 mmol/L (136-145); TRIGLYCERIDE 265 mg/dL (30-200); TROPONIN-I < 0.017 ng/mL (0.000-0.060); UREA NITROGEN 64 mg/dL (7-18); eGFR NON AFRICAN AMERICAN 28 mL/min (90-120)
[2019-11-05 13:48] LABS: GLUCOSE 116 mg/dL (74-106)
[2019-11-05 14:15] VITALS: BP 100/67
[2019-11-05 18:13] VITALS: BP 117/69
--- NOTE | 2019-11-05 20:08 | NUR ---
SPOKE WITH DR MANTILLA, ORDER CLARIFICATION, DC TAYLOR CANO.
[2019-11-05 20:30] VITALS: BP 134/76
[2019-11-06 00:30] VITALS: BP 107/65
--- NOTE | 2019-11-06 02:53 | NUR ---
ACADEMIC SUPPORT COORDINATOR AT BED SIDE, PT CLIPPED AND HCG BATH GIVEN.
[2019-11-06 04:00] VITALS: BP 119/78
--- NOTE | 2019-11-06 07:15 | NUR ---
ASSESSMENT DONE. DENIES NEEDS
[2019-11-06 10:13] VITALS: BP 117/66
--- NOTE | 2019-11-06 13:00 | NUR ---
TO TRIMMER AND REINFORCER PER BED
--- NOTE | 2019-11-06 15:08 | NUR ---
I have reviewed this patient and I concur with the Shift Assessment completed by the Licensed Practical Nurse today this shift.
[2019-11-06 17:05] VITALS: BP 103/54
--- NOTE | 2019-11-06 18:32 | NUR ---
5 CC AIR REMOVED FROM TR-BAND
--- NOTE | 2019-11-06 19:35 | NUR ---
ASSESSMENT COMPLETE, PT A&O, RESPERATIONS EVEN ON RA. IV TO LEFT HAND WITH DOBUTAMINE INFUSING AT 5 MCGS, IV SITE CLEAN AND DRY. TR BAND NOTED TO RIGHT WIRST FROM CARDIAC CATH DONE EARLIER TODAY. NO SWELLING, BLEEDING OR HEMATOMA NOTED. PT STILL HAD HAND SPLINT IN PLACE A REMINDER NOT TO MOVE WRIST A LOT. PT DENIES PAIN OR NEEDS, BED LOW, CL IN REACH.
--- NOTE | 2019-11-06 21:34 | NUR ---
HS MEDS GIVEN WITH FRESH ICE WATER. AIR COMPLETELY REMOVED FROM TR BAND, NO BLEEDING NOTED. DEFLATED TR BAND LEFT ON WRIST SO PT WOULD REMEMBER TO RESTRICT MOVEMENT OF RIGHT WRIST. PT DENEIS NEEDS AT THIS TIME.
[2019-11-06 21:48] VITALS: BP 99/63
[2019-11-07 00:30] VITALS: BP 114/64
--- NOTE | 2019-11-07 04:22 | NUR ---
RESTING WITH EYES CLOSED, RESPERATIONS EVEN, NO S/S DISTRESSED NOTED.
[2019-11-07 04:30] VITALS: BP 97/49
[2019-11-07 05:26] LABS: ANION GAP 11.4 mmol/L (8-16); CALCIUM 9.2 mg/dL (8.5-10.1); CARBON DIOXIDE 31.9 mmol/L (21.0-32.0); POTASSIUM - SERUM 3.3 mmol/L (3.5-5.1)
--- NOTE | 2019-11-07 08:47 | NUR ---
AM MEDS GIVEN AT THIS TIME. ALSO GAVE 80UNITS OF LANTUS FOR BLOOD SUGAR OF 212. PT IN BED, A/O X4, RESP EVEN AND NONLABORED ON RA. LT HAND IV OUT. REMOVED COMPLETELY WITH TIP INTACT. PT DENIES ANY NEEDS AT THIS TIME. CALL LIT IN REACH, NAD NOTED,W ILL CONTINUE TO MONITOR
[2019-11-07 09:05] VITALS: BP 94/47
--- NOTE | 2019-11-07 09:10 | OP ---
PATIENT NAME: TOAN LOZADA MEDICAL RECORD: [id number] :69 LOCATION:D.M2 D.2121 ADMISSION DATE:11/06/19 SURGEON: CAROLYN MANTILLA MD DATE OF OPERATION: 11/06/2019 PROCEDURES: 1. PTCA stent LAD. 2. Left heart catheterization. 3. Selective coronary angiography. 4. Left ventriculogram. INDICATION: Unstable angina and coronary artery disease. PROCEDURE IN DETAIL: After informed consent was obtained and after a detailed description of the risks, benefits as well as alternative therapies, the patient elected to proceed with angiogram and angioplasty. The right radial area was prepped and draped in normal sterile fashion. Right radial artery was cannulated via modified Seldinger technique with placement of 6-Albanian sheath. All catheters exchanged through this sheath. FINDINGS: Left ventriculogram was performed in standard 30-degree OLVERA view, reveals global hypokinesis, ejection fraction in the 30% to 35% range. SELECTIVE CORONARY ANGIOGRAPHY: 1. Left main showed no significant angiographic disease. 2. Left anterior descending has previously placed stents with up to 90% in-stent restenosis. 3. Left circumflex has mild irregularities, but no flow-limiting stenosis. 4. Right coronary has moderate irregularities, but no flow-limiting stenosis. Previously placed stent in the RCA has no significant restenosis throughout. PTCA STENT OF THE LAD: The stent used was a 3.5 x 38 mm [place]. Result was 0% residual stenosis. OVERALL IMPRESSION: Successful percutaneous transluminal angioplasty stent of the left anterior descending going from 90% initial stenosis to 0% residual. TRANSINT:[id number] Voice Confirmation ID: [id number] DOCUMENT ID: [id number] CAROLYN MANTILLA MD at 0910 CC: [id number] DICTATION DATE: 11/06/19 1404 SERVER: 11/06/19 2223 ADM IN [address] [place] [address]
--- NOTE | 2019-11-07 14:08 | NUR ---
9732- PROVIDED VERBAL AND WRITTEN DISCHARGE TEACHING. REMOVED HEART MONITOR AND TAKEN TO CHAIRMAN. PT IS GOING TO DRIVE SELF HOME SO HAS TO WAIT UNTIL 1400 BEFORE HE CAN BE D/C. 5750- PT LEFT UNIT VIA AMBULATORY, WITH ALL BELONGINGS, NAD NOTED.
--- NOTE | 2019-11-09 09:56 | MORECARE ---
CASE MANAGEMENT DISCHARGE SUMMARY PATIENT: TOAN LOZADA UNIT: [id number] ADM DATE: 11/06/19 AGE: 54 : 69 SEX: M ROOM/BED: D.2121 AUTHOR: LIAM RYAN PHYSICIAN: REFERRING PHYSICIAN: CAROLYN MANTILLA MD DATE OF SERVICE: 11/09/19 Discharge Plan Patient Name: TOAN LOZADA Facility: [facility]:[place] : 1965 Planned Disposition: Home Anticipated Discharge Date: 11/07/19 Discharge Date: 11/07/2019 Expected LOS: 1 Initial Reviewer: [email or web address] Initial Review Date: 11/05/2019 Generated: 11/09/19 10:56 am Patient Name: TOAN LOZADA Page [id number] at 0956 All edits/amendments must be made on the electronic document DICTATION DATE: 11/09/19955 TIEING MACHINE OPERATOR: BEAU 11/09/19955 RPT#: [id number] DC DATE:11/07/19 STATUS: DIS IN [facility] [address] [place] [address] END OF REPORT
== END 2019-11-07 14:11 | disposition home or self-care (01) | DRG 247 ==
LOC: OBSVTIME 12:00 → D.M2 12:00
PROVIDERS: ADMIT Internal Medicine Interventional Cardiology; ATTEND Internal Medicine Interventional Cardiology
PROC: B2111ZZ Fluoroscopy of Multiple Coronary Arteries using Low Osmolar Contrast (ICD-10-PCS; 2019-11-06)
PROC: B2151ZZ Fluoroscopy of Left Heart using Low Osmolar Contrast (ICD-10-PCS; 2019-11-06)
PROC: 027034Z Dilation of Coronary Artery, One Artery with Drug-eluting Intraluminal Device, Percutaneous Approach (ICD-10-PCS; principal; 2019-11-06 11:00)
PROC: 4A023N7 Measurement of Cardiac Sampling and Pressure, Left Heart, Percutaneous Approach (ICD-10-PCS; 2019-11-06 11:00)
DX: I25.110 Atherosclerotic heart disease of native coronary artery with unstable angina pectoris (principal); I50.22 Chronic systolic (congestive) heart failure; I11.0 Hypertensive heart disease with heart failure; I25.5 Ischemic cardiomyopathy

== ENCOUNTER → 2019-12-08 09:13 | Outpatient (CLI) | payer MEDICARE ==
[2019-11-05 13:12] VITALS: BMI 46.2
--- NOTE | 2019-12-10 12:54 | EC ---
PATIENT:TOAN LOZADA DATE OF SERVICE: 12/08/19 SEX: M MEDICAL RECORD: [id number] DATE OF : [birth year] LOCATION:D[facility] AGE OF PATIENT: 54 ADMISSION DATE: 12/08/19 REFERRING PHYSICIAN: INTERPRETING PHYSICIAN: CAROLYN NEVES MD ECHOCARDIOGRAM REPORT ECHO CHARGES 4 ECHO COMPLETE Date: 12/08/19 CLINICAL DIAGNOSIS: CHF ECHOCARDIOGRAPHIC MEASUREMENTS (adult normal given) AC root (d.<3.7cm) 3.0 cm LV Septum d (<1.2 cm> 0.6 cm Valve Excursion 1.9 cm LV Septum (systole) 1.2 cm Left Atria (s.<4.0cm> 3.7 cm LVPW d(<1.2cm) 0.9 cm RV (d.<2.3cm) 3.4 cm LVPW (sytole) 1.6 cm LV diastole(<5.6CM) 6.1 cm MV E-F(>70mm/sec) cm LV systole 4.0 cm LVOT Diameter 2.0 cm MV exc.(>10mm) cm Est.ejection fraction (50-75%) % DOPPLER: LVIT cm/sec A 32.0 cm/sec E 54.0 cm/sec LA cm/sec RVSP 30.0 mmHg LVOT 88.0 cm/sec AOP1/2T m/s Asc. Ao 89.0 cm/sec RVOT 60.0 cm/sec RA cm/sec PA 72.0 cm/sec AV Gradient Peak 3.2 mmHg AV Mean 1.6 mmHg AV Area 3.4 cm MV Gradient Peak 3.6 mmHg MV Mean 1.5 mmHg MV Area cm COMMENTS: Tableau Administrator: Elsy LANDRYOE Screen Printing Paster: 1 Dr. Neves TAPE# PACS Pericardial Effusion N DATE OF SERVICE: 12/08/2019 Echocardiogram FINDINGS: 1. Left ventricular chamber size is within normal limits. Left ventricular systolic function is moderately reduced, overall ejection fraction 30% to 35%. 2. Left atrium is within normal limits. Right atrium and right ventricular chamber sizes are mildly dilated. 3. Valvular structures have normal structure and motion. ECHOCARDIOGRAM REPORT [id number] TOAN LOZADA 4. Doppler interrogation reveals mild mitral regurgitation, trace tricuspid regurgitation, no other valvular insufficiency or stenosis. 5. No evidence of pericardial effusion or left ventricular thrombus. TRANSINT:[id number] Voice Confirmation ID: [id number] DOCUMENT ID: [id number] CAROLYN NEVES MD at 1254 CC: [id number] DICTATION DATE: 12/08/19 1636 DRAWING MACHINE OPERATOR: 12/08/19 1852 DEP CLI 12/08/19 [place] [id number] [place] [id number]
== END | disposition home or self-care (01) ==
LOC: D.ECHO 09:13
PROVIDERS: ATTEND Family Medicine
DX: I50.9 Heart failure, unspecified (principal)

== ENCOUNTER 2020-01-09 22:55 | Observation (INO) | payer MEDICARE ==
[~2020-01-09] VITALS: Ht 182.9 cm; Wt 155.5 kg
[2020-01-09 23:15] LABS: BASOPHILS 0.3 % (0-2); EOSINOPHILS 1.7 % (0-7); HEMATOCRIT 38.2 % (42.0-54.0); HEMOGLOBIN 12.6 g/dL (13.5-17.5); IMMATURE GRANULOCYTES 0.3 % (0-5); MCH 25.3 pg (26.0-34.0); MCV 76.7 fL (80.0-100.0); MEAN PLATELET VOLUME 9.2 fL (7.4-10.4); MONOCYTES 10.2 % (2-11); NEUTROPHILS 52.5 % (40-80); PLATELET COUNT 328 10x3/uL (130-400); RBC 4.98 10x6/uL (4.20-6.10); RDW 17.8 % (11.5-14.5); WBC 9.5 10x3/uL (4.8-10.8)
[2020-01-09 23:22] LABS: CALC OSMOLALITY 296 mosm/kg (275-300); CARBON DIOXIDE 30.5 mmol/L (21.0-32.0); CHLORIDE - SERUM 90 mmol/L (98-107); CREATININE - SERUM 2.5 mg/dL (0.6-1.3); GLUCOSE 374 mg/dL (74-106); POTASSIUM - SERUM 3.7 mmol/L (3.5-5.1); SODIUM 130 mmol/L (136-145); UREA NITROGEN 72 mg/dL (7-18); eGFR NON AFRICAN AMERICAN 29 mL/min (90-120)
[2020-01-09 23:24] LABS: APTT 34.7 SECONDS (22.8-39.4); PROTIME 13.1 SECONDS (11.6-15.0)
[2020-01-09 23:25] VITALS: BP 115/66
[2020-01-09 23:39] LABS: ALBUMIN 3.6 g/dL (3.4-5.0); ALKALINE PHOSPHATASE 110 U/L (30-120); ALT (SGPT) 29 U/L (10-68); CKMB 5.1 U/L (0.0-3.6); MAGNESIUM - SERUM 1.7 mg/dL (1.8-2.4); PROTEIN - SERUM 8.3 g/dL (6.4-8.2)
--- NOTE | 2020-01-09 23:40 | NUR ---
PT REPORTS DECREASE IN PAIN FROM 9/10 TO 7/10 AFTER NTG.
[2020-01-09 23:45] LABS: CREATINE KINASE 1221 UL (21-232); TROPONIN-I < 0.017 ng/mL (0.000-0.060)
[2020-01-10] VITALS (7 sets, daily range): BP systolic 81–119; BP diastolic 35–74; Ht 182.9 cm; Wt 155.5 kg
--- NOTE | 2020-01-10 00:52 | NUR ---
PT AMBULATED TO RESTROOM WITH A STEADY GAIT.
--- NOTE | 2020-01-10 01:09 | NUR ---
PT ARRIVED VIA W/C FROM ER. NO DISTRESS NOTED. 500CC NS BOLUS INFUSING UPON ARRIVAL. CALL LIGHT WITHIN REACH.
[2020-01-10] MEDS ORDERED: LASIX40 MG PO (01:21)
[2020-01-10] MEDS ORDERED: BUMEX2 MG PO (01:24)
[2020-01-10] MEDS ORDERED: METOLAZONE2.5 MG PO (01:25)
--- NOTE | 2020-01-10 02:38 | NUR ---
ADMISSION ASSESSMENT, HISTORY AND HOME MED LIST COMPLETED BY 0200 HRS. VSS. SR PER CM HR 96. NS 500CC BOLUS COMPLETED AT 0155 HRS. IV TO L HAND SL. LUNGS CLTA. ALERT AND ORIENTED TO PERSON, PLACE AND TIME. HEAD. STATES HAS A DEEP PAIN IN CHEST TO BACK WITH DEEP INSPIRATIONS. EXPLAINED RATIONALE FOR NPO UNTIL SEEN BY CARDIOLOGY. PT STATED UNDERSTANDING. SR UP X2, CALL LIGHT WITHIN REACH.
--- NOTE | 2020-01-10 04:12 | NUR ---
PT RESTING WITH EYES CLOSED. RESP EVEN AND REGULAR. SR UP X2, CALL LIGHT WITHIN REACH.
--- NOTE | 2020-01-10 06:20 | NUR ---
VSS. SR PER CM. PT RESTED WELL SINCE ADMISSION. NEEDS MET;WILL CONTINUE TO MONITOR.
[2020-01-10 13:51] LABS: % SATURATION 8 % (15-55); IRON 23 ug/dl (35-150); TOTAL IRON BIND CAPACITY 256 ug/dl (260-445); UNSAT IRON BIND CAPACITY 233 ug/dl (150-375)
[2020-01-10 18:51] LABS: BILIRUBIN NEGATIVE (NEGATIVE); GLUCOSE 1000 mg/dL (NEGATIVE); KETONE NEGATIVE (NEGATIVE); NITRITE NEGATIVE (NEGATIVE); SPECIFIC GRAVITY 1.005 (1.005-1.020); UROBILINOGEN NORMAL (NORMAL)
[2020-01-10 18:52] LABS: RED CELLS - URINE RARE /hpf (0-5); WHITE CELLS - URINE NSEEN /hpf (NEGATIVE)
[2020-01-10 18:53] LABS: BACTERIA FEW /hpf (NEGATIVE); EPITHELIAL CELLS OCC /hpf (0-5)
[2020-01-10 19:02] LABS: UDS - AMPHET NEGATIVE QUAL (NEGATIVE); UDS - BARB NEGATIVE QUAL (NEGATIVE); UDS - BENZO NEGATIVE QUAL (NEGATIVE); UDS - COCAINE NEGATIVE QUAL (NEGATIVE); UDS - OPIATE NEGATIVE QUAL (NEGATIVE); UDS - PCP NEGATIVE QUAL (NEGATIVE); UDS - THC NEGATIVE QUAL (NEGATIVE)
--- NOTE | 2020-01-10 20:23 | NUR ---
INITIAL ROUNDS COMPLETED AT 1910 HRS. PT DENIED ANY DISCOMFORT. ASSESSMENT COMPLETED AT 1940 HRS. SR PER CM HR 99. ALERT AND ORIENTED TO PERSON, PLACE AND TIME. HEAD. IV TO L HAND SL. LUNGS CTA. SR UP X2, CALL LIGHT WITHIN REACH.
--- NOTE | 2020-01-10 22:47 | NUR ---
PT RESTING WITH EYES CLOSED. RESP EVEN AND REGULAR. SR UP X2, CALL LIGHT WITHIN REACH.
[2020-01-11 00:30] VITALS: BP 103/64
--- NOTE | 2020-01-11 01:08 | NUR ---
PT HAS C/O CHRONIC BACK PAIN. REFUSED OFFER OF TYLENOL. SR UP X2, CALL LIGHT WITHIN REACH.
[2020-01-11 04:30] VITALS: BP 110/66
--- NOTE | 2020-01-11 04:43 | NUR ---
PT AWAKE; DENIES ANY DISCOMFORT. TELE DC'D PER Roberto GRAHAM RN HS. SR UP X2, CALL LIGHT WITHIN REACH.
[2020-01-11 05:50] LABS: BASOPHILS 0.5 % (0-2); EOSINOPHILS 2.1 % (0-7); HEMATOCRIT 37.9 % (42.0-54.0); HEMOGLOBIN 12.3 g/dL (13.5-17.5); IMMATURE GRANULOCYTES 0.4 % (0-5); LYMPHOCYTES 37.3 % (15-50); MCH 24.6 pg (26.0-34.0); MCHC 32.5 g/dL (31.0-37.0); MEAN PLATELET VOLUME 9.9 fL (7.4-10.4); MONOCYTES 10.1 % (2-11); NEUTROPHILS 49.6 % (40-80); PLATELET COUNT 363 10x3/uL (130-400); RBC 4.99 10x6/uL (4.20-6.10); RDW 17.7 % (11.5-14.5); WBC 8.2 10x3/uL (4.8-10.8)
[2020-01-11 06:06] LABS: ANION GAP 11.8 mmol/L (8-16); CALCIUM 9.5 mg/dL (8.5-10.1); CARBON DIOXIDE 30.6 mmol/L (21.0-32.0); POTASSIUM - SERUM 3.4 mmol/L (3.5-5.1)
--- NOTE | 2020-01-11 06:39 | NUR ---
VSS THROUGHOUT NIGHT. SRPER CM. AM FSBS 225. 4 UNITS REG INSULIN GIVEN SUB-Q TO UPPER L ARM. AM K+ 3.4. KCL 40MEQ PO GIVEN PER ELECTROLYTE PROTOCOL. NEEDS MET; WILL CONTINUE TO MONITOR.
--- NOTE | 2020-01-11 07:15 | NUR ---
RECEIVED PT IN BED EYES CLOSED RESP UNLABORED SKIN W/D COLOR WNL NAD NOTED
[2020-01-11 08:43] VITALS: BP 112/71
[2020-01-11 11:46] VITALS: BP 112/65
--- NOTE | 2020-01-11 14:09 | NUR ---
PT REPORTS HE WAS TO GET RX FOR PROTONIX AT DISCHARGE. SPOKE WITH DR ARMENDARIZ AND ORDER RECEIVED FOR PROTONIX 40 MG PO QD.
[2020-01-11] MEDS ORDERED: PROTONIX40 MG PO (14:10)
--- NOTE | 2020-01-11 14:20 | NUR ---
REVIEWED DISCKARGE INSTRUCTIONS WITH PT STATES UNDERSTANDING COPY GIVEN DCD SALINE LOCK SITE FREE OF REDNESS OR EDEMA PT DISCHARGED HOME IN STABLE CONDITION VIA W/C WITH ALL PERSONAL BELONGINGS
--- NOTE | 2020-01-12 09:43 | MORECARE ---
CASE MANAGEMENT DISCHARGE SUMMARY PATIENT: TOAN LOZADA UNIT: [id number] ADM DATE: 01/10/20 AGE: 54 : [birth year] SEX: M ROOM/BED: D.2116 AUTHOR: LIAM RYAN PHYSICIAN: REFERRING PHYSICIAN: YFN BABCOCK MD DATE OF SERVICE: 01/12/20 Discharge Plan Patient Name: TOAN LOZADA Facility: [facility]:[place] : 1965 Planned Disposition: Home Anticipated Discharge Date: 01/11/20 Discharge Date: 01/11/2020 Expected LOS: 1 Initial Reviewer: [email or web address] Initial Review Date: 01/12/2020 Generated: 01/12/20 10:42 am Coverage Notice Reviewer: [email or web address] Aj Hinds Notice Issued Date-Time: 01/10/2020 12:40 Notice Type: Medicare Outpatient Observation Notice Notice Delivered To: Patient Relationship to Patient: Lightning Protection Installer Name: Delivery Method: - Samina Days: Prior Verbal Notification: Recipient Understood Notice: Yes Recipient Signature: Yes Med Rec Note Co-signed by Attending: Coverage Notice Comment: CONTI delivered, explained, signed by the patient, and placed in the chart. Signed form also left with patient. Karen Hinds RN , [facility] Patient Name: TOAN LOZADA Page [phone] at 0943 All edits/amendments must be made on the electronic document DICTATION DATE: 01/12/20941 PUMP ERECTOR HELPER: DM 01/12/20 0942 RPT#: [id number] DC DATE:01/11/20 STATUS: DIS IN [facility] [address] [place] [address] END OF REPORT
--- NOTE | 2020-01-13 08:19 | EC ---
PATIENT:TOAN LOZADA DATE OF SERVICE: 01/10/20 SEX: M MEDICAL RECORD: [id number] DATE OF : [birth year] LOCATION:D.M2 D.211 AGE OF PATIENT: 54 ADMISSION DATE: 01/10/20 REFERRING PHYSICIAN: INTERPRETING PHYSICIAN: SHITAL ARREOLA MD ECHOCARDIOGRAM REPORT ECHO CHARGES 5 ECHO LIMITED Date: 01/10/20 CLINICAL DIAGNOSIS: CHF/ ASSESS EF ECHOCARDIOGRAPHIC MEASUREMENTS (adult normal given) AC root (d.<3.7cm) cm LV Septum d (<1.2 cm> cm Valve Excursion cm LV Septum (systole) cm Left Atria (s.<4.0cm> cm LVPW d(<1.2cm) cm RV (d.<2.3cm) cm LVPW (sytole) cm LV diastole(<5.6CM) cm MV E-F(>70mm/sec) cm LV systole cm LVOT Diameter cm MV exc.(>10mm) cm Est.ejection fraction (50-75%) % DOPPLER: LVIT cm/sec A cm/sec E cm/sec LA cm/sec RVSP mmHg LVOT cm/sec AOP1/2T m/s Asc. Ao cm/sec RVOT cm/sec RA cm/sec PA cm/sec AV Gradient Peak mmHg AV Mean mmHg AV Area cm MV Gradient Peak mmHg MV Mean mmHg MV Area cm COMMENTS: Data Migration Consultant: Michael HOLDEN Motor Runner: 3 Dr. Barrios TAPE# PACS Pericardial Effusion N DATE OF SERVICE: Two-D: Grossly LVH appears present. LV internal dimensions are normal. Wall motion appears normal. EF is greater than or equal to 55%. Aortic valve is tricuspid with good valve excursion. Left atrium appears upper limits of normal to mildly dilated. Mitral valve appears normal with good excursion. Right-sided chambers appear grossly normal. TRANSINT:[id number] Voice Confirmation ID: [id number] DOCUMENT ID: [id number] ECHOCARDIOGRAM REPORT [id number] TOAN LOZADA SHITAL ARREOLA MD at 0819 CC: [id number] DICTATION DATE: 01/11/20 0927 GLUE DRIER OPERATOR: 01/11/20 1040 DIS IN 01/11/20 [facility] [address] [place] [address]
--- NOTE | 2020-01-13 08:19 | CN ---
PATIENT NAME:TOAN LOZADA MEDICAL RECORD: [id number] : 69 LOCATION:[facility].2116 ADMIT DATE: 01/10/20 ACCOUNT: [id number] CONSULTING PHYSICIAN: SHITAL ARREOLA MD REFERRING PHYSICIAN: YFN BABCOCK MD DATE OF CONSULTATION: 01/10/2020 HISTORY OF PRESENT ILLNESS: A 54-year-old gentleman with a known history of coronary artery disease as well as history of hypertension, admitted with shortness of breath and chest pain, questionable if he had fever or chills the last few days, has a known history of renal insufficiency, chronic with baseline creatinine around 2. Pain was somewhat atypical, fleeting. We are asked to see him concerning his cardiovascular status. PAST MEDICAL HISTORY: Includes: 1. History of coronary artery disease, status post intervention, most recently in October. 2. Hypertension. 3. Hyperlipidemia. 4. Diabetes mellitus. 5. Chronic renal insufficiency. ALLERGIES: PENICILLIN, TETRACYCLINE. SOCIAL HISTORY: Nonsmoker, social drinker, recreational marijuana use. No set exercise program. Easily takes care of all his ADLs. REVIEW OF SYSTEMS: The patient reports easy bruising but reports no swollen glands. The patient reports no fever, no night sweats, no significant weight gain, no significant weight loss. No significant exercise tolerance. The patient reports no dry eyes, no irritation, no vision change. Patient reports no difficulty hearing and no ear pain. Patient reports no frequent nose bleeds or nose and sinus problems. Patient reports on arm pain on exertion. No shortness of breath while lying down. No history of heart murmur. Patient reports no cough, no wheezing or coughing up blood. Patient reports no abdominal pain, no vomiting. Normal appetite. No diarrhea and not vomiting blood. No nausea and no constipation. Patient reports no incontinence. No difficulty urinating. No hematuria. No increased frequency. Patient reports no muscle aches. No weakness, no arthralgias, no back pain. No swelling of the extremities. Patient reports no abnormal mole, no jaundice, no rashes. Reports no loss of consciousness. No weakness and no numbness. No seizures, dizziness, or headaches. The patient reports no depression, no sleep disturbance, feeling safe in a relationship and no alcohol abuse. Patient reports on fatigue. Reports no runny nose or sinus pressure. No itching, no hives, and no frequent sneezing. MEDICATIONS: Include Plavix 75 every day, carvedilol 12.5 b.i.d., pravastatin 40 every day, Entresto , aspirin 81 every day, Alsea 7.5/325 q.4 hours p.r.n., Bumex 2 mg daily, Lasix 40 mg every day, metolazone 2.5 as needed, insulin per scale. PHYSICAL EXAMINATION: GENERAL: Well developed, well nourished, appears stated age, in no acute distress. VITAL SIGNS: Blood pressure 111/63, pulse 93 and regular. CONSULT REPORT [id number] LISAGabrielaTOAN HEENT: Normocephalic, atraumatic. NECK: No JVD or bruit. HEART: Regular. LUNGS: Good air excursion. ABDOMEN: Soft, nontender. EXTREMITIES: Pulses 2+. No edema. NEUROLOGIC: Grossly intact. DIAGNOSTIC DATA: EKG without acute change. IMPRESSION: Chest pain. Cardiac enzymes negative at this point. At this point in time, we will follow him expectantly as an outpatient. No contraindication to discharge from my standpoint. TRANSINT:[id number] Voice Confirmation ID: [id number] DOCUMENT ID: [id number] SHITAL ARREOLA MD at 0819 CC: [id number] DICTATION DATE: 01/10/20 1105 ASSISTANT COUNTY ATTORNEY: 01/10/20 2252 DIS IN 01/11/20 [facility] [address] [place] [address]
== END 2020-01-11 14:20 | disposition home or self-care (01) ==
LOC: D.ER 22:55 → D.M2 01-10 00:35 → OBSVTIME 01-10 00:35 → D.M2 01-10 00:35
PROVIDERS: Family Medicine; ADMIT Internal Medicine Nephrology; ATTEND Internal Medicine Nephrology
DX: R07.9 Chest pain, unspecified (principal); I13.0 Hypertensive heart and chronic kidney disease with heart failure and stage 1 through stage 4 chronic kidney disease, or unspecified chronic kidney disease; I50.22 Chronic systolic (congestive) heart failure; N18.9 Chronic kidney disease, unspecified; E66.01 Morbid (severe) obesity due to excess calories; I25.10 Atherosclerotic heart disease of native coronary artery without angina pectoris; E11.9 Type 2 diabetes mellitus without complications; E78.5 Hyperlipidemia, unspecified; E83.42 Hypomagnesemia; E87.6 Hypokalemia; I42.9 Cardiomyopathy, unspecified; D50.9 Iron deficiency anemia, unspecified; N17.9 Acute kidney failure, unspecified

== ENCOUNTER 2020-08-12 11:12 | Inpatient (IN) | payer MEDICARE ==
[~2020-08-12] VITALS: Ht 180.3 cm; Wt 152.0 kg
[2020-08-12] VITALS (7 sets, daily range): BP systolic 97–118; BP diastolic 56–71
--- NOTE | ~2020-08-12 | HEMODYNAMI ---
PATIENT:TOAN LOZADA MEDICAL RECORD: [id number] : 69 LOC[id number] ADMISSION DATE: 08/12/20 Generatedon:08/13/20209:54 Patient name: TOAN LOZADA Patient #: [id number] SSN: [id number] : 1965 Date of study: 08/13/2020 Page: Of Hemodynamic Procedure Report Patient Data Patient Demographics Procedure consent was obtained First Name: TOAN Gender: Male Last Name: NEVILLE : 1965 Middle Initial: L Age: 55 year(s) Patient #: [id number] Race: Black SSN: [id number] Additional ID: [id number] Contact details Address: [address] [place] [address] State: [place] [facility] [place] code: [address] Past Medical History Allergies Allergen Reaction Date Comments Reported Other allergy 07/27/2015 penicillin, tetracycline Other allergy 02/04/2017 PCN, Tetracycline Other allergy 05/24/2017 PCN, KEFLAX Other allergy 12/26/2018 PCN, Tetracyline Other allergy 08/13/2020 PCN, TETRACYCLINE Admission Admission Data Admission Date: 08/12/2020 Admission Time: 13:35 Room #: D.2119 Height (in.): 70.87 BSA: 2.62 (m2) Height (cm.): 180 BMI: 46.91 (kg/m2) Weight (lbs.): 335.1 Weight (kg.): 152 Lab Results Lab Result Date: 08/13/2020 Lab Result Time: 0:00 Biochemistry Name Units Result Min Max BUN mg/dl 81 --(----)-* 7 18 Creatinine mg/dl 3 --(----)-* 0.6 1.3 eGFR ml/min 28 *-(----)-- 90 120 NONAFRICAN CBC Name Units Result Min Max Hematocrit % 34.3 *-(----)-- 42 54 Hemoglobin g/dl 11 *-(----)-- 13.5 17.5 Procedure Procedure Types Cath Procedure Diagnostic Procedure [facility] w/Coron[facility] Procedure Description Procedure Date Procedure Date: 08/13/2020 Procedure Start Time: 9:41 Procedure End Time: 9:52 Procedure Staff Name Function Carlos Santos MD Performing Physician Francine Hicks RT Monitor Nguyen Spicer RT Scrub Kendell Nieves RN Nurse Procedure Data Cath Procedure Fluoroscopy Diagnostic fluoroscopy Total fluoroscopy Time: 1.7 time: 1.7 min min Diagnostic fluoroscopy Total fluoroscopy dose: 852 dose: 852 mGy mGy Contrast Material Contrast Material Type Amount (ml) Isovue 300 62 Entry Location Entry Primary Successful Side Size Upsize Upsize Entry Closure Succes sful Closure Location (Fr) 1 (Fr) 2 (Fr) Remarks Device Remarks Femoral Right 5 Fr Exoseal artery Estimated blood loss: 5 ml Diagnostic catheters Device Type Used For End Catheter Placement MULTIPACK JL 4.0 5Fr Left Coronary catheter Angiography MULTIPACK 3DRC 5Fr Right Coronary catheter Angiography MULTIPACK Pigtail 5 Fr LV Angiography catheter Procedure Complications No complications Procedure Medications Medication Administration Route Dosage 0.9% NaCl I.V. 100 ml/hr Oxygen etCO2 Nasal cannula 2 l/min Heparin Flush Bag added to field 2 bags (1000units/500ml NS) Lidocaine 2% added to field 20 Versed I.V. 1 mg Fentanyl I.V. 50 mcg Versed I.V. 1 mg Fentanyl I.V. 50 mcg Hemodynamics Rest BSA: 2.62 (m2) O2 Consumption: Estimated: 342.57 (ml/min) O2 Consumption indexed : Estimated:130.75 (ml/min/m) Heart Rate: 101 (bpm) Pressure Samples Time Site Value (mmHg) Purpose Heart Use Rate(bpm) 9:47 LV 95/21,26 Snapshot 97 9:48 AO 95/95(85) Pullback 98 Gradients Valve Time Site Site 2 Mean SEP/DFP Peak To Heart Use 1 (mmHg) (sec/min) Peak Rate (mmHg) (bpm) Aortic 9:48 LV AO 5 25 98 95/95(85) Calculations Valve P-P Mean Valve Index Valve Source Name Gradient Area Flow (cm2) Aortic 5 5 Snapshots Pre Cath Intra NCS Post Cath Vital Signs Time Heart Resp SPO2 etCO2 NIBP Rhythm Pain Sedation Rate (ipm) (%) (mmHg) (mmHg) Status Level (bpm) 9:37:04 98 25 99 41.4 120/74(85) NSR 0 (11) 10(A) , No pain 9:41:28 98 25 100 23.3 117/71(85) NSR 0 (11) 10(A) , No pain 9:45:53 98 25 99 12.8 118/71(90) NSR 0 (11) 10(A) , No pain 9:50:17 97 27 99 0 116/73(83) NSR 0 (11) 10(A) , No pain Medications Time Medication Route Dose Verified Delivered Reason Notes Effe ctiveness by by 9:36:02 0.9% NaCl I.V. 100 Kendell Kendell for ml/hr Lorigan Lorigan arrhythmia RN RN 9:36:13 Oxygen etCO2 2 Kendell Kendell for low 02 Nasal l/min Lorigan Lorigan sats cannula RN RN 9:36:25 Heparin Flush added 2 Kendell Kendell used for Bag to bags Lorigan Lorigan procedure (1000units/500ml field RN RN NS) 9:36:36 Lidocaine 2% added 20ml Kendell Kendell for local to vial Lorigan Lorigan anesthetic field RN RN 9:42:03 Versed I.V. 1 mg Kendell Kendell for Lorigan Lorigan sedation RN RN 9:42:12 Fentanyl I.V. 50 Kendell Kendell for mcg Lorigan Lorigan sedation RN RN 9:47:54 Versed I.V. 1 mg Kendell Kendell for Lorigan Lorigan sedation RN RN 9:48:00 Fentanyl I.V. 50 Kendell Kendell for mcg Lorigan Lorigan sedation RN patient accounting representative Log Time Note 9:05:53 Informed consent obtained and on chart 9:08:17 Procedure Status Urgent Heart Cath (IP). 9:08:18 Time tracking: Regular hours (M-F 7:00 - 5:00) 9:08:21 Plan of Care:Hemodynamics will remain stable., Cardiac rhythm will remain stable., Comfort level will be maintained., Respiratory function will remain adequate., Patient/ family verbilizes understanding of procedure., Procedure tolerated without complication., Recovers from procedure without complications.. 9:08:40 H&P Date Dictated: 08/13/2020 ER History on chart.. 9:08:50 Patient allergic to Other allergyPCN, TETRACYCLINE 9::59 Lab Result : BUN 81 mg/dl 9:: Lab Result : Creatinine 3 mg/dl 9::59 Lab Result : eGFR NONAFRICAN 28 ml/min 9::59 Lab Result : Hematocrit 34.3 % 9::59 Lab Result : Hemoglobin 11 g/dl 9:11:39 Kendell Nieves RN sent for patient. Start room use. 9:15:47 Patient Height : 70.87 inches 9:15:52 Patient Weight : 335.1 lbs 9:16:58 Patient diabetic? Yes. 9:21:57 Lab results completed and on chart. 9:22:03 Stress Test: no; N/A ? 9:22:08 Risk of Mortality: 0.2 9:22:13 Risk of blood transfusion: 8.1 9:22:19 Risk of DAVID: 14.2 9:35:48 Vital chart was started 9:36:02 0.9% NaCl 100 ml/hr I.V. was administered by Kendell Nieves RN; for arrhythmia; Verbal order read back and verified. 9:36:13 Oxygen 2 l/min etCO2 Nasal cannula was administered by Kendell Nieves RN; for low 02 sats; Verbal order read back and verified. 9:36:25 Heparin Flush Bag (1000units/500ml NS) 2 bags added to field was administered by Kednell Nieves RN; used for procedure; Verbal order read back and verified. 9:36:28 Patient received from Med II to CCL 1 Alert and oriented. Tansferred to table in Supine position. 9:36:36 Lidocaine 2% 20ml vial added to field was administered by Kendell Nieves RN; for local anesthetic; Verbal order read back and verified. 9:36:36 Warm blankets applied, and anastasiya hugger turned on for patient comfort. 9:36:37 Correct patient and procedure confirmed by team. 9:36:38 ECG and BP/O2 sat monitors applied to patient. 9:36:40 Baseline sample Acquired. 9:36:53 Rhythm: sinus tachycardia 9:36:57 Full Disclosure recording started 9:36:58 9:37:00 Pre-procedure instructions explained to patient. 9:37:00 Pre-op teaching completed and patient verbalized understanding. 9:37:02 Family unavailable. 9:37:05 Patient NPO since Midnight. 9:37:11 Is the patient allergic to Iodine/contrast media? No. 9:37:14 Was the patient premedicated? Yes 9:37:16 Is patient on blood thinner?Yes 9:37:21 ACC The patient was administered the following blood thiners within the last 24 hours: ACCPlavix 9:37:26 If diabetic: On Metformin? No 9:37:29 ----Pre-sedation anethsthesia assessment.---- 9:37:32 Previous problem with sedation/anesthesia? No ? 9:37:35 Snore? Yes 9:37:37 Sleep apnea? Yes 9:37:41 Deviated septum? No 9:37:44 Opens mouth fully? Yes 9:37:46 Sticks out tongue? Yes 9:38:10 Airway obstruction? Yes SLEEP APNEA/SLEEPS WITH CPAP 9:38:24 Dentures? Yes IN TIGHT 9:38:36 Pre procedure: right dorsailis pedis pulse 1+ Palpable, but thready & weak; easily obliterated 9:38:45 IV patent on arrival in left forearm with 0.9% NaCl at O. 9:38:53 Right groin area was prepped with chlora-prep and draped in sterile fashion 9:38:57 Alarms reviewed by R. N. 9:38:58 Sharps counted by scrub and verified by R.N. 9:38:59 Physician arrived 9:39:01 --------ALL STOP TIME OUT------ 9:39:02 Final Timeout: patient, procedure, and site verified with staff and physician. All members of the team are in agreement. 9:39:03 Right groin site verified by team. 9:39:09 Fire Safety Assessment: A--An alcohol-based skin anteseptic being used preoperatively., C--Open oxygen or nitrous oxide is being used., D--An ESU, laser, or fiber-optic light is being used. 9:39:13 Physical assessment completed. ASA score P 2 - A patient with mild systemic disease as per Carlos Santos MD. 9:39:23 2) 60-89 Mildly reduced kidney function, and other findings (as for stage 1) point to kidney disease. 9:39:41 Maximum allowable contrast dose (3.7 X eGFR X 0.75)73 ml. 9:39:51 Sedation plan: IV Moderate Sedation Medication:Versed, Fentanyl 9:39:58 Use device set Femoral Dx 9:39:59 ACIST Syringe (96262) opened to sterile field. 9:40:00 Bag Decanter (2002S) opened to sterile field. 9:40:01 Medline Cath Pack ([id number]) opened to sterile field. 9:40:02 ACIST Hand Control (75769) opened to sterile field. 9:40:04 ACIST Manifold (64783) opened to sterile field. 9:40:04 DIAGNOSTIC Multipack 5Fr catheter set ([id number]) opened to sterile field. 9:40:05 Tegaderm 4 x 4 (1626W) opened to sterile field. 9:40:07 SHEATH 5FR Minot (TDT961) opened to sterile field. 9:40:08 EMERALD Guide Wire (359-931) opened to sterile field. 9:41:41 Procedure started. 9:41:46 Local anesthetic to right femoral artery with Lidocaine 2% by Carlos Santos MD.INITIAL ACCESS ONLY 9:42:03 Versed 1 mg I.V. was administered by Kendell Nieves RN; for sedation; Verbal order read back and verified. 9:42:11 Zero performed for pressure channel P1 9:42:12 Fentanyl 50 mcg I.V. was administered by Kendell Nieves RN; for sedation; Verbal order read back and verified. 9:42:32 A 5 Fr sheath was inserted into the Right Femoral artery 9:42:43 A MULTIPACK JL 4.0 5Fr catheter was advanced over the wire and used for Left Coronary Angiography. 9:44:17 LCA angiography performed. 9:44:21 Injector settings: Ml/sec: 3, Volume: 6, 9:44:37 Catheter removed. 9:44:45 A MULTIPACK 3DRC 5Fr catheter was advanced over the wire and used for Right Coronary Angiography. 9:45:47 RCA angiography performed. 9:45:51 Injector settings: Ml/sec: 3, Volume: 6, 9:45:55 Catheter removed. 9:46:02 A MULTIPACK Pigtail 5 Fr catheter was advanced over the wire and used for LV Angiography. 9:46:42 Injector settings: Ml/sec: 5, Volume: 15, 9:46:45 LV gram done using OLVERA 9:47:54 Versed 1 mg I.V. was administered by Kendell Nieves RN; for sedation; Verbal order read back and verified. 9:48:00 Fentanyl 50 mcg I.V. was administered by Kendell Nieves RN; for sedation; Verbal order read back and verified. 9:48:18 EF : 15 % 9:48:20 LV hemodynamics recorded. 9:48:22 Catheter removed. 9:48:23 Proceeding to intervention. 9:48:53 EXOSEAL 5Fr (EX500) opened to sterile field. 9:49:30 Sheath removed intact; hemostasis achieved with Exoseal to the Right Femoral artery. 9:49:33 Procedure ended.(Physican Out) 9:49:56 Fluoroscopy time 01.70 minutes. 9:50:02 Fluoroscopy dose: 852 mGy 9:50:02 Flurop Dose total: 852 9:50:14 Dose Area Product 78657 mGy/cm. 9:50:41 Contrast amount:Isovue 300 62ml. 9:50:44 Maximum allowable dose exceeded? No. 9:50:45 Sharps counted by scrub and verified by R.N. 9:50:55 Post-op/insertion site Right Femoral artery dressed using a 4 x 4 and Tegaderm. 9:51:00 Post right femoral artery:stable 9:51:05 Post-procedure physical assessment completed. ASA score P 2 - A patient with mild systemic disease as per Carlos Santos MD. 9:51:10 Post procedure rhythm: unchanged. 9:51:14 Estimated blood loss: 5 ml 9:51:16 Post procedure instruction explained to patient.Patient verbalizes understanding. 9:51:17 Patient needs reinforcement of post procedure teaching. 9:51:39 Procedure and supply charges have been captured, reviewed, submitted and are correct. 9:52:07 Procedure Complication : No complications 9:52:10 Vital chart was stopped 9:52:14 [facility] Findings: MVD- manage w/ optimal medication therapy 9:52:20 See physician's report for complete and final results. 9:52:22 Report given to [facility]. 9:52:27 Patient transfered to [facility] with Bed. 9:52:31 Procedure ended. 9:52:31 Full Disclosure recording stopped 9:52:57 ACC-PCI Only Patient was given prescriptions, or instructed by Carlos Santos MD to start/continue the following medications upon discharge: Plavix 9:52:59 End room use (Document Last) Device Usage Item Name Manufacture Quantity Catalog Hospital Part Current Minimal L ot# / Number Charge Number Stock Stock Serial# Code ACIST Acist 1 08677 768153 652678 726759 20 Syringe Medical (80832) Systems Inc Bag Microtek 1 2001S 839241 31960 267141 5 Decanter Medical Inc. () Medline Medline 1 [id number] 415714 73013 298550 5 Cath Pack ([id number]) ACIST Hand Acist 1 26347 352505 773934 515662 5 Control Medical (44857) Systems Inc ACIST Acist 1 77013 611404 712830 413989 5 Manifold Medical (78608) Systems Inc DIAGNOSTIC Cardinal 1 SK2320 820627 44715 555819 30 Multipack Health 5Fr catheter set (CK4426) Tegaderm 4 3M 1 1626W 235051 190023 773471 5 x 4 (1626W) SHEATH 5FR Terumo 1 LRB243 255413 112574 276104 5 Minot (MLO905) EMERALD Cardinal 1 502-455 514003 905818 104814 5 Guide Wire Health (502-536) MULTIPACK Cardinal 1 709488 5 JL 4.0 5Fr Health catheter MULTIPACK Cardinal 1 647841 5 3DRC 5Fr Health catheter MULTIPACK Cardinal 1 684406 5 Pigtail 5 Health Fr catheter EXOSEAL 5Fr Cardinal 1 EX500 496814 071069 760527 10 (EX500) Health Signature Audit Wall Stage Time Signature Unsigned Intra-Procedure 08/13/2020 Francine 9:53:27 AM Fabiola RT(R) (CV) Intra-Procedure 08/13/2020 Kendell 9:54:03 AM Lizbeth APARICIO Intra-Procedure 08/13/2020 Carlos Costa 9:54:45 AM Guerrero [facility] [address] [place] [address]
[~2020-08-12 11:12] MED LIST changes: +PROTONIX40 MG PO
[2020-08-12 11:40] LABS: BASOPHILS 0.2 % (0-2); EOSINOPHILS 1.9 % (0-7); HEMATOCRIT 37.3 % (42.0-54.0); HEMOGLOBIN 12.1 g/dL (13.5-17.5); IMMATURE GRANULOCYTES 0.4 % (0-5); LYMPHOCYTES 26.3 % (15-50); MCH 24.5 pg (26.0-34.0); MCHC 32.4 g/dL (31.0-37.0); MCV 75.7 fL (80.0-100.0); MEAN PLATELET VOLUME 9.5 fL (7.4-10.4); MONOCYTES 10.8 % (2-11); NEUTROPHILS 60.4 % (40-80); PLATELET COUNT 332 10x3/uL (130-400); RBC 4.93 10x6/uL (4.20-6.10); RDW 17.5 % (11.5-14.5); WBC 9.8 10x3/uL (4.8-10.8)
[2020-08-12 11:49] LABS: CALC OSMOLALITY 299 mosm/kg (275-300); CALCIUM 9.5 mg/dL (8.5-10.1); CHLORIDE - SERUM 92 mmol/L (98-107); CREATININE - SERUM 3.2 mg/dL (0.6-1.3); GLUCOSE 244 mg/dL (74-106); POTASSIUM - SERUM 3.4 mmol/L (3.5-5.1); SODIUM 133 mmol/L (136-145); UREA NITROGEN 85 mg/dL (7-18); eGFR NON AFRICAN AMERICAN 22 mL/min (90-120)
[2020-08-12 11:50] LABS: APTT 32.6 SECONDS (22.8-39.4); INR 1.01 (0.85-1.17); PROTIME 13.3 SECONDS (11.6-15.0)
[2020-08-12 12:02] LABS: ALBUMIN 3.6 g/dL (3.4-5.0); ALKALINE PHOSPHATASE 142 U/L (30-120); ALT (SGPT) 30 U/L (10-68); BILIRUBIN - TOTAL 0.24 mg/dL (0.2-1.3); CKMB 7.2 U/L (0.0-3.6); PROTEIN - SERUM 8.4 g/dL (6.4-8.2); TROPONIN-I < 0.017 ng/mL (0.000-0.060)
[2020-08-12 12:03] LABS: CREATINE KINASE 1363 UL (21-232)
--- NOTE | 2020-08-12 13:32 | NUR ---
NASAL SWAB COLLECTED. LABELED AT BS AND SENT TO LAB
--- NOTE | 2020-08-12 15:03 | NUR ---
C/O MENA. MED PER PRN ORDERS
[2020-08-12 15:32] LABS: CKMB 7.3 U/L (0.0-3.6); TROPONIN-I 0.046 ng/mL (0.000-0.060)
[2020-08-12 15:33] LABS: CREATINE KINASE 1495 UL (21-232)
--- NOTE | 2020-08-12 16:45 | NUR ---
FSBS= 156 MG/DL
--- NOTE | 2020-08-12 16:56 | NUR ---
NURSE UNAVAILABLE WILL CALL BACK IN 5 MINUTES
--- NOTE | 2020-08-12 17:17 | NUR ---
RECEIVE REPORT FROM ALESSANDRA LUGO. AWAITING PATIENT ARRIVAL.
--- NOTE | 2020-08-12 17:17 | NUR ---
REPORT TO ALESSANDRA PALACIO
[2020-08-12] MEDS ORDERED: ULORIC40 MG PO (17:59)
[2020-08-12 19:58] LABS: CKMB 7.4 U/L (0.0-3.6); CREATINE KINASE 1479 UL (21-232); POTASSIUM - SERUM 3.8 mmol/L (3.5-5.1); TROPONIN-I 0.038 ng/mL (0.000-0.060)
--- NOTE | 2020-08-12 20:00 | NUR ---
INITIAL ROUNDS AND ASSESSMENT COMPLETED. PT RESTING IN BED. NO DISTRESS. CALL LIGHT IN REACH. CPOC.
[2020-08-13] VITALS (7 sets, daily range): BP systolic 95–109; BP diastolic 50–68; Ht 180.3 cm; Wt 152.0 kg
[2020-08-13 00:40] LABS: HEMATOCRIT 34.3 % (42.0-54.0); LYMPHOCYTES 32.3 % (15-50); MCH 24.6 pg (26.0-34.0); MCHC 32.1 g/dL (31.0-37.0); MCV 76.6 fL (80.0-100.0); MEAN PLATELET VOLUME 8.9 fL (7.4-10.4); NEUTROPHILS 55.2 % (40-80); PLATELET COUNT 322 10x3/uL (130-400); RBC 4.48 10x6/uL (4.20-6.10); RDW 17.8 % (11.5-14.5); WBC 7.9 10x3/uL (4.8-10.8)
[2020-08-13 01:03] LABS: ALBUMIN 3.2 g/dL (3.4-5.0); ANION GAP 10.4 mmol/L (8-16); BILIRUBIN - TOTAL 0.32 mg/dL (0.2-1.3); CALCIUM 8.7 mg/dL (8.5-10.1); MAGNESIUM - SERUM 1.9 mg/dL (1.8-2.4); PHOSPHOROUS 5.5 mg/dL (2.5-4.9); POTASSIUM - SERUM 3.4 mmol/L (3.5-5.1); PROTEIN - SERUM 7.5 g/dL (6.4-8.2)
[2020-08-13 01:32] LABS: CKMB 6.9 U/L (0.0-3.6); TROPONIN-I 0.033 ng/mL (0.000-0.060)
[2020-08-13 01:34] LABS: CREATINE KINASE 1444 UL (21-232)
--- NOTE | 2020-08-13 06:35 | NUR ---
NO CHANGE FROM INITIAL SHIFT ASSESSMENT. CONTINUE PLAN OF CARE. CALL LIGHT IN REACH. BED LOW AND SR UP X 2. REPORT TO ONCOMING SHIFT.
--- NOTE | 2020-08-13 07:31 | NUR ---
PT RESTING COMFORTABLY IN BED, DENIES ANY NEEDS AT THIS TIME. NPO UNTIL SEEN BY CARDIOLOGY. CALL LIGHT IN REACH, NAD NOTED, WILL CONTINUE PLAN OF CARE.
--- NOTE | 2020-08-13 09:30 | NUR ---
PRE-OP MEDS GIVEN AND PT TAKEN TO REAL ESTATE CLOSER.
[2020-08-13 09:32] LABS: CHOL - HDL RATIO 3.9 ratio (2.3-4.9); LDL-HDL RATIO 1.1 ratio (1.5-3.5)
--- NOTE | 2020-08-13 10:11 | NUR ---
RECEIVED PT BACK TO ROOM 2118. PT DROWSY BUT EASILY AROUSES TO VOICE, PLACED PT ON 2L NC. RT GROIN DRESSING CDI, NO S/S OF BLEEDING OR HEMATOMA. VITAL SIGNS STABLE, PLACED ON FREQUENT VITAL SIGNS, PT TO LAY FLAT FOR 2HRS. PT DENIES ANY NEEDS AT THIS TIME. CALL LIGHT IN REACH.
--- NOTE | 2020-08-13 10:47 | NUR ---
NO CHANGES TO RT GROIN FROM PREVIOUS ASSESSMENT. PT RESTING COMFORTABLY IN BED.
--- NOTE | 2020-08-13 11:10 | NUR ---
BLOOD SUGAR OF 168, 4UNITS GIVEN PER S/S. PT RESTING COMFORTABLY IN BED, DENIES ANY NEEDS AT THIS TIME.
--- NOTE | 2020-08-13 16:39 | NUR ---
BLOOD SUGAR OF 266, 10UNITS OF INSULIN GIVEN PER S/S.
--- NOTE | 2020-08-13 20:18 | NUR ---
INITIAL REPORT AND ROUNDS COMPLETED. SEE ASSESSMENTS. PT RESTING IN BED WITH NO DISTRESS. CALL LIGHT IN REACH. CPOC.
--- NOTE | 2020-08-13 23:50 | NUR ---
URINE SPECIMEN COLLECTED AND SENT TO LAB.
[2020-08-14 00:26] LABS: UDS - AMPHET NEGATIVE QUAL (NEGATIVE); UDS - BARB NEGATIVE QUAL (NEGATIVE); UDS - BENZO POSITIVE QUAL (NEGATIVE); UDS - COCAINE NEGATIVE QUAL (NEGATIVE); UDS - OPIATE POSITIVE QUAL (NEGATIVE); UDS - PCP NEGATIVE QUAL (NEGATIVE); UDS - THC NEGATIVE QUAL (NEGATIVE)
[2020-08-14 01:49] VITALS: BP 74/26
[2020-08-14 05:39] VITALS: BP 103/53
--- NOTE | 2020-08-14 07:11 | NUR ---
REPORT TO ONCOMING NURSE. PT RESTING WITH NO DISTRESS. NO CHANGE FROM INITIAL SHIFT ASSESSMENT. CPOC. CALL LIGHT IN REACH.
[2020-08-14 07:13] LABS: BASOPHILS 0.3 % (0-2); HEMATOCRIT 33.2 % (42.0-54.0); HEMOGLOBIN 10.6 g/dL (13.5-17.5); IMMATURE GRANULOCYTES 0.2 % (0-5); LYMPHOCYTES 33.9 % (15-50); MCH 24.6 pg (26.0-34.0); MCHC 31.9 g/dL (31.0-37.0); MEAN PLATELET VOLUME 9.6 fL (7.4-10.4); MONOCYTES 9.7 % (2-11); NEUTROPHILS 52.9 % (40-80); PLATELET COUNT 319 10x3/uL (130-400); RBC 4.31 10x6/uL (4.20-6.10); RDW 17.8 % (11.5-14.5); WBC 8.7 10x3/uL (4.8-10.8)
[2020-08-14 07:36] LABS: ALBUMIN 3.2 g/dL (3.4-5.0); ANION GAP 11.5 mmol/L (8-16); BILIRUBIN - TOTAL 0.41 mg/dL (0.2-1.3); CALCIUM 8.9 mg/dL (8.5-10.1); CARBON DIOXIDE 32.4 mmol/L (21.0-32.0); CREATININE - SERUM 3.7 mg/dL (0.6-1.3); POTASSIUM - SERUM 3.9 mmol/L (3.5-5.1); PROTEIN - SERUM 7.5 g/dL (6.4-8.2)
[2020-08-14 08:18] VITALS: BP 92/53
--- NOTE | 2020-08-14 08:29 | NUR ---
AM MEDS GIVEN AT THIS TIME. PT RESTING COMFORTABLY IN BED, RT GROIN DRESSING CDI. PT DENIES ANY NEEDS AT THIS TIME. CALL LIGHT IN REACH, NAD NOTED, WILL CONTINUE PLAN OF CARE.
[2020-08-14 11:25] VITALS: BP 111/53
[2020-08-14 17:41] VITALS: BP 117/63
[2020-08-14 21:30] VITALS: BP 149/53
[2020-08-15 04:35] VITALS: BP 97/46
[2020-08-15 07:44] LABS: ALBUMIN 3.2 g/dL (3.4-5.0); ANION GAP 12.3 mmol/L (8-16); BILIRUBIN - TOTAL 0.3 mg/dL (0.2-1.3); CALCIUM 9.2 mg/dL (8.5-10.1); CARBON DIOXIDE 30.6 mmol/L (21.0-32.0); CREATININE - SERUM 3.5 mg/dL (0.6-1.3); POTASSIUM - SERUM 3.9 mmol/L (3.5-5.1); PROTEIN - SERUM 7.6 g/dL (6.4-8.2)
[2020-08-15 08:05] LABS: BASOPHILS 0.4 % (0-2); EOSINOPHILS 1.9 % (0-7); HEMATOCRIT 33.8 % (42.0-54.0); HEMOGLOBIN 10.8 g/dL (13.5-17.5); IMMATURE GRANULOCYTES 0.6 % (0-5); LYMPHOCYTES 28.8 % (15-50); MCH 24.2 pg (26.0-34.0); MCV 75.8 fL (80.0-100.0); MEAN PLATELET VOLUME 9.7 fL (7.4-10.4); MONOCYTES 12.6 % (2-11); NEUTROPHILS 55.7 % (40-80); PLATELET COUNT 335 10x3/uL (130-400); RBC 4.46 10x6/uL (4.20-6.10); RDW 17.6 % (11.5-14.5)
[2020-08-15 09:12] VITALS: BP 108/66
--- NOTE | 2020-08-15 11:04 | NUR ---
BLOOD SUGAR OF 283, 10UNITS OF INSULIN GIVEN PER S/S. PT RESTING COMFORTABLY IN BED, DENIES ANY NEEDS AT THIS TIME. CALL LIGHT IN REACH,NAD NOTED, WILL CONTINUE TO MONITOR.
[2020-08-15 12:00] VITALS: BP 92/60
--- NOTE | 2020-08-15 13:44 | NUR ---
PROVIDED VERBAL AND WRITTEN DISCHARGE TEACHING TO PT WHO VERBALIZED UNDESTANDING REGARDING TEACHING. D/C LT HAND IV WITH CATHETER TIP INTACT. HEART MONITOR REMOVED AND TAKEN TO FOREIGN CORRESPONDENT.
--- NOTE | 2020-08-15 14:26 | NUR ---
PT LEFT UNIT VIA WHEELCHAIR WITH ALL BELONGINGS, NAD NOTED,
--- NOTE | 2020-08-15 17:54 | MORECARE ---
CASE MANAGEMENT DISCHARGE SUMMARY PATIENT: CAS LOZADA UNIT: [id number] ADM DATE: 08/14/20 AGE: 55 : [birth year] SEX: M ROOM/BED: D.6049 AUTHOR: LIAM RYAN PHYSICIAN: REFERRING PHYSICIAN: MARY LIANG MD DATE OF SERVICE: 08/15/20 Discharge Plan Patient Name: CAS [facility]ZADA [facility] [facility] 1965 Planned Disposition: Home Anticipated Discharge Date: 08/15/20 Discharge Date: 08/15/2020 Expected LOS: 1 Initial Reviewer: [email or web address] Initial Review Date: 08/12/2020 Generated: 08/15/20 6:53 pm Coverage Notice Reviewer: [email or web address] Aj Rubio Notice Issued Date-Time: 08/13/2020 13:29 Notice Type: Medicare Outpatient Observation Notice Notice Delivered To: Patient Relationship to Patient: Self Peritoneal Dialysis Registered Nurse Name: Cas Lozada Delivery Method: HAND - Hand Delivered Samina Days: Prior Verbal Notification: Recipient Understood Notice: Yes Recipient Signature: Yes Med Rec Note Co-signed by Attending: Coverage Notice Comment: CONTI signed/given to patient. Original to chart. Patient Name: CAS LOZADA Page [phone] at 1754 All edits/amendments must be made on the electronic document DICTATION DATE: 08/15/201752 SUPERVISOR ADULT EDUCATION: BEAU 08/15/201752 RPT#: [id number] DC DATE:08/15/20 STATUS: DIS IN [facility] [address] [place] [address] END OF REPORT
--- NOTE | 2020-08-16 08:59 | OP ---
PATIENT NAME: TOAN LOZADA MEDICAL RECORD: [id number] :69 LOCATION:D.M2 D.2119 ADMISSION DATE:08/14/20 SURGEON: SHITAL ARREOLA MD DATE OF OPERATION: 08/13/2020 PROCEDURE: Left heart catheter, selective coronary angiography, right femoral artery approach. CATHETERS: A 5-Norwegian sheath, 5/4 left and right Joe, 5/4 pig. The procedure was well tolerated. The patient returned to pineda, sheath removed. ExoSeal device placed. FINDINGS: Left ventriculography, severe global hypokinesis with basically anterior apical akinesis, overall LV function reduced 15% to 20%. LVEDP is elevated at 35-40 mmHg. CORONARY ANATOMY: LEFT MAIN: Left main is free of disease. LAD: Totally occluded. There are faint collaterals both left to left and right to left filling the distal apex. CIRCUMFLEX: Free of disease. RIGHT CORONARY ARTERY: Dominant artery, gives rise to PDA, free of disease, also supplying collaterals to LAD. IMPRESSION AND PLAN: Severe ischemic cardiomyopathy. At this point in time, we will add long-acting nitrates and hydralazine to hopefully improve left ventricular function. Further recommendations based on clinical course. TRANSINT:[id number] Voice Confirmation ID: [id number] DOCUMENT ID: [id number] SHITAL ARREOLA MD at 0859 CC: [id number] DICTATION DATE: 08/13/20 0957 PREVENTION COORDINATOR: 08/13/20 1334 DIS IN 08/15/20 [facility] [address] [place] [address]
--- NOTE | 2020-08-16 08:59 | CN ---
PATIENT NAME:CAS LOZADA MEDICAL RECORD: [id number] : 69 LOCATION:D. D.2119 ADMIT DATE: 08/14/20 ACCOUNT: [id number] CONSULTING PHYSICIAN: SHITAL ARREOLA MD REFERRING PHYSICIAN: MARY LIANG MD DATE OF CONSULTATION: 08/13/2020 HISTORY OF PRESENT ILLNESS: Cas Lozada is 55-year-old with a known history of coronary artery disease, status post multiple interventions to the LAD including laser atherectomy and medicated stent, bare metal stent, history of cardiomyopathy, admitted with chest pain, shortness of breath. Chest pain reminiscent of angina symptomatology been going on for some time; however, he has been having rest symptomatology with angina, latonya orthopnea, PND. We are asked to see him concerning his cardiovascular status. Additionally, has a history of chronic renal insufficiency. ALLERGIES: PENICILLIN, TETRACYCLINE. MEDICATIONS: Chronically include Plavix 75 every day, pravastatin 40 every day, carvedilol 12.5 every day, Entresto 25/26 one b.i.d., aspirin 81 every day, Baldwin 7.5/325 every day, Bumex 2 mg Saturday, Saturday and Saturday, metolazone 2.5 mg daily, insulin per scale. SOCIAL HISTORY: Nonsmoker, nondrinker. Easily able to take care of all his ADLs. No set exercise program. REVIEW OF SYSTEMS: The patient reports easy bruising but reports no swollen glands. The patient reports no fever, no night sweats, no significant weight gain, no significant weight loss. No significant exercise tolerance. The patient reports no dry eyes, no irritation, no vision change. Patient reports no difficulty hearing and no ear pain. Patient reports no frequent nose bleeds or nose and sinus problems. Patient reports on arm pain on exertion. No shortness of breath while lying down. No history of heart murmur. Patient reports no cough, no wheezing or coughing up blood. Patient reports no abdominal pain, no vomiting. Normal appetite. No diarrhea and not vomiting blood. No nausea and no constipation. Patient reports no incontinence. No difficulty urinating. No hematuria. No increased frequency. Patient reports no muscle aches. No weakness, no arthralgias, no back pain. No swelling of the extremities. Patient reports no abnormal mole, no jaundice, no rashes. Reports no loss of consciousness. No weakness and no numbness. No seizures, dizziness, or headaches. The patient reports no depression, no sleep disturbance, feeling safe in a relationship and no alcohol abuse. Patient reports on fatigue. Reports no runny nose or sinus pressure. No itching, no hives, and no frequent sneezing. PHYSICAL EXAMINATION: VITAL SIGNS: Blood pressure 104/66, pulse 93 and regular. HEENT: Normocephalic, atraumatic. NECK: No JVD or bruit. HEART: Regular. S3 gallop is noted. A II/ systolic ejection murmur. LUNGS: Fair air excursions. Decreased breath sounds at bases. ABDOMEN: Soft, nontender. EXTREMITIES: Pulses 2+ with no edema. DIAGNOSTIC DATA: EKG shows poor R-wave progression with probable old anterior. CONSULT REPORT [id number] CAS LOZADA IMPRESSION: Acute coronary syndrome, known cardiomyopathy and coronary artery disease. PLAN: Angiography, intervention based on the above. TRANSINT:[id number] Voice Confirmation ID: [id number] DOCUMENT ID: [id number] SHITAL ARREOLA MD at 0859 CC: [id number] DICTATION DATE: 08/13/2055 RADIOLOGY ADMINISTRATOR: 08/13/20 1305 DIS IN 08/15/20 [place] [id number] [place] [id number]
== END 2020-08-15 14:27 | disposition home or self-care (01) | DRG 287 ==
LOC: D.ER 11:12 → D.M2 13:35 → OBSVTIME 16:26 → D.M2 08-14 09:23
PROVIDERS: Family Medicine; Internal Medicine Interventional Cardiology; ADMIT Family Medicine Adult Medicine; ATTEND Family Medicine Adult Medicine
PROC: B2151ZZ Fluoroscopy of Left Heart using Low Osmolar Contrast (ICD-10-PCS; 2020-08-13)
PROC: 4A023N7 Measurement of Cardiac Sampling and Pressure, Left Heart, Percutaneous Approach (ICD-10-PCS; 2020-08-13)
PROC: B2111ZZ Fluoroscopy of Multiple Coronary Arteries using Low Osmolar Contrast (ICD-10-PCS; principal; 2020-08-13 09:11)
DX: I25.119 Atherosclerotic heart disease of native coronary artery with unspecified angina pectoris (principal); N17.9 Acute kidney failure, unspecified; E87.1 Hypo-osmolality and hyponatremia; I13.0 Hypertensive heart and chronic kidney disease with heart failure and stage 1 through stage 4 chronic kidney disease, or unspecified chronic kidney disease; I50.22 Chronic systolic (congestive) heart failure; Z68.42 Body mass index [BMI] 45.0-49.9, adult; E11.65 Type 2 diabetes mellitus with hyperglycemia; N18.30 Chronic kidney disease, stage 3 unspecified; E87.6 Hypokalemia; E78.5 Hyperlipidemia, unspecified; K21.9 Gastro-esophageal reflux disease without esophagitis; F12.90 Cannabis use, unspecified, uncomplicated; E66.01 Morbid (severe) obesity due to excess calories; K75.9 Inflammatory liver disease, unspecified; I25.5 Ischemic cardiomyopathy; Z87.891 Personal history of nicotine dependence

== ENCOUNTER 2021-02-22 16:12 | Observation (INO) | payer MEDICARE, MEDICAID ==
[~2021-02-22] VITALS: Ht 180.3 cm; Wt 149.1 kg
[~2021-02-22 16:12] MED LIST changes: +K-DUR20 MEQ PO; +TOUJEO SOL300 UNIT/1; +ULORIC40 MG PO
[2021-02-22 17:01] VITALS: BMI 45.8
--- NOTE | 2021-02-22 17:15 | NUR ---
PT ARRIVED TO FLOOR. ADM ASSESSMENT AND HX DONE TO THE BEST OF MY ABILITY, PT IS SCREAMING IN PAIN AND HARD TO UNDERSTAND HIS SPEECH AT TIMES. WILL CONT TO MONITOR.
[2021-02-22 18:03] VITALS: BP 107/74
[2021-02-22 18:32] LABS: BASOPHILS 0.2 % (0-2); EOSINOPHILS 0.2 % (0-7); HEMATOCRIT 35.4 % (42.0-54.0); HEMOGLOBIN 11.2 g/dL (13.5-17.5); IMMATURE GRANULOCYTES 0.3 % (0-5); LYMPHOCYTES 21.5 % (15-50); MCH 23.2 pg (26.0-34.0); MCHC 31.6 g/dL (31.0-37.0); MCV 73.3 fL (80.0-100.0); MEAN PLATELET VOLUME 9.5 fL (7.4-10.4); MONOCYTES 10.7 % (2-11); NEUTROPHIL ABS# 8.44 10x3/uL (1.78-5.38); NEUTROPHILS 67.1 % (40-80); PLATELET COUNT 417 10x3/uL (130-400); RBC 4.83 10x6/uL (4.20-6.10); WBC 12.6 10x3/uL (4.8-10.8)
[2021-02-22 18:55] LABS: ALBUMIN 3.6 g/dL (3.4-5.0); ANION GAP 11.8 mmol/L (8-16); BILIRUBIN - TOTAL 0.45 mg/dL (0.2-1.3); CALCIUM 9.3 mg/dL (8.5-10.1); CARBON DIOXIDE 33.7 mmol/L (21.0-32.0); CREATININE - SERUM 2.3 mg/dL (0.6-1.3); POTASSIUM - SERUM 3.5 mmol/L (3.5-5.1); PROTEIN - SERUM 8.6 g/dL (6.4-8.2)
--- NOTE | 2021-02-22 19:45 | NUR ---
PT CONTINUING TO YELL OUT IN PAIN HOLDING ABD. STATES IT GOES ACROSS THE TOP OF ABD IN THE EPIGASTRIC REGION. GAVE PT GREG CT HERE AT THIS TIME TO GET PT
[2021-02-22 20:00] VITALS: BP 132/81
[2021-02-22 20:05] LABS: INR 1.08 (0.85-1.17)
--- NOTE | 2021-02-22 20:30 | NUR ---
PT BACK FROM CT AND MOANING LOUDLY AND YELLING OUT. STATES PAIN 08/20. CALLED [facility], ORDER RECIEVED FOR GI COCKTAIL AND MORPHINE Q4P. GAVE BOTH ORDERED. DENIES OTHER NEEDS AT THIS TIME. CL IN REACH
--- NOTE | 2021-02-22 21:00 | NUR ---
PLACED HAT IN TOILET AND INFORMED PT WE NEEDED BOTH STOOL AND URINE SAMPLE. PT VERBALIZED UNDESTANDING
[2021-02-23] VITALS: BP 126/76
--- NOTE | 2021-02-23 00:47 | NUR ---
PT LYING IN BED SLEEPING WITHOUT DISTRESS, CL IN REACH
[2021-02-23 02:54] LABS: BILIRUBIN NEGATIVE (NEGATIVE); KETONE NEGATIVE (NEGATIVE); NITRITE NEGATIVE (NEGATIVE); UROBILINOGEN NORMAL mg/dL (< 2)
[2021-02-23 04:00] VITALS: BP 114/67
[2021-02-23 06:32] LABS: % SATURATION 31 % (15-55); IRON 80 ug/dl (35-150); TOTAL IRON BIND CAPACITY 254 ug/dl (260-445); UNSAT IRON BIND CAPACITY 174 ug/dl (150-375)
[2021-02-23 06:49] LABS: BASOPHILS 0.2 % (0-2); EOSINOPHILS 0.6 % (0-7); HEMATOCRIT 31.8 % (42.0-54.0); IMMATURE GRANULOCYTES 0.3 % (0-5); LYMPHOCYTE ABS# 2.58 10x3/uL (1.32-3.57); MCH 23.2 pg (26.0-34.0); MCHC 31.4 g/dL (31.0-37.0); MCV 73.8 fL (80.0-100.0); MEAN PLATELET VOLUME 9.8 fL (7.4-10.4); MONOCYTES 11.2 % (2-11); NEUTROPHIL ABS# 6.49 10x3/uL (1.78-5.38); NEUTROPHILS 62.7 % (40-80); PLATELET COUNT 405 10x3/uL (130-400); RBC 4.31 10x6/uL (4.20-6.10); RDW 19.2 % (11.5-14.5); RETIC 1.79 % (0.45-2.28); WBC 10.3 10x3/uL (4.8-10.8)
[2021-02-23 07:00] LABS: ANION GAP 12.1 mmol/L (8-16); CARBON DIOXIDE 33.2 mmol/L (21.0-32.0); CREATININE - SERUM 2.3 mg/dL (0.6-1.3); PHOSPHOROUS 3.1 mg/dL (2.5-4.9); POTASSIUM - SERUM 3.3 mmol/L (3.5-5.1)
--- NOTE | 2021-02-23 07:16 | NUR ---
PT IS RESTING IN BED WITH EYES CLOSED. RESPIRATIONS ARE EVEN AND UNLABORED. FAMILY AT BEDSIDE. PT IS EASILY AROUSED WITH VERBAL STIMULATION AND IS AAO X 4 UPON AROUSAL. PT DENIES PRESENCE OF PAIN AT THIS TIME AND STATES "ITS GETTING BETTER". PT INFORMED OF NEED FOR STOOL SAMPLE AND PT VERBALIZES UNDERSTANDING AND WILL NOTIFY NURSE WHEN SAMPE IS READY FOR COLLECTION. BS HYPOACTIVE X 4/ ABDOMEN IS DISTENDED. PT DENIES TENDERNESS UPON ABDOMINAL PALPATION. PT REPORTS HE IS PASSING GAS WITHOUT PAIN/DIFFICULTY. LLE SORE NOTED AND DRESSING IS CDI. PIV TO LEFT HAND AND IS INFUSING PER ORDER WITHOUT DIFFICULTY/COMPROMISE. INCENTIVE SPIROMETER WITHIN REACH AND ENCOURAGED. BED IS IN THE LOWEST POSITION. CALL LIGHT AND BEDSIDE TABLE ARE WITHIN REACH. SIDE RAILS X 2. PT AND PT FAMILY DENY FURTHER NEEDS AT THIS TIME. WILL CONT TO BIPINIOR.
--- NOTE | 2021-02-23 09:02 | NUR ---
RAUDEL SCAN COMPLETE PER ORDER. BLADDER SCAN SHOWS 235ML. DR ECHAVARRIA ON FLOOR AND NOTIFIED OF BLADDER SCAN RESULTS. VERBAL ORDERS RECD ARE TO DC IV FLUIDS AND RECHECK BLADDER SCAN THROUGHOUT DAY ONCE AT LUNCH TIME AND ONCE WITH DINNER.
[2021-02-23 09:06] VITALS: Ht 180.3 cm; Wt 149.1 kg
[2021-02-23 09:11] VITALS: BP 103/67
[2021-02-23 13:10] VITALS: BP 113/75
[2021-02-23 16:56] VITALS: BP 126/78
[2021-02-23 18:32] LABS: CREATININE - URINE 103.2 mg/dL (30-125); PRO/CRE RATIO URINE 0.6 mg/g; PROTEIN - URINE 61.3 mg/dL (0.0-11.9)
[2021-02-23 21:36] VITALS: BP 118/68
--- NOTE | 2021-02-24 03:46 | NUR ---
I have reviewed this patient and I concur with the Shift Assessment completed by the Licensed Practical Nurse today this shift.
[2021-02-24 04:00] VITALS: BP 117/80
[2021-02-24 06:49] LABS: ANION GAP 9.6 mmol/L (8-16); CALCIUM 9.4 mg/dL (8.5-10.1); CARBON DIOXIDE 33.1 mmol/L (21.0-32.0); CREATININE - SERUM 2.1 mg/dL (0.6-1.3); MAGNESIUM - SERUM 2.3 mg/dL (1.8-2.4); PHOSPHOROUS 2.7 mg/dL (2.5-4.9); POTASSIUM - SERUM 3.7 mmol/L (3.5-5.1)
[2021-02-24 06:56] LABS: BASOPHILS 0.2 % (0-2); HEMOGLOBIN 10.5 g/dL (13.5-17.5); IMMATURE GRANULOCYTES 0.4 % (0-5); LYMPHOCYTE ABS# 2.76 10x3/uL (1.32-3.57); LYMPHOCYTES 29.5 % (15-50); MCH 22.9 pg (26.0-34.0); MCHC 30.9 g/dL (31.0-37.0); MCV 74.1 fL (80.0-100.0); MEAN PLATELET VOLUME 9.9 fL (7.4-10.4); NEUTROPHIL ABS# 5.42 10x3/uL (1.78-5.38); NEUTROPHILS 57.9 % (40-80); PLATELET COUNT 423 10x3/uL (130-400); RBC 4.59 10x6/uL (4.20-6.10); RDW 19.3 % (11.5-14.5); WBC 9.4 10x3/uL (4.8-10.8)
[2021-02-24 08:38] VITALS: BP 126/81
--- NOTE | 2021-02-24 08:50 | NUR ---
PT SITTING UP ON SIDE OF BED EATING BREAKFAST. PT VOICES INA WELL. DENIES CURRENT NAUSEA OR VOMITING. CONTINUES TO VOICE ABDOMINAL TENDERNESS, BUT VOICES PAIN TO BEING BETTER THAN PREVIOUS DAYS. IV TO LEFT WRIST WITH NS @ 50ML/HR INFUSING VIA PUMP. SITE WITHOUT REDNESS OR EDEMA. FAMILY AT BEDSIDE. DENIES FURTHER NEEDS AT THIS TIME. CL WITHIN REACH. ENCOURAGED TO CALL WITH NEEDS. CONTINUE POC
[2021-02-24 12:34] VITALS: BP 111/71
[2021-02-24] MEDS ORDERED: FLORAJEN3 CAPS460 MG PO (14:37)
[2021-02-24] MEDS ORDERED: FLAGYL500 MG PO (14:37)
[2021-02-24] MEDS ORDERED: LEVOFLOXACIN500 MG PO (14:38)
== END 2021-02-24 16:59 | disposition home or self-care (01) ==
LOC: OBSVTIME 16:12 → D.MS 16:12
PROVIDERS: Emergency Medicine; Family Medicine; Internal Medicine Nephrology; ADMIT Family Medicine; ATTEND Family Medicine
DX: K57.92 Diverticulitis of intestine, part unspecified, without perforation or abscess without bleeding (principal); E11.22 Type 2 diabetes mellitus with diabetic chronic kidney disease; N17.9 Acute kidney failure, unspecified; E78.5 Hyperlipidemia, unspecified; I13.0 Hypertensive heart and chronic kidney disease with heart failure and stage 1 through stage 4 chronic kidney disease, or unspecified chronic kidney disease; Z79.4 Long term (current) use of insulin; I25.10 Atherosclerotic heart disease of native coronary artery without angina pectoris; K21.9 Gastro-esophageal reflux disease without esophagitis; N18.30 Chronic kidney disease, stage 3 unspecified; I50.23 Acute on chronic systolic (congestive) heart failure; K75.9 Inflammatory liver disease, unspecified; M51.36 Other intervertebral disc degeneration, lumbar region; F17.203 Nicotine dependence unspecified, with withdrawal; E11.65 Type 2 diabetes mellitus with hyperglycemia; E87.6 Hypokalemia